=== PATIENT | female | born 1990 | race Caucasian/White ===

== ENCOUNTER 2022-02-10 13:52 | Emergency (ER) | payer MEDICAID, SELFPAY ==
[2022-02-10 14:17] VITALS: BP 108/77; PULSE 81; RESP 16; TEMP 36.3; O2SAT 97; BMI 37.8
--- NOTE | 2022-02-10 16:31 | ED_ITS ---
HPI - General Adult General Time Seen by Provider: 16:31 Date Seen: 02/10/22 Chief complaint: Allergic Reaction Stated complaint: Lump On Forehead Time Seen by Provider: 02/10/22 16:30 Source: patient Mode of arrival: ambulatory History of Present Illness HPI narrative: Libertad is a 31 year old female with past medical history of depression and anxiety, chronic lower back pain presents emergency department with an allergic reaction. Patient states she developed a rash on the right side of her face that is increased in size, there has been pain associated with it, it radiates to her right ear, she also has some itchiness of her right eye, no increased tearing, she denies any visual changes, she denies any hearing changes, she denies any facial weakness. She has not had anything like this before. She denies any fevers, chills myalgias arthralgias, no increased stress, pain has been controlled with her chronic pain medication she is on for her back pain. Patient denies any chest pain or shortness of breath, no new lotions or foods. There has not been draining but has increased in redness and size. Patient has a follow-up with her primary care provider this Thursday. Related Data Home Medications Medication Instructions Recorded Confirmed buprenorphine HCl 150 mcg buccal 150 mcg buccal Q12H 02/10/22 02/10/22 film (Belbuca) fluoxetine 40 mg capsule 80 mg PO DAILY 02/10/22 02/10/22 oxycodone 10 mg tablet 10 mg PO Q8H 02/10/22 02/10/22 propranolol 60 mg capsule,24 60 mg PO Q24H 02/10/22 02/10/22 hr,extended release Previous Rx's Medication Instructions Recorded cefuroxime axetil 500 mg tablet 500 mg PO BID 7 days #14 tabs 02/10/22 prednisone 20 mg tablet 40 mg PO DAILY 7 days #14 tabs 02/10/22 valacyclovir 1 gram tablet 1,000 mg PO Q8H 7 days #21 tabs 02/10/22 Allergies Allergy/AdvReac Type Severity Reaction Status Date / Time Estrogens Allergy Mild Verified 02/10/22 14:23 Review of Systems Status of ROS: Reports: 10 or more systems reviewed and unremarkable except as noted in History and below Exam Narrative: Exam Narrative: General: No obvious distress sitting comfortably, nontoxic in appearance HEENT: Tympanic membranes within normal limits bilateral oropharynx is clear and moist, there is no periorbital swelling or redness, extraocular muscles intact Right frontal scalp: There is an area of erythema measuring around 10 cm, very small clear vesicles present, nondraining, tender to palpation. Neck: supple full range of motion. Lungs: Clear to auscultation bilaterally Heart: Normal sinus rhythm S1-S2: Musculoskeletal: Moving upper lower extremities well any difficulty Neuro: Cranial nerves 2-12 grossly intact, symmetrical smile, no facial droop. Const: Vital Signs, click to edit/add: Vital Signs - 24 hr 02/10/22 14:17 Temperature 97.3 F L Pulse Rate [Right Pulse Oximeter] 81 Respiratory Rate 16 Blood Pressure [Ri ght Upper Arm] 108/77 Pulse Oximetry 97 Oxygen Delivery Me thod Room Air Course Course Hospital Course: 5:15 PM: AIDET performed. vitals are stable. Based on history physical exam no imaging or labs to be obtained, at this time I suspect shingles, no ocular involvement, place her on valacyclovir 1000 mg t.i.d. over the next 7 days, she also be placed on prednisone 40 mg during that time, will also cover her for possible underlying bacterial infection, cefuroxime axetil 500 mg b.i.d. over the next 7 days. Written instructions given, reasons to return were given. Patient has followup this Thursday with primary care provider. Vital Signs Vital signs: Initial Vital Signs Temperature 97.3 F L 02/10/22 14:17 Temperature Source Temporal Artery Scan 02/10/22 14:17 Pulse Rate 81 02/10/22 14:17 Pulse Rhythm 02/10/22 14:17 Respiratory Rate 16 02/10/22 14:17 Blood Pressure 108/77 02/10/22 14:17 Blood Pressure Mean 87 02/10/22 14:17 Blood Pressure Position Sitting 02/10/22 14:17 Pulse Oximetry 97 02/10/22 14:17 Oxygen Delivery Method 02/10/22 14:17 Vital Signs Temperature 97.3 F L 02/10/22 14:17 Pulse Rate 81 02/10/22 14:17 Respiratory Rate 16 02/10/22 14:17 Blood Pressure 108/77 02/10/22 14:17 Pulse Oximetry 97 02/10/22 14:17 Oxygen Delivery Method 02/10/22 14:17 Temperature 97.3 F L 02/10/22 14:17 Pulse Rate 81 02/10/22 14:17 Respiratory Rate 16 02/10/22 14:17 Blood Pressure 108/77 02/10/22 14:17 Pulse Oximetry 97 02/10/22 14:17 Oxygen Delivery Method 02/10/22 14:17 Discharge Plan Discharge Clinical Impression: Facial rash Patient Disposition: Home, Self-Care Condition: Improved Instructions: Acute Rash (ED) Additional Instructions: Valacyclovir 1000 mg three times daily for 7 days. To also continue with Cefuroxime axetil, 500 mg twice daily for 7 days. Prednisone 40 mg once daily over the next 7 days. Follow up as scheduled with primary care provider this Thursday. Return if worsening symptoms. Prescriptions: New valacyclovir 1 gram tablet 1,000 mg PO Q8H 7 Days Qty: 21 2RF cefuroxime axetil 500 mg tablet 500 mg PO BID 7 Days Qty: 14 0RF prednisone 20 mg tablet 40 mg PO DAILY 7 Days Qty: 14 0RF No Action oxycodone 10 mg tablet 10 mg PO Q8H Label Comments: TAKE ONE TABLET BY MOUTH EVERY SIX TO EIGHT HOURS NEEDED FOR CHRONIC PAIN. MAX OF 3 TABLETS DAILY. buprenorphine HCl [Belbuca] 150 mcg film 150 mcg buccal Q12H fluoxetine 40 mg capsule 80 mg PO DAILY Label Comments: Take 2 Capsules (80 mg) by mouth every morning. propranolol 60 mg capsule,extended release 24 hr 60 mg PO Q24H Label Comments: Take 1 Capsule (60 mg) by mouth once daily. Stand Alone Forms: [facility] Info Instructions
== END 2022-02-10 17:28 | disposition home or self-care (01) ==
LOC: ED 17:26
PROVIDERS: Emergency Provider Student in an Organized Health Care Education/Training Program; PCP Physician Assistant
DX: R21 Rash and other nonspecific skin eruption (principal)
CPT/HCPCS: 99283

== ENCOUNTER 2022-02-12 11:52 | Emergency (ER) | payer MEDICAID, SELFPAY ==
[2022-02-12 11:57] VITALS: BP 134/86; PULSE 88; RESP 18; TEMP 36.3; O2SAT 99; BMI 37.8
--- NOTE | 2022-02-12 12:05 | ED.GENADULT ---
HPI - General Adult General Time Seen by Provider: 12:05 Date Seen: 02/12/22 Chief complaint: Skin/Abscess/Foreign Body Stated complaint: Lump on forehead, swelling under eyes Time Seen by Provider: 02/12/22 11:55 Source: patient Mode of arrival: ambulatory Limitations: no limitations History of Present Illness HPI narrative: Patient is a 31-year-old female was seen a few da ago in the ER and started on valacyclovir, prednisone, antibiotic for a facial rash on her forehead. She has noticed a little bit of swelling under the eyes as well but it has affected her eyes. It was a concern that if she had shingles could get in her eyes and she should return she does not notice any problem with her eyes currently and she feels that the rash area which is about quarter size on her right forehead is healing. Related Data Home Medications Medication Instructions Recorded Confirmed buprenorphine HCl 150 mcg buccal 150 mcg buccal Q12H 02/10/22 02/10/22 film (Belbuca) fluoxetine 40 mg capsule 80 mg PO DAILY 02/10/22 02/10/22 oxycodone 10 mg tablet 10 mg PO Q8H 02/10/22 02/10/22 propranolol 60 mg capsule,24 60 mg PO Q24H 02/10/22 02/10/22 hr,extended release Previous Rx's Medication Instructions Recorded cefuroxime axetil 500 mg tablet 500 mg PO BID 7 days #14 tabs 02/10/22 prednisone 20 mg tablet 40 mg PO DAILY 7 days #14 tabs 02/10/22 valacyclovir 1 gram tablet 1,000 mg PO Q8H 7 days #21 tabs 02/10/22 Allergies Allergy/AdvReac Type Severity Reaction Status Date / Time Estrogens Allergy Mild Verified 02/10/22 14:23 Review of Systems Narrative: Negative for fevers, eye pain, vision problems, facial changes other than above PFSH PFSH Social History Smoking Status: Unknown if ever smoked Exam Narrative: Exam Narrative: Objective: Vital signs unremarkable, patient is in no apparent distress HEENT shows a quarter-sized healing cellulitic area with a little bit of blistering in the middle which could certainly be shingles as well. She is on valacyclovir No eye involvement Some subjective swelling under the eyes in the lower eyelids bilaterally per the patient, I do not appreciate any significant swelling Const: Vital Signs, click to edit/add: Vital Signs - 24 hr 02/12/22 11:57 Temperature 97.3 F L Pulse Rate [Right Pulse Oximeter] 88 Respiratory Rate 18 Blood Pressure [Ri ght Upper Arm] 134/86 Pulse Oximetry 99 Oxygen Delivery Me thod Room Air Course Vital Signs Vital signs: Initial Vital Signs Temperature 97.3 F L 02/12/22 11:57 Temperature Source Temporal Artery Scan 02/12/22 11:57 Pulse Rate 88 02/12/22 11:57 Respiratory Rate 18 02/12/22 11:57 Blood Pressure 134/86 02/12/22 11:57 Blood Pressure Mean 102 02/12/22 11:57 Blood Pressure Position Sitting 02/12/22 11:57 Pulse Oximetry 99 02/12/22 11:57 Oxygen Delivery Method 02/12/22 11:57 Vital Signs Temperature 97.3 F L 02/12/22 11:57 Pulse Rate 88 02/12/22 11:57 Respiratory Rate 18 02/12/22 11:57 Blood Pressure 134/86 02/12/22 11:57 Pulse Oximetry 99 02/12/22 11:57 Oxygen Delivery Method 02/12/22 11:57 Temperature 97.3 F L 02/12/22 11:57 Pulse Rate 88 02/12/22 11:57 Respiratory Rate 18 02/12/22 11:57 Blood Pressure 134/86 02/12/22 11:57 Pulse Oximetry 99 02/12/22 11:57 Oxygen Delivery Method 02/12/22 11:57 Medical Decision Making MDM Narrative Medical decision making narrative: I think the patient is healing her forehead cellulitis, she could also have a early course of shingles that was appropriately treated with valacyclovir prednisone and antibiotic. She seems to be getting better I would recommend warm compresses or hot water shower couple times a day continue and finish her medication, follow up with primary care doctor next 3-5 days if not better, can return to the ED sooner problems or concerns Discharge Plan Discharge Clinical Impression: Facial rash Patient Disposition: Home, Self-Care Condition: Stable Additional Instructions: Continue and finish the medications prescribed at her last visit, would recommend warm compresses or standing in the shower to put heat on that area of her forehead. It does appear that area is healing Activity Level: No Restrictions Discharge Diet: Regular Prescriptions: No Action oxycodone 10 mg tablet 10 mg PO Q8H Label Comments: TAKE ONE TABLET BY MOUTH EVERY SIX TO EIGHT HOURS NEEDED FOR CHRONIC PAIN. MAX OF 3 TABLETS DAILY. buprenorphine HCl [Belbuca] 150 mcg film 150 mcg buccal Q12H fluoxetine 40 mg capsule 80 mg PO DAILY Label Comments: Take 2 Capsules (80 mg) by mouth every morning. propranolol 60 mg capsule,extended release 24 hr 60 mg PO Q24H Label Comments: Take 1 Capsule (60 mg) by mouth once daily. valacyclovir 1 gram tablet 1,000 mg PO Q8H 7 Days Qty: 21 2RF cefuroxime axetil 500 mg tablet 500 mg PO BID 7 Days Qty: 14 0RF prednisone 20 mg tablet 40 mg PO DAILY 7 Days Qty: 14 0RF Follow Up/Referrals: Eve King PA [Primary Care Provider] - Stand Alone Forms: [facility] Info Instructions
== END 2022-02-12 12:23 | disposition home or self-care (01) ==
PROVIDERS: Emergency Provider Family Medicine; PCP Physician Assistant
DX: R21 Rash and other nonspecific skin eruption (principal)
CPT/HCPCS: 99282; 99283

== ENCOUNTER 2022-06-17 16:21 | Emergency (ER) | payer MEDICAID, SELFPAY ==
[2022-06-17] VITALS (21 sets, daily range): BP systolic 104–157; BP diastolic 56–113; PULSE 68–93; TEMP 37.1–37.4; O2SAT 96–100; BMI 37.8
[2022-06-17 16:47] LABS: Appearance Urine Slightly Cloudy (Clear); Bilirubin Urine Negative (Negative); Blood Urine Negative (Negative); Color Urine Yellow (Yellow); Glucose Urine Negative (Negative); Ketones Urine Negative (Negative); Leukocyte Esterase Urine Negative (Negative); Nitrite Urine Negative (Negative); Protein Urine Negative (Negative); Specific Gravity Urine 1.015 (1.000-1.030); Urobilinogen Urine 0.2 (0.2-1.0); pH Urine 5.5 (5.0-8.5)
[2022-06-17 17:13] LABS: RBC Urine 0-2 (0-2); Squamous Epithelial Cell Urine Few (None-Few); WBC Urine 0-2 (0-5)
[2022-06-17 17:41] LABS: HCG Qualitative* Negative (Negative)
--- NOTE | 2022-06-17 17:57 | CRLHL7_ITS ---
For Patients: As a result of the Century Cures Act, medical imaging exams and procedure reports are released immediately into your electronic medical record. You may view this report before your referring provider. If you have questions, please contact your health care provider. INDICATION: Pelvic pain TECHNIQUE: Ultrasound pelvis transvaginal for better assessment or to better visualize the endometrium. Real-time sonographic images with spectral and color Doppler imaging of the ovaries were obtained. COMPARISON: None FINDINGS: Uterus: 8.2 x 4.1 x 4.6 cm. Normal echotexture of the myometrium. No masses. Endometrium: Transvaginal imaging was performed to better evaluate the endometrium. Endometrial thickness measures 9 mm. No sign of endometrial mass or fluid. Right ovary measures 2.8 x 2.1 x 1.9 centimeters with normal blood flow. Left ovary not seen with shadowing bowel gas in the left adnexa. Cul-de-sac: No significant free fluid. IMPRESSION: 1. Unremarkable sonographic appearance of the uterus and right ovary. 2. Left ovary not seen secondary to overlying bowel gas. No gross left adnexal mass seen. Dictated by Justino Martin MD @ 06/17/2022 7:32:54 PM (Electronically Signed)
[2022-06-17] MEDS: 0.9 % SODIUM CHLORIDE 1000 ml 1,000 ML IV (18:07)
[2022-06-17 18:08] LABS: Basophils Absolute Auto 0.03 K/uL (0.00-0.30); Basophils Percent Auto 0.5 % (0.0-3.0); Eosinophils Absolute Auto 0.09 K/uL (0.00-0.50); Eosinophils Percent Auto 1.4 % (0.0-7.0); Hematocrit 40.4 % (33.0-51.0); Hemoglobin* 13.6 gm/dL (12.0-16.0); Lymphocytes Percent Auto 50.5 % (20-44); Mean Corpuscular HGB Conc 34 gm/dL (32-36); Mean Corpuscular Hemoglobin 29 pg (26-34); Mean Corpuscular Volume 86 fL (80-100); Monocytes Percent Auto 8.2 % (0.0-11.0); Neutrophils Percent Auto 39.4 % (42.0-72.0); Platelet Count* 305 K/uL (140-440); RDW Coefficient of Variation % 11.9 % (11.5-15.5); Red Blood Count 4.69 m/uL (4.00-5.20); White Blood Count* 6.36 K/uL (4.50-11.00)
[2022-06-17] MEDS: KETOROLAC 30 MG/ML inj IVP (18:08)
[2022-06-17 18:10] LABS: Slide Review Reflex No
--- NOTE | 2022-06-17 18:34 | ED.GENADULT ---
HPI - General Adult General Chief complaint: Urogenital Problems, Female Stated complaint: Lower Abdominal Pain Time Seen by Provider: 06/17/22 16:41 History of Present Illness HPI narrative: 31-year-old young woman presenting to the emergency department with complaint of sharp pelvic area pain. Feels like it goes up and down her abdomen toward her urethra. Symptoms began maybe little gradually not suddenly, about 3 days ago. She has noticed any hematuria. Does have a history of nephrolithiasis apparently. Does have a history of ovarian cysts as well. She does have Nexplanon in place placed for contraception. Has had no fever. Again not exactly dysuria but describes a sharp pain sometimes when she urinates. Feels like she is not emptying completely. Does have a history of chronic back pain typically treated with oxycodone t.i.d. as well as buprenorphine. She has been without her oxycodone for the last week needing to get back to the pain clinic for this. She does not feel that she is constipated having had daily bowel movements over the last week. Is not nauseated. Is in a monogamous relationship of about 10 years. Has little concern of potential STI. No unusual vaginal discharge is described. Related Data Home Medications Medication Instructions Recorded Confirmed buprenorphine HCl 150 mcg buccal 150 mcg buccal Q12H 02/10/22 02/10/22 film (Belbuca) fluoxetine 40 mg capsule 80 mg PO DAILY 02/10/22 02/10/22 oxycodone 10 mg tablet 10 mg PO Q8H 02/10/22 02/10/22 propranolol 60 mg capsule,24 60 mg PO Q24H 02/10/22 02/10/22 hr,extended release Previous Rx's Medication Instructions Recorded cefuroxime axetil 500 mg tablet 500 mg PO BID 7 days #14 tabs 02/10/22 prednisone 20 mg tablet 40 mg PO DAILY 7 days #14 tabs 02/10/22 valacyclovir 1 gram tablet 1,000 mg PO Q8H 7 days #21 tabs 02/10/22 Allergies Allergy/AdvReac Type Severity Reaction Status Date / Time Estrogens Allergy Mild Verified 02/10/22 14:23 Review of Systems Status of ROS: Reports: 10 or more systems reviewed and unremarkable except as noted in History and below PFSH PFS Medical History Anxiety Chronic back pain Depression Kidney stone Surgical History History of delivery History of cholecystectomy Social History Smoking Status: Never smoker How often do you have a drink containing alcohol: monthly or less AUDIT-C Alcohol total score: 1 Non-prescribed substance use: denies use Exam Narrative: Exam Narrative: Pleasant. NAD but appears uncomfortable. Seated upright with her and pressed into her pelvis more so in the right I would say. Breathing easily. Carefully casually groomed. Has hair dyed teal. Skin is warm and dry without evidence of rash. Extremities are well perfused without edema. Lungs are clear. Heart appears to be in a regular rate and rhythm. Abdomen with normoactive bowel sounds is soft overweight. She is mildly tender in the right lower quadrant/adnexal area and a little less so in the left. No masses are appreciated. Little tender in the suprapubic area centrally as well. Tender to percussion in the right flank. Const: Vital Signs, click to edit/add: Vital Signs - 24 hr 06/17/22 16:28 06/17/22 17:30 06/17/22 17:57 Temperature 99.4 F 98.7 F Pulse Rate Pulse Rate [Right Pulse Oximeter] 93 89 Blood Pressure Blood Pressure [Ri ght Upper Arm] 157/113 H 126/82 Pulse Oximetry 98 97 97 Oxygen Delivery Me thod Room Air Room Air 06/17/22 18:05 06/17/22 18:06 06/17/22 18:07 Temperature Pulse Rate 82 74 79 Pulse Rate [Right Pulse Oximeter] Blood Pressure 119/74 Blood Pressure [Ri ght Upper Arm] Pulse Oximetry 97 97 97 Oxygen Delivery Me thod 06/17/22 18:38 06/17/22 18:39 06/17/22 19:00 Temperature Pulse Rate 75 80 86 Pulse Rate [Right Pulse Oximeter] Blood Pressure 108/67 Blood Pressure [Ri ght Upper Arm] Pulse Oximetry 97 96 97 Oxygen Delivery Me thod 06/17/22 19:02 06/17/22 19:03 06/17/22 19:30 Temperature Pulse Rate 84 85 87 Pulse Rate [Right Pulse Oximeter] Blood Pressure 126/78 Blood Pressure [Ri ght Upper Arm] Pulse Oximetry 99 98 99 Oxygen Delivery Me thod 06/17/22 19:32 06/17/22 20:00 06/17/22 20:02 Temperature Pulse Rate 89 78 76 Pulse Rate [Right Pulse Oximeter] Blood Pressure 123/84 110/67 Blood Pressure [Ri ght Upper Arm] Pulse Oximetry 100 98 98 Oxygen Delivery Me thod 06/17/22 20:03 06/17/22 20:30 06/17/22 20:32 Temperature Pulse Rate 86 74 69 Pulse Rate [Right Pulse Oximeter] Blood Pressure 104/56 L Blood Pressure [Ri ght Upper Arm] Pulse Oximetry 98 97 97 Oxygen Delivery Me thod 06/17/22 21:00 06/17/22 21:02 06/17/22 21:03 Temperature Pulse Rate 73 71 68 Pulse Rate [Right Pulse Oximeter] Blood Pressure 104/59 L Blood Pressure [Ri ght Upper Arm] Pulse Oximetry 98 97 97 Oxygen Delivery Me thod Documenting provider has reviewed patient's vital signs: yes Course Vital Signs Vital signs: Initial Vital Signs Temperature 99.4 F 06/17/22 16:28 Temperature Source Temporal Artery Scan 06/17/22 16:28 Pulse Rate 93 06/17/22 16:28 Blood Pressure 157/113 H 06/17/22 16:28 Blood Pressure Mean 127 06/17/22 16:28 Blood Pressure Position Sitting 06/17/22 16:28 Pulse Oximetry 98 06/17/22 16:28 Oxygen Delivery Method 06/17/22 16:28 Vital Signs Temperature 99.4 F 06/17/22 16:28 Pulse Rate 93 06/17/22 16:28 Blood Pressure 157/113 H 06/17/22 16:28 Pulse Oximetry 98 06/17/22 16:28 Oxygen Delivery Method 06/17/22 16:28 Temperature 98.7 F 06/17/22 17:30 Pulse Rate 68 06/17/22 21:03 Blood Pressure 104/59 L 06/17/22 21:02 Pulse Oximetry 97 06/17/22 21:03 Oxygen Delivery Method 06/17/22 17:30 Medical Decision Making MDM Narrative Medical decision making narrative: Urinalysis was available as WNL prior to entering the room for discussion. Proceeded then with bladder scan which resulted at about 8 mL. IV was placed given L normal saline and ketorolac. Proceeded then with labs and pelvic ultrasound. Has spoken already with medical transcriber who noted that the left ovary was not visualized due to significant gas. Generally difficult imaging across the pelvis due to stool and gas. Pain seemed to be associated with this as opposed to truly adnexal. Labs are unremarkable, at least not overtly suggesting infectious or major inflammatory process. Returning from ultrasound has had more pain in request some pain medication of possible. I go to talk with her about this. Ordered for Dilaudid and hyoscyamine. This does improve her discomfort a good deal. We also do an abdominal x-ray as I think CT imaging is probably low yield in this circumstance. In spite of reporting regular bowel movements a do have some concerns about potential constipation. Abdominal x-ray by my read does show a good deal of well-formed stool stool in the in the colon/pelvis. She would prefer to address this matter at home. Discomfort is manageable. Does have senna available at home Lab Data Lab results reviewed: Yes I reviewed the patient's lab results Labs: Lab Results 06/17/22 06/17/22 06/17/22 Range/Units 16:41 17:30 18:00 WBC 6.36 (4.50-11.00) K/uL RBC 4.69 (4.00-5.20) m/uL Hgb 13.6 (12.0-16.0) gm/dL Hct 40.4 (33.0-51.0) % MCV 86 (80-100) fL MCH 29 (26-34) pg MCHC 34 (32-36) gm/dL RDW Coeff of Stefan 11.9 (11.5-15.5) % Plt Count 305 (140-440) K/uL Neut % (Auto) 39.4 L (42.0-72.0) % Lymph % (Auto) 50.5 H (20-44) % [place] % (Auto) 8.2 (0.0-11.0) % Eos % (Auto) 1.4 (0.0-7.0) % Baso % (Auto) 0.5 (0.0-3.0) % Neut # (Auto) 2.50 (1.7-7.0) K/uL Lymph # (Auto) 3.20 H (0.90-2.90) K/uL [place] # (Auto) 0.50 (0.00-0.90) K/UL Eos # (Auto) 0.09 (0.00-0.50) K/uL Baso # (Auto) 0.03 (0.00-0.30) K/uL Sodium (135-149) mmol/L Potassium (3.6-5.1) mmol/L Chloride (96-114) mmol/L Carbon Dioxide (20-32) mmol/L BUN (5-24) mg/dL Creatinine (0.5-1.5) mg/dL Estimated Creat Clear Estimated GFR ml/min Glucose (60-115) mg/dL Calcium (8.4-10.6) mg/dL Total Bilirubin (0.1-1.5) mg/dL Direct Bilirubin (0.0-0.5) mg/dL AST (12-35) U/L ALT (4-35) U/L Alkaline Phosphatase (40-150) U/L C-Reactive Protein (0.5-1.0) mg/dL Total Protein (6.0-8.3) g/dL Albumin (3.3-5.0) g/dL HCG, Qual Negative (Negative) Urine Color Yellow (Yellow) Urine Appearance Slightly Cloudy A (Clear) Urine pH 5.5 (5.0-8.5) Ur Specific [place] 1.015 (1.000-1.030) Urine Protein Negative (Negative) Urine Glucose (UA) Negative (Negative) Urine Ketones Negative (Negative) Urine Blood Negative (Negative) Urine Nitrite Negative (Negative) Urine Bilirubin Negative (Negative) Urine Urobilinogen 0.2 (0.2-1.0) Ur Leukocyte Esterase Negative (Negative) Urine RBC 0-2 (0-2) Urine WBC 0-2 (0-5) Ur Squamous Epith Cells Few (None-Few) Urine Bacteria None (None) Urine HCG, Qual Cancelled 06/17/22 Range/Units 18:00 WBC (4.50-11.00) K/uL RBC (4.00-5.20) m/uL Hgb (12.0-16.0) gm/dL Hct (33.0-51.0) % MCV (80-100) fL MCH (26-34) pg MCHC (32-36) gm/dL RDW Coeff of Stefan (11.5-15.5) % Plt Count (140-440) K/uL Neut % (Auto) (42.0-72.0) % Lymph % (Auto) (20-44) % [place] % (Auto) (0.0-11.0) % Eos % (Auto) (0.0-7.0) % Baso % (Auto) (0.0-3.0) % Neut # (Auto) (1.7-7.0) K/uL Lymph # (Auto) (0.90-2.90) K/uL [place] # (Auto) (0.00-0.90) K/UL Eos # (Auto) (0.00-0.50) K/uL Baso # (Auto) (0.00-0.30) K/uL Sodium 137 (135-149) mmol/L Potassium 4.0 (3.6-5.1) mmol/L Chloride 106 (96-114) mmol/L Carbon Dioxide 23 (20-32) mmol/L BUN 12 (5-24) mg/dL Creatinine 0.7 (0.5-1.5) mg/dL Estimated Creat Clear 89.48 Estimated GFR 120 ml/min Glucose 83 (60-115) mg/dL Calcium 8.8 (8.4-10.6) mg/dL Total Bilirubin 0.5 (0.1-1.5) mg/dL Direct Bilirubin 0.0 (0.0-0.5) mg/dL AST 27 (12-35) U/L ALT 22 (4-35) U/L Alkaline Phosphatase 74 (40-150) U/L C-Reactive Protein < 0.5 L (0.5-1.0) mg/dL Total Protein 7.3 (6.0-8.3) g/dL Albumin 4.3 (3.3-5.0) g/dL HCG, Qual (Negative) Urine Color (Yellow) Urine Appearance (Clear) Urine pH (5.0-8.5) Ur Specific [place] (1.000-1.030) Urine Protein (Negative) Urine Glucose (UA) (Negative) Urine Ketones (Negative) Urine Blood (Negative) Urine Nitrite (Negative) Urine Bilirubin (Negative) Urine Urobilinogen (0.2-1.0) Ur Leukocyte Esterase (Negative) Urine RBC (0-2) Urine WBC (0-5) Ur Squamous Epith Cells (None-Few) Urine Bacteria (None) Urine HCG, Qual Discharge Plan Discharge Clinical Impression: Abdominal pain, Constipation Patient Disposition: Home w/ Parent or Adult Condition: Improved Additional Instructions: Yes. Especially since you take opiates it would probably be a good idea to take senna for now twice a day to stimulate your gut. Probably need to increase your free water intake. Most of us should be drinking 2-3 L of water daily. Increasing fiber in your diet is almost always a good thing. MiraLax equivalent does a similar thing to fiber by drawing water into your gut. I would consider taking 2-3 doses of that by noon over this next week and then adjusting to stool consistency. Especially if you are experiencing hard stool, place an enema and repeat in an hour if no significant result. If Mag citrate is available, I would also drink a bottle of that and repeat it the next day if you have not had a good result. This can be particularly effective with bowel cleanout. Otherwise return for marked increase in persistent pain, especially associated repeated vomiting, associated fever. Prescriptions: No Action oxycodone 10 mg tablet 10 mg PO Q8H Label Comments: TAKE ONE TABLET BY MOUTH EVERY SIX TO EIGHT HOURS NEEDED FOR CHRONIC PAIN. MAX OF 3 TABLETS DAILY. buprenorphine HCl [Belbuca] 150 mcg film 150 mcg buccal Q12H fluoxetine 40 mg capsule 80 mg PO DAILY Label Comments: Take 2 Capsules (80 mg) by mouth every morning. propranolol 60 mg capsule,extended release 24 hr 60 mg PO Q24H Label Comments: Take 1 Capsule (60 mg) by mouth once daily. valacyclovir 1 gram tablet 1,000 mg PO Q8H 7 Days Qty: 21 2RF cefuroxime axetil 500 mg tablet 500 mg PO BID 7 Days Qty: 14 0RF prednisone 20 mg tablet 40 mg PO DAILY 7 Days Qty: 14 0RF Follow Up/Referrals: Eve King PA [Primary Care Provider] - Stand Alone Forms: [facility] Info Instructions
[2022-06-17 18:50] LABS: Sodium* 137 mmol/L (135-149)
[2022-06-17 18:51] LABS: Blood Urea Nitrogen* 12 mg/dL (5-24); Calcium* 8.8 mg/dL (8.4-10.6); Carbon Dioxide* 23 mmol/L (20-32); Chloride* 106 mmol/L (96-114); Creatinine* 0.7 mg/dL (0.5-1.5); Est. Creatinine Clearance* 89.48; Estimated Glomerular Filt Rate 120 ml/min
[2022-06-17 18:52] LABS: Alanine Aminotransferase* 22 U/L (4-35); Albumin* 4.3 g/dL (3.3-5.0); Alkaline Phosphatase* 74 U/L (40-150); Aspartate Amino Transferase* 27 U/L (12-35); Bilirubin Total* 0.5 mg/dL (0.1-1.5); C Reactive Protein* < 0.5 mg/dL (0.5-1.0); Glucose* 83 mg/dL (60-115); Total Protein* 7.3 g/dL (6.0-8.3)
--- NOTE | 2022-06-17 19:37 | CRLHL7_ITS ---
For Patients: As a result of the Century Cures Act, medical imaging exams and procedure reports are released immediately into your electronic medical record. You may view this report before your referring provider. If you have questions, please contact your health care provider. Indication: Lower abdominal pain Technique: Abdomen 1 view, 2 films Comparison: None Findings/Impression: No dilated loops of large or small intestine. Moderate to large amount of stool within the colon. Right upper quadrant surgical clips. Dictated by Justino Martin MD @ 06/17/2022 8:49:29 PM (Electronically Signed)
[2022-06-17] MEDS: HYOSCYAMINE SULFATE 0.125 MG TAB 0.25 MG SUBLINGUAL (20:03)
[2022-06-17] MEDS: HYDROmorphone 0.5 mg/0.5 ml inj IVP (20:15)
--- NOTE | 2022-06-17 20:15 | ED.NURSE ---
Discussed with pt that she would need someone to give her a ride home prior to giving pt IV Dilaudid. Pt agreeable to this, stated she has someone that would pick her up to give her a ride home when she is discharged.
== END 2022-06-17 21:31 | disposition home or self-care (01) ==
PROVIDERS: Emergency Provider Family Medicine; PCP Physician Assistant
DX: R10.9 Unspecified abdominal pain (principal); K59.00 Constipation, unspecified
CPT/HCPCS: 36415; 74018; 76830; 80048; 80076; 81001; 81025; 84703; 85025; 86140; 94761; 96374; 96375; 99284; 99285; A9270; J1170; J1885; J7030

== ENCOUNTER 2022-06-23 23:12 | Emergency (ER) | payer MEDICAID, SELFPAY ==
[2022-06-23 23:25] VITALS: O2SAT 99
[2022-06-23 23:27] VITALS: BP 125/82; PULSE 92; RESP 18; O2SAT 99
[2022-06-23 23:44] VITALS: BP 165/78; PULSE 89; RESP 18; TEMP 36.8; O2SAT 99; BMI 35.4
--- NOTE | 2022-06-24 00:13 | CRLHL7_ITS ---
For Patients: As a result of the Century Cures Act, medical imaging exams and procedure reports are released immediately into your electronic medical record. You may view this report before your referring provider. If you have questions, please contact your health care provider. INDICATION: Abdominal pain. COMPARISON: CT of the abdomen and pelvis without contrast from 05/10/2021. TECHNIQUE: CT examination of the abdomen and pelvis was performed with the uneventful intravenous administration of 100 cc of Isovue 370 while 3 mm thick axial sections were obtained from the lung bases through the pubic symphysis. Oral contrast was not administered. Please note that all CT scans at this facility use dose modulation, iterative reconstruction, and/or weight-based dosing when appropriate to reduce radiation dose to as low as reasonably achievable. FINDINGS: In the abdomen, the liver, spleen, pancreas, and adrenals are normal in appearance. There is no change in minimal nonobstructive left nephrolithiasis with a 1 millimeter calculus located in the lower interpolar region. The previously seen minimal nonobstructive right nephrolithiasis is no longer evident, with the previously seen calculus in the lower pole of the right kidney in no longer identifiable. New there is no sign of hydronephrosis or hydroureter. Clips are again seen in the gall bladder fossa from cholecystectomy. There is no sign of biliary ductal dilatation. The abdominal aorta is normal in caliber with no sign of dilatation. There is no sign of retroperitoneal mass or adenopathy. The stomach, loops of small bowel, and colon in the abdomen are normal in appearance. In the pelvis, the appendix is normal in appearance with no sign of inflammatory process. The loops of small bowel, colon, and rectum in the pelvis are normal in appearance. The uterus and adnexal regions are normal in appearance. The urinary bladder is normal in appearance. The previously seen tiny calculus in the right posterior paramedian bladder is no longer present. There is no sign of pelvic or inguinal mass or adenopathy. There is no sign of free air or free fluid in the abdomen or pelvis. The lung bases are clear. The osseous structures are normal in appearance for the patient`s age. IMPRESSION: Nothing seen to correlate with the history of abdominal pain. No sign of bowel dilatation or any inflammatory process involving the bowel. CT of the abdomen shows stable minimal left nephrolithiasis. The previously seen minimal right nephrolithiasis is no longer present. Again seen are changes of cholecystectomy with no sign of biliary ductal dilatation CT of the pelvis shows passage of the previously seen tiny bladder calculus. Please note that all CT scans at this facility use dose modulation, iterative reconstruction, and/or weight-based dosing when appropriate to reduce radiation dose to as low as reasonably achievable. Dictated by Bean Pruett MD @ 06/24/2022 1:51:36 AM (Electronically Signed)
[2022-06-24 00:30] VITALS: TEMP 36.8
[2022-06-24] MEDS: 0.9 % SODIUM CHLORIDE 1000 ml 1,000 ML IV (00:30)
[2022-06-24] MEDS: KETOROLAC 30 MG/ML inj IVP (00:30)
[2022-06-24] MEDS: MORPHINE 4 MG/ML INJ IVP (00:32)
[2022-06-24 00:39] VITALS: BP 111/66; PULSE 77; RESP 18; O2SAT 98
[2022-06-24 00:46] LABS: Chloride* 107 mmol/L (96-114); Sodium* 138 mmol/L (135-149)
[2022-06-24 00:49] LABS: Creatinine* 0.8 mg/dL (0.5-1.5); Est. Creatinine Clearance* 85.83; Estimated Glomerular Filt Rate 102 ml/min
[2022-06-24 00:50] LABS: Blood Urea Nitrogen* 13 mg/dL (5-24); Calcium* 9.1 mg/dL (8.4-10.6); Carbon Dioxide* 25 mmol/L (20-32); Glucose* 83 mg/dL (60-115)
[2022-06-24 01:02] VITALS: BP 105/63; PULSE 81; RESP 18; O2SAT 98
[2022-06-24 01:02] LABS: C Reactive Protein* < 0.5 mg/dL (0.5-1.0)
[2022-06-24 01:03] LABS: Basophils Absolute Auto 0.04 K/uL (0.00-0.30); Basophils Percent Auto 0.5 % (0.0-3.0); Eosinophils Absolute Auto 0.15 K/uL (0.00-0.50); Eosinophils Percent Auto 1.9 % (0.0-7.0); Hematocrit 38.1 % (33.0-51.0); Hemoglobin* 12.8 gm/dL (12.0-16.0); Immature Granulocytes Abs Auto 0.01 K/uL (0.00-0.30); Immature Granulocytes Pct Auto 0.1 %; Lymphocytes Percent Auto 51.9 % (20-44); Mean Corpuscular HGB Conc 34 gm/dL (32-36); Mean Corpuscular Hemoglobin 29 pg (26-34); Mean Corpuscular Volume 86 fL (80-100); Monocytes Percent Auto 6.5 % (0.0-11.0); Neutrophils Percent Auto 39.1 % (42.0-72.0); Platelet Count* 334 K/uL (140-440); Red Blood Count 4.41 m/uL (4.00-5.20)
[2022-06-24 01:11] LABS: Slide Review Reflex No
[2022-06-24 01:11] LABS: Appearance Urine Clear (Clear); Bilirubin Urine Negative (Negative); Blood Urine 1+ (Negative); Color Urine Yellow (Yellow); Glucose Urine Negative (Negative); HCG Qualitative* Negative (Negative); Ketones Urine Negative (Negative); Leukocyte Esterase Urine Negative (Negative); Nitrite Urine Negative (Negative); Protein Urine Negative (Negative); Urobilinogen Urine 0.2 (0.2-1.0)
[2022-06-24 02:02] VITALS: BP 103/67; PULSE 75; RESP 18; O2SAT 98
[2022-06-24 02:56] LABS: Squamous Epithelial Cell Urine Few (None-Few); WBC Urine 0-2 (0-5)
[2022-06-24 02:57] LABS: Mucus Urine Few
[2022-06-24 03:15] VITALS: BP 165/78; PULSE 89; RESP 18; TEMP 36.8
--- NOTE | 2022-06-24 09:54 | ED_ITS ---
HPI - Abdominal Pain General Chief Complaint: Abdominal Pain Stated Complaint: abdominal pain Time Seen by Provider: 06/23/22 23:26 History of Present Illness HPI narrative: 31-year-old young woman presenting to the emergency department with her mother with complaint of sharp pain in the left lower abdomen holding her left pelvic/adnexal area. She feels like it is radiating into her cervix at this point. Both she and her mother absolutely deny possibility of STI and no unusual vaginal discharge is noted. When seen by myself with similar complaint though more so on the right side, last week diagnosed with constipation related pain. She initiated senna as she had that around and subsequently has been having diarrheal bowel movements. Has not had a bowel movement in the last day though. Has not had any fever. Imaging last week included ultrasound and x- ray. Ultrasound visualization of the left ovary was complicated as obscured by bowel/gas. Does have an underlying history of chronic back pain treated with buprenorphine and oxycodone. Had been out of her oxycodone at last visit and has since restarted. Does also have a history of nephrolithiasis and ovarian cysts. Related Data Home Medications Medication Instructions Recorded Confirmed buprenorphine HCl 150 mcg buccal 150 mcg buccal Q12H 02/10/22 02/10/22 film (Belbuca) fluoxetine 40 mg capsule 80 mg PO DAILY 02/10/22 02/10/22 oxycodone 10 mg tablet 10 mg PO Q8H 02/10/22 02/10/22 propranolol 60 mg capsule,24 60 mg PO Q24H 02/10/22 02/10/22 hr,extended release Previous Rx's Medication Instructions Recorded cefuroxime axetil 500 mg tablet 500 mg PO BID 7 days #14 tabs 02/10/22 prednisone 20 mg tablet 40 mg PO DAILY 7 days #14 tabs 02/10/22 valacyclovir 1 gram tablet 1,000 mg PO Q8H 7 days #21 tabs 02/10/22 Allergies Allergy/AdvReac Type Severity Reaction Status Date / Time Estrogens Allergy Mild Verified 06/24/22 00:34 Review of Systems Status of ROS Reports: 10 or more systems reviewed and unremarkable except as noted in History and below PFSH PFSH Medical History Anxiety Chronic back pain Depression Kidney stone Surgical History History of delivery History of cholecystectomy Social History Smoking Status: Never smoker How often do you have a drink containing alcohol: monthly or less AUDIT-C Alcohol total score: 1 Non-prescribed substance use: denies use Exam Narrative: Exam Narrative: Pleasant. Seems rather uncomfortable. Seated up in bed with hands at left adnexal area. Hair is dyed blue green. Carefully casually groomed. Breathing at times in the somewhat splinted manner. Lungs appear to be clear. There is no stridor. Heart with elevated rate in regular rhythm. Abdomen normoactive shirley wel sounds overweight soft and moderately tender, and without without peritoneal signs, in the left low abdomen. No flank pain. Extremities are well perfused without edema. Cranial nerves 2-12 look to be intact. Const: Vital Signs, click to edit/add: Vital Signs - 24 hr 06/23/22 23:44 06/24/22 00:30 06/23/22 23:25 Temperature 98.2 F 98.2 F Pulse Rate Pulse Rate [Right Pulse Oximeter] 89 Respiratory Rate 18 Blood Pressure Blood Pressure [Ri ght Upper Arm] 165/78 H Pulse Oximetry 99 99 Oxygen Delivery Me thod Room Air 06/23/22 23:27 06/24/22 00:39 06/24/22 01:02 Temperature Pulse Rate 92 77 81 Pulse Rate [Right Pulse Oximeter] Respiratory Rate 18 18 18 Blood Pressure 125/82 111/66 105/63 Blood Pressure [Ri ght Upper Arm] Pulse Oximetry 99 98 98 Oxygen Delivery Me thod 06/24/22 02:02 06/24/22 03:15 Temperature 98.2 F Pulse Rate 75 Pulse Rate [Right Pulse Oximeter] 89 Respiratory Rate 18 18 Blood Pressure 103/67 Blood Pressure [Ri ght Upper Arm] 165/78 H Pulse Oximetry 98 Oxygen Delivery Me thod Documenting provider has reviewed patient's vital signs: yes Course Vital Signs Vital signs: Initial Vital Signs Pulse Oximetry 99 06/23/22 23:25 Vital Signs Pulse Oximetry 99 06/23/22 23:25 Temperature 98.2 F 06/24/22 03:15 Pulse Rate 89 06/24/22 03:15 Respiratory Rate 18 06/24/22 03:15 Blood Pressure 165/78 H 06/24/22 03:15 Pulse Oximetry 98 06/24/22 02:02 Oxygen Delivery Method 06/23/22 23:44 MDM - Abdominal Pain MDM Narrative Medical decision making narrative: Would same time to do further imaging. Diverticulitis would still be a possibility along with nephrolithiasis. Perhaps a large ovarian cyst has a developed in the interim. IV was established. Anticipating IV contrasted scan. Given ketorolac morphine and Zofran and normal saline. Discomfort is overall improved though still present. Labs were overall reassuring. Comparison of CT showed resolution from 2020 of right-sided lower pole renal stone as well as bladder calculus. Remain some small stones in the left kidney. No hydronephrosis was appreciated. Urinalysis however did show 5-10 red cells without evidence of infection on urinalysis CT scan would seem to indicate no major adnexal issue. Unclear etiology to this pain at this time. Medical Records Attestation: I reviewed the patient's medical records. Lab Data Attestation: I reviewed the patient's lab results. Labs: Lab Results 06/24/22 06/24/22 06/24/22 Range/Units 00:14 00:20 00:20 WBC 7.70 (4.50-11.00) K/uL RBC 4.41 (4.00-5.20) m/uL Hgb 12.8 (12.0-16.0) gm/dL Hct 38.1 (33.0-51.0) % MCV 86 (80-100) fL MCH 29 (26-34) pg MCHC 34 (32-36) gm/dL RDW Coeff of Stefan 12.0 (11.5-15.5) % Plt Count 334 (140-440) K/uL Neut % (Auto) 39.1 L (42.0-72.0) % Lymph % (Auto) 51.9 H (20-44) % [place] % (Auto) 6.5 (0.0-11.0) % Eos % (Auto) 1.9 (0.0-7.0) % Baso % (Auto) 0.5 (0.0-3.0) % Neut # (Auto) 3.00 (1.7-7.0) K/uL Lymph # (Auto) 4.00 H (0.90-2.90) K/uL [place] # (Auto) 0.50 (0.00-0.90) K/UL Eos # (Auto) 0.15 (0.00-0.50) K/uL Baso # (Auto) 0.04 (0.00-0.30) K/uL Sodium 138 (135-149) mmol/L Potassium 4.0 (3.6-5.1) mmol/L Chloride 107 (96-114) mmol/L Carbon Dioxide 25 (20-32) mmol/L BUN 13 (5-24) mg/dL Creatinine 0.8 (0.5-1.5) mg/dL Estimated Creat Clear 85.83 Estimated GFR 102 ml/min Glucose 83 (60-115) mg/dL Calcium 9.1 (8.4-10.6) mg/dL C-Reactive Protein < 0.5 L (0.5-1.0) mg/dL HCG, Qual Negative (Negative) Urine Color Yellow (Yellow) Urine Appearance Clear (Clear) Urine pH 7.0 (5.0-8.5) Ur Specific [place] 1.020 (1.000-1.030) Urine Protein Negative (Negative) Urine Glucose (UA) Negative (Negative) Urine Ketones Negative (Negative) Urine Blood 1+ A (Negative) Urine Nitrite Negative (Negative) Urine Bilirubin Negative (Negative) Urine Urobilinogen 0.2 (0.2-1.0) Ur Leukocyte Esterase Negative (Negative) Urine RBC 5-10 A (0-2) Urine WBC 0-2 (0-5) Ur Squamous Epith Cells Few (None-Few) Urine Bacteria None (None) Urine Mucus Few A (None) Discharge Plan Discharge Clinical Impression: Pelvic pain, Hematuria Patient Disposition: Home w/ Parent or Adult Condition: Improved Additional Instructions: Hydrate. Yes. I would make that follow-up with your primary care provider as discussed. Return for worsening and uncontrolled pain, repeated vomiting, associated fever. Prescriptions: No Action oxycodone 10 mg tablet 10 mg PO Q8H Label Comments: TAKE ONE TABLET BY MOUTH EVERY SIX TO EIGHT HOURS NEEDED FOR CHRONIC PAIN. MAX OF 3 TABLETS DAILY. buprenorphine HCl [Belbuca] 150 mcg film 150 mcg buccal Q12H fluoxetine 40 mg capsule 80 mg PO DAILY Label Comments: Take 2 Capsules (80 mg) by mouth every morning. propranolol 60 mg capsule,extended release 24 hr 60 mg PO Q24H Label Comments: Take 1 Capsule (60 mg) by mouth once daily. valacyclovir 1 gram tablet 1,000 mg PO Q8H 7 Days Qty: 21 2RF cefuroxime axetil 500 mg tablet 500 mg PO BID 7 Days Qty: 14 0RF prednisone 20 mg tablet 40 mg PO DAILY 7 Days Qty: 14 0RF Follow Up/Referrals: Eve King PA [Primary Care Provider] - Stand Alone [facility] Inst[facility]
== END 2022-06-24 03:16 | disposition home or self-care (01) ==
PROVIDERS: Emergency Provider Family Medicine; PCP Physician Assistant
DX: R10.2 Pelvic and perineal pain (principal); R31.9 Hematuria, unspecified
CPT/HCPCS: 36415; 74177; 80048; 81001; 84703; 85025; 86140; 94761; 96374; 96375; 99284; J1885; J2270; J7030; Q9967

== ENCOUNTER 2022-09-24 06:08 | Emergency (ER) | payer MEDICAID, SELFPAY ==
[2022-09-24 06:15] VITALS: BP 148/90; PULSE 122; RESP 16; TEMP 36.7; O2SAT 100; BMI 38.7
[2022-09-24 06:25] LABS: Appearance Urine Clear (Clear); Bilirubin Urine Negative (Negative); Blood Urine Trace-intact (Negative); Color Urine Yellow (Yellow); Glucose Urine Negative (Negative); Ketones Urine Negative (Negative); Leukocyte Esterase Urine Negative (Negative); Nitrite Urine Negative (Negative); Protein Urine Negative (Negative); Urobilinogen Urine 0.2 (0.2-1.0); pH Urine 5.5 (5.0-8.5)
[2022-09-24 06:27] LABS: HCG Qualitative* Negative (Negative)
[2022-09-24 06:32] LABS: RBC Urine 0-2 (0-2); Squamous Epithelial Cell Urine Few (None-Few); WBC Urine 0-2 (0-5)
--- NOTE | 2022-09-24 06:32 | ED.GENADULT ---
HPI - General Adult General Chief complaint: Abdominal Pain Stated complaint: Lower abdominal pain Time Seen by Provider: 09/24/22 06:19 Source: patient Mode of arrival: ambulatory Limitations: no limitations History of Present Illness HPI narrative: 32-year-old female with prior history of and cholecystectomy presents with 8 hour history of right lower quadrant abdominal pain, nonradiating. Constant and achy. Accompanied by nausea but no vomiting. No fever. No injury or trauma. Tried taking some ibuprofen initially with no significant improvement in symptoms, unable to sleep. Pain is similar to kidney stones that she has had in the past. Last episode of kidney stones was 2017 that required stenting she has had a couple of smaller stones since. No dysuria. One new sexual partner about 2 weeks ago that did have protection. No gynecological symptoms such as discharge. She has recently cut down on her narcotic usage, tapering off of oxycodone [facility] over the last few weeks. She has a history of a herniated disc in her back. Her last dose she reports was yesterday when she took 5 mg of oxycodone twice yesterday, having previously been on 30 mg of oxycodone daily. Reports that she has taken her last dose of the oxycodone. Last bowel movement was yesterday morning, normal per her report. No blood in her stools. No watery diarrhea. Denies any stigmata of opiate withdrawal such as runny nose, diarrhea, etc.. Has not tried Tylenol. Has Nexplanon for contraception. Past medical history notable for depression and anxiety, has herniated disc. Surgical history with prior ureteral stenting and prior and cholecystectomy. Socially, denies alcohol or tobacco or marijuana use. No pertinent travel. ROS notable for the abdominal and musculoskeletal symptoms as above, otherwise denies times 12 systems. Related Data Home Medications Medication Instructions Recorded Confirmed buprenorphine HCl 150 mcg buccal 150 mcg buccal Q12H 02/10/22 09/24/22 film (Belbuca) fluoxetine 40 mg capsule 80 mg PO DAILY 02/10/22 09/24/22 oxycodone 10 mg tablet 10 mg PO Q8H 02/10/22 09/24/22 propranolol 60 mg capsule,24 60 mg PO Q24H 02/10/22 09/24/22 hr,extended release buspirone 10 mg tablet 10 mg PO BID 09/24/22 09/24/22 Previous Rx's Medication Instructions Recorded cefuroxime axetil 500 mg tablet 500 mg PO BID 7 days #14 tabs 02/10/22 prednisone 20 mg tablet 40 mg PO DAILY 7 days #14 tabs 02/10/22 valacyclovir 1 gram tablet 1,000 mg PO Q8H 7 days #21 tabs 02/10/22 cyclobenzaprine 10 mg tablet 5 - 10 mg PO TID PRN muscle spasm 09/24/22 #10 tabs Allergies Allergy/AdvReac Type Severity Reaction Status Date / Time Estrogens Allergy Mild Verified 06/24/22 00:34 [facility] Medical History Anxiety ?F41.9 - Anxiety disorder, unspecified (ICD-10) Chronic back pain ?M54.9 - Dorsalgia, unspecified (ICD-10) ?G89.29 - Other chronic pain (ICD-10) Depression ?F32.A - Depression, unspecified (ICD-10) Kidney stone ?N20.0 - Calculus of kidney (ICD-10) Surgical History History of delivery ?Z98.891 - History of uterine scar from previous surgery (ICD-10) History of cholecystectomy ?Z90.49 - Acquired absence of other specified parts of digestive tract (ICD-10) Social History Smoking Status: Never smoker How often do you have a drink containing alcohol: never AUDIT-C Alcohol total score: 0 Non-prescribed substance use: denies use Exam Const: Vital Signs, click to edit/add: Vital Signs - 24 hr 09/24/22 06:15 Temperature 98.1 F Pulse Rate [Left P ulse Oximeter] 122 H Respiratory Rate 16 Blood Pressure [Le ft Upper Arm] 148/90 H Pulse Oximetry 100 Oxygen Delivery Me thod Room Air Documenting provider has reviewed patient's vital signs: yes Common normals: no apparent distress General appearance: cooperative HENMT: Common normals: normocephalic Head and scalp: normocephalic Mouth: oral and palatal mucosa normal Throat: posterior oropharynx normal Eye: Common normals: conjunctivae normal General eye: normal appearance of both eyes Conjunctiva: conjunctiva(e) normal Neck & C-Spine: Common normals: full ROM and no lymphadenopathy Resp: Common normals: normal respiratory effort, no use of accessory muscles and clear to auscultation bilaterally Effort & inspection: able to speak in complete sentences Auscultation: clear to auscultation bilaterally Cardio: Common normals: regular rate, regular rhythm, S1 normal heart sound, S2 normal heart sound, no murmurs and peripheral pulses 2+ throughout Rate: regular rate Rhythm: regular rhythm Heart sounds: S1 normal and S2 normal Peripheral pulses: pulses 2+ throughout GI: Other: Obese but soft. Mildly tender in right lower quadrant only with no rebound tenderness nor guarding. No mass. No hernias. Surgical scarring consistent with reported history. : Common normals: no CVA tenderness Bladder/kidney exam: no CVA tenderness Back & Pelvis: Common normals: no CVA tenderness Extremity: Common normals: normal to inspection, normal capillary refill and no pedal edema Neuro: Speech: speech normal Motor exam: strength 5/5 throughout, no tremor noted and no movement abnormalities noted Psych: Appearance: grossly normal Attitude: calm and engaged Attention/concentration: attention grossly intact Insight: insight good Judgement: judgment good Skin: Common normals: no rashes or lesions noted Narrative: No signs of trauma or self-injury General skin exam: no rashes or lesions noted Course Vital Signs Vital signs: Initial Vital Signs Temperature 98.1 F 09/24/22 06:15 Temperature Source Temporal Artery Scan 09/24/22 06:15 Pulse Rate 122 H 09/24/22 06:15 Respiratory Rate 16 09/24/22 06:15 Blood Pressure 148/90 H 09/24/22 06:15 Blood Pressure Mean 109 09/24/22 06:15 Blood Pressure Position Sitting 09/24/22 06:15 Pulse Oximetry 100 09/24/22 06:15 Oxygen Delivery Method Room Air 09/24/22 06:15 Vital Signs Temperature 98.1 F 09/24/22 06:15 Pulse Rate 122 H 09/24/22 06:15 Respiratory Rate 16 09/24/22 06:15 Blood Pressure 148/90 H 09/24/22 06:15 Pulse Oximetry 100 09/24/22 06:15 Oxygen Delivery Method Room Air 09/24/22 06:15 Temperature 98.1 F 09/24/22 06:15 Pulse Rate 122 H 09/24/22 06:15 Respiratory Rate 16 09/24/22 06:15 Blood Pressure 148/90 H 09/24/22 06:15 Pulse Oximetry 100 09/24/22 06:15 Oxygen Delivery Method Room Air 09/24/22 06:15 Medical Decision Making MDM Narrative Medical decision making narrative: Wide differential diagnosis for abdominal pain. Ureteral stone most likely, cannot exclude appendicitis. Cannot exclude ovarian pathology, colitis, constipation or abdominal pain from opiate withdrawal or musculoskeletal etiology from her known back issues. Recommend starting with urinalysis. CT scan of the abdomen and pelvis with her without contrast based on those findings. Basic labs CBC, CMP, CRP as well as test. Toradol and Zofran for initial pain control and nausea control. Re-evaluate response. Update: No improvement with Toradol. Has not had any vomiting, diarrhea or other symptoms while monitored in our ED. completely reassuring labs and completely reassuring CT scan are noted, reviewed with patient. I do think that this is an element of opiate discontinuation syndrome and have discussed this with her. When I pin her down more closely on how quickly she tapered her medications, it sounds as though she went from 30 mg daily consistently to only 10 mg yesterday and now is out. I do not recommend treating with any further narcotics and that she continue her plan for discontinuation knowing that the side effects will only last a few more days. Tylenol as needed, supply of Flexeril will be given. Will be given 10 mg of Flexeril here in the ED as well. Discussed melatonin Tylenol p.m. to help her sleep. Contact the pain clinic if she is not noticing improvement in 48 hours. Alarm symptoms that would indicate ED visit reviewed with patient as well. Lab Data Lab results reviewed: Yes I reviewed the patient's lab results Labs: Lab Results 09/24/22 09/24/22 Range/Units 06:20 06:30 WBC 8.98 (4.50-11.00) K/uL RBC 4.47 (4.00-5.20) m/uL Hgb 12.9 (12.0-16.0) gm/dL Hct 38.7 (33.0-51.0) % MCV 87 (80-100) fL MCH 29 (26-34) pg MCHC 33 (32-36) gm/dL RDW Coeff of Stefan 12.7 (11.5-15.5) % Plt Count 334 (140-440) K/uL Neut % (Auto) 54.3 (42.0-72.0) % Lymph % (Auto) 34.2 (20-44) % Carver % (Auto) 9.1 (0.0-11.0) % Eos % (Auto) 1.1 (0.0-7.0) % Baso % (Auto) 0.4 (0.0-3.0) % Neut # (Auto) 4.87 (1.7-7.0) K/uL Lymph # (Auto) 3.07 H (0.90-2.90) K/uL Carver # (Auto) 0.80 (0.00-0.90) K/UL Eos # (Auto) 0.10 (0.00-0.50) K/uL Baso # (Auto) 0.04 (0.00-0.30) K/uL Sodium 138 (135-149) mmol/L Potassium 4.1 (3.6-5.1) mmol/L Chloride 108 (96-114) mmol/L Carbon Dioxide 22 (20-32) mmol/L BUN 10 (5-24) mg/dL Creatinine 0.7 (0.5-1.5) mg/dL Estimated Creat Clear 88.68 Estimated GFR 119 ml/min Glucose 90 (60-115) mg/dL Calcium 9.1 (8.4-10.6) mg/dL Total Bilirubin 0.4 (0.1-1.5) mg/dL AST 20 (12-35) U/L ALT 20 (4-35) U/L Alkaline Phosphatase 69 (40-150) U/L C-Reactive Protein 0.7 (0.5-1.0) mg/dL Total Protein 7.5 (6.0-8.3) g/dL Albumin 4.4 (3.3-5.0) g/dL Lipase 182 (23-300) U/L HCG, Qual Negative (Negative) Urine Color Yellow (Yellow) Urine Appearance Clear (Clear) Urine pH 5.5 (5.0-8.5) Ur Specific [place] 1.020 (1.000-1.030) Urine Protein Negative (Negative) Urine Glucose (UA) Negative (Negative) Urine Ketones Negative (Negative) Urine Blood Trace-intact A (Negative) Urine Nitrite Negative (Negative) Urine Bilirubin Negative (Negative) Urine Urobilinogen 0.2 (0.2-1.0) Ur Leukocyte Esterase Negative (Negative) Urine RBC 0-2 (0-2) Urine WBC 0-2 (0-5) Ur Squamous Epith Cells Few (None-Few) Urine Bacteria None (None) Imaging Data CT scan - pelvis: Attestation: I have reviewed the pertinent imaging results. My impression: Normal Radiologist's impression: IMPRESSION: 1. Small bilateral nonobstructing renal calculi. No obstructing stones or hydronephrosis. 2. Status post cholecystectomy. No biliary ductal dilatation. 3. Transitional lumbosacral anatomy. Discharge Plan Discharge Clinical Impression: Opiate withdrawal Patient Disposition: Home, Self-Care Condition: Stable Instructions: Narcotic Withdrawal (ED) Additional Instructions: Your labs and CT scan show no signs of ureteral stones, appendicitis, infection, inflammation, colitis. This is all very good news. I am concerned that your abdominal pain is actually a side effect of tapering your oxycodone quickly. Unfortunately, this is a very common side effect of this. I do feel reassured by the tests that we have done today. As we discussed, treating this type of pain with more opiates sets back your healing. I will not be prescribing any more oxycodone. I recommend instead that you treat the pain with nonnarcotic medications. I have given you a prescription for Flexeril which is a muscle relaxant. Take 5 mg as needed during the day and 10 mg at bedtime. It is common to have insomnia with this also. It is okay to use 10 mg of melatonin and 1-2 tablets of Tylenol p.m. in addition to the Flexeril if needed for sleep. The Flexeril can make you very sleepy. You have been given a dose here in the emergency department. If you find this is too sedating for you, you do not need to take it. For most people the process of withdrawal lasts for about 3-4 days. If you are not noticing marked improvement in 48 hours, please contact your [facility] clinic for further advice. Diarrhea, nausea and vomiting and runny nose are very common with this as well. If you start running fevers, have bloody diarrhea or severe worsening of symptoms, your welcome back at the emergency department for repeat evaluation. Activity Level: Activity as Tolerated Discharge Diet: Regular Prescriptions: New cyclobenzaprine 10 mg tablet 5 - 10 mg PO TID PRN (Reason: muscle spasm) Qty: 10 0RF No Action oxycodone 10 mg tablet 10 mg PO Q8H Patient Comments: TAKE ONE TABLET BY MOUTH EVERY SIX TO EIGHT HOURS NEEDED FOR CHRONIC PAIN. MAX OF 3 TABLETS DAILY. buprenorphine HCl [Belbuca] 150 mcg film 150 mcg buccal Q12H fluoxetine 40 mg capsule 80 mg PO DAILY Patient Comments: Take 2 Capsules (80 mg) by mouth every morning. propranolol 60 mg capsule,extended release 24 hr 60 mg PO Q24H Patient Comments: Take 1 Capsule (60 mg) by mouth once daily. valacyclovir 1 gram tablet 1,000 mg PO Q8H 7 Days Qty: 21 2RF cefuroxime axetil 500 mg tablet 500 mg PO BID 7 Days Qty: 14 0RF prednisone 20 mg tablet 40 mg PO DAILY 7 Days Qty: 14 0RF buspirone 10 mg tablet 10 mg PO BID Follow Up/Referrals: Eve King PA [Primary Care Provider] - Stand Alone Forms: [facility]
--- NOTE | 2022-09-24 06:38 | CRLHL7_ITS ---
For Patients: As a result of the Century Cures Act, medical imaging exams and procedure reports are released immediately into your electronic medical record. You may view this report before your referring provider. If you have questions, please contact your health care provider. INDICATION: Right lower quadrant abdominal pain, microscopic hematuria, history stones. TECHNIQUE: CT abdomen and pelvis without contrast. COMPARISON: 06/24/2022. FINDINGS: Lower chest: Lung bases clear Liver: Normal in size and attenuation. No suspicious masses. Gallbladder and bile ducts: Status post cholecystectomy. No biliary ductal dilatation Pancreas: Unremarkable. No mass or inflammation. Spleen: Normal in size. No masses. Adrenal glands: Normal in size. No nodules. Kidneys: Small nonobstructing stones in both kidneys measuring up to 3 millimeters. No obstructing stones or hydronephrosis. Ureters normal in caliber. Urinary bladder thin-walled. GI tract: Unremarkable. Normal in caliber. No sign of mass or inflammation. Normal appendix. No diverticular disease. Vasculature: Abdominal aorta is normal in caliber. Lymph nodes: No lymphadenopathy. Peritoneum/Abdominal Wall: Unremarkable. No sign of mass or infiltration. No free air or significant free fluid. Pelvis: Unremarkable. No pelvic masses. Bones: No acute osseous abnormality. No suspicious osseous lesion. Transitional lumbosacral anatomy, with enlarged left L5 transverse process which articulates with the sacrum. IMPRESSION: 1. Small bilateral nonobstructing renal calculi. No obstructing stones or hydronephrosis. 2. Status post cholecystectomy. No biliary ductal dilatation. 3. Transitional lumbosacral anatomy. Please note that all CT scans at this facility use dose modulation, iterative reconstruction, and/or weight-based dosing when appropriate to reduce radiation dose to as low as reasonably achievable. Dictated by Keenan Abernathy MD @ 09/24/2022 7:30:37 AM (Electronically Signed)
[2022-09-24] MEDS: KETOROLAC 15 MG/ML inj IVP (06:41)
[2022-09-24] MEDS: ONDANSETRON 2 MG/ML inj 4 MG IVP (06:41)
[2022-09-24 06:42] LABS: Basophils Absolute Auto 0.04 K/uL (0.00-0.30); Basophils Percent Auto 0.4 % (0.0-3.0); Eosinophils Percent Auto 1.1 % (0.0-7.0); Hematocrit 38.7 % (33.0-51.0); Hemoglobin* 12.9 gm/dL (12.0-16.0); Immature Granulocytes Abs Auto 0.08 K/uL (0.00-0.30); Immature Granulocytes Pct Auto 0.9 %; Lymphocytes Absolute Auto 3.07 K/uL (0.90-2.90); Lymphocytes Percent Auto 34.2 % (20-44); Mean Corpuscular HGB Conc 33 gm/dL (32-36); Mean Corpuscular Hemoglobin 29 pg (26-34); Mean Corpuscular Volume 87 fL (80-100); Monocytes Percent Auto 9.1 % (0.0-11.0); Neutrophils Absolute Auto 4.87 K/uL (1.7-7.0); Neutrophils Percent Auto 54.3 % (42.0-72.0); Platelet Count* 334 K/uL (140-440); RDW Coefficient of Variation % 12.7 % (11.5-15.5); Red Blood Count 4.47 m/uL (4.00-5.20); White Blood Count* 8.98 K/uL (4.50-11.00)
[2022-09-24 06:48] LABS: Slide Review Reflex No
--- OUTSIDE RECORDS SUMMARY | 2022-09-24 06:49 | XMS_ITS | Continuity of Care Document ---
Author Name Unknown Organization [facility] enter Address [address] [place] [id number] Phone Care Team Providers Care Vice President Payer Name Role Phone [facility] Unavailable Unava ilable Procedures Procedure Date INJ FORAMEN EPIDURAL L/S INJ FORAMEN EPIDURAL L/S Advance Directives Directive Yes / No Effective Date File Name No Information Encounters Encounter Description Practice Location Reason(s) For Visit Diagnoses Date Provider Providers Copied on Encounter [facility], [address] [place] [address], [id number], tel:[phone] [facility] No Information [facility]. [address] [place] [address], [id number], . tel:[phone] Referring Provider: Ludwig Castillo, [address] [facility] [place], [address] . tel:[phone] [facility], [address] [place] [address], [id number], tel:[phone] [facility] No Information [facility]. [address] [place] [address], [id number], . tel:[phone] Referring Provider: Bernabe Russell, [address] [facility] [place], [address] . tel:[phone] Family History Family Member Type Diagnosis Age At Onset No Information Payers Payer name Insurance type Covered constitution party ID Authorjairoa lenardnabeel(s) Adam LEE [id number] Social History Type Description Quantity Date Captured Comments Sex Female Smoking Status No Information Chief Complaint And Reason For Visit No Information Reason For Referral Reason For Referral No Information Plan Of Treatment Date Type Action Status No Information History Of Present Illness Encounter Date Complaint History Of Prese nt Illness No Information Functional Status Date Functional Assessmen t No Information Instructions Date Instruction Additional Infor mation No Information Assessments Type Assessment Date No Information Patient Care Teams Name Effective Dates (start - stop) Status Members No Information
--- OUTSIDE RECORDS SUMMARY | 2022-09-24 06:50 | XMS_ITS | Continuity of Care Document ---
Author Name Unknown Organization [facility] gunner Address [address] [place] [address] Phone Care Team Providers Care Certified Ophthalmic Surgical Assistant Name Role Phone Rafael Milian Unavailable Unavailable Allergies, Adverse Reactions, Alerts Substance Reaction Status Criticality Estrogens Active No Information Medications Medication Instructions Dosage Effective Dates (start - stop) Status Comments Nexplanon 68 mg subdermal implant Inject 1 Each subdermal every 3 years. Placed 12/20/20. - Active ibuprofen 200 mg capsule take 1 capsule by oral route every 6 hours as needed 200 MG - Active propranolol ER 60 mg capsule,24 hr,extended release take 1 capsule by oral route every day 60 MG - Active sumatriptan 100 mg tablet take 1 tablet by oral route after onset of migraine; may repeat after 2 hours if headache returns,not to exceed 200mg in 24hrs as needed 100 MG - Active fluoxetine 60 mg tablet take 1 tablet by oral route every day in the morning 60 MG - Active oxycodone 10 mg tablet take 1 tablet by oral route every 6-8 hours as needed for chronic pain; max 3/day - No Longer Active Belbuca [address] 1 film by buccal route 2 times every day against the inside of the cheek, holding in place for 5 seconds, 150 MCG - No Longer Active Belbuca [address] 1 film by buccal route 2 times every day against the inside of the cheek, holding in place for 5 seconds, 150 MCG - No Longer Active oxycodone 10 mg tablet take 1 tablet by oral route every 6-8 hours as needed for chronic pain; max 3/day - No Longer Active Procedures Procedure Date Foll-up eval q3mo opiod tx OFFICE/OUTPATIENT VISIT, EST Drug Urine Toxology With Chromatography Drug test def 15-21 classes Foll-up eval q3mo opiod tx OFFICE/OUTPATIENT VISIT, EST Foll-up eval q3mo opiod tx OFFICE/OUTPATIENT VISIT, EST Drug Urine Toxology With Chromatography Drug test def 8-14 classes OFFICE/OUTPATIENT VISIT, EST Foll-up eval q3mo opiod tx Drug Urine Toxology With Chromatography Drug test def 8-14 classes Foll-up eval q3mo opiod tx OFFICE/OUTPATIENT VISIT, EST Foll-up eval q3mo opiod tx OFFICE/OUTPATIENT VISIT, EST Drug Urine Toxology With Chromatography Drug test def 15-21 classes Foll-up eval q3mo opiod tx OFFICE/OUTPATIENT VISIT, EST Foll-up eval q3mo opiod tx OFFICE/OUTPATIENT VISIT, EST Foll-up eval q3mo opiod tx OFFICE/OUTPATIENT VISIT, EST Drug Urine Toxology With Chromatography Drug test def 15-21 classes Foll-up eval q3mo opiod tx OFFICE/OUTPATIENT VISIT, EST Foll-up eval q3mo opiod tx OFFICE/OUTPATIENT VISIT, EST Foll-up eval q3mo opiod tx OFFICE/OUTPATIENT VISIT, EST Facet Jt In Or MBB j Lumbar BILATERAL Ap Foll-up eval q3mo opiod tx OFFICE/OUTPATIENT VISIT, EST Drug Urine Toxology With Chromatography Drug test def 15-21 classes Foll-up eval q3mo opiod tx OFFICE/OUTPATIENT VISIT, EST Foll-up eval q3mo opiod tx OFFICE/OUTPATIENT VISIT, EST OFFICE/OUTPATIENT VISIT, EST Foll-up eval q3mo opiod tx OFFICE/OUTPATIENT VISIT, EST Foll-up eval q3mo opiod tx OFFICE/OUTPATIENT VISIT, EST Foll-up eval q3mo opiod tx OFFICE/OUTPATIENT VISIT, EST INJ FORAMEN EPIDURAL L/S BILATERAL Sep-0 ROUTINE BLOOD DRAW Drug Urine Toxology With Chromatography Drug test def 22+ classes Foll-up eval q3mo opiod tx OFFICE/OUTPATIENT VISIT, EST ROUTINE BLOOD DRAW Drug Urine Toxology With Chromatography Drug test def 8-14 classes Foll-up eval q3mo opiod tx OFFICE/OUTPATIENT VISIT, EST Foll-up eval q3mo opiod tx OFFICE/OUTPATIENT VISIT, EST Drug Urine Toxology With Chromatography PT-FOCUSED HLTH RISK ASSMT OFFICE/OUTPATIENT VISIT, NEW Advance Directives Directive Yes / No Effective Date File Name No Information Encounters Encounter Description Practice Location Reason(s) For Visit Diagnoses Date Provider Providers Copied on Encounter OFFICE/OUTPA TIENT VISIT, EST [facility], [address] [place] [address], [id number] , [place] tel:[phone] [facility] Back Pain (chief complaint) Chronic pain syndromeSacroiliit is, not elsewhere classifiedOther spondylosis, lumbar regionOther intervertebral disc displacement, lumbar regionLong term (current) use of opiate analgesic 0 3 Alysa Hall. [address] [facility] [address], [place], [place], [id number] , [place]. tel:[phone] Referring Provider: Bradley Coelho [facility] [address] [place], [address]. tel:[phone] [facility], [address] [place] [address], [id number] , [place] tel:[phone] [facility] No Information 0 3 Alysa Hall. [address] [place] [address] [address], [place], [place], [id number] , [place]. tel:[phone] OFFICE/OUTPA TIENT VISIT, EST [facility], [address] [place] [address], [id number] , [place] tel:[phone] [facility] Back Pain (chief complaint) Chronic pain syndromeSacroiliit is, not elsewhere classifiedOther spondylosis, lumbar regionOther intervertebral disc displacement, lumbar regionLong term (current) use of opiate analgesic 0 3 Alysa Hall. [address] [place] [address] [address], [place], [place], [id number] , [place]. tel:[phone] Referring Provider: Bradley Coelho [facility] [address] [place], [address]. tel:[phone] OFFICE/OUTPA TIENT VISIT, EST [facility], [address] [place] [address], [id number] , [place] tel:[phone] [facility] Back Pain (chief complaint) Chronic pain syndromeSacroiliit is, not elsewhere classifiedOther spondylosis, lumbar regionOther intervertebral disc displacement, lumbar regionLong term (current) use of opiate analgesic 3 Wattleslie Hall. [address] [facility] [address], [place], [id number] , [place]. tel: [phone] Referring Provider: Bradley Coelho [facility] [address] [place], [address]. tel:[phone] [facility], [address] [place], [place], [id number] , [place] tel: [phone] [facility] No Information 3 Alysa Hall. [address] [place] [address] [address], [place], [place], [id number] , [place]. tel: [phone] OFFICE/OUTPA TIENT VISIT, EST [facility], [address] [place], [place], [id number] , [place] tel: [phone] [facility] Back Pain (chief complaint) Chronic pain syndromeSacroiliit is, not elsewhere classifiedOther spondylosis, lumbar regionOther intervertebral disc displacement, lumbar regionLong term (current) use of opiate analgesicEncounter for therapeutic drug level monitoring 3 Wattleslie Hall. [address] [place] [address] [address], [place], [id number] , [place]. tel: [phone] Referring Provider: Bradley Coelho [facility] [address] [place], [address]. tel:[phone] [facility], [address] [place], [place], [id number] , [place] tel: [phone] [facility] No Information 2 Alysa Hall. [address] [place] [address] [address], [place], [place], [id number] , [place]. tel: [phone] OFFICE/OUTPA TIENT VISIT, [facility], [address] [place], [place], [id number] , [place] tel: [phone] [facility] Back pain (chief complaint) Chronic pain syndromeSacroiliit is, not elsewhere classifiedOther spondylosis, lumbar regionOther intervertebral disc displacement, lumbar regionLong term (current) use of opiate analgesicEncounter for therapeutic drug level monitoring 2 Alysa Hall. [address] [facility] [address], [place], [place], [id number] , [place]. tel:[phone] Referring Provider: Bradley Coelho [facility] [address] [place], [address]. tel:[phone] OFFICE/OUTPA TIENT VISIT, [facility], [address] [place], [place], [id number] , [place] tel:[phone] [facility] Back Pain (chief complaint) Chronic pain syndromeSacroiliit is, not elsewhere classifiedOther spondylosis, lumbar regionOther intervertebral disc displacement, lumbar regionLong term (current) use of opiate analgesic 2 Alysa Graciael. [address] [facility] [address], [place], [place], [id number] , [place]. tel:[phone] Referring Provider: Bradley Coelho [facility] [address] [place], [address]. tel:[phone] [facility], [address] [place] [address], [id number] , [place] tel:[phone] [facility] No Information 2 Alysa Hall. [address] [facility] [address], [place], [place], [id number] , [place]. tel:[phone] Referring Provider: Bradley Coelho [facility] [address] [place], [address]. tel:[phone] OFFICE/OUTPA TIENT VISIT, [facility], [address] [place] [address], [id number] , [place] tel:[phone] [facility] low back pain (chief complaint) Chronic pain syndromeSacroiliit is, not elsewhere classifiedOther intervertebral disc displacement, lumbar regionLong term (current) use of opiate analgesicOther spondylosis, lumbar region 2 Wattleslie Hall. [address] [facility] [address], [place], [place], [id number] , [place]. tel: [phone] Referring Provider: Bradley Coelho [facility] [address] [place], [address]. [phone] OFFICE/OUTPA TIENT VISIT, [facility], [address] [place], [place], [id number] , [place] tel: [phone] [facility] low back pain (chief complaint) Chronic pain syndromeSacroiliit is, not elsewhere classifiedOther intervertebral disc displacement, lumbar regionLong term (current) use of opiate analgesic 2 Wattleslie Hall. [address] [facility] [address], [place], [place], [id number] , [place]. tel: [phone] Referring Provider: Bradley Coelho [facility] [address] [place], [address]. tel:[phone] OFFICE/OUTPA TIENT VISIT, [facility], [address] [place] [address], [id number] , [place] tel: [phone] [facility] low back pain (chief complaint) Chronic pain syndromeSacroiliit is, not elsewhere classifiedOther intervertebral disc displacement, lumbar regionLong term (current) use of opiate analgesic 2 Wattleslie Hall. [facility] [address], [place], [place], [id number] , [place]. tel: [phone] Referring Provider: Bradley Coelho [facility] [address] [place], [address]. tel:[phone] [facility], [address] [place], [place], [id number] , [place] tel: [phone] [facility] No Information 0 2 Alysa Hall. [address] [facility] [address], [facility] [place], [id number] , [place]. tel: [phone] OFFICE/OUTPA TIENT VISIT, [facility], [address] [place], [place], [id number] , [place] tel: [phone] [facility] low back pain (chief complaint) Chronic pain syndromeSacroiliit is, not elsewhere classifiedOther intervertebral disc displacement, lumbar regionLong term (current) use of opiate analgesic Nestor- 2 Alysa Hall. [address], [place], [place], [id number] , [place]. tel: [phone] Referring Provider: Bradley Coelho [facility] [address] [place], [address]. tel:[phone] OFFICE/OUTPA TIENT VISIT, [facility], [address] [place], [place], [id number] , [place] tel: [phone] [facility] low back pain (chief complaint) Chronic pain syndromeSacroiliit is, not elsewhere classifiedOther intervertebral disc displacement, lumbar regionLong term (current) use of opiate analgesicEncounter for screening for other disorder Nestor- 2 Alysa Hall. [address], [place], [place], [id number] , [place]. tel: [phone] Referring Provider: Bradley Coelho [facility] [address] [place], [address]. tel:[phone] OFFICE/OUTPA TIENT VISIT, [facility], [address] [place], [place], [id number] , [place] tel: [phone] [facility] low back pain (chief complaint) Other intervertebral disc displacement, lumbar regionChronic pain syndromeSacroiliit is, not elsewhere classifiedLong term (current) use of opiate analgesic October- 2 Alysa Hall. [address], [facility] [place], [address] , [place]. tel: [phone] Referring Provider: Bradley Coelho [facility] [address] [place], [address]. tel:[phone] [facility], [address] [place], [place], [id number] , [place] tel:[phone] [facility] Other intervertebral disc displacement, lumbar region Apr-2 2 Jonathan Munroe. [address] [place], [place], [id number] , [place]. tel:[phone] Referring Provider: Bradley Coelho [facility] [address] [place], [address]. tel:[phone] OFFICE/OUTPA TIENT VISIT, [facility], [address] [place] [address], [id number] , [place] tel:[phone] [facility] Back Pain (chief complaint) Chronic pain syndromeSacroiliit is, not elsewhere classifiedOther intervertebral disc displacement, lumbar regionLong term (current) use of opiate analgesic Apr-0 2 Alysa Hall. [address] [facility] [address], [place], [place], [id number] , [place]. tel:[phone] Referring Provider: Bradley Coelho [facility] [address] [place], [address]. tel:[phone] [facility], [address] [place] [address], [id number] , [place] tel:[phone] [facility] No Information Mar-0 2 Alysa Hall. [address] [place] [address] [address], [place], [place], [id number] , [place]. tel:[phone] Referring Provider: Bernabe Russell, [address] [place], [address]. [phone] OFFICE/OUTPA TIENT VISIT, [facility], [address] [place] [address], [id number] , [place] tel:[phone] [facility] Back Pain (chief complaint) Chronic pain syndromeOther intervertebral disc displacement, lumbar regionSacroiliitis , not elsewhere classifiedLong term (current) use of opiate analgesic Mar-0 2 Alysa Hall. [address] [facility] [address], [place], [place], [address] , [place]. tel: [phone] Referring Provider: Bradley Coelho [facility] [address] [place], [address]. tel:[phone] OFFICE/OUTPA TIENT VISIT, EST [facility], [address] [place] [address], [id number] , [place] tel: [phone] [facility] Back Pain (chief complaint) Chronic pain syndromeOther intervertebral disc displacement, lumbar regionSacroiliitis , not elsewhere classifiedLong term (current) use of opiate analgesic 2 Alysa Hall. [address] [facility] [address], [place], [place], [address] , [place]. tel: [phone] Referring Provider: Bradley Coelho [facility] [address] [place], [address]. tel:[phone] OFFICE/OUTPA TIENT VISIT, [facility], [address] [place] [address], [id number] , [place] tel: [phone] [facility] Back Pain (chief complaint) Chronic pain syndromeOther intervertebral disc displacement, lumbar regionSacroiliitis , not elsewhere classifiedLong term (current) use of opiate analgesic Jun-0 2 Alysa Hall. [address] [facility] [address], [place], [place], [address] , [place]. tel:[phone] Referring Provider: Bradley Coelho [facility] [address] [place], [address]. tel:[phone] OFFICE/OUTPA TIENT VISIT, EST [facility], [address] [place] [address], [id number] , [place] tel: [phone] [facility] Back Pain (chief complaint) Chronic pain syndromeOther intervertebral disc displacement, lumbar regionSacroiliitis , not elsewhere classifiedLong term (current) use of opiate analgesic May-0 1 Wattleslie Hall. [address], [place], [place], [id number] , [place]. tel:[phone] Referring Provider: Bradley Coelho [facility] [address] [place], [address]. tel:[phone] OFFICE/OUTPA TIENT VISIT, [facility], [address] [place], [place], [id number] , [place] tel: [phone] [facility] Back Pain (chief complaint) Chronic pain syndromeOther intervertebral disc displacement, lumbar regionSacroiliitis , not elsewhere classifiedLong term (current) use of opiate analgesic Nov-0 1 Wattleslie Hall. [address] [place] [address] [address], [place], [place], [address] , [place]. tel: [phone] Referring Provider: Bradley Coelho [facility] [address] [place], [address]. tel:[phone] OFFICE/OUTPA TIENT VISIT, [facility], [address] [place], [place], [id number] , [place] tel: [phone] [facility] Back Pain (chief complaint) Chronic pain syndromeOther intervertebral disc displacement, lumbar regionLong term (current) use of opiate analgesicSacroilii tis, not elsewhere classified Oct-0 1 Wattleslie Hall. [address] [facility] [address], [place], [place], [address] , [place]. tel:[phone] Referring Provider: Bradley Coelho [facility] [address] [place], [address]. tel:[phone] [facility], [address] [place], [place], [id number] , [place] tel:[phone] [facility] Other intervertebral disc displacement, lumbar region Sep-0 1 Yahir Kidd. [address] [place], [place], [id number] , [place]. tel: [phone] Referring Provider: Bradley Coelho [facility] [address] [place], [address]. tel:[phone] [facility], [address] [place] [address], [id number] , [place] tel:[phone] [facility] No Information Sep-0 1 Alysa Hall. [address], [facility], [place], [id number] , [place]. tel:[phone] Referring Provider: Bernabe Russell, [address] [place] [address], [address]. tel:[phone] OFFICE/OUTPA TIENT VISIT, EST [facility], [address] [place] [address], [id number] , [place] tel: [phone] [facility] Back Pain (chief complaint) Chronic pain syndromeLow back painLong term (current) use of opiate analgesicSacroilii tis, not elsewhere classifiedOther intervertebral disc displacement, lumbar regionEncounter for therapeutic drug level monitoring Sep-0 1 Alysa Hall. [facility] [address], [place], [place], [address] , [place]. tel:[phone] Referring Provider: Bradley Coelho, [facility] [address] [place], [address]. tel:[phone] [facility], [address] [place] [address], [id number] , [place] tel:[phone] [facility] Encounter for screening for other disorderLong term (current) use of opiate analgesic Jan-0 1 Watt Rafael. [address] [facility] [address], [place], [place], [address] , [place]. tel:[phone] Referring Provider: Bernabe Russell, [address] [place] [address], [address]. [phone] OFFICE/OUTPA TIENT VISIT, EST [facility], [address] [place] [address], [id number] , [place] tel:[phone] [facility] Back Pain (chief complaint) Chronic pain syndromeLow back painSacroiliitis, not elsewhere classifiedLong term (current) use of opiate analgesicOther intervertebral disc displacement, lumbar regionEncounter for therapeutic drug level monitoring 1 Wattleslie Graciael. [address] [facility] [address], [place], [place], [address] , [place]. tel:[phone] Referring Provider: Bradley Coelho [facility] [address] [place], [address]. tel:[phone] OFFICE/OUTPA TIENT VISIT, [facility], [address] [place], [place], [id number] , [place] tel:[phone] [facility] Back Pain (chief complaint) Chronic pain syndromeLow back painSacroiliitis, not elsewhere classifiedLong term (current) use of opiate analgesic 1 Alysa Hall. [address] [place] [address] [address], [place], [place], [id number] , [place]. tel:[phone] Referring Provider: Bradley Coelho [facility] [address] [place], [address]. tel:[phone] [facility], [address] [place], [place], [id number] , [place] tel:[phone] [facility] No Information 1 Alysa Hall. [address] [facility] [address], [place], [place], [address] , [place]. tel:[phone] Referring Provider: Rashel Huertas, [facility] [address], [place], [address]. tel:[phone] OFFICE/OUTPA TIENT VISIT, [facility], [address] [place], [place], [id number] , [place] [phone] [facility] Back Pain (chief complaint) Chronic pain syndromeEncounter for screening for other disorderLow back painSacroiliitis, not elsewhere classified 1 Alysa Hall. [address], [place], [id number] , [place]. tel:[phone] Referring Provider: Bradley Coelho, [facility] [address], [place], [address]. tel:[phone] [facility], [address] [place], [address] , [place] tel:[phone] [facility] [place] No Information 1 Alysa Hall. [address], [place], [id number] , [place]. tel:[phone] Family History Family Member Type Diagnosis Age At Onset No Information Payers Payer name Insurance type Covered republican ID Authorwoo singh(s) BOBabbe [facility] [id number] Social History Type Description Quantity Date Captured Comments Alcohol Use Details Unknown Caffeine Use Details Unknown Tobacco Use Status No Information Smoking Status No Information Sex Female Chief Complaint And Reason For Visit From encounter dated '08/14/2022 13:40'. Back Pain (chief complaint). Description: Severity level is 5. Duration: chronic. The problem is stable. It occurs persistently. The client describes the pain as an ache, sharp and tingling. Symptomsare aggravated by ascending stairs, bending, descending stairs, lifting, running, sitting, standing, twisting, prolonged positioning, movement and housework. Symptoms are relieved by ice, lying down,massage, pain meds/drugs, stretching, rest, changing positions and chiropractic. Reason For Referral Reason For Referral No Information Plan Of Treatment Date Type Action Status Goal UDT. Due on due Goal TRAY SERVER Paperwork. Due on due Goal ORDNANCE KEEPER Scanned. Due on 023 due Goal Order Annual PT. Due on due Goal ALT (SGPT). Due on 23 due Goal AST (SGOT). Due on due Goal Creatinine. Due on due Goal OARS. Due on due Goal Hepatitis C screening. Due o n due Goal PHQ-9. Due on du e Goal Height. Due on d ue Goal Unhealthy drug use screening . Due on due Goal HPV. Due on due Goal Review Allergy List. Due on due Goal Weight. Due on d ue Goal Update Social History. Due o n due Goal Medication Reconciliation. D ue on due Goal Tobacco Use. Due on due Goal OARS. Due on due Goal TRAY SERVER Paperwork. Due on due Goal ORDNANCE KEEPER Scanned. Due on due Goal UDT. Due on due Goal AST (SGOT). Due on due Goal Order Annual PT. Due on due Goal ALT (SGPT). Due on due Goal Creatinine. Due on due Goal Hepatitis C screening. Due o n due Goal PHQ-9. Due on du e Goal Tobacco Use. Due on due Goal Review Allergy List. Due on due Goal Height. Due on d ue Goal Update Social History. Due o n due Goal Medication Reconciliation. D ue on due Goal Weight. Due on d ue Goal Unhealthy drug use screening . Due on due Goal UDT. Due on due Goal OARS. Due on due Goal Creatinine. Due on due Goal Order Annual PT. Due on due Goal TRAY SERVER Paperwork. Due on due Goal AST (SGOT). Due on due Goal ALT (SGPT). Due on due Goal ORDNANCE KEEPER Scanned. Due on 023 due Goal Tobacco Use. Due on 022 due Goal Hepatitis C screening. Due o n due Goal PHQ-9. Due on du e Goal Review Allergy List. Due on due Goal Unhealthy drug use screening . Due on due Goal Medication Reconciliation. D ue on due Goal Weight. Due on d ue Goal Update Social History. Due o n due Goal Height. Due on d ue Goal Review Allergy List. Due on due Goal ALT (SGPT). Due on due Goal ORDNANCE KEEPER Scanned. Due on due Goal Order Annual PT. Due on due Goal TRAY SERVER Paperwork. Due on due Goal Creatinine. Due on due Goal AST (SGOT). Due on due Goal UDT. Due on due Goal OARS. Due on due Goal Weight. Due on d ue Goal PHQ-9. Due on du e Goal Tobacco Use. Due on 022 due Goal Unhealthy drug use screening . Due on due Goal Hepatitis C screening. Due o n due Goal Height. Due on d ue Goal Medication Reconciliation. D ue on due Goal Update Social History. Due o n due Goal TRAY SERVER Paperwork. Due on due Goal ORDNANCE KEEPER Scanned. Due on due Goal ALT (SGPT). Due on due Goal Creatinine. Due on due Goal OARS. Due on due Goal AST (SGOT). Due on due Goal Order Annual PT. Due on due Goal UDT. Due on due Goal Tobacco Use. Due on 022 due Goal Hepatitis C screening. Due o n due Goal Weight. Due on d ue Goal PHQ-9. Due on du e Goal Medication Reconciliation. D ue on due Goal Height. Due on d ue Goal Review Allergy List. Due on due Goal Update Social History. Due o n due Goal Unhealthy drug use screening . Due on due Goal TRAY SERVER Paperwork. Due on due Goal ALT (SGPT). Due on due Goal UDT. Due on due Goal Order Annual PT. Due on due Goal AST (SGOT). Due on due Goal Creatinine. Due on due Goal ORDNANCE KEEPER Scanned. Due on 023 due Goal OARS. Due on due Goal Review Allergy List. Due on due Goal Update Social History. Due o n due Goal Weight. Due on d ue Goal Unhealthy drug use screening . Due on due Goal Medication Reconciliation. D ue on due Goal Hepatitis C screening. Due o n due Goal Height. Due on d ue Goal PHQ-9. Due on du e Goal Tobacco Use. Due on due Goal Height. Due on d ue Goal Medication Reconciliation. D ue on due Goal Weight. Due on d ue Goal Review Allergy List. Due on due Goal PHQ-9. Due on du e Goal Update Social History. Due o n due Goal Hepatitis C screening. Due o n due Goal UDT. Due on due Goal TRAY SERVER Paperwork. Due on due Goal Order Annual PT. Due on due Goal OARS. Due on due Goal ALT (SGPT). Due on due Goal Creatinine. Due on due Goal ORDNANCE KEEPER Scanned. Due on due Goal AST (SGOT). Due on due Goal Tobacco Use. Due on due Goal Unhealthy drug use screening . Due on due Goal ORDNANCE KEEPER Scanned. Due on due Goal Creatinine. Due on due Goal ALT (SGPT). Due on due Goal AST (SGOT). Due on due Goal UDT. Due on due Goal Order Annual PT. Due on due Goal TRAY SERVER Paperwork. Due on due Goal OARS. Due on due Goal Hepatitis C screening. Due o n due Goal Update Social History. Due o n due Goal Review Allergy List. Due on due Goal Unhealthy drug use screening . Due on due Goal Tobacco Use. Due on due Goal Weight. Due on d ue Goal PHQ-9. Due on du e Goal Medication Reconciliation. D ue on due Goal Height. Due on d ue Goal Update Social History. Due o n due Goal Order Annual PT. Due on due Goal UDT. Due on due Goal AST (SGOT). Due on due Goal TRAY SERVER Paperwork. Due on due Goal Height. Due on d ue Goal Unhealthy drug use screening . Due on due Goal ALT (SGPT). Due on due Goal OARS. Due on due Goal Creatinine. Due on due Goal ORDNANCE KEEPER Scanned. Due on due Goal Tobacco Use. Due on due Goal Review Allergy List. Due on due Goal Medication Reconciliation. D ue on due Goal Hepatitis C screening. Due o n due Goal Weight. Due on d ue Goal PHQ-9. Due on du e Goal OARS. Due on due Goal AST (SGOT). Due on due Goal UDT. Due on due Goal TRAY SERVER Paperwork. Due on due Goal ALT (SGPT). Due on due Goal ORDNANCE KEEPER Scanned. Due on due Goal Order Annual PT. Due on due Goal Creatinine. Due on due Goal Review Allergy List. Due on due Goal Unhealthy drug use screening . Due on due Goal PHQ-9. Due on du e Goal Hepatitis C screening. Due o n due Goal Weight. Due on d ue Goal Medication Reconciliation. D ue on due Goal Tobacco Use. Due on due Goal Height. Due on d ue Goal Update Social History. Due o n due Goal UDT. Due on due Goal ORDNANCE KEEPER Scanned. Due on due Goal AST (SGOT). Due on due Goal ALT (SGPT). Due on due Goal OARS. Due on due Goal Creatinine. Due on due Goal TRAY SERVER Paperwork. Due on due Goal Order Annual PT. Due on due Goal Review Allergy List. Due on due Goal Medication Reconciliation. D ue on due Goal Update Social History. Due o n due Goal Hepatitis C screening. Due o n due Goal Unhealthy drug use screening . Due on due Goal Weight. Due on d ue Goal Tobacco Use. Due on due Goal PHQ-9. Due on du e Goal Height. Due on d ue Goal TRAY SERVER Paperwork. Due on due Goal Order Annual PT. Due on due Goal ALT (SGPT). Due on due Goal Creatinine. Due on due Goal ORDNANCE KEEPER Scanned. Due on due Goal AST (SGOT). Due on due Goal UDT. Due on due Goal OARS. Due on due Goal Review Allergy List. Due on due Goal Weight. Due on d ue Goal Unhealthy drug use screening . Due on due Goal Height. Due on d ue Goal Hepatitis C screening. Due o n due Goal PHQ-9. Due on du e Goal Medication Reconciliation. D ue on due Goal Tobacco Use. Due on due Goal Update Social History. Due o n due Goal Weight. Due on d ue Goal Review Allergy List. Due on due Goal PHQ-9. Due on du e Goal Tobacco Use. Due on due Goal Hepatitis C screening. Due o n due Goal Unhealthy drug use screening . Due on due Goal Update Social History. Due o n due Goal Medication Reconciliation. D ue on due Goal Order Annual PT. Due on due Goal AST (SGOT). Due on due Goal TRAY SERVER Paperwork. Due on due Goal ALT (SGPT). Due on due Goal ORDNANCE KEEPER Scanned. Due on due Goal UDT. Due on due Goal Creatinine. Due on due Goal OARS. Due on due Goal Height. Due on d ue Goal ORDNANCE KEEPER Scanned. Due on due Goal Creatinine. Due on due Goal ALT (SGPT). Due on due Goal OARS. Due on due Goal Order Annual PT. Due on due Goal UDT. Due on due Goal AST (SGOT). Due on due Goal TRAY SERVER Paperwork. Due on due Goal Weight. Due on d ue Goal Update Social History. Due o n due Goal Medication Reconciliation. D ue on due Goal Tobacco Use. Due on 022 due Goal Review Allergy List. Due on due Goal Unhealthy drug use screening . Due on due Goal Height. Due on d ue Goal PHQ-9. Due on du e Goal Hepatitis C screening. Due o n due Goal ORDNANCE KEEPER Scanned. Due on 022 due Goal AST (SGOT). Due on due Goal Order Annual PT. Due on due Goal UDT. Due on due Goal ALT (SGPT). Due on due Goal OARS. Due on due Goal TRAY SERVER Paperwork. Due on due Goal Creatinine. Due on due Goal Unhealthy drug use screening . Due on due Goal Hepatitis C screening. Due o n due Goal Medication Reconciliation. D ue on due Goal Update Social History. Due o n due Goal Height. Due on d ue Goal Tobacco Use. Due on due Goal PHQ-9. Due on du e Goal Review Allergy List. Due on due Goal Weight. Due on d ue Goal Weight. Due on d ue Goal Unhealthy drug use screening . Due on due Goal Height. Due on d ue Goal PHQ-9. Due on du e Goal UDT. Due on due Goal TRAY SERVER Paperwork. Due on due Goal Order Annual PT. Due on due Goal OARS. Due on due Goal Creatinine. Due on due Goal ORDNANCE KEEPER Scanned. Due on due Goal AST (SGOT). Due on due Goal ALT (SGPT). Due on due Goal Tobacco Use. Due on due Goal Review Allergy List. Due on due Goal Hepatitis C screening. Due o n due Goal Medication Reconciliation. D ue on due Goal Update Social History. Due o n due Goal Weight. Due on d ue Goal Unhealthy drug use screening . Due on due Goal Hepatitis C screening. Due o n due Goal Update Social History. Due o n due Goal Review Allergy List. Due on due Goal Tobacco Use. Due on due Goal Medication Reconciliation. D ue on due Goal Creatinine. Due on due Goal AST (SGOT). Due on due Goal PHQ-9. Due on du e Goal Height. Due on d ue Goal Order Annual PT. Due on due Goal OARS. Due on due Goal ALT (SGPT). Due on due Goal ORDNANCE KEEPER Scanned. Due on due Goal TRAY SERVER Paperwork. Due on due Goal UDT. Due on due Goal PHQ-9. Due on du e Goal Update Social History. Due o n due Goal Medication Reconciliation. D ue on due Goal Height. Due on d ue Goal Tobacco Use. Due on due Goal Weight. Due on d ue Goal Review Allergy List. Due on due Goal ALT (SGPT). Due on due Goal UDT. Due on due Goal TRAY SERVER Paperwork. Due on due Goal Order Annual PT. Due on due Goal AST (SGOT). Due on due Goal Creatinine. Due on due Goal ORDNANCE KEEPER Scanned. Due on due Goal OARS. Due on due Goal OARS. Due on due Goal ORDNANCE KEEPER Scanned. Due on due Goal Creatinine. Due on due Goal AST (SGOT). Due on due Goal Order Annual PT. Due on due Goal TRAY SERVER Paperwork. Due on due Goal UDT. Due on due Goal ALT (SGPT). Due on due Goal Review Allergy List. Due on due Goal PHQ-9. Due on du e Goal Update Social History. Due o n due Goal Medication Reconciliation. D ue on due Goal Height. Due on d ue Goal Tobacco Use. Due on due Goal Weight. Due on d ue Goal OARS. Due on due Goal ORDNANCE KEEPER Scanned. Due on due Goal Creatinine. Due on due Goal AST (SGOT). Due on due Goal Order Annual PT. Due on due Goal TRAY SERVER Paperwork. Due on due Goal UDT. Due on due Goal ALT (SGPT). Due on due Goal Review Allergy List. Due on due Goal PHQ-9. Due on du e Goal Update Social History. Due o n due Goal Medication Reconciliation. D ue on due Goal Height. Due on d ue Goal Tobacco Use. Due on due Goal Weight. Due on d ue Goal OARS. Due on due Goal ORDNANCE KEEPER Scanned. Due on 022 due Goal Creatinine. Due on due Goal AST (SGOT). Due on due Goal Order Annual PT. Due on due Goal TRAY SERVER Paperwork. Due on due Goal UDT. Due on due Goal ALT (SGPT). Due on due Goal Review Allergy List. Due on due Goal PHQ-9. Due on du e Goal Update Social History. Due o n due Goal Medication Reconciliation. D ue on due Goal Height. Due on d ue Goal Tobacco Use. Due on due Goal Weight. Due on d ue Goal Order Annual PT. Due on due Goal TRAY SERVER Paperwork. Due on due Goal UDT. Due on due Goal ALT (SGPT). Due on due Goal Review Allergy List. Due on due Goal PHQ-9. Due on du e Goal Update Social History. Due o n due Goal Medication Reconciliation. D ue on due Goal Height. Due on d ue Goal Tobacco Use. Due on due Goal Weight. Due on d ue Goal OARS. Due on due Goal ORDNANCE KEEPER Scanned. Due on due Goal Creatinine. Due on due Goal AST (SGOT). Due on due Goal Medication Reconciliation. D ue on due Goal Height. Due on d ue Goal Tobacco Use. Due on due Goal Weight. Due on d ue Goal OARS. Due on due Goal ORDNANCE KEEPER Scanned. Due on due Goal Creatinine. Due on due Goal AST (SGOT). Due on due Goal Order Annual PT. Due on due Goal TRAY SERVER Paperwork. Due on due Goal UDT. Due on due Goal ALT (SGPT). Due on due Goal Review Allergy List. Due on due Goal PHQ-9. Due on du e Goal Update Social History. Due o n due Goal OARS. Due on due Goal ORDNANCE KEEPER Scanned. Due on due Goal Creatinine. Due on due Goal AST (SGOT). Due on due Goal Order Annual PT. Due on due Goal TRAY SERVER Paperwork. Due on due Goal UDT. Due on due Goal ALT (SGPT). Due on due Goal Review Allergy List. Due on due Goal PHQ-9. Due on du e Goal Update Social History. Due o n due Goal Medication Reconciliation. D ue on due Goal Height. Due on d ue Goal Tobacco Use. Due on due Goal Weight. Due on d ue Goal Update Social History. Due o n due Goal Medication Reconciliation. D ue on due Goal Height. Due on d ue Goal Tobacco Use. Due on due Goal Weight. Due on d ue Goal OARS. Due on due Goal ORDNANCE KEEPER Scanned. Due on due Goal Creatinine. Due on due Goal AST (SGOT). Due on due Goal Order Annual PT. Due on due Goal TRAY SERVER Paperwork. Due on due Goal UDT. Due on due Goal ALT (SGPT). Due on due Goal Review Allergy List. Due on due Goal PHQ-9. Due on du e Goal AST (SGOT). Due on due Goal PHQ-9. Due on du e Goal Update Social History. Due o n due Goal Medication Reconciliation. D ue on due Goal Height. Due on d ue Goal Tobacco Use. Due on due Goal Weight. Due on d ue Goal Order Annual PT. Due on due Goal TRAY SERVER Paperwork. Due on due Goal UDT. Due on due Goal ALT (SGPT). Due on due Goal Review Allergy List. Due on due Goal OARS. Due on due Goal ORDNANCE KEEPER Scanned. Due on due Goal Creatinine. Due on due Goal OARS. Due on due Goal ORDNANCE KEEPER Scanned. Due on due Goal Creatinine. Due on due Goal AST (SGOT). Due on due Goal Order Annual PT. Due on due Goal TRAY SERVER Paperwork. Due on due Goal UDT. Due on due Goal ALT (SGPT). Due on due Goal Review Allergy List. Due on due Goal PHQ-9. Due on du e Goal Update Social History. Due o n due Goal Medication Reconciliation. D ue on due Goal Height. Due on d ue Goal Tobacco Use. Due on due Goal Weight. Due on d ue Goal Review Allergy List. Due on due Goal OARS. Due on due Goal ORDNANCE KEEPER Scanned. Due on due Goal Creatinine. Due on due Goal AST (SGOT). Due on due Goal Order Annual PT. Due on due Goal TRAY SERVER Paperwork. Due on due Goal UDT. Due on due Goal ALT (SGPT). Due on due Goal PHQ-9. Due on du e Goal Update Social History. Due o n due Goal Medication Reconciliation. D ue on due Goal Height. Due on d ue Goal Tobacco Use. Due on due Goal Weight. Due on d ue Goal OARS. Due on due Goal ORDNANCE KEEPER Scanned. Due on due Goal Creatinine. Due on due Goal AST (SGOT). Due on due Goal Order Annual PT. Due on due Goal TRAY SERVER Paperwork. Due on due Goal UDT. Due on due Goal ALT (SGPT). Due on due Goal PHQ-9. Due on du e Goal Update Social History. Due o n due Goal Medication Reconciliation. D ue on due Goal Height. Due on d ue Goal Tobacco Use. Due on due Goal Weight. Due on d ue Goal Review Allergy List. Due on due Goal PHQ-9. Due on du e Goal Update Social History. Due o n due Goal Medication Reconciliation. D ue on due Goal Height. Due on d ue Goal Tobacco Use. Due on due Goal Weight. Due on d ue Goal Review Allergy List. Due on due Goal PHQ-9. Due on du e Goal Update Social History. Due o n due Goal Medication Reconciliation. D ue on due Goal Height. Due on d ue Goal Tobacco Use. Due on due Goal Weight. Due on d ue Goal Review Allergy List. Due on due Goal Review Allergy List. Due on due Goal PHQ-9. Due on du e Goal Update Social History. Due o n due Goal Medication Reconciliation. D ue on due Goal Height. Due on d ue Goal Tobacco Use. Due on due Goal Weight. Due on d ue History Of Present Illness Encounter Date Complaint History Of Prese nt Illness Comments: Libertad presents for a follow up and medication refill. Patient c/o chronic low back pain with radiation into her right buttocks. Pain has been stable overall since last visit.Most of today's visit was spent discussing multiple TRAY SERVER terminations, including not bringing medications to visits and most recent UDT was (-) for oxycodone. Terminated TRAY SERVER today, verbalized an understanding.Medication provides 50% relief and allows for increased functionality per patient intake. Presents without medication available for count. Denies side effects from current medication regimen. No other concerns today. Back Pain Severity level i s 5. Duration: chronic. The problem is stable. It occurs persistently. The client describes the pain as an ache, sharp and tingling. Symptoms are aggravated by ascending stairs, bending, descending stairs, lifting, running, sitting, standing, twisting, prolonged positioning, movement and housework. Symptoms are relieved by ice, lying down, massage, pain meds/drugs, stretching, rest, changing positions and chiropractic. Back Pain Severity level i s 6. Duration: chronic. The problem is stable. It occurs persistently. Location of pain is lower back and legs. The client describes the pain as an ache and sharp. Symptoms are aggravated by ascending stairs, bending, descending stairs, lifting, sitting, standing, twisting, walking, prolonged positioning, housework and movement. Symptoms are relieved by ice, lying down, massage, pain meds/drugs, stretching, rest, changing positions and chiropractic. Comments: Libertad presents for a follow up and medication refill. Patient c/o chronic low back pain with radiation into her right buttocks. Pain has been stable overall since last visit. States she has good days and bad days, with occasional flares.Of note, she continues to struggle to find a new job.Medication provides 50% relief and allows for increased functionality per patient intake. Presents on track with oxycodone and with a surplus of Belbuca. Denies side effects from current medication regimen. No other concerns today. Back Pain Severity level i s 5. Duration: chronic. The problem is stable. It occurs persistently. Location of pain is lower back, gluteal area and legs. The client describes the pain as an ache and sharp. Symptoms are aggravated by ascending stairs, bending, descending stairs, lifting, lying/rest, sitting, standing, twisting, walking, prolonged positioning, housework and movement. Symptoms are relieved by ice, lying down, massage, pain meds/drugs, stretching, rest, changing positions and chiropractic. Comments: Libertad presents for a follow up and medication refill. Patient c/o chronic low back pain with radiation into her right buttocks. Pain has been stable since last visit. States she f/u with ED regarding ongoing urinary urgency and bladder pain. States she had kidney stones and was able to pass them. States she was given Dilaudid while there, but has d/c.Medication provides 60% relief and allows for increased functionality per patient intake. Presents on track with oxycodone and with a surplus of Belbuca. Denies side effects from current medication regimen. No other concerns today.Of note, most of today's visit was spent discussing previous UDT results. UDT on 05/19/2022 results were positive for trace amounts of Oxycodone and negative for metabolites. Most recent UDT results on 06/18/22 were (+) for oxycodone and metabolites, consistent. Back Pain Duration: chroni c. The problem is worsening. It occurs persistently. Location of pain is lower back. The client describes the pain as burning and sharp. Symptoms are aggravated by ascending stairs, bending, descending stairs, lifting, running, standing, twisting and walking. Symptoms are relieved by heat, lying down, pain meds/drugs and rest. Comments: Libertad presents for a follow up and medication refill. Patient c/o chronic low back pain with radiation into her right buttocks. Pain has been worse since last visit. States she f/u with ED regarding ongoing urinary urgency and bladder pain. Notes her tests were unremarkable and inquires if her symptoms were related to her low back pain. Medication provides 60% relief and allows for increased functionality per patient intake. Denies side effects from current medication regimen. No other concerns today.Of note, most of today's visit was spent discussing previous UDT results. UDT on 05/19/2022 results were positive for trace amounts of Oxycodone and negative for metabolites. States she was not honest last OV and ran out of medications early. Reports she was better this month and took as directed. Comments: Libertad is a 31 y/o woman here for follow up consult and medication refill regarding chronic back pain. Right buttock and hip pain have not changed. Pain has been stable since [facility] and pain level averages 9/10.Reports current medication regimen provides 60% pain relief and allows increased functionality. Denies side effects from current medication regimen. Upon inquiry, states that she does not know why her most recent UDT results are negative for prescribed medications and correlated metabolites. No other concerns today. Back pain Severity level i s 9. Duration: chronic. The problem is stable. It occurs persistently. The client describes the pain as an ache, burning, sharp and tingling. Symptoms are aggravated by ascending stairs, bending, descending stairs, lifting, lying/rest, sitting, standing, twisting, walking, housework, movement and prolonged positioning. Symptoms are relieved by ice, lying down, massage, pain meds/drugs, stretching, rest, chiropractic and changing positions. Comments: Libertad is here for follow-up and medication management. She is followed for lower back pain. Reports pain has remained stable since [facility]. 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 Denies side effects from current medication regimen. No other concerns today. Back Pain Severity level i s 6. Duration: chronic. The problem is stable. It occurs persistently. Location of pain is lower back. The client describes the pain as an ache and sharp. Symptoms are aggravated by bending, lifting, standing, twisting, walking, movement, housework, stairs and prolonged positioning. Symptoms are relieved by ice, lying down, massage, pain meds/drugs, stretching, rest and changing positions. Comments: Libertad is here for follow-up and medication management. She is followed for lower back pain. Reports pain has remained stable since [facility]. Notes her mental health has deteriorated recently. May be interested in surgery or other interventions through [facility], such as RFA. Will consider RFA.Reports current medication regimen provides 60% pain relief and allows increased functionality. Presents on track with prescribed medication. Denies side effects from current medication regimen. No other concerns today. low back pain Severity level i s 8. Duration: chronic. The problem is stable. It occurs persistently. Location of pain is legs and right sided. The client describes the pain as an ache, sharp and tingling. Symptoms are aggravated by ascending stairs, bending, descending stairs, lifting, sitting, standing, twisting, walking, prolonged positioning, housework and movement. Symptoms are relieved by ice, lying down, massage, pain meds/drugs, stretching, rest and changing positions. low back pain Duration: chroni c. The problem is stable. It occurs persistently. The client describes the pain as an ache and sharp. Symptoms are aggravated by ascending stairs, bending, descending stairs, lifting, running, sitting, standing, twisting, walking, prolonged positioning and housework. Symptoms are relieved by heat, ice, lying down, massage, pain meds/drugs, rest and changing positions. Comments: Libertad is here for follow-up and medication management. She is followed for lower back pain. Reports pain has remained stable since [facility]. She is interested in trying chiropractic.Of note, she was having trouble performing the expected tasks at work so she is looking for a different job.Reports current medication regimen provides 60% pain relief and allows increased functionality. Denies side effects from current medication regimen. No other concerns today. Comments: Libertad is here for follow-up and medication management. She is followed for lower back pain. Reports pain has remained stable since [facility]. S/p [facility] 10/03/21 w/ Dr. Carrera; patient reports less benefit than first [facility]. Inquires about workability papers. Requests [facility] fill out papers for her.Reports current medication regimen provides 60% pain relief and allows increased functionality. Denies side effects from current medication regimen. Presents on track with oxycodone and a surplus of Belbuca. Requests steroid refill. No other concerns today. low back pain Severity level i s 8. Duration: chronic. The problem is stable. It occurs persistently. The client describes the pain as an ache and sharp. Symptoms are aggravated by ascending stairs, bending, descending stairs, lifting, running, sitting, standing, twisting, walking, prolonged positioning and housework. Symptoms are relieved by heat, ice, lying down, massage, pain meds/drugs, rest and changing positions. Comments: Libertad is here for follow-up and medication management. She is followed for lower back pain. Reports pain has worsened since JORDYN. S/p LESI 10/03/21 w/ Dr. Carrera; patient reports less benefit than first LESI. Notes she tweaked her back when lifting her daughter. Notes some pain in lower abdomen.Notes she has been taking time off of work d/t pain. Expresses worry about returning.Reports current medication regimen provides 50% pain relief and allows increased functionality. Denies side effects from current medication regimen. Presents on track with prescribed medication. No other concerns today. low back pain Severity level i s 7. Duration: chronic. The problem is worsening. It occurs persistently. The client describes the pain as an ache and sharp. Symptoms are aggravated by ascending stairs, bending, descending stairs, lifting, sitting, standing, twisting, walking, prolonged positioning, housework and movement. Symptoms are relieved by ice, lying down, massage, pain meds/drugs, stretching, rest and changing positions. low back pain Severity level i s 7. Duration: chronic. The problem is stable. It occurs persistently. The client describes the pain as an ache and sharp. Symptoms are aggravated by ascending stairs, bending, descending stairs, lifting, running, sitting, standing, twisting, walking, prolonged positioning, housework and movement. Symptoms are relieved by ice, lying down, massage, pain meds/drugs, stretching, rest, changing positions and chiropractic. Comments: Libertad is here for follow-up and medication management. She is followed for lower back pain. Reports intermittent flares since last OV which she attributes to her new job. Notes that she started working 15-20 hours/week. S/p LESI 10/03/21 w/ Dr. Carrera; patient reports less benefit than first LESI.Notes she has been taking time off of work d/t pain. Expresses worry about returning.Of note, she brought her daughter along to her appointment. Reports current medication regimen provides 60% pain relief and allows increased functionality. Denies side effects from current medication regimen. Presents without prescription. No other concerns today. Comments: Libertad is here for follow-up and medication management. She reports greater than 60% relief with her treatment plan.She is followed for lower back pain. Reports intermittent flares since last OV which she attributes to her new job. Notes that she started working 15-20 hours/week. She is happy to be working again, but does report some increased pain. S/p LESI 09/20/21 w/ Dr. Carrera; patient reports significant benefit. Will continue to monitor for long-term relief. low back pain Severity level i s 7. The problem is changing in character. It occurs intermittently. Location of pain is lower back. Symptoms are aggravated by daily activities, descending stairs and walking. Back Pain Severity level i s 6. Duration: chronic. The problem is stable. It occurs persistently. Location of pain is lower back and R leg. The client describes the pain as an ache and sharp. Symptoms are aggravated by ascending stairs, bending, descending stairs, lifting, sitting, standing, twisting, walking, movement, housework and prolonged positioning. Symptoms are relieved by ice, lying down, massage, pain meds/drugs, stretching, rest and changing positions. Comments: Lbiertad is here for follow-up and medication management. She reports greater than 60% relief with her treatment plan.She is followed for lower back pain. Reports intermittent flares since last OV which she attributes to her new job. Notes that she started working 15-20 hours/week. She is happy to be working again, but does report some increased pain. She looks forward to LESI scheduled for 09/20/21.Patient is not accompanied today. No other concerns. Back Pain Severity level i s 8. Duration: chronic. The problem is fluctuating. It occurs intermittently. Location of pain is lower back.The patient describes the pain as an ache and burning. Symptoms are aggravated by ascending stairs and daily activities. Symptoms are relieved by pain meds/drugs and rest. Back Pain (comments) Libertad is h ere for follow-up and medication management. She reports greater than 50% relief with her treatment plan.Reports that there is no changes to her low back pain this month. She states that low back pain has been improved ever since her lumbar epidural steroid injection from Dr. Bernabe carmona in February of last year. She is starting to feel it wear off and requests to repeat today.Continues to stay active with her home exercise program. She is looking forward for the Spring weather.Patient is not accompanied today. No other concerns. Back Pain Severity level i s 3. Duration: chronic. The problem is stable. It occurs persistently. Location of pain is lower back and R leg.The patient describes the pain as an ache and sharp. Symptoms are aggravated by ascending stairs, bending, descending stairs, lifting, sitting, standing, twisting, walking, movement, housework and prolonged positioning. Symptoms are relieved by ice, lying down, massage, pain meds/drugs, stretching, rest, chiropractic and changing positions. Back Pain (comments) Libertad is h ere for follow-up and medication management. She reports greater than 50% relief with her current medication regimen.She is followed for lower back with radiation into RLE. Pain has continued to be well managed since last OV. Notes that her medications along with intermittent lumbar epidural steroid injections help her pain significantly. Continues to try to stay active at home with home exercises. Denies new chronic pain concerns over the last month. Patient is not accompanied today. No other concerns. Back Pain (comments) Libertad is h ere for follow-up and medication management. She reports greater than 50% relief with her current medication regimen.She states that her pain today is stable. Notes that her medications along with intermittent lumbar epidural steroid injections help her pain significantly.Note that she did have pain radiating down into her left hip. This pain has since resolved.Continues to try to stay active at home with home exercises.Patient is not accompanied today. No other concerns. Back Pain Severity level i s 7. Duration: chronic. The problem is stable. It occurs intermittently. Location of pain is middle back and lower back.The patient describes the pain as burning, deep and dull. Context: bending forward and walking. Symptoms are aggravated by changing positions and walking. Symptoms are relieved by pain meds/drugs and rest. Back Pain Severity level i s 7. Duration: chronic. The problem is stable. It occurs persistently. Location of pain is lower back and legs.The patient describes the pain as an ache and tingling. Symptoms are aggravated by ascending stairs, bending, descending stairs, lifting, sitting, standing, twisting and walking. Symptoms are relieved by ice, lying down, massage, pain meds/drugs, rest, chiro and changing positions. [facility] (comments[facility]. She c/o low back pain (R>L) with radiation into her right thigh and groin. Denies new changes or new complaints. Requests a refill of current medication regimen. Since last OV, she had kidney stone and was given fentanyl and Toradol in the ER. Pain has returned to baseline. Reports current medication regimen provides 70% pain relief and allows increased functionality. Denies side effects from current medication regimen. No other concerns today. [facility] (comments[facility] She c/o low back pain (R>L) with radiation into her right thigh and groin. Denies new changes or new complaints. Requests a refill of current medication regimen. Reports current medication regimen provides 40% pain relief and allows increased functionality. Denies side effects from current medication regimen. No other concerns today. Back Pain Duration: chroni c. The problem is fluctuating. It occurs persistently. Location of pain is lower back and legs.The patient describes the pain as an ache and burning. Symptoms are aggravated by ascending stairs, bending, descending stairs, lifting, standing, twisting, walking, movement, housework and prolonged positioning. Symptoms are relieved by ice, lying down, massage, pain meds/drugs, stretching and changing positions. Back Pain Severity level i s 7. Duration: chronic. The problem is stable. It occurs persistently. Location of pain is lower back and legs.The patient describes the pain as an ache and sharp. Symptoms are aggravated by ascending stairs, descending stairs, sitting, standing, twisting and walking. Symptoms are relieved by ice, lying down, pain meds/drugs, rest and changing positions. Back Pain (comments) [facility] for followup and medication refill. She c/o low back pain (R>L) with radiation into her right thigh and groin. Notes pain has persisted down her leg, but recent TFESI on 02/20 improved pain in her lower back. Requests a refill of current medication regimen. Reports current medication regimen provides 50% pain relief and allows increased functionality. Denies side effects from current medication regimen. No other concerns today. Back Pain Severity level i s 9. Duration: chronic. The problem is worsening. It occurs persistently. Location of pain is lower back.The patient describes the pain as an ache, burning and sharp. Symptoms are aggravated by bending, lifting, housework, movement and prolonged positioning. Symptoms are relieved by ice, lying down, pain meds/drugs and rest. Back Pain (comments) [facility] and medication [facility]ill. She c/o low back pain (R>L) with radiation into her right thigh and groin. Notes pain has persisted and has not been well managed by current regimen. States that she has not been taking Belbuca and has only been managing her pain on Percocet. Requests a refill of current medication regimen. She was scheduled for an IVONE, but per pt report, she was ill and had to cancel the injection. Reports current medication regimen provides 50% pain relief and allows increased functionality. Denies side effects from current medication regimen. No other concerns today. Back Pain Duration: chroni c. The problem is stable. It occurs persistently. Location of pain is lower back.The patient describes the pain as an ache, burning and sharp. Symptoms are aggravated by ascending stairs, bending, descending stairs, lifting, sitting, standing and twisting. Symptoms are relieved by pain meds/drugs and rest. Back Pain (comments) [facility] for followup and medication refill. She c/o low back pain (R>L) with radiation into her right thigh and groin. Notes pain has persisted and has not been well managed by current regimen. Denies relief from Belbuca 75mcg BID. Requests a refill/increase of Percocet. Patient is interested in pursuing IVONE. Reports current medication regimen provides 50% pain relief and allows increased functionality. Denies side effects from current medication regimen. No other concerns today. Back Pain Severity level i s 8. Duration: chronic. The problem is stable. It occurs persistently. Location of pain is lower back and gluteal area. Pain is radiated to the right ankle, right calf, right foot and right thigh.The patient describes the pain as an ache and sharp. Symptoms are aggravated by ascending stairs, bending, daily activities, descending stairs, lifting, walking, prolonged positioning, movement and housework. Symptoms are relieved by ice, lying down, pain meds/drugs and rest. Back Pain (comments) Libertad is a pleasant 30 y/o female who presents to clinic for follow-up after initial consult ref regarding chronic back pain. She reports no big updates since last OV. She continues to be bothered by daily pain. She c/o low back pain which is worse on the right and radiates anteriorly to her right thigh and groin. She feels occasional flares on the posterior aspect of the thigh and around her beltline. She has tried PHILOMENA SI joint injections with Dr. Coelho with short term relief. She discloses that she experienced a panic attack during the last injection thus has hesitations to pursue further injections. She is currently managed on percocet 5/325mg TID and gabapentin 300mg prescribed [address] Bradley Coelho. She requests [facility] to take over medications and understand she must abide by monthly visits and the [facility]. Notes she has been on this regimen for a while now with moderate relief. She has tried Percocet 10-325mg with more relief than the 5mg and is interested in being managed on this. Her goal is to keep up with her 3 y/o daughter more. Reports current medication regimen provides 40% pain relief and allows increased functionality. Denies side effects from current medication regimen. No other concerns today. Back Pain (comments) Libertad is a pleasant 30 y/o female who presents for initial consult referred by Dr. Bradley Coelho. 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 Over the years, her pain continued to increase and became more consistent. She descibes her low back pain as a aching pain that radiates around her abdoemn and down her R buttock, hips and R leg. She trialled PT at [facility] in 2019 with minimal relief. Triallled two sessions of accupunture with some relief. She has also trialled a few lumbar and SI joint injection. Lumbar IVONE was not helpful. SI joint injection provided significant temporary relief. She is scheduled to repeat this injection on 12/04/20. Last lumbar MRI was completed at [facility] in 2018She is currently managed on percocet 5/325mg and gabapentin 300mg prescribed [address] Bradley Coelho. Notes she has been on this regimen for a while now with good relief.She is interested in establishing care with [facility] and a chiropractic referral. Back Pain Severity level i s 8. Duration: chronic. The problem is stable. It occurs persistently. Location of pain is lower back.The patient describes the pain as an ache, burning and sharp. Symptoms are aggravated by ascending stairs, bending, changing positions, lifting, sitting, standing, twisting and walking. Symptoms are relieved by lying down, pain meds/drugs and rest. Functional Status Date Functional Assessmen t No Information Instructions Date Instruction Additional Infor mation No Information Assessments Type Assessment Date assessment Chronic pain syndrome impression Libertad is a 31 y/o f emale here for f/u regarding chronic low back pain. 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 She describes her low back pain as a aching pain that radiates around her abdomen and down her R buttock, hips and R leg. Trialled and failed PT, acupuncture, LESI and R SI injections.Pain overall stable since JORDYN. Denies recent flares or new concerns assessment Sacroiliitis, not elsewhere clas sified impression Pain overall stable. Patient reports significant temporary from PHILOMENA SI joint injection with Dr. Bradley Coelho. She had a panic attack during the last injection and has hesitations to pursue the injection because of this. Denies recent flares or new concerns assessment Other spondylosis, lumbar region impression C/o low back pain, s table this month. Denies recent flares or new concerns assessment Other intervertebral disc displa cement, lumbar region impression Patient c/o R sided low back pain and R SI joint instability. Stable since JORDNY. Denies recent flares or new concerns. Onset was in 2012 following a work injury. Trialled and failed PT, acupuncture and lumbar ESIS/p bilateral TFESI at L5-S1 with Dr. 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 Presents without medication available for count. She has Senna for [facility] in the past. Denies other side effects.Most of today's visit was spent discussing multiple [employer] terminations, including not bringing medications to visits and most recent UDT was (-) for oxycodone. Terminated [employer] SERVER today, verbalized an understanding. Not appropriate to continue opioid therapy Mental Status Date Cognitive Assessment Orientation - [place] ed to time, place, person, situation. Patient Care Teams Name Effective Dates (start - stop) Status Members No Information
[2022-09-24 07:01] LABS: Albumin* 4.4 g/dL (3.3-5.0); Chloride* 108 mmol/L (96-114)
[2022-09-24 07:02] LABS: Potassium* 4.1 mmol/L (3.6-5.1); Sodium* 138 mmol/L (135-149)
[2022-09-24 07:04] LABS: Creatinine* 0.7 mg/dL (0.5-1.5); Est. Creatinine Clearance* 88.68; Estimated Glomerular Filt Rate 119 ml/min
[2022-09-24 07:05] LABS: Alanine Aminotransferase* 20 U/L (4-35); Alkaline Phosphatase* 69 U/L (40-150); Aspartate Amino Transferase* 20 U/L (12-35); Bilirubin Total* 0.4 mg/dL (0.1-1.5); Blood Urea Nitrogen* 10 mg/dL (5-24); Calcium* 9.1 mg/dL (8.4-10.6); Carbon Dioxide* 22 mmol/L (20-32); Glucose* 90 mg/dL (60-115); Lipase* 182 U/L (23-300); Total Protein* 7.5 g/dL (6.0-8.3)
[2022-09-24 07:08] LABS: C Reactive Protein* 0.7 mg/dL (0.5-1.0)
[2022-09-24] MEDS: ACETAMINOPHEN 500 MG TABLET 1000 MG PO (07:48)
[2022-09-24] MEDS: CYCLOBENZAPRINE HCL 10 MG TABLET PO (07:49)
[2022-09-24 07:57] VITALS: BP 107/51; PULSE 87; RESP 16; TEMP 36.6; O2SAT 100
== END 2022-09-24 07:59 | disposition home or self-care (01) ==
PROVIDERS: Emergency Provider Family Medicine; PCP Physician Assistant
DX: F11.23 Opioid dependence with withdrawal (principal)
CPT/HCPCS: 36415; 74176; 80053; 81003; 81015; 83690; 84703; 85025; 86140; 96374; 99283; 99284; A9270; J1885; J2405

== ENCOUNTER 2023-07-21 04:27 | Emergency (ER) | payer MEDICAID, SELFPAY ==
[2023-07-21 04:42] VITALS: BP 143/91; PULSE 119; RESP 16; TEMP 36.3; O2SAT 97
--- NOTE | 2023-07-21 04:51 | CRLHL7_ITS ---
For Patients: As a result of the Century Cures Act, medical imaging exams and procedure reports are released immediately into your electronic medical record. You may view this report before your referring provider. If you have questions, please contact your health care provider. INDICATION: Throat pain, right tonsillar swelling TECHNIQUE: CT soft tissue of the neck was acquired with 93 cc Isovue 370 IV contrast. COMPARISON: None. FINDINGS: Skull base: Unremarkable. Pharynx/Larynx/Trachea: Heterogenous enlargement and enhancement involving the right greater than left palatine tonsil. Findings most suspicious for acute tonsillitis. Additionally, anterolateral to the right palatine tonsil is a collection measuring 1.9 x 1.4 x 2.0 cm. This collection mostly contains air and a small amount of fluid. Primary differential would be that this represents a peritonsillar phlegmon/abscess. Recommend ENT consult to further evaluate. No retropharyngeal fluid collection. About appears unremarkable. Salivary glands: Unremarkable. Thyroid gland: Unremarkable. No significant nodules. Lymph nodes: Mildly prominent right level 2 lymph node, measuring 1.2 cm, nonspecific but likely reactive. Vessels: Unremarkable for age. Bones: Unremarkable for age. Misc: No inflammation, mass or fluid collection. Lung apices: Unremarkable. IMPRESSION: Heterogenous enlargement and enhancement involving the right greater than left palatine tonsil. Findings most suspicious for acute tonsillitis. Additionally, anterolateral to the right palatine tonsil is a collection measuring 1.9 x 1.4 x 2.0 cm. This collection mostly contains air and a small amount of fluid. Primary differential would be that this represents a peritonsillar phlegmon/abscess. Recommend ENT consult to further evaluate. Please note that all CT scans at this facility use dose modulation, iterative reconstruction, and/or weight-based dosing when appropriate to reduce radiation dose to as low as reasonably achievable. Dictated by Tony Ayala MD @ 07/21/2023 6:26:46 AM (Electronically Signed)
--- NOTE | 2023-07-21 04:53 | ED.GENADULT ---
HPI - General Adult General Time Seen by Provider: 04:53 Date Seen: 07/21/23 Chief complaint: Sore Throat Stated complaint: Has strep antibiotic not working Time Seen by Provider: 07/21/23 04:48 Source: patient, RN notes reviewed and old records reviewed Mode of arrival: ambulatory Limitations: no limitations History of Present Illness HPI narrative: 32-year-old female who comes in today with throat pain. Diagnosed with strep a couple days ago and has been taking amoxicillin. Marnei had some vomiting felt like something popped in her throat, now spitting out foul smelling drainage from but pain is much improved. Related Data Home Medications Medication Instructions Recorded Confirmed fluoxetine 40 mg capsule 80 mg PO DAILY 02/10/22 07/16/23 propranolol 60 mg capsule,24 60 mg PO Q24H 02/10/22 07/16/23 hr,extended release buspirone 10 mg tablet 10 mg PO BID 09/24/22 07/16/23 Allergies Allergy/AdvReac Type Severity Reaction Status Date / Time Estrogens Allergy Mild Verified 07/16/23 18:37 PFSH PFS Medical History Anxiety ?F41.9 - Anxiety disorder, unspecified (ICD-10) Chronic back pain ?M54.9 - Dorsalgia, unspecified (ICD-10) ?G89.29 - Other chronic pain (ICD-10) Depression ?F32.A - Depression, unspecified (ICD-10) Kidney stone ?N20.0 - Calculus of kidney (ICD-10) Surgical History History of delivery ?Z98.891 - History of uterine scar from previous surgery (ICD-10) History of cholecystectomy ?Z90.49 - Acquired absence of other specified parts of digestive tract (ICD-10) Social History Smoking Status: Never smoker How often do you have a drink containing alcohol: never AUDIT-C Alcohol total score: 0 Non-prescribed substance use: denies use Exam Narrative: Exam Narrative: General: Well-developed and well-nourished, no acute distress Head: Atraumatic and normocephalic Eyes: Pupils are equal reactive, extraocular motions intact, conjunctiva clear ENT: External nose and ears are normal, swelling of the right soft palate and tonsil, purulent drainage is a posterior pharynx and patient spitted out pus Neck: No midline cervical tenderness, full spontaneous range of motion the neck, trachea midline, no adenopathy Heart: Regular rate and rhythm no murmurs or thrills Lungs: Clear to auscultation bilaterally without wheezes or crackles Abdomen: Soft, nontender, nondistended with active bowel sounds Musculoskeletal: No tenderness, deformity, or edema Neurologic: Awake, alert, and oriented x3, no gross focal neurologic deficits, cranial nerves intact as tested Psych: Mood and affect are appropriate Skin: No rashes Const: Vital Signs, click to edit/add: Vital Signs - 24 hr 07/21/23 04:42 07/21/23 06:08 Temperature 97.4 F L Pulse Rate [Left P ulse Oximeter] 119 H 91 Respiratory Rate 16 16 Blood Pressure [Ri ght Upper Arm] 143/91 H 121/80 Pulse Oximetry 97 97 Oxygen Delivery Me thod Room Air Room Air Course Course ED Course: Patient seen and examined, prior records reviewed. Patient presents today with sore throat, strep test positive, feeling of a pop in her back or throat earlier. On exam patient is spitting out pus, tonsillar asymmetry with right tonsillar and soft palate fullness. Symptoms are most consistent with peritonsillar abscess with spontaneous drainage. CT scan ordered to evaluate for residual size of abscess, Decadron IV is given and will discuss with ENT. If abscess continues draining spontaneously in the department, patient can be discharged with outpatient follow-up in a Reevaluation(s) Time of Reevaluation #1: 05:45 Reevaluation #1: Patient remains stable in the department, continues to cough up purulent sputum. Time of Reevaluation #2: 06:02 Reevaluation #2: CT scan of the neck with contrast independently interpreted by me demonstrates a large air-fluid structure on the right without evidence for gabi abscess. This likely represents patient's ruptured abscess. On clinical re-examination, decreased swelling on right peritonsillar area. Discuss with ENT patient likely can be discharged Time of Reevaluation #3: 06:35 Reevaluation #3: Care discussed with Dr. De Paz, ENT. Recommends changing antibiotic to Augmentin and dose of Unasyn in the emergency department, patient will be given Zosyn. Outpatient follow-up this week. Patient is feeling better and stable for discharge after antibiotics Vital Signs Vital signs: Initial Vital Signs Temperature 97.4 F L 07/21/23 04:42 Temperature Source Temporal Artery Scan 07/21/23 04:42 Pulse Rate 119 H 07/21/23 04:42 Pulse Rhythm Regular 07/21/23 04:42 Respiratory Rate 16 07/21/23 04:42 Blood Pressure 143/91 H 07/21/23 04:42 Blood Pressure Mean 108 H 07/21/23 04:42 Blood Pressure Position Sitting 07/21/23 04:42 Pulse Oximetry 97 07/21/23 04:42 Oxygen Delivery Method Room Air 07/21/23 04:42 Vital Signs Temperature 97.4 F L 07/21/23 04:42 Pulse Rate 119 H 07/21/23 04:42 Respiratory Rate 16 07/21/23 04:42 Blood Pressure 143/91 H 07/21/23 04:42 Pulse Oximetry 97 07/21/23 04:42 Oxygen Delivery Method Room Air 07/21/23 04:42 Temperature 97.4 F L 07/21/23 04:42 Pulse Rate 91 07/21/23 06:08 Respiratory Rate 16 07/21/23 06:08 Blood Pressure 121/80 07/21/23 06:08 Pulse Oximetry 97 07/21/23 06:08 Oxygen Delivery Method Room Air 07/21/23 06:08 Medications Administered Medications: Discontinued Medications Generic Name Dose Route Start Last Admin Trade Name Freq PRN Reason Stop Dose Admin Acetaminophen 1,000 mg 07/21/23 05:33 07/21/23 05:44 Acetaminophen 500 Mg Tablet PO 07/21/23 05:34 1,000 mg ONCE ONE Administration Dexamethasone 10 mg 07/21/23 04:51 07/21/23 05:04 Dexamethasone 10 Mg/Ml Inj IVP 07/21/23 04:52 10 mg ONCE ONE Administration Sodium Chloride 1,000 mls @ 1,000 mls/hr 07/21/23 05:00 07/21/23 05:04 0.9 % Sodium Chloride 1000 Ml IV 07/21/23 05:59 1,000 mls/hr .Q1H AISHWARYA Administration Discharge Plan Discharge Clinical Impression: Peritonsillar abscess Patient Disposition: Home, Self-Care Condition: Stable Instructions: Peritonsillar Abscess (DC) Additional Instructions: You have been evidence of an abscess (pus pocket) of the right tonsil. This is occasionally seen with strep throat. Frequently these need to be drained in the operating room, however your is has ruptured and is draining spontaneously. Continue your antibiotics and follow-up with ENT as directed. Tylenol and ibuprofen as needed for pain Follow-up with Dr. Lipscomb ENT this week ([facility] [phone]) Activity Level: No Restrictions Discharge Diet: Regular Prescriptions: No Action fluoxetine 40 mg capsule 80 mg PO DAILY Patient Comments: Take 2 Capsules (80 mg) by mouth every morning. propranolol 60 mg capsule,extended release 24 hr 60 mg PO Q24H Patient Comments: Take 1 Capsule (60 mg) by mouth once daily. buspirone 10 mg tablet 10 mg PO BID Follow Up/Referrals: Eve King PA [Primary Care Provider] - Stand Alone Forms: [employer] Info Instructions
--- OUTSIDE RECORDS SUMMARY | 2023-07-21 04:56 | XMS_ITS | Continuity of Care Document ---
Author Name Unknown Organization [facility] enter Address [address] [place] [phone] Phone Care Team Providers Care Supply Aide Name Role Phone [facility] Unavailable Unava ilable Procedures Procedure Date INJ FORAMEN EPIDURAL L/S INJ FORAMEN EPIDURAL L/S Advance Directives Directive Yes / No Effective Date File Name No Information Encounters Encounter Description Practice Location Reason(s) For Visit Diagnoses Date Provider Providers Copied on Encounter [facility], [address] [place] [address], [id number], tel:[phone] [place] [address] No Information [facility]. [address] [place] [address], [id number], . tel:[phone] Referring Provider: Ludwig Castillo [address], [place], [address]. tel:[phone] [facility], [address] [place] [address], [id number], tel:[phone] [place] [address] No Information [facility]. [address] [place] [address], [id number], . tel:[phone] Referring Provider: Bernabe Russell, [address] [facility] [place], [address] . tel:[phone] Family History Family Member Type Diagnosis Age At Onset No Information Payers Payer name Insurance type Covered libertarian ID Authorjairoa samantha(s) Adam [facility] [id number] Social History Type Description Quantity Date Captured Comments Sex Female Smoking Status No Information Chief Complaint And Reason For Visit No Information Reason For Referral Reason For Referral No Information History Of Present Illness Encounter Date Complaint History Of Prese nt Illness No Information Functional Status Date Functional Assessmen t No Information Instructions Date Instruction Additional Infor mation No Information Assessments Type Assessment Date No Information Patient Care Teams Name Effective Dates (start - stop) Status Members No Information
--- OUTSIDE RECORDS SUMMARY | 2023-07-21 04:56 | XMS_ITS | Clinical Summary ---
Author Name Unknown Organization [facility] Address [place], [place] [address] Care Team Providers Care Superintendent [employer] Name Role Phone NathMartin martin Jaskaran Unavailable Unavailable Clinic, No Pcp Or Primary Care Provider Unavaila ble Allergies Active Allergy Reactions Criticality Noted Date Comments Iodinated Contrast Media Itching Unknown 02/15/2020 Patient reported itching after Isovue 370 CT and dilaudid on 11/16/15 in [place] ER - the treating provider felt this was the dilaudid not Isovue. She tolerated Omnipaque 350 without reaction on 11/26/2017 during ureteral stent placement. She tolerated Omnipaque 240 with epidural steroid injection 03/2020. Hydromorphone Itching Low 02/15/2020 Itching after IV dilaudid on 11/16/15 ER visit. Tolerated oral hydrocodone and oxycodone since without reaction. Estrogens Other - Describe In Comment Field 06/24/2013 Factor V Leiden heterozygous mutation Medications Medication Sig Dispensed Refills Start Date End Date Status SUMAtriptan (IMITREX) 100 mg tabletIndications:Mi graine with aura, not intractable, without status migrainosus Take 1 Tablet (100 mg) by mouth every 2 hours if needed for Migraine. Give at minimum 2hrs apart. Max Dose: 200mg per 24hrs. 18 Tablet 4 11/07/2021 Active etonogestrel subdermal implant (NEXPLANON) 68 mg implant Inject 1 Each subdermal every 3 years. Placed 12/20/20. 1 Each 0 11/07/2021 Active buPROPion (WELLBUTRIN XL) 150 mg Extended-Release tabletIndications:Mo derate recurrent major depression (HC) Take 1 Tablet (150 mg) by mouth every morning. 90 Tablet 1 10/16/2022 Active busPIRone (BUSPAR) 10 mg tabletIndications:An xiety Take 1 Tablet (10 mg) by mouth two times daily. 180 Tablet 1 10/16/2022 Active FLUoxetine (PROZAC) 40 mg capsuleIndications:M oderate recurrent major depression (HC),Panic disorder with agoraphobia Take 2 Capsules (80 mg) by mouth every morning. 180 Capsule 1 10/16/2022 Active propranolol ER (INDERAL LA) 60 mg Cs24 Sustained-Release capsuleIndications:M igraine with aura, not intractable, without status migrainosus Take 1 Capsule (60 mg) by mouth once daily. 90 Capsule 1 10/16/2022 Active psyllium powdIndications:Alte rnating constipation and diarrhea Mix 1 tsp in liquid then take by mouth once daily. 283 g 11 02/02/2023 Active cyclobenzaprine (FLEXERIL) 10 mg tabletIndications:Sima mbar back pain with radiculopathy affecting left lower extremity Take 1 Tablet (10 mg) by mouth three times daily. 30 Tablet 0 04/28/2023 Active Active Problems Problem Noted Date Diagnosed Date Migraine with aura, not intr actable, without status migrainosus 01/25/2021 Nephrolithiasis 11/26/2017 Intermittent palpitations 03/10/2017 Panic disorder with agoraphobia 10/08/2016 Gastritis 05/14/2015 Overview: EGD 04/2015 Reactive gastropathy Moderate recurrent major depression 08/08/2009 Heterozygous factor V Leiden mutation Overview: No personal history of VTE, no treatment Resolved Problems Problem Noted Date Diagnosed Date Resolved Date KHRIS (acute kidney injury) 11/26/2017 Encounter for supervision of normal in first trimester 03/10/2017 08/19/2018 Supervision of normal first , antepartum 02/17/2017 08/19/2018 Overview: 26 y.o. Medical concerns: Current depression/anxiety, Factor V Leiden, migraines, ovarian cysts, Genetic screening: discussed BMI: 36.43 Up to 15 # Recommended wt gain Ultrasound findings: IUP, subchorionic hemorrhage, ADA 10/02/17 Flu vaccine: discussed Pertussis Vaccine: discussed FOB: involved, Micah It's a girl! GBS negative Estimated Date of Delivery: 10/02/17 Patient's last menstrual period was 12/17/2016. Last Tdap- 07/16/2017 Last Flu vaccine- 04/14/2017 Allergies Allergen Reactions ? ? Estrogens Other - Describe In Comment Field Factor V Leiden heterozygous mutation Obstetric History T0 L0 SAB0 TAB0 Ectopic0 Multiple0 Live Births0 # Outcome Date GA Lbr Peter/2nd Weight Sex Delivery Anes PTL Lv 1 Current Component Latest Ref Rng & Units 02/17/2017 02/17/2017 10:12 AM 10:12 AM WHITE BLOOD COUNT 4.5 - 11.0 thou/cu mm 12.4 (H) RED BLOOD COUNT 4.00 - 5.20 mil/cu mm 4.40 HEMOGLOBIN 12.0 - 16.0 g/dL 12.9 HEMATOCRIT 33.0 - 51.0 % 38.4 MCV 80 - 100 fL 87 MCH 26.0 - 34.0 pg 29.3 MCHC 32.0 - 36.0 g/dL 33.6 RDW 11.5 - 15.5 % 12.9 PLATELET COUNT 140 - 440 thou/cu mm 334 MPV 6.5 - 11.0 fL 10.8 NEUTROPHILS 42.0 - 72.0 % 74.0 (H) LYMPHOCYTES 20.0 - 44.0 % 19.7 (L) MONOCYTES <12.0 % 5.4 EOSINOPHILS <8.0 % 0.6 BASOPHILS <3.0 % 0.2 IMMATURE GRANULOCYTES(METAS,MYELOS,PROS) % 0.1 ABSOLUTE NEUTROPHILS 1.7 - 7.0 thou/cu mm 9.2 (H) ABSOLUTE LYMPHOCYTES 0.9 - 2.9 thou/cu mm 2.5 ABSOLUTE MONOCYTES <0.9 thou/cu mm 0.7 ABSOLUTE EOSINOPHILS <0.5 thou/cu mm 0.1 ABSOLUTE BASOPHILS <0.3 thou/cu mm 0.0 ABSOLUTE IMMATURE GRANULOCYTES(METAS,MYELOS,PROS) <0.3 thou/cu mm 0.0 ABORH A Rh Negative ANTIBODY SCREEN Negative Negative SPECIMEN EXPIRATION DATE/TIME 02/20/17 23:59 RUBELLA IGG ANTIBODY Positive CHLAMYDIA PROBE N GONORRHOEAE PROBE HIV-1/HIV-2 ANTIBODY Non-Reactive Non-Reactive HBSAG Nonreactive Nonreactive TREPONEMA PALLIDUM Negative Negative Component Latest Ref Rng & Units 02/17/2017 03/10/2017 10:12 AM WHITE BLOOD COUNT 4.5 - 11.0 thou/cu mm RED BLOOD COUNT 4.00 - 5.20 mil/cu mm HEMOGLOBIN 12.0 - 16.0 g/dL HEMATOCRIT 33.0 - 51.0 % MCV 80 - 100 fL MCH 26.0 - 34.0 pg MCHC 32.0 - 36.0 g/dL RDW 11.5 - 15.5 % PLATELET COUNT 140 - 440 thou/cu mm MPV 6.5 - 11.0 fL NEUTROPHILS 42.0 - 72.0 % LYMPHOCYTES 20.0 - 44.0 % MONOCYTES <12.0 % EOSINOPHILS <8.0 % BASOPHILS <3.0 % IMMATURE GRANULOCYTES(METAS,MYELOS,PROS) % ABSOLUTE NEUTROPHILS 1.7 - 7.0 thou/cu mm ABSOLUTE LYMPHOCYTES 0.9 - 2.9 thou/cu mm ABSOLUTE MONOCYTES <0.9 thou/cu mm ABSOLUTE EOSINOPHILS <0.5 thou/cu mm ABSOLUTE BASOPHILS <0.3 thou/cu mm ABSOLUTE IMMATURE GRANULOCYTES(METAS,MYELOS,PROS) <0.3 thou/cu mm ABORH ANTIBODY SCREEN Negative SPECIMEN EXPIRATION DATE/TIME RUBELLA IGG ANTIBODY 1.25 CHLAMYDIA PROBE Negative N GONORRHOEAE PROBE Negative HIV-1/HIV-2 ANTIBODY Non-Reactive HBSAG Nonreactive TREPONEMA PALLIDUM Negative Component Latest Ref Rng & Units 07/16/2017 WHITE BLOOD COUNT 4.5 - 11.0 thou/cu mm RED BLOOD COUNT 4.00 - 5.20 mil/cu mm HEMOGLOBIN 12.0 - 16.0 g/dL 10.2 (L) HEMATOCRIT 33.0 - 51.0 % MCV 80 - 100 fL MCH 26.0 - 34.0 pg MCHC 32.0 - 36.0 g/dL RDW 11.5 - 15.5 % PLATELET COUNT 140 - 440 thou/cu mm MPV 6.5 - 11.0 fL NEUTROPHILS 42.0 - 72.0 % LYMPHOCYTES 20.0 - 44.0 % MONOCYTES <12.0 % EOSINOPHILS <8.0 % BASOPHILS <3.0 % IMMATURE GRANULOCYTES(METAS,MYELOS,PROS) % ABSOLUTE NEUTROPHILS 1.7 - 7.0 thou/cu mm ABSOLUTE LYMPHOCYTES 0.9 - 2.9 thou/cu mm ABSOLUTE MONOCYTES <0.9 thou/cu mm ABSOLUTE EOSINOPHILS <0.5 thou/cu mm ABSOLUTE BASOPHILS <0.3 thou/cu mm ABSOLUTE IMMATURE GRANULOCYTES(METAS,MYELOS,PROS) <0.3 thou/cu mm ABORH ANTIBODY SCREEN Negative Negative SPECIMEN EXPIRATION DATE/TIME 07/19/17 23:59 RUBELLA IGG ANTIBODY CHLAMYDIA PROBE N GONORRHOEAE PROBE HIV-1/HIV-2 ANTIBODY Non-Reactive HBSAG Nonreactive TREPONEMA PALLIDUM Negative Component Latest Ref Rng & Units 09/02/2017 Culture No Group B Streptococcus isolated. Past Medical History: Diagnosis Date ? ? Anxiety current ? ? Heterozygous factor V Leiden mutation (HC) ? ? Moderate recurrent major depression (HC) 08/08/2009 Past Surgical History: Procedure Laterality Date ? ? ESOPHAGOGASTRODUODENOSCOPY 05/08/15 EGD 04/2015 Reactive gastropathy ? ? NO PREVIOUS SURGERY ? ? WISDOM TEETH EXTRACTION Bilateral 2001 No data on file. ADA 10/02/2017 Problems (from 02/17/17 to present) Problem Noted Resolved Encounter for supervision of normal in first trimester 03/10/2017 by Komal Bolden MD No Intermittent palpitations 03/10/2017 by Komal Bolden MD No Heterozygous factor V Leiden mutation (HC) by Komal Bolden MD No Overview Signed 03/10/2017 4:56 PM by Komal Bolden MD No personal history of VTE, no treatment Supervision of normal first , antepartum 02/17/2017 by Jacqui Bedoya RN No Overview Addendum 07/23/2017 5:08 PM by Qian Cohn DO 26 y.o. Medical concerns: Current depression/anxiety, Factor V Leiden, migraines, ovarian cysts, Genetic screening: discussed BMI: 36.43 Up to 15 # Recommended wt gain Ultrasound findings: IUP, subchorionic hemorrhage, ADA 10/02/17 Flu vaccine: discussed Pertussis Vaccine: discussed FOB: involved, Micah It's a girl! 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 No vitals taken.) 04/28/2023 Travel from Last 3 Months Immunizations Name Administration Dates Next Due COVID-19 vaccine (Pfizer-Bio NTech 30mcg/0.3mL) 12YO+ BIVALENT PF, MDV 02/02/2023 COVID-19 vaccine (Pfizer-Bio NTech 30mcg/0.3mL) 12YO+ BERNARDO-SUCROSE PF, MDV 11/07/2021 COVID-19 vaccine (Pfizer-Bio NTech 30mcg/0.3mL) PF, MDV 05/13/2021,04/22/2021 DTP 02/24/1995,09/23/1994 DTP-HIB 02/24/1995 Hepatitis B (Adult) 07/17/2015 Hepatitis B (Peds) 02/24/1995,09/23/1994 Hepatitis B, Unspecified 02/24/1995,09/23/1994 Hib Conjugate, Unspecified 02/24/1995,09/23/1994 Inactivated Polio Vaccine 02/24/1995,09/23/1994 Influenza, IIV4 05/16/2022, 8,04/14/2017,03/07 MMR 02/28/2005,09/23/1994 Meningococcal Vaccine (Menactra) 02/28/2005 Meningococcal Vaccine (Menveo) 02/09/2014 Oral Polio Vaccine 02/24/1995,09/23/1994 Td, Preservative Free (age >= 7 Years) 5 Tdap 07/16/2017,02/09/2014 Family History Medical History Relation Name Comments Hypertension Father Psychiatric illness Father depressi on/anxiety Psychiatric illness Half-Brother specific s unknown Good Health Maternal Grandfather Diabetes Maternal Grandmother type 2 Psychiatric illness Maternal Grandmother depression, schizophrenia Good Health Mother Hypertension Mother Psychiatric illness Mother depressi on Alcoholism Paternal Grandfather Heart Disease Paternal Grandfather Psychiatric illness Paternal Grandfather specifics unknown Good Health Paternal Grandmother Drug Abuse Sister 1 Psychiatric illness Sister 1 depressi on Cancer-breast Sister 2 Other Sister 2 Factor V Leiden . no blood cots. Psychiatric illness Sister 2 past hx of anxiety Good Health Sister 3 Anesthesia Problem No Family History Relation Name Status Comments Father Alive Half-Brother Alive Maternal Grandfather Alive Maternal Grandmother Alive Mother Alive Paternal Grandfather Paternal Grandmother Sister 1 Alive Sister 2 Alive Sister 3 Alive Social History Tobacco Use Types Packs/Day Years Used Date Smoking Tobacco: Never Smokeless Tobacco: Never Tobacco Cessation:Counseling Given: Yes Alcohol Use Standard Drinks/Week Comments Yes 0 (1 standard drink = 0.6 oz pur e alcohol) PHQ-2 Answer Date Recorded PHQ-2 TOTAL SCORE 2 10/16/2022 Social Connections Answer Date Recorded Frequency of Communication with Friends and Fami ly Not on file 11/11/2022 Financial Resource Strain Answer Date R ecorded Difficulty of Paying Living Expenses 1 11/07/2021 Difficulty of Paying Living Expenses 2 11/07/2021 Food Insecurity Answer Date Recorded Worried About Running Out of Food in the Last Ye ar 2 11/07/2021 Transportation Needs Answer Date Record ed Lack of Transportation (Medical) 1 11/07/2021 Housing Stability Answer Date Recorded Unable to Pay for Housing in the Last Year 1 11/07/2021 Sex and Gender Information Value Date Recorded Sex Assigned at Not on file Gender Identity Not on file Sexual Orientation Not on file Obstetrics History Para Term AB IAB SAB Ectopic Multiple Livin g Live Births 1 1 1 0 0 0 0 0 0 1 1 Date Outcome GA Total Labor Labor/2nd/3rd Weight Sex Delivery Anes PTL Heather A1 A5 Name Cl in 10/02 Term 40w 0d 2.95 kg (6 lb 8 oz) F N Reina ng Last Filed Vital Signs Vital Sign Reading Time Taken Comments Blood Pressure 126/82 02/02/2023 4:19 PM CDT Pulse 69 02/02/2023 4:19 PM CDT Temperature 37.8 ??C (100 ??F) 03/05/2021 2:39 PM CDT Respiratory Rate 16 11/26/2017 3:46 PM CDT Oxygen Saturation 98% 02/02/2023 4:19 PM CDT Inhaled Oxygen Concentration - - Weight 95.5 kg (210 lb 9.6 oz) 02/02/2023 4:19 P M CDT Height 154.9 cm (5' 1) 02/02/2023 4:19 PM CDT Body Mass Index 39.79 02/02/2023 4:19 PM CDT Plan of Treatment Health Maintenance Due Date Last Done Comments Hepatitis C screening for age 18-79 2010 Influenza for age 9-49 02/13/2023 , 04/05/2018, 04/14/2017, Additional history exists COVID-19 vaccine series (2022- season) 2023 02/02/2023, 11/07/2021, 05/13/2021, Additional history exists Depression screening for age 12+ 10/17/2023 10/16/2022, 09/18/2022, 11/07/2021, Additional history exists Pap test for age 21-65 11/10/2023 , 03/10/2017, 02/09/2014 BMI (ht and wt on same day) for age 18+ 02/03/2024 02/02/2023, 11/07/2021, 03/27/2020, Additional history exists Tetanus booster 07/16/2027 07/16/2017, 01/14, 02/28/2005 HIV for age 15-65 Completed 02/17/2017 Tdap Completed 07/16/2017, 02/09/2014 Pneumococcal series for age 6-64 Aged Out No longer eligible based on patient's age to complete this topic Medical Devices Implanted Type Area Imaging Aide Device Identifier Shelf Expiration Date Model / Serial / Lot Stent Uret [id number] Percuflex Hydroplus - [id number] Implanted:Qty: 1 on 11/26/2017 by Brandon Kaplan MD at [facility] Right: [employer] [facility] 04/29/2020 [id number] / / [id number] Advance Directives Latest Code Status on File Code Status Date Activated Date Inactivated Comments Full Code 11/26/2017 12:48 AM 11/26/2017 7:52 PM Care Teams Superintendent [employer] Relationship Specialty Start Date End Date Clinic, No Pcp Or . PCP - General 01/08/23 Martin Nath Hematology Hematology and Oncology 12/13/12
--- OUTSIDE RECORDS SUMMARY | 2023-07-21 04:56 | XMS_ITS | Continuity of Care Document ---
Author Name Unknown Organization [facility] gunner Address [address] [facility] [place] [address] Phone Care Team Providers Care Pump Assembler Name Role Phone Rafael Milian Unavailable Unavailable [...] Copied on Encounter OFFICE/OUTPA TIENT VISIT, EST [facility], [address] [place] [address], [id number] , [place] tel:[phone] [facility] Back Pain (chief complaint) Chronic pain syndromeSacroiliit is, not elsewhere classifiedOther spondylosis, lumbar regionOther intervertebral disc displacement, lumbar regionLong term (current) use of opiate analgesic 0 3 Alysa Hall. [address] [facility] [address], [place], [place], [id number] , [place]. tel:[phone] Referring Provider: Bradley Coelho [facility] [address] [place], [address]. tel:[phone] [facility], [address] [place] [address], [id number] , [place] tel:[phone] [facility] No Information 0 3 Alysa Hall. [address] [place] [address] [address], [place], [place], [id number] , [place]. tel:[phone] OFFICE/OUTPA TIENT VISIT, EST [facility], [address] [place] [address], [id number] , [place] tel:[phone] [facility] Back Pain (chief complaint) Chronic pain syndromeSacroiliit is, not elsewhere classifiedOther spondylosis, lumbar regionOther intervertebral disc displacement, lumbar regionLong term (current) use of opiate analgesic 0 3 Alysa Hall. [address] [place] [address] [address], [place], [place], [id number] , [place]. tel:[phone] Referring Provider: Bradley Coelho [facility] [address] [place], [address]. tel:[phone] OFFICE/OUTPA TIENT VISIT, EST [facility], [address] [place] [address], [id number] , [place] tel:[phone] [facility] Back Pain (chief complaint) Chronic pain syndromeSacroiliit is, not elsewhere classifiedOther spondylosis, lumbar regionOther intervertebral disc displacement, lumbar regionLong term (current) use of opiate analgesic 3 Wattleslie Hall. [address] [facility] [address], [place], [place], [id number] , [place]. tel: [phone] Referring Provider: Bradley Coelho [facility] [address] [place], [address]. tel:[phone] [facility], [address], [place], [id number] , [place] tel: [phone] [facility] No Information 3 Alysa Hall. [address] [place] [address] [address], [place], [place], [id number] , [place]. tel: [phone] OFFICE/OUTPA TIENT VISIT, EST [facility], [address], [place], [id number] , [place] tel: [phone] [facility] Back Pain (chief complaint) Chronic pain syndromeSacroiliit is, not elsewhere classifiedOther spondylosis, lumbar regionOther intervertebral disc displacement, lumbar regionLong term (current) use of opiate analgesicEncounter for therapeutic drug level monitoring 3 Wattleslie Hall. [address] [place] [address] [address], [place], [id number] , [place]. tel: [phone] Referring Provider: Bradley Coelho [facility] [address] [place], [address]. tel:[phone] [facility], [address], [place], [id number] , [place] tel: [phone] [facility] No Information 2 Alysa Hall. [address] [place] [address] [address], [place], [place], [id number] , [place]. tel: [phone] OFFICE/OUTPA TIENT VISIT, [facility], [address], [place], [id number] , [place] tel: [phone] [facility] Back pain (chief complaint) Chronic pain syndromeSacroiliit is, not elsewhere classifiedOther spondylosis, lumbar regionOther intervertebral disc displacement, lumbar regionLong term (current) use of opiate analgesicEncounter for therapeutic drug level monitoring 2 Alysa Hall. [address] [facility] [address], [place], [place], [id number] , [place]. tel:[phone] Referring Provider: Bradley Coelho [facility] [address] [place], [address]. tel:[phone] OFFICE/OUTPA TIENT VISIT, [facility], [address], [place], [id number] , [place] tel:[phone] [facility] Back Pain (chief complaint) Chronic pain syndromeSacroiliit is, not elsewhere classifiedOther spondylosis, lumbar regionOther intervertebral disc displacement, lumbar regionLong term (current) use of opiate analgesic 2 Alysa Graciael. [address] [facility] [address], [place], [place], [id number] , [place]. tel:[phone] Referring Provider: Bradley Coelho [facility] [address] [place], [address]. tel:[phone] [facility], [address] [place] [address], [id number] , [place] tel:[phone] [facility] No Information 2 Alysa Hall. [address] [facility] [address], [place], [place], [id number] , [place]. tel:[phone] Referring Provider: Bradley Coelho [facility] [address] [place], [address]. tel:[phone] OFFICE/OUTPA TIENT VISIT, [facility], [address] [place] [address], [id number] , [place] tel:[phone] [facility] low back pain (chief complaint) Chronic pain syndromeSacroiliit is, not elsewhere classifiedOther intervertebral disc displacement, lumbar regionLong term (current) use of opiate analgesicOther spondylosis, lumbar region 2 Wattleslie Hall. [address] [facility] [address], [place], [place], [id number] , [place]. tel: [phone] Referring Provider: Bradley Coelho [facility] [address] [place], [address]. [phone] OFFICE/OUTPA TIENT VISIT, [facility], [address], [place], [id number] , [place] tel: [phone] [facility] low back pain (chief complaint) Chronic pain syndromeSacroiliit is, not elsewhere classifiedOther intervertebral disc displacement, lumbar regionLong term (current) use of opiate analgesic 2 Wattleslie Hall. [address] [facility] [address], [place], [place], [id number] , [place]. tel: [phone] Referring Provider: Bradley Coelho [facility] [address] [place], [address]. tel:[phone] OFFICE/OUTPA TIENT VISIT, [facility], [address] [place] [address], [id number] , [place] tel: [phone] [facility] low back pain (chief complaint) Chronic pain syndromeSacroiliit is, not elsewhere classifiedOther intervertebral disc displacement, lumbar regionLong term (current) use of opiate analgesic 2 Wattleslie Hall. [facility] [facility] [address], [place], [place], [id number] , [place]. tel: [phone] Referring Provider: Bradley Coelho [facility] [address] [place], [address]. tel:[phone] [facility], [address], [place], [id number] , [place] tel: [phone] [facility] No Information 0 2 Alysa Hall. [address] [facility] [address], [facility] [place], [id number] , [place]. tel: [phone] OFFICE/OUTPA TIENT VISIT, [facility], [address], [place], [id number] , [place] tel: [phone] [facility] low back pain (chief complaint) Chronic pain syndromeSacroiliit is, not elsewhere classifiedOther intervertebral disc displacement, lumbar regionLong term (current) use of opiate analgesic Nestor- 2 Alysa Hall. [address] [facility] [address], [place], [place], [id number] , [place]. tel: [phone] Referring Provider: Bradley Coelho [facility] [address] [place], [address]. tel:[phone] OFFICE/OUTPA TIENT VISIT, [facility], [address], [place], [id number] , [place] tel: [phone] [facility] low back pain (chief complaint) Chronic pain syndromeSacroiliit is, not elsewhere classifiedOther intervertebral disc displacement, lumbar regionLong term (current) use of opiate analgesicEncounter for screening for other disorder Nestor- 2 Alysa Hall. [address] [facility] [address], [place], [place], [id number] , [place]. tel: [phone] Referring Provider: Bradley Coelho [facility] [address] [place], [address]. tel:[phone] OFFICE/OUTPA TIENT VISIT, [facility], [address], [place], [id number] , [place] tel: [phone] [facility] low back pain (chief complaint) Other intervertebral disc displacement, lumbar regionChronic pain syndromeSacroiliit is, not elsewhere classifiedLong term (current) use of opiate analgesic October- 2 Alysa Hall. [address] [facility] [address], [facility] [place], [id number] , [place]. tel: [phone] Referring Provider: Bradley Coelho [facility] [address] [place], [address]. tel:[phone] [facility], [address], [place], [id number] , [place] tel:[phone] [facility] Other intervertebral disc displacement, lumbar region Apr-2 2 Jonathan Munroe. [facility], [address], [place], [address], [place]. tel:[phone] Referring Provider: Bradley Coelho [facility] [address] [facility], [place], [address]. [phone] OFFICE/OUTPA TIENT VISIT, [facility], [address] [place] [address], [id number] , [place] tel: [phone] [facility] Back Pain (chief complaint) Chronic pain syndromeSacroiliit is, not elsewhere classifiedOther intervertebral disc displacement, lumbar regionLong term (current) use of opiate analgesic Apr-0 2 Alysa Hall. [address] [place] [address] [address], [place], [place], [id number] , [place]. tel:[phone] Referring Provider: Bradley Coelho [facility] [address] [facility], [place], [address]. tel:[phone] [facility], [address] [place] [address], [id number] , [place] tel:[phone] [facility] No Information Mar-0 2 Alysa Hall. [address] [place] [address] [address], [place], [place], [id number] , [place]. tel:[phone] Referring Provider: Bernabe Russell, [address] [place], [address]. [phone] OFFICE/OUTPA TIENT VISIT, EST [facility], [address], [place], [id number] , [place] tel:[phone] [facility] Back Pain (chief complaint) Chronic pain syndromeOther intervertebral disc displacement, lumbar regionSacroiliitis , not elsewhere classifiedLong term (current) use of opiate analgesic Mar-0 8-202 2 Alysa Hall. [address] [place] [address] [address], [place], [place], [id number] , [place]. tel: [phone] Referring Provider: Bradley Coelho [facility] [address] [place], [address]. tel:[phone] OFFICE/OUTPA TIENT VISIT, EST [facility], [address] [place] [address], [id number] , [place] tel: [phone] [facility] Back Pain (chief complaint) Chronic pain syndromeOther intervertebral disc displacement, lumbar regionSacroiliitis , not elsewhere classifiedLong term (current) use of opiate analgesic Jul- 2 Alysa Hall. [address] [place] [address] [address], [place], [place], [id number] , [place]. tel: [phone] Referring Provider: Bradley Coelho [facility] [address] [place], [address]. tel:[phone] OFFICE/OUTPA TIENT VISIT, [facility], [address] [place] [address], [id number] , [place] tel: [phone] [facility] Back Pain (chief complaint) Chronic pain syndromeOther intervertebral disc displacement, lumbar regionSacroiliitis , not elsewhere classifiedLong term (current) use of opiate analgesic Jun-0 2 Alysa Hall. [address] [place] [address] [address], [place], [place], [id number] , [place]. tel:[phone] Referring Provider: Bradley Coelho [facility] [address] [place], [address]. tel:[phone] OFFICE/OUTPA TIENT VISIT, EST [facility], [address] [place] [address], [id number] , [place] tel: [phone] [facility] Back Pain (chief complaint) Chronic pain syndromeOther intervertebral disc displacement, lumbar regionSacroiliitis , not elsewhere classifiedLong term (current) use of opiate analgesic Dec-0 1 Alysa Hall. [address] [facility] [address], [place], [place], [id number] , [place]. tel: [phone] Referring Provider: Bradley Coelho [facility] [address] [place], [address]. tel:[phone] OFFICE/OUTPA TIENT VISIT, EST [facility], [address], [place], [id number] , [place] tel: [phone] [facility] Back Pain (chief complaint) Chronic pain syndromeOther intervertebral disc displacement, lumbar regionSacroiliitis , not elsewhere classifiedLong term (current) use of opiate analgesic Nov-0 1 Alysa Hall. [address] [facility] [address], [place], [place], [id number] , [place]. tel: [phone] Referring Provider: Bradley Coelho [facility] [address] [place], [address]. tel:[phone] OFFICE/OUTPA TIENT VISIT, [facility], [address] [place] [address], [id number] , [place] tel: [phone] [facility] Back Pain (chief complaint) Chronic pain syndromeOther intervertebral disc displacement, lumbar regionLong term (current) use of opiate analgesicSacroilii tis, not elsewhere classified Oct-0 1 Alysa Hall. [address] [facility] [address], [place], [place], [id number] , [place]. tel: [phone] Referring Provider: Bradley Coelho [facility] [address] [place], [address]. [phone] [facility], [address] [place] [address], [id number] , [place] tel: [phone] [facility] Other intervertebral disc displacement, lumbar region Sep-0 1 Yahir Kidd. [address] [place], [place], [id number] , [place]. tel: [phone] Referring Provider: Bradley Coelho [facility] [address] [facility], [place], [address]. tel:[phone] [facility], [address] [place] [address], [id number] , [place] tel:[phone] [facility] No Information Sep-0 1 Wattleslie Hall. [address] [facility] [address], [facility], [place], [id number] , [place]. tel:[phone] Referring Provider: Bernabe Russell, [address] [place] [address], [address]. [phone] OFFICE/OUTPA TIENT VISIT, EST [facility], [address] [place] [address], [id number] , [place] tel:[phone] [facility] Back Pain (chief complaint) Chronic pain syndromeLow back painLong term (current) use of opiate analgesicSacroilii tis, not elsewhere classifiedOther intervertebral disc displacement, lumbar regionEncounter for therapeutic drug level monitoring Sep-0 1 Watttheresa Hall. [address] [place] [address] [address], [place], [place], [id number] , [place]. tel:[phone] Referring Provider: Bradley Coelho, [facility] [address] [place], [address]. tel:[phone] [facility], [address] [place] [address], [id number] , [place] tel:[phone] [facility] Encounter for screening for other disorderLong term (current) use of opiate analgesic Aug-0 1 Watt Rafael. [facility] [facility] [address], [facility], [place], [id number] , [place]. tel:[phone] Referring Provider: Bernabe Russell, [address] [place] [address], [address]. tel:[phone] OFFICE/OUTPA TIENT VISIT, [facility], [address] [place] [address], [id number] , [place] tel:[phone] [facility] Back Pain (chief complaint) Chronic pain syndromeLow back painSacroiliitis, not elsewhere classifiedLong term (current) use of opiate analgesicOther intervertebral disc displacement, lumbar regionEncounter for therapeutic drug level monitoring 1 Wattleslie Graciael. [address] [facility] [address], [place], [place], [id number] , [place]. tel: [phone] Referring Provider: Bradley Coelho [facility] [address] [place], [address]. [phone] OFFICE/OUTPA TIENT VISIT, [facility], [address], [place], [id number] , [place] tel: [phone] [facility] Back Pain (chief complaint) Chronic pain syndromeLow back painSacroiliitis, not elsewhere classifiedLong term (current) use of opiate analgesic 1 Alysa Hall. [address] [facility] [address], [place], [place], [id number] , [place]. tel:[phone] Ref[facility]: [facility] [address] [place], [address]. [phone] [facility], [address], [place], [id number] , [place] tel: [phone] [facility] No Information 1 Alysa Hall. [address] [facility] [address], [place], [place], [address] , [place]. tel:[phone] Referring Provider: Rashel Huertas, [facility] [address], [place], [address]. tel:[phone] OFFICE/OUTPA TIENT VISIT, [facility], [address], [place], [id number] , [place] tel:[phone] [facility] Back Pain (chief complaint) Chronic pain syndromeEncounter for screening for other disorderLow back painSacroiliitis, not elsewhere classified 1 Alysa Hall. [address] [facility] [address], [place], [id number] , [place]. tel:[phone] Referring Provider: Bradley Coelho, [facility] [address], [place], [address]. tel:[phone] [facility], [address] [place], [id number] , [place] tel: [phone] [facility] [place] No Information 1 Alysa Hall. [address] [facility] [address], [place], [id number] , [place]. tel:[phone] Family History Family Member Type Diagnosis Age At Onset No Information Payers Payer name Insurance type Covered democrat ID Authorwoo singh(s) Adam [facility] [id number] Social History Type Description Quantity Date Captured [...] Status Goal UDT. Due on due Goal SHOWROOM CONSULTANT Paperwork. Due on due Goal [employer] WORKERS Scanned. Due on 023 due Goal Order [...] due Goal OARS. Due on due Goal SHOWROOM CONSULTANT Paperwork. Due on due Goal FOOD AND [employer]INK [employer]ORY WORKERS Scanned. Due on due Goal UDT. Due [...] Order Annual PT. Due on due Goal SHOWROOM CONSULTANT Paperwork. Due on due Goal AST (SGOT). Due on due Goal ALT (SGPT). Due on due Goal [employer] WORKERS Scanned. Due on due Goal Tobacco Use. [...] Goal ALT (SGPT). Due on due Goal FOOD AND DRINK FACTORY WORKERS Scanned. Due on due Goal Order Annual PT. Due on due Goal SHOWROOM CONSULTANT Paperwork. Due on due Goal Creatinine. Due [...] Social History. Due o n due Goal SHOWROOM CONSULTANT Paperwork. Due on due Goal FOOD AND [employer]INK FA[employer]ORY WORKERS Scanned. Due on due Goal ALT (SGPT). [...] use screening . Due on due Goal SHOWROOM CONSULTANT Paperwork. Due on due Goal ALT (SGPT). Due on due Goal UDT. Due on due Goal Order Annual PT. Due on due Goal AST (SGOT). Due on due Goal Creatinine. Due on due Goal FOOD AND DRINK FACTORY WORKERS Scanned. Due on due Goal OARS. Due [...] C screening. Due o n due Goal ALT (SGPT). Due on due Goal Creatinine. Due on due Goal FOOD AND [employer]INK FACTORY WORKERS Scanned. Due on due Goal UDT. Due on due Goal SHOWROOM CONSULTANT Paperwork. Due on due Goal Order Annual [...] C screening. Due o n due Goal FOOD AND [employer]INK FA[employer]ORY WORKERS Scanned. Due on due Goal Creatinine. Due on due Goal ALT (SGPT). Due on due Goal AST (SGOT). Due on due Goal UDT. Due on due Goal Order Annual PT. Due on due Goal SHOWROOM CONSULTANT Paperwork. Due on due Goal OARS. Due [...] Goal AST (SGOT). Due on due Goal SHOWROOM CONSULTANT Paperwork. Due on due Goal ALT (SGPT). Due on due Goal OARS. Due on due Goal Creatinine. Due on due Goal FOOD AND DRINK FACTORY WORKERS Scanned. Due on due Goal Tobacco Use. [...] use screening . Due on due Goal OARS. Due on due Goal AST (SGOT). Due on due Goal UDT. Due on due Goal SHOWROOM CONSULTANT Paperwork. Due on due Goal ALT (SGPT). Due on due Goal FOOD AND DRINK FACTORY WORKERS Scanned. Due on due Goal Order Annual [...] due Goal UDT. Due on due Goal FOOD AND DRINK FACTORY WORKERS Scanned. Due on due Goal AST (SGOT). Due on due Goal ALT (SGPT). Due on due Goal OARS. Due on due Goal Creatinine. Due on due Goal SHOWROOM CONSULTANT Paperwork. Due on due Goal Order Annual [...] Goal Height. Due on d ue Goal SHOWROOM CONSULTANT Paperwork. Due on due Goal Order Annual PT. Due on due Goal ALT (SGPT). Due on due Goal Creatinine. Due on due Goal FOOD AND DRINK FACTORY WORKERS Scanned. Due on due Goal AST (SGOT). [...] Goal AST (SGOT). Due on due Goal SHOWROOM CONSULTANT Paperwork. Due on due Goal ALT (SGPT). Due on due Goal FOOD AND DRINK FACTORY WORKERS Scanned. Due on due Goal UDT. Due on due Goal Creatinine. Due on due Goal OARS. Due on due Goal Height. Due on d ue Goal FOOD AND DRINK FACTORY WORKERS Scanned. Due on due Goal Creatinine. Due on due Goal ALT (SGPT). Due on due Goal OARS. Due on due Goal Order Annual PT. Due on due Goal UDT. Due on due Goal AST (SGOT). Due on due Goal SHOWROOM CONSULTANT Paperwork. Due on due Goal Weight. Due [...] C screening. Due o n due Goal FOOD AND [employer]INK FACTORY WORKERS Scanned. Due on 022 due Goal AST (SGOT). Due on due Goal Order Annual PT. Due on due Goal UDT. Due on due Goal ALT (SGPT). Due on due Goal OARS. Due on due Goal SHOWROOM CONSULTANT Paperwork. Due on due Goal Creatinine. Due [...] Goal Weight. Due on d ue Goal UDT. Due on due Goal SHOWROOM CONSULTANT Paperwork. Due on due Goal Order Annual PT. Due on due Goal OARS. Due on due Goal Creatinine. Due on due Goal FOOD AND DRINK FACTORY WORKERS Scanned. Due on due Goal AST (SGOT). [...] Goal PHQ-9. Due on du e Goal Weight. Due on d ue Goal Medication Reconciliation. D ue on due Goal Tobacco Use. Due on due Goal Review Allergy List. Due on due Goal Update Social History. Due o n due Goal Hepatitis C screening. Due o n due Goal Unhealthy drug use screening . Due on due Goal Order Annual PT. Due on due Goal OARS. Due on due Goal ALT (SGPT). Due on due Goal FOOD AND DRINK FACTORY WORKERS Scanned. Due on due Goal SHOWROOM CONSULTANT Paperwork. Due on due Goal UDT. Due on due Goal Creatinine. Due on due Goal AST (SGOT). Due on due Goal PHQ-9. Due on du e Goal Height. Due on d ue Goal OARS. Due on due Goal FOOD AND DRINK FACTORY WORKERS Scanned. Due on due Goal Creatinine. Due on due Goal AST (SGOT). Due on due Goal Order Annual PT. Due on due Goal SHOWROOM CONSULTANT Paperwork. Due on due Goal UDT. Due [...] ue Goal OARS. Due on due Goal FOOD AND DRINK FACTORY WORKERS Scanned. Due on due Goal Creatinine. Due on due Goal AST (SGOT). Due on due Goal Order Annual PT. Due on due Goal SHOWROOM CONSULTANT Paperwork. Due on due Goal UDT. Due [...] ue Goal OARS. Due on due Goal FOOD AND DRINK FACTORY WORKERS Scanned. Due on due Goal Creatinine. Due on due Goal AST (SGOT). Due on due Goal Order Annual PT. Due on due Goal SHOWROOM CONSULTANT Paperwork. Due on due Goal UDT. Due [...] ue Goal OARS. Due on due Goal FOOD AND DRINK FACTORY WORKERS Scanned. Due on due Goal Creatinine. Due on due Goal AST (SGOT). Due on due Goal Order Annual PT. Due on due Goal SHOWROOM CONSULTANT Paperwork. Due on due Goal UDT. Due [...] ue Goal OARS. Due on due Goal FOOD AND DRINK FACTORY WORKERS Scanned. Due on due Goal Creatinine. Due on due Goal AST (SGOT). Due on due Goal Order Annual PT. Due on due Goal SHOWROOM CONSULTANT Paperwork. Due on due Goal UDT. Due [...] ue Goal OARS. Due on due Goal FOOD AND [employer]INK FA[employer]ORY WORKERS Scanned. Due on due Goal Creatinine. Due on due Goal AST (SGOT). Due on due Goal Order Annual PT. Due on due Goal SHOWROOM CONSULTANT Paperwork. Due on due Goal UDT. Due [...] ue Goal OARS. Due on due Goal FOOD AND [employer]INK [employer]ORY WORKERS Scanned. Due on due Goal Creatinine. Due on due Goal AST (SGOT). Due on due Goal Order Annual PT. Due on due Goal SHOWROOM CONSULTANT Paperwork. Due on due Goal UDT. Due [...] ue Goal OARS. Due on due Goal FOOD AND DRINK FACTORY WORKERS Scanned. Due on due Goal Creatinine. Due on due Goal AST (SGOT). Due on due Goal Order Annual PT. Due on due Goal SHOWROOM CONSULTANT Paperwork. Due on due Goal UDT. Due [...] ue Goal OARS. Due on due Goal FOOD AND DRINK FACTORY WORKERS Scanned. Due on due Goal Creatinine. Due on due Goal AST (SGOT). Due on due Goal Order Annual PT. Due on due Goal SHOWROOM CONSULTANT Paperwork. Due on due Goal UDT. Due [...] ue Goal OARS. Due on due Goal FOOD AND DRINK FA[employer]ORY WORKERS Scanned. Due on due Goal Creatinine. Due on due Goal AST (SGOT). Due on due Goal Order Annual PT. Due on due Goal SHOWROOM CONSULTANT Paperwork. Due on due Goal UDT. Due [...] due Goal OARS. Due on due Goal FOOD AND DRINK FA[employer]ORY WORKERS Scanned. Due on due Goal Creatinine. Due on due Goal AST (SGOT). Due on due Goal Order Annual PT. Due on due Goal SHOWROOM CONSULTANT Paperwork. Due on due Goal UDT. Due on due Goal ALT (SGPT). Due on due Goal PHQ-9. Due on du e Goal Update Social History. Due o n due Goal Medication Reconciliation. D ue on due Goal Height. Due on d ue Goal Tobacco Use. Due on due Goal Weight. Due on d ue Goal OARS. Due on due Goal FOOD AND [employer]INK [employer] WORKERS Scanned. Due on due Goal Creatinine. Due on due Goal AST (SGOT). Due on due Goal Order Annual PT. Due on due Goal SHOWROOM CONSULTANT Paperwork. Due on due Goal UDT. Due [...] Goal Review Allergy List. Due on due History Of Present Illness Encounter Date Complaint History Of Prese nt Illness Back Pain Severity level i s 5. [...] of today's visit was spent discussing multiple SHOWROOM CONSULTANT terminations, including not bringing medications to visits and most recent UDT was (-) for oxycodone. Terminated SHOWROOM CONSULTANT today, verbalized an understanding.Medication provides 50% relief [...] regimen. No other concerns today. Comments: Libertad presents for a follow up [...] for oxycodone and metabolites, consistent. Back Pain Severity level i s 5. [...] rest, changing positions and chiropractic. Back Pain Duration: chroni c. The problem [...] better this month and took as directed. Back pain Severity level i s 9. [...] chiropractic and changing positions. Comments: Libertad is a 31 y/o woman here for follow up consult and medication refill regarding chronic back pain. Right buttock and hip pain have not changed. Pain has been stable since [facility] and pain level averages 9/10.Reports current medication regimen provides 60% pain relief and allows increased functionality. Denies side effects from current medication regimen. Upon inquiry, states that she does not know why her most recent UDT results are negative for prescribed medications and correlated metabolites. No other concerns today. Comments: Libertad is here for follow-up and medication management. She is followed for lower back pain. Reports pain has remained stable since [facility]. Her mental health has improved this month [...] Reports pain has remained stable since [facility]. She is interested in trying chiropractic.Of note, she was having trouble performing the expected tasks at work so she is looking for a different job.Reports current medication regimen provides 60% pain relief and allows increased functionality. Denies side effects from current medication regimen. No other concerns today. low back pain Duration: chroni c. The [...] Reports pain has remained stable since [facility]. S/p LESI 10/03/21 w/ Dr. Carrera; patient reports less benefit than first LESI. Inquires about workability papers. Requests [facility] fill out papers for her.Reports current medication [...] massage, pain meds/drugs, rest and changing positions. low back pain [...] with prescribed medication. No other concerns today. Comments: Libertad is [...] Presents without prescription. No other concerns today. low back pain [...] No other concerns. Back Pain (comments) Libertad pres ents for followup and medication refill. She c/o [...] today. Back Pain Severity level i s 7. [...] rest, chiro and changing positions. Back Pain Duration: chroni c. The problem is fluctuating. It occurs persistently. Location of pain is lower back and legs.The patient describes the pain as an ache and burning. Symptoms are aggravated by ascending stairs, bending, descending stairs, lifting, standing, twisting, walking, movement, housework and prolonged positioning. Symptoms are relieved by ice, lying down, massage, pain meds/drugs, stretching and changing positions. Back Pain (comments) [facility] for followup and medication refill. She c/o low back pain (R>L) with radiation into her right thigh and groin. Denies new changes or new complaints. Requests a refill of current medication regimen. Reports current medication regimen provides 40% pain relief and allows increased functionality. Denies side effects from current medication regimen. No other concerns today. Back Pain Severity level i s 7. Duration: chronic. The problem is stable. It occurs persistently. Location of pain is lower back and legs.The patient describes the pain as an ache and sharp. Symptoms are aggravated by ascending stairs, descending stairs, sitting, standing, twisting and walking. Symptoms are relieved by ice, lying down, pain meds/drugs, rest and changing positions. Back Pain (comments) [facility] for followup and medication refill. She c/o [...] meds/drugs and rest. Back Pain (comments) Libert[facility] for followup and medication refill. She c/o [...] meds/drugs and rest. Back Pain (comments) [facility] for followup and medication refill. She c/o [...] prescribed by Dr. Bradley Coelho. She requests [facility] to take over medications and understand she must abide by monthly visits and the [facility]. Notes she has been on this regimen [...] down, pain meds/drugs and rest. Back Pain Severity level i s 8. Duration: chronic. The problem is stable. It occurs persistently. Location of pain is lower back.The patient describes the pain as an ache, burning and sharp. Symptoms are aggravated by ascending stairs, bending, changing positions, lifting, sitting, standing, twisting and walking. Symptoms are relieved by lying down, pain meds/drugs and rest. Back Pain (comments) Libertad is a pleasant 30 y/o female who presents for initial consult referred by Dr. Bradley Coelho. Pain began in 2012 following an injury while working at a [employer]. 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 Over the years, her pain continued to increase and became more consistent. She descibes her low back pain as a aching pain that radiates around her abdoemn and down her R buttock, hips and R leg. She trialled PT at [facility] in 2019 with minimal relief. Triallled two sessions of accupunture with some relief. She has also trialled a few lumbar and SI joint injection. Lumbar IVONE was not helpful. SI joint injection provided significant temporary relief. She is scheduled to repeat this injection on 12/04/20. Last lumbar MRI was completed at [facility] in [facility] in 2018She is currently managed on percocet 5/325mg and gabapentin 300mg prescribed by Dr. Bradley Coelho. Notes she has been on this regimen for a while now with good relief.She is interested in establishing care with [facility] and a chiropractic referral. Functional Status Date Functional Assessmen t No Information Instructions Date Instruction Additional Infor mation No Information Assessments Type Assessment Date assessment Chronic pain syndrome 3 impression Libertad is a 31 y/o f emale here for f/u regarding chronic low back pain. Low back pain began in 2012 following an injury while working at a [employer]. She describes her low back pain as [...] and R SI joint instability. Stable since [facility]. Denies recent flares or new concerns. Onset was in 2012 following a work injury. Trialled and failed PT, acupuncture and lumbar ESIS/p bilateral TFESI at L5-S1 with Dr. Carmona on 10/03/21 provided significant benefit to her lower back pain assessment nursing home (current) use of opiat e analgesic impression Currently managed on oxycodone 10mg max 3/day, Belbuca 150mcg BID, and gabapentin 300mg. Presents without medication available for count. She has Senna for [facility] in the past. Denies other side effects.Most of today's visit was spent discussing multiple SHOWROOM CONSULTANT terminations, including not bringing medications to visits and most recent UDT was (-) for oxycodone. Terminated SHOWROOM CONSULTANT today, verbalized an understanding. Not appropriate to continue opioid therapy Mental Status Date Cognitive Assessment Orientation - [place] ed to time, place, person, situation. Patient Care Teams Name Effective Dates (start - stop) Status Members No Information
--- OUTSIDE RECORDS SUMMARY | 2023-07-21 04:56 | XMS_ITS | Continuity of Care Document ---
Author Name Unknown Organization [facility] Address [address] [place] [address] Phone Care Team Providers Care Appeals Specialist Name Role Phone Jeff RODRIGUEZ, PhD, Bashir Unavailable Unavai lable Allergies, Adverse Reactions, Alerts Substance Reaction Status Criticality DYE Active No Information HYDROMORPHONE HCL Active No Informa tion Estrogens Active No Information Medications Medication Instructions Dosage Effective Dates (start - stop) Status Comments NEXPLANON (unknown strength) Not Available - Active PROZAC (unknown strength) Not Available - Active GABAPENTIN (unknown strength) Not Available - Active PERCOCET (unknown strength) Not Available - Active Procedures Procedure Date Office/Outpatient Visit,[facility] 2019 X-Ray Exam Lwr Spine, Min 4 Views Advance Directives Directive Yes / No Effective Date File Name No Information Encounters Encounter Description Practice Location Reason(s) For Visit Diagnoses Date Provider Providers Copied on Encounter Office/Outpati ent Visit,[facility], [address], [place], [place], [id number], [place] tel:[phone] [facility] No Information Jeff Camejo. [facility], [address], [place], [address], [place]. tel:[phone] Referring Provider: Bradley Hsu, [facility] Ruben [facility], [place], [address]. tel:[phone] Family History Family Member Type Diagnosis Age At Onset No Information Payers Payer name Insurance type Covered libertarian ID Authoriza tion(s) No Information Social History Type Description Quantity Date Captured Comments Alcohol Use Details Unknown Caffeine Use Details Unknown Tobacco Use Status Current non-smoker Smoking Status Never smoker Non-Smoking Tobacco Use Details : No Details Available : No Details Available Sex Female Vital Signs Date / Time: Height Weight BMI Pulse Rate Blood Pressure Temperature Respiratory Rate Body Surface Area Head Circumference Head Circ. Percentile Wt./Peter. Percentile BMI percentile Pulse Ox Inhaled Ox 3:25 PM 62.00 in 91.263 kg (201.20 lbs) 36.8 0 kg/m eter (2) 97.80 F Chief Complaint And Reason For Visit No [...]
[2023-07-21] MEDS: dexAMETHasone 10 MG/ML inj IVP (05:04)
[2023-07-21] MEDS: 0.9 % SODIUM CHLORIDE 1000 ml 1,000 ML IV (05:04)
[2023-07-21] MEDS: ACETAMINOPHEN 500 MG TABLET 1000 MG PO (05:44)
[2023-07-21 06:08] VITALS: BP 121/80; PULSE 91; RESP 16; O2SAT 97
[2023-07-21] MEDS: PIPERACILLIN/TAZOBACTAM 3.375 GM in 0.9 % SODIUM CHLORIDE Mini-bag 100 ML IVPB (06:53)
[2023-07-21 08:01] VITALS: BP 109/79; PULSE 81; RESP 16; O2SAT 97
== END 2023-07-21 08:03 | disposition home or self-care (01) ==
PROVIDERS: Emergency Provider Family Medicine; PCP Physician Assistant
DX: J36 Peritonsillar abscess (principal)
CPT/HCPCS: 70491; 96365; 96375; 99284; 99285; A9270; J1100; J2543; J7030; Q9967

== ENCOUNTER 2024-01-19 22:33 | Emergency (ER) | payer MEDICAID, SELFPAY ==
[2024-01-19 22:40] VITALS: BP 152/94; PULSE 60; RESP 20; TEMP 35.2; O2SAT 99; BMI 37.8
--- NOTE | 2024-01-19 22:43 | ED.GENADULT ---
HPI - General Adult General Chief complaint: Nausea/Vomiting Stated complaint: nausea, vomiting Time Seen by Provider: 01/19/24 22:40 History of Present Illness HPI narrative: Patient c/o migraine that began at 1500 today, followed by vomiting at 1930. Patient tried imitrex and zofran without relief. Patient also has h/o concussion 1.5 weeks ago - patient denies any reinjury or new trauma 33-year-old woman presenting to the emergency department with concern a migrainous headache. Seems to began about 10 hours prior to arrival. Has also been vomiting. Tried Imitrex and Zofran without relief. Was diagnosed with a concussion week and half ago. Headache involves her total head. Her headaches are not usually this bad. Did try some Zofran but she thinks she vomited up/did retain it long enough to be beneficial. Photophobic but otherwise no visual disturbances. No focal weaknesses. No fever. No rash. Related Data Home Medications ?Medication ?Instructions ?Recorded ?Confirmed fluoxetine 40 mg capsule 80 mg PO DAILY 02/10/22 10/05/23 propranolol 60 mg capsule,24 60 mg PO Q24H 02/10/22 10/05/23 hr,extended release buspirone 10 mg tablet 10 mg PO BID 09/24/22 10/05/23 Allergies Allergy/AdvReac Type Severity Reaction Status Date / Time Estrogens Allergy Mild Verified 10/05/23 16:26 Review of Systems Status of ROS: Reports: 6 or more systems reviewed and unremarkable except as noted in History and below [facility] Medical History Kidney stone ?N20.0 - Calculus of kidney (ICD-10) Chronic back pain ?M54.9 - Dorsalgia, unspecified (ICD-10) ?G89.29 - Other chronic pain (ICD-10) Anxiety ?F41.9 - Anxiety disorder, unspecified (ICD-10) Depression ?F32.A - Depression, unspecified (ICD-10) Surgical History History of cholecystectomy ?Z90.49 - Acquired absence of other specified parts of digestive tract (ICD-10) History of delivery ?Z98.891 - History of uterine scar from previous surgery (ICD-10) Social History Smoking Status: Never smoker Do you use any of these nicotine containing products: None Second hand tobacco smoke exposure: No How often do you have a drink containing alcohol: never AUDIT-C Alcohol total score: 0 Non-prescribed substance use: denies use service: No Exam Narrative: Exam Narrative: Pleasant. Clearly quite uncomfortable. Head is atraumatic. Cranial nerves 2-12 intact. Pupils are equal and brisk. Moving all extremities without difficulty. Well-perfused. No edema peripherally. Heart in regular rate and rhythm. Is diaphoretic. Has been vomiting. Const: Vital Signs, click to edit/add: Vital Signs - 24 hr 01/19/24 22:40 Temperature 95.4 F L Pulse Rate [Left P ulse Oximeter] 60 Respiratory Rate 20 Blood Pressure [Ri ght Upper Arm] 152/94 H Pulse Oximetry 99 Oxygen Delivery Me thod Room Air Documenting provider has reviewed patient's vital signs: yes Course Vital Signs Vital signs: Initial Vital Signs Temperature 95.4 F L 01/19/24 22:40 Temperature Source Temporal Artery Scan 01/19/24 22:40 Pulse Rate 60 01/19/24 22:40 Respiratory Rate 20 01/19/24 22:40 Blood Pressure 152/94 H 01/19/24 22:40 Blood Pressure Mean 113 H 01/19/24 22:40 Blood Pressure Position Sitting 01/19/24 22:40 Pulse Oximetry 99 01/19/24 22:40 Oxygen Delivery Method Room Air 01/19/24 22:40 Vital Signs Temperature 95.4 F L 01/19/24 22:40 Pulse Rate 60 01/19/24 22:40 Respiratory Rate 20 01/19/24 22:40 Blood Pressure 152/94 H 01/19/24 22:40 Pulse Oximetry 99 01/19/24 22:40 Oxygen Delivery Method Room Air 01/19/24 22:40 Temperature 95.4 F L 01/19/24 22:40 Pulse Rate 60 01/19/24 22:40 Respiratory Rate 20 01/19/24 22:40 Blood Pressure 152/94 H 01/19/24 22:40 Pulse Oximetry 99 01/19/24 22:40 Oxygen Delivery Method Room Air 01/19/24 22:40 Medications Administered Medications: Discontinued Medications Generic Name Dose Route Start Last Admin Trade Name Juanjo PRN Reason Stop Dose Admin Diphenhydramine HCl 12.5 mg 01/19/24 22:50 01/19/24 23:18 Diphenhydramine 50 Mg/Ml Inj IVP 01/19/24 22:51 12.5 mg ONCE ONE Administration Sodium Chloride 1,000 mls @ 1,000 mls/hr 01/19/24 22:50 01/19/24 23:17 0.9 % Sodium Chloride 1000 Ml IV 01/19/24 23:49 1,000 mls/hr .Q1H ONE Administration Metoclopramide HCl 10 mg/ 102 mls @ 306 mls/hr 01/19/24 23:37 01/19/24 23:49 Sodium Chloride IVPB 01/19/24 23:38 306 mls/hr ONCE ONE Administration Ketorolac Tromethamine 30 mg 01/19/24 22:50 01/19/24 23:18 Ketorolac 30 Mg/Ml Inj IVP 01/19/24 22:51 30 mg ONCE ONE Administration Ondansetron HCl 4 mg 01/19/24 22:51 01/19/24 23:18 Ondansetron 2 Mg/Ml Inj IVP 01/19/24 22:52 4 mg ONCE ONE Administration Medical Decision Making MDM Narrative Medical decision making narrative: Discussed options for treatment. I do not see red flags to generate further workup here today. Will try to break headache with typical treatment. Soon the differential does include meningitis or hemorrhagic CVA though I think both are unlikely. Will reassess following treatment. IV is established received normal saline, Zofran, ketorolac and diphenhydramine. Began vomiting again and given Reglan infusion. On assessment ultimately was improved. Portis well enough to go home. No further events in the emergency department. See patient discharge plan for further discussion Medical Records Medical records reviewed: Yes I reviewed the patient's medical records Discharge Plan Discharge Clinical Impression: Headache, Vomiting Patient Disposition: Home w/ Parent or Adult Condition: Improved Instructions: Acute Headache (ED), Acute Nausea and Vomiting (ED) Additional Instructions: I am happy you're feeling better. Focus on hydration. Return/be seen for marked increase in headache, associated fever, associated unusual rash, intractable vomiting. Prescriptions: No Action fluoxetine 40 mg capsule 80 mg PO DAILY Patient Comments: Take 2 Capsules (80 mg) by mouth every morning. propranolol 60 mg capsule,extended release 24 hr 60 mg PO Q24H Patient Comments: Take 1 Capsule (60 mg) by mouth once daily. buspirone 10 mg tablet 10 mg PO BID Follow Up/Referrals: Eve King PA [Referring] - Stand Alone Forms: [employer] Info Instructions
[2024-01-19] MEDS: 0.9 % SODIUM CHLORIDE 1000 ml 1,000 ML IV (23:17)
[2024-01-19] MEDS: KETOROLAC 30 MG/ML inj IVP (23:18)
[2024-01-19] MEDS: diphenhydrAMINE 50 MG/ML inj 12.5 MG IVP (23:18)
[2024-01-19] MEDS: ONDANSETRON 2 MG/ML inj 4 MG IVP (23:18)
--- OUTSIDE RECORDS SUMMARY | 2024-01-19 23:35 | XMS_ITS | Continuity of Care Document ---
Author Organization [facility] gunner Address [address] [place] [address] Phone Care Team Providers Care Jewel Stripper Name Role Phone Rafael Milian Unavailable Unavailable [...] EST Foll-up eval q3mo opiod tx Drug test def 8-14 classes Drug Urine Toxology With Chromatography Foll-up eval q3mo opiod tx OFFICE/OUTPATIENT VISIT, EST Foll-up eval q3mo opiod tx OFFICE/OUTPATIENT VISIT, EST Drug Urine Toxology With Chromatography Drug test def 15-21 classes Foll-up eval q3mo opiod tx OFFICE/OUTPATIENT VISIT, EST Foll-up eval q3mo opiod tx OFFICE/OUTPATIENT VISIT, EST Foll-up eval q3mo opiod tx OFFICE/OUTPATIENT VISIT, EST Drug test def 15-21 classes Drug Urine Toxology With Chromatography Foll-up eval q3mo opiod tx OFFICE/OUTPATIENT VISIT, [...] Copied on Encounter OFFICE/OUTPA TIENT VISIT, EST [facility], [address] [place], [place], [id number] , [place] tel: [phone] [facility] Back Pain (chief complaint) Chronic pain syndromeSacroiliit is, not elsewhere classifiedOther spondylosis, lumbar regionOther intervertebral disc displacement, lumbar regionLong term (current) use of opiate analgesic 3 Alysa Hall. [address] [facility] [address], [place], [place], [id number] , [place]. tel: [phone] Referring Provider: Bradley Coelho [facility] [address] [place], [address]. tel:[phone] [facility], [address] [place] [address], [id number] , [place] tel: [phone] [facility] No Information 0 3 Alysa Hall. [address] [facility] [address], [place], [place], [address] , [place]. tel: [phone] OFFICE/OUTPA TIENT VISIT, EST [facility], [address] [place] [address], [id number] , [place] tel: [phone] [facility] Back Pain (chief complaint) Chronic pain syndromeSacroiliit is, not elsewhere classifiedOther spondylosis, lumbar regionOther intervertebral disc displacement, lumbar regionLong term (current) use of opiate analgesic 3 Alysa Hall. [address] [place] [address] [address], [place], [place], [id number] , [place]. tel: [phone] Referring Provider: Bradley Coelho, [facility] [address] [place], [address]. [phone] OFFICE/OUTPA TIENT VISIT, EST [facility], [address] [place] [address], [id number] , [place] tel: [phone] [facility] Back Pain (chief complaint) Chronic pain syndromeSacroiliit is, not elsewhere classifiedOther spondylosis, lumbar regionOther intervertebral disc displacement, lumbar regionLong term (current) use of opiate analgesic 3 Watttheresa Hall. [address], [place], [id number] , [place]. tel: [phone] Referring Provider: Bradley Coelho [facility] [address] [place], [address]. tel:[phone] [facility], [address] [place], [place], [id number] , [place] tel: [phone] [facility] No Information 3 Alysa Hall. [address], [place], [id number] , [place]. tel: [phone] OFFICE/OUTPA TIENT VISIT, [facility], [address] [place], [place], [id number] , [place] tel: [phone] [facility] Back Pain (chief complaint) Chronic pain syndromeSacroiliit is, not elsewhere classifiedOther spondylosis, lumbar regionOther intervertebral disc displacement, lumbar regionLong term (current) use of opiate analgesicEncounter for therapeutic drug level monitoring 3 Watttheresa Hall. [address], [place], [id number] , [place]. tel: [phone] Referring Provider: Bradley Coelho, [facility] [address] [place], [address]. tel:[phone] [facility], [address] [place], [place], [id number] , [place] tel: [phone] [facility] No Information 2 Alysa Hall. [address] [place] [address] [address], [place], [place], [id number] , [place]. tel: [phone] OFFICE/OUTPA TIENT VISIT, [facility], [address] [place], [place], [id number] , [place] tel: [phone] [facility] Back pain (chief complaint) Chronic pain syndromeSacroiliit is, not elsewhere classifiedOther spondylosis, lumbar regionOther intervertebral disc displacement, lumbar regionLong term (current) use of opiate analgesicEncounter for therapeutic drug level monitoring 2 Alysa Hall. [address] [facility] [address], [place], [place], [address] , [place]. tel:[phone] Referring Provider: Bradley Coelho [facility] [address] [place], [address]. tel:[phone] OFFICE/OUTPA TIENT VISIT, EST [facility], [address] [place] [address], [id number] , [place] tel:[phone] [facility] Back Pain (chief complaint) Chronic pain syndromeSacroiliit is, not elsewhere classifiedOther spondylosis, lumbar regionOther intervertebral disc displacement, lumbar regionLong term (current) use of opiate analgesic Apr- 2 Watttheresa Graciael. [address] [facility] [address], [place], [place], [address] , [place]. tel:[phone] Referring Provider: Bradley Coelho [facility] [address] [place], [address]. tel:[phone] [facility], [address] [place] [address], [id number] , [place] tel:[phone] [facility] No Information 2 Wattleslie Hall. [address], [place], [place], [address] , [place]. tel:[phone] Referring Provider: Bradley Coelho [facility] [address] [place], [address]. tel:[phone] OFFICE/OUTPA TIENT VISIT, [facility], [address] [place] [address], [id number] , [place] tel:[phone] [facility] low back pain (chief complaint) Chronic pain syndromeSacroiliit is, not elsewhere classifiedOther intervertebral disc displacement, lumbar regionLong term (current) use of opiate analgesicOther spondylosis, lumbar region Oct- 2 Alysa Hall. [address] [facility] [address], [facility], [id number] , [place]. tel:[phone] Referring Provider: Bradley Coelho [facility] [address] [place], [address]. tel:[phone] OFFICE/OUTPA TIENT VISIT, [facility], [address] [place], [place], [id number] , [place] tel: [phone] [facility] low back pain (chief complaint) Chronic pain syndromeSacroiliit is, not elsewhere classifiedOther intervertebral disc displacement, lumbar regionLong term (current) use of opiate analgesic 2 Alysa Hall. [address] [place] [address] [address], [place], [id number] , [place]. tel:[phone] Referring Provider: Bradley Coelho [facility] [address] [place], [address]. tel:[phone] OFFICE/OUTPA TIENT VISIT, [facility], [address] [place], [place], [id number] , [place] tel:[phone] [facility] low back pain (chief complaint) Chronic pain syndromeSacroiliit is, not elsewhere classifiedOther intervertebral disc displacement, lumbar regionLong term (current) use of opiate analgesic 2 Alysa Hall. [address] [facility] [address], [facility], [place], [id number] , [place]. tel:[phone] Referring Provider: Bradley Coelho [facility] [address] [place], [address]. tel:[phone] [facility], [address] [place], [place], [id number] , [place] tel:[phone] [facility] No Information 0 2 Alysa Hall. [address] [facility] [address], [place], [id number] , [place]. tel:[phone] OFFICE/OUTPA TIENT VISIT, [facility], [address] [place], [place], [id number] , [place] tel: [phone] [facility] low back pain (chief complaint) Chronic pain syndromeSacroiliit is, not elsewhere classifiedOther intervertebral disc displacement, lumbar regionLong term (current) use of opiate analgesic Nestor-0 2 Alysa Hall. [address], [facility] [place] [place], [id number] , [place]. tel: [phone] Referring Provider: Bradley Coelho [facility] [address] [place], [address]. tel:[phone] OFFICE/OUTPA TIENT VISIT, [facility], [address] [place], [place], [address] , [place] tel: [phone] [facility] low back pain (chief complaint) Chronic pain syndromeSacroiliit is, not elsewhere classifiedOther intervertebral disc displacement, lumbar regionLong term (current) use of opiate analgesicEncounter for screening for other disorder Nestor-0 2 Watt Rafael. [address], [place], [place], [id number] , [place]. tel: [phone] Referring Provider: Bradley Coelho [facility] [address] [place], [address]. tel:[phone] OFFICE/OUTPA TIENT VISIT, [facility], [address] [place], [place], [id number] , [place] tel: [phone] [facility] low back pain (chief complaint) Other intervertebral disc displacement, lumbar regionChronic pain syndromeSacroiliit is, not elsewhere classifiedLong term (current) use of opiate analgesic October-0 2 Wattleslie Hall. [address], [place] , [place], [id number] , [place]. tel: [phone] Referring Provider: Bradley Coelho [facility] [address] [place], [address]. tel:[phone] [facility], [address] [place], [place], [address] , [place] tel:[phone] [facility] Other intervertebral disc displacement, lumbar region Apr-2 2 Jonathan Munroe. [facility], [address], [place], [address], [place]. tel:[phone] Referring Provider: Bradley Coelho, [facility] [address] [place], [address]. tel:[phone] OFFICE/OUTPA TIENT VISIT, [facility], [address] [place], [place], [address] , [place] tel:[phone] [facility] Back Pain (chief complaint) Chronic pain syndromeSacroiliit is, not elsewhere classifiedOther intervertebral disc displacement, lumbar regionLong term (current) use of opiate analgesic Apr-0 2 Alysa Hall. [address] [place] [address] [address], [place], [place], [address] , [place]. tel:[phone] Referring Provider: Bradley Coelho [facility] [address] [place], [address]. tel:[phone] [facility], [address] [place] [address], [id number] , [place] tel:[phone] [facility] No Information Mar-0 2 Watt Rafael. [address] [place] [address] [address], [place], [place], [address] , [place]. tel:[phone] Referring Provider: Bernabe Russell, [address] [place], [address]. [phone] OFFICE/OUTPA TIENT VISIT, EST [facility], [address] [place], [place], [address] , [place] tel:[phone] [facility] Back Pain (chief complaint) Chronic pain syndromeOther intervertebral disc displacement, lumbar regionSacroiliitis , not elsewhere classifiedLong term (current) use of opiate analgesic Mar-0 2 Wattleslie Hall. [address] [facility] [address], [place], [place], [address] , [place]. tel:[phone] Referring Provider: Bradley Coelho [facility] [address] [place], [address]. tel:[phone] OFFICE/OUTPA TIENT VISIT, EST [facility], [address] [place] [address], [id number] , [place] tel:[phone] [facility] Back Pain (chief complaint) Chronic pain syndromeOther intervertebral disc displacement, lumbar regionSacroiliitis , not elsewhere classifiedLong term (current) use of opiate analgesic Jul- 2 Alysa Hall. [address] [place] [address] [address], [place], [place], [address] , [place]. tel:[phone] Referring Provider: Bradley Coelho [facility] [address] [place], [address]. tel:[phone] OFFICE/OUTPA TIENT VISIT, EST [facility], [address] [place] [address], [id number] , [place] tel: [phone] [facility] Back Pain (chief complaint) Chronic pain syndromeOther intervertebral disc displacement, lumbar regionSacroiliitis , not elsewhere classifiedLong term (current) use of opiate analgesic Jun-0 2 Alysa Hall. [address] [place] [address] [address], [place], [place], [address] , [place]. tel:[phone] Referring Provider: Bradley Coelho [facility] [address] [place], [address]. tel:[phone] OFFICE/OUTPA TIENT VISIT, EST [facility], [address] [place] [address], [id number] , [place] tel:[phone] [facility] Back Pain (chief complaint) Chronic pain syndromeOther intervertebral disc displacement, lumbar regionSacroiliitis , not elsewhere classifiedLong term (current) use of opiate analgesic Dec-0 1 Alysa Hall. [address], [place], [place], [id number] , [place]. tel:[phone] Referring Provider: Bradley Coelho [facility] [address] [place], [address]. [phone] OFFICE/OUTPA TIENT VISIT, EST [facility], [address] [place], [place], [address] , [place] tel: [phone] [facility] Back Pain (chief complaint) Chronic pain syndromeOther intervertebral disc displacement, lumbar regionSacroiliitis , not elsewhere classifiedLong term (current) use of opiate analgesic Apr- 1 Alysa Hall. [address] [place] [address] [address], [place], [place], [id number] , [place]. tel: [phone] Referring Provider: Bradley Coelho [facility] [address] [place], [address]. tel:[phone] OFFICE/OUTPA TIENT VISIT, EST [facility], [address] [place] [address], [id number] , [place] tel: [phone] [facility] Back Pain (chief complaint) Chronic pain syndromeOther intervertebral disc displacement, lumbar regionLong term (current) use of opiate analgesicSacroilii tis, not elsewhere classified 1 Wattleslie Hall. [address] [facility] [address], [place], [place], [address] , [place]. tel:[phone] Referring Provider: Bradley Coelho [facility] [address] [place], [address]. tel:[phone] [facility], [address] [place] [address], [id number] , [place] tel:[phone] [facility] Other intervertebral disc displacement, lumbar region Sep-0 1 Yahir Kidd. [address] [place], [place], [address] , [place]. tel:[phone] Referring Provider: Bradley Coelho [facility] [address] [place], [address]. tel:[phone] [facility], [address] [place] [address], [id number] , [place] tel:[phone] [facility] No Information Sep-0 1 Alysa Hall. [address], [facility] [place], [id number] , [place]. tel:[phone] Referring Provider: Bernabe Russell, [address] [place] [address], [address]. tel:[phone] OFFICE/OUTPA TIENT VISIT, EST [facility], [address] [place] [address], [id number] , [place] tel:[phone] [facility] Back Pain (chief complaint) Chronic pain syndromeLow back painLong term (current) use of opiate analgesicSacroilii tis, not elsewhere classifiedOther intervertebral disc displacement, lumbar regionEncounter for therapeutic drug level monitoring Sep-0 1 Alysa Hall. [address] [place] [address] [address], [place], [place], [address] , [place]. tel:[phone] Referring Provider: Bradley Coelho, [facility] [address] [place], [address]. tel:[phone] [facility], [address] [place] [address], [id number] , [place] tel:[phone] [facility] Encounter for screening for other disorderLong term (current) use of opiate analgesic Aug-0 1 Watt Rafael. [facility] [facility] [address], [place], [place], [address] , [place]. tel:[phone] Referring Provider: Bernabe Russell, [address] [place] [address], [address]. [phone] OFFICE/OUTPA TIENT VISIT, [facility], [address] [place] [address], [id number] , [place] tel:[phone] [facility] Back Pain (chief complaint) Chronic pain syndromeLow back painSacroiliitis, not elsewhere classifiedLong term (current) use of opiate analgesicOther intervertebral disc displacement, lumbar regionEncounter for therapeutic drug level monitoring 1 Wattleslie Graciael. [address] [facility] [address], [place], [place], [address] , [place]. tel:[phone] Referring Provider: Bradley Coelho [facility] [address] [place], [address]. tel:[phone] OFFICE/OUTPA TIENT VISIT, [facility], [address] [place], [place], [address] , [place] tel:[phone] [facility] Back Pain (chief complaint) Chronic pain syndromeLow back painSacroiliitis, not elsewhere classifiedLong term (current) use of opiate analgesic 1 Alysa Hall. [address] [facility] [address], [place], [place], [address] , [place]. tel:[phone] Referring Provider: Bradley Coelho [facility] [address] [place], [address]. tel:[phone] [facility], [address], [place], [address] , [place] tel:[phone] [facility] No Information 1 Alysa Hall. [address] [facility] [address], [place], [place], [address] , [place]. tel:[phone] Referring Provider: Rashel Huertas, [facility] [address], [place], [address]. tel:[phone] OFFICE/OUTPA TIENT VISIT, [facility], [address] [place], [place], [address] , [place] [phone] [facility] Back Pain (chief complaint) Chronic pain syndromeEncounter for screening for other disorderLow back painSacroiliitis, not elsewhere classified 1 Alysa Hall. [address], [place], [id number] , [place]. tel:[phone] Referring Provider: Bradley Coelho, [facility] [address], [place], [address]. tel:[phone] [facility], [address] [place], [address] , [place] tel:[phone] [facility] No Information 1 Alysa Hall. [address], [place], [id number] , [place]. tel:[phone] Family History Family Member Type Diagnosis Age At Onset No Information Payers Payer name Insurance type Covered alliance party ID Authorwoo singh(s) BOBabbe [facility], 1928–1983 [id number] Social History Type Description Quantity Date Captured [...] Status Goal UDT. Due on due Goal WAITER/WAITRESS BUFFET Paperwork. Due on due Goal DIRECTOR [employer] Scanned. Due on 023 due Goal Order [...] due Goal OARS. Due on due Goal WAITER/WAITRESS BUFFET Paperwork. Due on due Goal DIRECTOR [employer] Scanned. Due on due Goal UDT. Due [...] Order Annual PT. Due on due Goal WAITER/WAITRESS BUFFET Paperwork. Due on due Goal AST (SGOT). Due on due Goal ALT (SGPT). Due on due Goal DIRECTOR [employer] Scanned. Due on due Goal Tobacco Use. [...] Goal ALT (SGPT). Due on due Goal DIRECTOR [employer] Scanned. Due on due Goal Order Annual PT. Due on due Goal WAITER/WAITRESS BUFFET Paperwork. Due on due Goal Creatinine. Due [...] Social History. Due o n due Goal WAITER/WAITRESS BUFFET Paperwork. Due on due Goal DIRECTOR [employer] Scanned. Due on due Goal ALT (SGPT). [...] use screening . Due on due Goal WAITER/WAITRESS BUFFET Paperwork. Due on due Goal ALT (SGPT). Due on due Goal UDT. Due on due Goal Order Annual PT. Due on due Goal AST (SGOT). Due on due Goal Creatinine. Due on due Goal DIRECTOR EN[employer] Scanned. Due on due Goal OARS. Due [...] due Goal Creatinine. Due on due Goal DIRECTOR [employer] Scanned. Due on due Goal UDT. Due on due Goal WAITER/WAITRESS BUFFET Paperwork. Due on due Goal Order Annual [...] C screening. Due o n due Goal DIRECTOR [employer] Scanned. Due on due Goal Creatinine. Due on due Goal ALT (SGPT). Due on due Goal AST (SGOT). Due on due Goal UDT. Due on due Goal Order Annual PT. Due on due Goal WAITER/WAITRESS BUFFET Paperwork. Due on due Goal OARS. Due [...] Goal AST (SGOT). Due on due Goal WAITER/WAITRESS BUFFET Paperwork. Due on due Goal ALT (SGPT). Due on due Goal OARS. Due on due Goal Creatinine. Due on due Goal DIRECTOR [employer] Scanned. Due on due Goal Tobacco Use. [...] due Goal UDT. Due on due Goal WAITER/WAITRESS BUFFET Paperwork. Due on due Goal ALT (SGPT). Due on due Goal DIRECTOR [employer] Scanned. Due on due Goal Order Annual [...] due Goal UDT. Due on due Goal DIRECTOR EN[employer] Scanned. Due on due Goal AST (SGOT). Due on due Goal ALT (SGPT). Due on due Goal OARS. Due on due Goal Creatinine. Due on due Goal WAITER/WAITRESS BUFFET Paperwork. Due on due Goal Order Annual [...] Goal Height. Due on d ue Goal WAITER/WAITRESS BUFFET Paperwork. Due on due Goal Order Annual PT. Due on due Goal ALT (SGPT). Due on due Goal Creatinine. Due on due Goal DIRECTOR [employer] Scanned. Due on due Goal AST (SGOT). [...] Goal AST (SGOT). Due on due Goal WAITER/WAITRESS BUFFET Paperwork. Due on due Goal ALT (SGPT). Due on due Goal DIRECTOR [employer] Scanned. Due on due Goal UDT. Due on due Goal Creatinine. Due on due Goal OARS. Due on due Goal Height. Due on d ue Goal DIRECTOR [employer] Scanned. Due on due Goal Creatinine. Due on due Goal ALT (SGPT). Due on due Goal OARS. Due on due Goal Order Annual PT. Due on due Goal UDT. Due on due Goal AST (SGOT). Due on due Goal WAITER/WAITRESS BUFFET Paperwork. Due on due Goal Weight. Due [...] C screening. Due o n due Goal DIRECTOR [employer] Scanned. Due on 022 due Goal AST (SGOT). Due on due Goal Order Annual PT. Due on due Goal UDT. Due on due Goal ALT (SGPT). Due on due Goal OARS. Due on due Goal WAITER/WAITRESS BUFFET Paperwork. Due on due Goal Creatinine. Due [...] ue Goal UDT. Due on due Goal WAITER/WAITRESS BUFFET Paperwork. Due on due Goal Order Annual PT. Due on due Goal OARS. Due on due Goal Creatinine. Due on due Goal DIRECTOR [employer] Scanned. Due on due Goal AST (SGOT). [...] Goal ALT (SGPT). Due on due Goal DIRECTOR [employer] Scanned. Due on due Goal WAITER/WAITRESS BUFFET Paperwork. Due on due Goal UDT. Due on due Goal Creatinine. Due on due Goal AST (SGOT). Due on due Goal PHQ-9. Due on du e Goal Height. Due on d ue Goal OARS. Due on due Goal DIRECTOR [employer] Scanned. Due on due Goal Creatinine. Due on due Goal AST (SGOT). Due on due Goal Order Annual PT. Due on due Goal WAITER/WAITRESS BUFFET Paperwork. Due on due Goal UDT. Due [...] ue Goal OARS. Due on due Goal DIRECTOR EN[employer] Scanned. Due on due Goal Creatinine. Due on due Goal AST (SGOT). Due on due Goal Order Annual PT. Due on due Goal WAITER/WAITRESS BUFFET Paperwork. Due on due Goal UDT. Due [...] ue Goal OARS. Due on due Goal DIRECTOR [employer] Scanned. Due on due Goal Creatinine. Due on due Goal AST (SGOT). Due on due Goal Order Annual PT. Due on due Goal WAITER/WAITRESS BUFFET Paperwork. Due on due Goal UDT. Due on due Goal ALT (SGPT). Due on due Goal Review Allergy List. Due on due Goal PHQ-9. Due on du e Goal Update Social History. Due o n due Goal Medication Reconciliation. D ue on due Goal Height. Due on d ue Goal Tobacco Use. Due on 022 due Goal Weight. Due on d ue Goal OARS. Due on due Goal DIRECTOR [employer] Scanned. Due on 022 due Goal Creatinine. Due on due Goal AST (SGOT). Due on due Goal Order Annual PT. Due on due Goal WAITER/WAITRESS BUFFET Paperwork. Due on due Goal UDT. Due [...] ue Goal OARS. Due on due Goal DIRECTOR EN[employer] Scanned. Due on due Goal Creatinine. Due on due Goal AST (SGOT). Due on due Goal Order Annual PT. Due on due Goal WAITER/WAITRESS BUFFET Paperwork. Due on due Goal UDT. Due [...] ue Goal OARS. Due on due Goal DIRECTOR ENTERPRISE SALES Scanned. Due on due Goal Creatinine. Due on due Goal AST (SGOT). Due on due Goal Order Annual PT. Due on due Goal WAITER/WAITRESS BUFFET Paperwork. Due on due Goal UDT. Due [...] ue Goal OARS. Due on due Goal DIRECTOR ENTERPRISE SALES Scanned. Due on due Goal Creatinine. Due on due Goal AST (SGOT). Due on due Goal Order Annual PT. Due on due Goal WAITER/WAITRESS BUFFET Paperwork. Due on due Goal UDT. Due [...] ue Goal OARS. Due on due Goal DIRECTOR ENTERPRISE SALES Scanned. Due on due Goal Creatinine. Due on due Goal AST (SGOT). Due on due Goal Order Annual PT. Due on due Goal WAITER/WAITRESS BUFFET Paperwork. Due on due Goal UDT. Due [...] ue Goal OARS. Due on due Goal DIRECTOR ENTERPRISE SALES Scanned. Due on due Goal Creatinine. Due on due Goal AST (SGOT). Due on due Goal Order Annual PT. Due on due Goal WAITER/WAITRESS BUFFET Paperwork. Due on due Goal UDT. Due [...] ue Goal OARS. Due on due Goal DIRECTOR ENTERPRISE SALES Scanned. Due on due Goal Creatinine. Due on due Goal AST (SGOT). Due on due Goal Order Annual PT. Due on due Goal WAITER/WAITRESS BUFFET Paperwork. Due on due Goal UDT. Due [...] due Goal OARS. Due on due Goal DIRECTOR ENTERPRISE SALES Scanned. Due on due Goal Creatinine. Due on due Goal AST (SGOT). Due on due Goal Order Annual PT. Due on due Goal WAITER/WAITRESS BUFFET Paperwork. Due on due Goal UDT. Due on due Goal ALT (SGPT). Due on due Goal PHQ-9. Due on du e Goal Update Social History. Due o n due Goal Medication Reconciliation. D ue on due Goal Height. Due on d ue Goal Tobacco Use. Due on due Goal Weight. Due on d ue Goal OARS. Due on due Goal DIRECTOR ENTERPRISE SALES Scanned. Due on due Goal Creatinine. Due on due Goal AST (SGOT). Due on due Goal Order Annual PT. Due on due Goal WAITER/WAITRESS BUFFET Paperwork. Due on due Goal UDT. Due [...] of today's visit was spent discussing multiple WAITER/WAITRESS BUFFET terminations, including not bringing medications to visits and most recent UDT was (-) for oxycodone. Terminated WAITER/WAITRESS BUFFET today, verbalized an understanding.Medication provides 50% relief [...] not changed. Pain has been stable since [facility] and pain level averages 9/10.Reports current medication [...] pain. Reports pain has remained stable since [facility]. Her mental health has improved this [...] first LESI. Inquires about workability papers. Requests [facility] fill out papers for her.Reports [...] program. She is looking forward for the spring.Patient is not accompanied today. No other concerns. [...] stretching and changing positions. Back Pain (comments) [facility] ents for followup and medication refill. She [...] rest and changing positions. Back Pain (comments) [facility] ents for followup and medication refill. She [...] meds/drugs and rest. Back Pain (comments) [facility] pres ents for [...] meds/drugs and rest. Back Pain (comments) [facility] ents for followup and medication refill. She [...] prescribed by Dr. Bradley Coelho. She requests [facility] to take over medications and understand she must abide by monthly visits and the [facility]. 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 Over the years, her pain continued to increase and became more consistent. She descibes her low back pain as a aching pain that radiates around her abdoemn and down her R buttock, hips and R leg. She trialled PT at [facility] in 2019 with minimal relief. Triallled two sessions of accupunture with some relief. She has also trialled a few lumbar and SI joint injection. Lumbar IVONE was not helpful. SI joint injection provided significant temporary relief. She is scheduled to repeat this injection on 12/04/20. Last lumbar MRI was completed at [facility] in 2018She is currently managed on percocet 5/325mg and gabapentin 300mg prescribed by Dr. Bradley Coelho. Notes she has been on this regimen for a while now with good relief.She is interested in establishing care with [facility] and a chiropractic referral. Functional Status Date Functional Assessmen t No Information Instructions Date Instruction Additional Infor mation No Information Assessments Type Assessment Date assessment Chronic pain syndrome 3 impression [facility] is a 31 y/o f emale here for f/u regarding chronic low back pain. 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 Presents without medication available for count. She has Senna for [facility] in the past. Denies other side effects.Most of today's visit was spent discussing multiple WAITER/WAITRESS BUFFET terminations, including not bringing medications to visits and most recent UDT was (-) for oxycodone. Terminated WAITER/WAITRESS BUFFET today, verbalized an understanding. Not appropriate to continue opioid therapy Mental Status Date Cognitive Assessment Orientation - [place] ed to time, place, person, situation. Patient Care Teams Name Effective Dates (start - stop) Status Members No Information
--- OUTSIDE RECORDS SUMMARY | 2024-01-19 23:35 | XMS_ITS | Clinical Summary ---
Author Organization [facility] Address [place], [place] [address] Care Team Providers Care Certified Recreational Therapist Name Role Phone Matrin Nath Robyn Ivy MD Primary Care Provider Allergies Active Allergy Reactions Criticality Noted Date Comments Iodinated Contrast Media Itching Unknown 02/15/2020 Patient reported itching after Isovue 370 CT and dilaudid on 11/16/15 in [facility] - the treating provider felt this [...] End Date Status SUMAtriptan (IMITREX) 100 mg tabletIndications:Roberto kera with aura, not intractable, without status migrainosus Take 1 Tablet (100 mg) by mouth every 2 hours if needed for Migraine. Give at minimum 2hrs apart. Max Dose: 200mg per 24hrs. 18 Tablet 4 11/07/2021 Active etonogestrel subdermal implant (NEXPLANON) 68 mg implant Inject 1 Each subdermal every 3 years. Placed 12/20/20. 1 Each 11/07/2021 Active busPIRone (BUSPAR) 10 mg tabletIndications:Anx iety Take 1 Tablet (10 mg) by mouth two times daily. 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 30 Tablet 04/28/2023 Active propranolol ER (INDERAL LA) 60 mg Cs24 Sustained-Release capsuleIndications:Mi graine with aura, not intractable, without status migrainosus Take 1 Capsule (60 mg) by mouth once daily. 100 Capsule 3 09/09/2023 Active FLUoxetine (PROZAC) 40 mg capsuleIndications:Mo derate recurrent major depression (HC),Panic disorder with agoraphobia Take 2 Capsules (80 mg) by mouth once daily in the morning. 180 Capsule 11/24/2023 Active SUMAtriptan (IMITREX) 100 mg tabletIndications:Roberto cote with aura, not intractable, without status migrainosus Take 1 Tablet (100 mg) by mouth every 2 hours if needed for Migraine. Give at minimum 2hrs apart. Max Dose: 200mg per 24hrs. 10 Tablet 3 01/11/2024 Active ondansetron (ZOFRAN ODT) 4 mg disintegrating tabletIndications:[facility] 1 Tablet (4 mg) on the tongue every 8 hours if needed for Nausea/Vomiting . 30 Tablet 2 01/11/2024 Active Active Problems Problem Noted Date Diagnosed [...] normal first , antepartum 02/17/2017 by Jacqui Bedoya, RN No Overview Addendum 07/23/2017 5:08 PM by Qian Cohn DO 26 y.o. Medical concerns: Current depression/anxiety, Factor V Leiden, migraines, ovarian cysts, Genetic screening: discussed BMI: 36.43 Up to 15 # Recommended wt gain Ultrasound findings: IUP, subchorionic hemorrhage, ADA 10/02/17 Flu vaccine: discussed Pertussis Vaccine: discussed FOB: involved, Micah It's a girl! Sue Ann, RNC.....07/24/2017 8:35 AM Brachial neuritis or radiculitis NOS 07/23/2011 02/09/2014 Brachial neuritis or radiculitis NOS 07/23/2011 07/23/2011 Sprain of neck 07/23/2011 02/09/2014 Encounters Date Type Department Care Team Description 01/11/2024 7:55 AM CDT Office Visit [facility] [address] [place] [address] Venus Kearns MD Head Injury (Hit head in the pool 24 hours ago. headache getting worse, ears ringing, dizzy, nauseas ) 01/11/2024 Travel 12/29/2023 Telephone [facility] [address] [place] [address] Glenys Aly PA Appointment 12/04/2023 2:20 PM CDT Telemedicine [address] [address] Eve King PA Telehealth (Viral illness) 12/04/2023 Travel 12/03/2023 Travel 11/27/2023 2:00 PM CDT Telemedicine [address] [address] Eve King PA Telehealth (Back pain) 11/27/2023 Travel 11/26/2023 Travel 11/02/2023 2:00 PM CDT Telemedicine [address] [address] Eve King PA Telehealth (Vomiting and diarrhea) 11/02/2023 Travel from Last 3 Months Immunizations Name Administration Dates Next Due COVID-19 vaccine (Compliance 11-Bio NTech 30mcg/0.3mL) 12YO+ BIVALENT PF, MDV 02/02/2023 COVID-19 vaccine (Compliance 11-Bio NTech 30mcg/0.3mL) 12YO+ BERNARDO-SUCROSE PF, MDV 11/07/2021 COVID-19 vaccine (Pfizer-Bio NTech 30mcg/0.3mL) PF, MDV 05/13/2021,04/22/2021 DTP 02/24/1995,09/23/1994 DTP-HIB 02/24/1995 Dtap-5 Pertussis Antigens 09/23/1994 HIB PRP-T (ActHIB,Hiberix) 02/24/1995,09/23/1994 Hepatitis B (Adult) 07/17/2015,02/24/1995,1994 Hepatitis B (Peds) 02/24/1995,09/23/1994 Hepatitis B, Unspecified 02/24/1995,09/23/1994 Hib Conjugate, Unspecified 02/24/1995,09/23/1994 Inactivated Polio Vaccine 02/24/1995,09/23/1994 Influenza, IIV4 05/16/2022, 8,04/14/2017,03/07 MMR 02/28/2005,09/23/1994 Meningococcal Vaccine (Menactra) 02/09/2014,02/13 Meningococcal Vaccine (Menveo) 02/09/2014 Oral Polio Vaccine [...] PHQ-2 Answer Date Recorded PHQ-2 TOTAL SCORE 5 11/20/2023 Social Connections Answer Date Recorded Frequency of Communication with Friends and Fami ly 0 09/09/2023 Financial Resource Strain Answer Date R ecorded Difficulty of Paying Living Expenses 3 09/09/2023 Difficulty of Paying Living Expenses Not on file 09/09/2023 Food Insecurity Answer Date Recorded Worried About Running Out of Food in the Last Ye ar 1 09/09/2023 Transportation Needs Answer Date Record ed Lack of Transportation (Medical) 1 09/09/2023 Housing Stability Answer Date Recorded Unable to Pay for Housing in the Last Year 1 09/09/2023 Sex and Gender Information Value Date Recorded Sex Assigned at Not on file Gender Identity Not on file Sexual Orientation Not on file Obstetrics History Para Term AB IAB SAB Ectopic Multiple Livin g Live Births 1 1 1 0 0 0 0 0 0 1 1 Date Outcome GA Total Labor Labor/2nd/3rd Weight Sex Type Anes PTL Heather A1 A5 Name Clin 2017 Term 40w 0d 2.95 kg (6 lb 8 oz) F C-Sec tion N Living Last Filed Vital Signs Vital Sign Reading Time Taken Comments Blood Pressure 127/80 01/11/2024 8:00 AM CDT Pulse 59 01/11/2024 8:00 AM CDT Temperature 37.8 ??C (100 ??F) 03/05/2021 2:39 PM CDT Respiratory Rate 16 11/26/2017 3:46 PM CDT Oxygen Saturation 99% 01/11/2024 8:00 AM CDT Inhaled Oxygen Concentration - - Weight 90.6 kg (199 lb 12.8 oz) 01/11/2024 8:00 AM CDT Height 154.9 cm (5' 1) 02/02/2023 4:19 PM CDT Body Mass Index 37.75 02/02/2023 4:19 PM CDT Plan of Treatment Upcoming Encounters Date Type Department Care Team (Late st Contact Info) Description 01/20/2024 10:25 AM CDT Office Visit [facility] [address] [place] [address] Venus Kearns MD [address] [place] [address] 01/22/2024 10:45 AM CDT Office Visit [facility] [address] [place] [address] Venus Kearns MD [address] [place] [address] Health Maintenance Due Date Last Done Comments Hepatitis C screening for age 18-79 2010 COVID-19 vaccine series (2022- season) 2023 02/02/2023, 11/07/2021, 05/13/2021, Additional history exists Pap test for age 21-65 11/10/2023 , 03/10/2017, 02/09/2014 BMI (ht and wt on same day) for age 18+ 02/03/2024 02/02/2023, 11/07/2021, 03/27/2020, Additional history exists Influenza for age 9-49 02/14/2024 , 04/05/2018, 04/14/2017, Additional history exists Depression screening for age 12+ 11/19/2024 11/20/2023, 10/16/2022, 09/18/2022, Additional history exists Tetanus booster 07/16/2027 07/16/2017, 01/14, 02/28/2005 HIV for age 15-65 Completed 02/17/2017 Tdap Completed 07/16/2017, 02/09/2014 Pneumococcal series for age 6-64 Aged Out No longer eligible based on patient's age to complete this topic Medical Devices Implanted Type Area Cotton Weigher Operator Device Identifier Shelf Expiration Date Model / Serial / Lot Stent Uret [id number] Percuflex Hydroplus - [id number] Implanted:Qty: 1 on 11/26/2017 by Brandon Kaplan MD at [facility] Right: Ureter [facility] 04/29/2020 [id number] / / [id number] Procedures Procedure Name Priority Date/Time Associated Diagnosis Comments CRIBBING SETTER THIN PREP PAP SCREEN IMAGED Routine 11/09/2020 3:21 PM CDT Screening for malignant neoplasm of cervix ANTI HIV 1/2 Routine 02/17/2017 10:12 AM CDT Supervision of normal first , antepartum from Last 3 Months or Most Recently Relevant to Health Maintenance Results * CRIBBING SETTER THIN PREP PAP SCREEN IMAGED (11/09/2020 3:21 PM CDT) Case Report Gynecologic Cytology Report ? Case: [id number] ? Authorizing Provider: ??Eev King PA ?Collected: ? 11/09/2020 1521 ? Ordering Location: ? [facility] ?? Received: ?11/09/2020 1603 ? Clinic ? First Screen: ?Thanh Allen ? Specimen: ?CRIBBING SETTER ThinPrep Vial Screening, Cervical ? 11/20/2020 2:07 PM CDT [facility] INTERPRETATION/ RESULT NEGATIVE FOR INTRAEPITHELIAL LESION OR MALIGNANCY (NIL) (none) 11/20/2020 2:07 PM CDT [facility] IMEN ADEQUACY Satisfactory for evaluation No endocervical component seen 11/20/2020 2:07 PM CDT [facility] HPV REQUEST HPV if ASCUS 11/20/2020 2:07 PM CDT [facility] Date of LMP unknown 11/20/2020 2:07 PM CDT [facility] Last Pap Date 03/10/17 11/20/2020 2:07 PM CDT [facility] Last Pap Result NIL 2:07 PM CDT [facility] Abnormal Pap or [place] Bx in last 5 years No 11/20/2020 2:07 PM CDT [facility] Menstrual Status Hormonally Suppressed 11/20/2020 2:07 PM CDT [facility] [place] Bx Done Today No 11/20/2020 2:07 PM CDT [facility] Additional Information None given 11/20/2020 2:07 PM CDT [facility] Comment: Cytology is screened at [facility] - [address], [place] [address] and [facility] - [address], [place] [address] and [facility] - [address] [place] [address] Interpreted at [facility] - [address], [place] [address] Automated Review Successful 11/20/2020 2:07 PM CDT [facility] Comment:Specimen processed s uccessfully by automated derrick boat operator device, ThinPrep Imaging System, [employer] Note The pap test is a screening technique, not a diagnostic procedure. It is used primarily to screen for squamous cancers and precursor lesions. Published studies have shown that it is subject to both false negative and false positive results. The pap test should not be used as the sole means to diagnose or exclude pre-malignant and malignant lesions. 11/20/2020 2:07 PM CDT [facility] Other (Cervical) Non-Blood / Unknown 11/09/2020 3:21 PM CDT 11/09/2020 4:03 PM CDT Eve MARION PATHOLOGY/CYTOLOGY Performing Organization Address [facility]/ZIP Co de Phone Number [facility] [address] [place] [address], [place] * ANTI HIV 1/2 (02/17/2017 10:12 AM CDT) HIV-1/HIV-2 ANTIBODY Non-Reacti ve Non-Reacti ve 02/17/2017 11:32 PM CDT [facility] Blood BLOOD SPECIMEN / Unknown Venipuncture / Unknown 02/17/2017 10:12 AM CDT 02/17/2017 10:12 AM CDT Narrative [facility] - 02/17/2017 11:32 PM CDT HIV-1 p24 and HIV-1/HIV-2 Ab not detected Komal Bolden MD SEND OUTS [facility] [address] [place] [address], [place] from Last 3 Months or Most Recently Relevant to Health Maintenance Advance Directives * Full Code (Latest Code Status on File) Date Activated Date Inactivated Comments 11/26/2017 12:48 AM 11/26/2017 7:52 PM Care Teams Certified Recreational Therapist Relationship Specialty Start Date End Date Venus Kearns MD [address] [place] [address] PCP - General Family Practice 01/11/24 Martin Nath Hematology Hematology and Oncology 12/13/12
--- OUTSIDE RECORDS SUMMARY | 2024-01-19 23:35 | XMS_ITS | Continuity of Care Document ---
Author Organization [facility] enter Address [address] [place] [phone] Phone Care Team Providers Care Regrader Name Role Phone [facility] Unavailable Unava ilable Procedures Procedure Date INJ FORAMEN EPIDURAL L/S INJ FORAMEN EPIDURAL L/S Advance Directives Directive Yes / No Effective Date File Name No Information Encounters Encounter Description Practice Location Reason(s) For Visit Diagnoses Date Provider Providers Copied on Encounter [facility], [address] [place] [address], [id number], tel:[phone] [place] [address] No Information [facility]. [address] [place] [address], [id number], . tel:[phone] Referring Provider: Ludwig Castillo [address], [place], [address]. tel:[phone] [facility], [address] [place] [address], [id number], tel:[phone] [place] [address] No Information [facility]. [address] [place] [address], [id number], . tel:[phone] Referring Provider: Bernabe Russell, [address] [facility] [place], [address] . tel:[phone] Family History Family Member Type Diagnosis Age At Onset No Information Payers Payer name Insurance type Covered constitution party ID Authorjairoa samantha(s) Adam LEE [id number] Social History Type Description Quantity Date Captured [...]
--- OUTSIDE RECORDS SUMMARY | 2024-01-19 23:35 | XMS_ITS | Continuity of Care Document ---
Author Organization [facility] Address [address] [place] [address] Phone Care Team Providers Care Hedis Specialist Name Role Phone Jeff RODRIGUEZ, PhD, [...] Available - Active Procedures Procedure Date Office/Outpatient Visit,[facility] 2019 X-Ray Exam Lwr Spine, Min 4 Views Advance Directives Directive Yes / No Effective Date File Name No Information Encounters Encounter Description Practice Location Reason(s) For Visit Diagnoses Date Provider Providers Copied on Encounter Office/Outpati ent Visit,[facility], [address], [place], [place], [id number], [place] tel:[phone] [facility] No Information Jeff Camejo. [facility], [address], [place], [address], [place]. tel:[phone] Referring Provider: Bradley Hsu, [facility] [address] , [place], [address]. tel:[phone] Family History Family Member Type Diagnosis Age At Onset No Information Payers Payer name Insurance type Covered alliance party ID Authoriza tion(s) No Information Social History [...]
[2024-01-19] MEDS: METOCLOPRAMIDE HCL 10 MG in 0.9 % SODIUM CHLORIDE 100 ml 100 ML 306 MG IVPB (23:49)
== END 2024-01-20 00:45 | disposition home or self-care (01) ==
PROVIDERS: Emergency Provider Family Medicine; PCP Family Medicine
DX: R51.9 Headache, unspecified (principal); R11.2 Nausea with vomiting, unspecified
CPT/HCPCS: 96365; 96375; 99284; J1200; J1885; J2405; J2765; J7030

== ENCOUNTER 2024-09-12 01:53 | Emergency (ER) | payer MEDICAID, SELFPAY ==
--- OUTSIDE RECORDS SUMMARY | 2024-09-12 01:55 | XMS_ITS | Continuity of Care Document ---
Author Organization [facility] Address [address] [place] [address] Care Team Providers Care Certified Cytotechnologist Name Role Phone Chriss Farnsworth CRNA Unavailable Unavailable Procedures Procedure Date Percutaneous Image guided injection, dra almonte, or Advance Directives Directive Yes / No Effective Date File Name No Information Encounters Encounter Description Practice Location Reason(s) For Visit Diagnoses Date Provider Providers Copied on Encounter [facility], [address] [place], [place], [id number], [facility] No Information Javad Banerjee. [address] [place], [place], [id number] , . tel:[phone] Referring Provider: Floresita John, [address] [facility] [place], [address] . tel:[phone] Family History Family Member Type Diagnosis Age At Onset No Information Payers Payer name Insurance type Covered republican ID Authorwoo singh(s) Adam [facility] [id number] Social History Type Description Quantity Date Captured [...]
--- OUTSIDE RECORDS SUMMARY | 2024-09-12 01:56 | XMS_ITS | Continuity of Care Document ---
Author Organization [facility] gunner Address [address] [facility] [place] [address] Phone Care Team Providers Care Nurse Midwife/Clinical Instructor Name Role Phone Floresita John MD Unavailable Unavailable Allergies, Adverse Reactions, Alerts Substance Reaction Status Criticality Estrogens Active No Information Medications Medication Instructions Dosage Effective Dates (start - stop) Status Comments ibuprofen 200 mg capsule take 1 capsule [...] in the morning 60 MG - Active Procedures Procedure Date INJ FORAMEN EPIDURAL L/S BILATERAL Feb- NEEDLE LOCALIZATION BY Flouroscopy OFFICE/OUTPATIENT VISIT, EST Foll-up eval q3mo opiod [...] L/S BILATERAL Sep-0 ROUTINE BLOOD DRAW Drug test def 22+ classes Drug Urine Toxology With Chromatography Foll-up eval q3mo opiod tx OFFICE/OUTPATIENT VISIT, EST ROUTINE BLOOD DRAW Drug test def 8-14 classes Drug Urine Toxology With Chromatography Foll-up eval q3mo opiod tx OFFICE/OUTPATIENT VISIT, EST Foll-up eval q3mo opiod tx OFFICE/OUTPATIENT VISIT, EST Drug Urine Toxology With Chromatography PT-FOCUSED HLTH RISK ASSMN OFFICE/OUTPATIENT VISIT, [facility] Advance Directives Directive Yes / No Effective Date File Name No Information Encounters Encounter Description Practice Location Reason(s) For Visit Diagnoses Date Provider Providers Copied on Encounter [facility], [address] [place] [address], [id number] , [place] tel:[phone] [facility] Radiculopathy, lumbar region Sep-1 4 Dora Canas. [address] [place], [place], [id number], [place]. tel:[phone] Referring Provider: Bradley Coelho [facility] [address] [place], [address]. tel:[phone] OFFICE/OUTPA TIENT VISIT, EST [facility], [address] [place], [place], [id number] , [place] tel:[phone] [facility] Back Pain (chief complaint) Chronic pain syndromeLong term (current) use of opiate analgesicRadicul opathy, lumbar region Sep-1 4 Kaleb Harris. [address] [facility], [address], [id number], [place]. tel:[phone] Referring Provider: Bradley Coelho [facility] [address] [place], [address]. tel:[phone] OFFICE/OUTPA TIENT VISIT, [facility], [address] [place] [address], [id number] , [place] tel:[phone] [facility] Back Pain (chief complaint) Chronic pain syndromeSacroili itis, not elsewhere classifiedOther spondylosis, lumbar regionOther intervertebral disc displacement, lumbar regionLong term (current) use of opiate analgesic 3 Alysa Hall. [address] [facility] [address], [id number], [place]. tel:[phone] Referring [facility]: [facility] [address] [place], [address]. tel:[phone] [facility], [address] [place] [address], [id number] , [place] tel:[phone] [facility] No Information 3 Alysa Hall. [address] [facility] [address], [id number], [place]. tel:[phone] OFFICE/OUTPA TIENT VISIT, [facility], [address] [place] [address], [id number] , [place] [phone] [facility] Back Pain (chief complaint) Chronic pain syndromeSacroili itis, not elsewhere classifiedOther spondylosis, lumbar regionOther intervertebral disc displacement, lumbar regionLong term (current) use of opiate analgesic 3 Alysa Hall. [address] [facility] [address], [id number], [place]. tel:[phone] Referring [facility]: [facility] [address] [place], [address]. tel:[phone] OFFICE/OUTPA TIENT VISIT, EST [facility], [address] [place], [place], [id number] , [place] tel:[phone] [facility] Back Pain (chief complaint) Chronic pain syndromeSacroili itis, not elsewhere classifiedOther spondylosis, lumbar regionOther intervertebral disc displacement, lumbar regionLong term (current) use of opiate analgesic 3 Alysa Hall. [address], [id number], [place]. tel:[phone] Referring Provider: Bradley Coelho [facility] [address] [place], [address]. tel:[phone] [facility], [address] [place] [address], [id number] , [place] tel:[phone] [facility] No Information 3 Alysa Hall. [address] [place] [address], [id number], [place]. tel:[phone] OFFICE/OUTPA TIENT VISIT, [facility], [address] [place] [address], [id number] , [place] tel:[phone] [facility] Back Pain (chief complaint) Chronic pain syndromeSacroili itis, not elsewhere classifiedOther spondylosis, lumbar regionOther intervertebral disc displacement, lumbar regionLong term (current) use of opiate analgesicEncount er for therapeutic drug level monitoring 3 Alysa Hall. [address] [place] [address], [id number], [place]. tel:[phone] Referring Provider: [facility] [address] [place], [address]. tel:[phone] [facility], [address] [place] [address], [id number] , [place] tel:[phone] [facility] No Information 2 Alysa Hall. [address] [place] [address], [id number], [place]. tel:[phone] OFFICE/OUTPA TIENT VISIT, [facility], [address] [place] [address], [id number] , [place] tel:[phone] [facility] Back pain (chief complaint) Chronic pain syndromeSacroili itis, not elsewhere classifiedOther spondylosis, lumbar regionOther intervertebral disc displacement, lumbar regionLong term (current) use of opiate analgesicEncount er for therapeutic drug level monitoring May-0 2 Alysa Hall. [address], [id number], [place]. tel:[phone] Referring Provider: Bradley Coelho [facility] [address] [place], [address]. tel:[phone] OFFICE/OUTPA TIENT VISIT, [facility], [address] [place] [address], [id number] , [place] tel:[phone] [facility] Back Pain (chief complaint) Chronic pain syndromeSacroili itis, not elsewhere classifiedOther spondylosis, lumbar regionOther intervertebral disc displacement, lumbar regionLong term (current) use of opiate analgesic Apr-0 2 Alysa Hall. [address] [place] [address], [id number], [place]. tel:[phone] Referring Provider: Bradley Coelho [facility] [address] [place], [address]. tel:[phone] [facility], [address] [place] [address], [id number] , [place] tel:[phone] [facility] No Information 0 2 Alysa Hall. [address] [place] [address], [id number], [place]. tel:[phone] Referring Provider: Bradley Coelho [facility] [address] [place], [address]. tel:[phone] OFFICE/OUTPA TIENT VISIT, [facility], [address] [place] [address], [id number] , [place] tel:[phone] [facility] low back pain (chief complaint) Chronic pain syndromeSacroili itis, not elsewhere classifiedOther intervertebral disc displacement, lumbar regionLong term (current) use of opiate analgesicOther spondylosis, lumbar region Oct-0 - 2 Watt Rafael. [address], [place], [place], [id number], [place]. tel:[phone] Referring Provider: Bradley Coelho [facility] [address] [place], [address]. tel:[phone] OFFICE/OUTPA TIENT VISIT, EST [facility], [address] [place] [address], [id number] , [place] tel:[phone] [facility] low back pain (chief complaint) Chronic pain syndromeSacroili itis, not elsewhere classifiedOther intervertebral disc displacement, lumbar regionLong term (current) use of opiate analgesic Sep-0 2 Watt Rafael. [address] [facility] [address], [place], [id number], [place]. tel:[phone] Referring Provider: Bradley Coelho [facility] [address] [place], [address]. tel:[phone] OFFICE/OUTPA TIENT VISIT, [facility], [address] [place] [address], [id number] , [place] tel:[phone] [facility] low back pain (chief complaint) Chronic pain syndromeSacroili itis, not elsewhere classifiedOther intervertebral disc displacement, lumbar regionLong term (current) use of opiate analgesic Aug-0 2 Watt Rafael. [address] [facility] [address], [place], [id number], [place]. tel:[phone] Referring Provider: Bradley Coelho [facility] [address] [place], [address]. tel:[phone] [facility], [address] [place] [address], [id number] , [place] tel:[phone] [facility] No Information 2 Watt Rafael. [address] [facility] 11 [facility] [address], [place], [id number], [place]. tel:[phone] OFFICE/OUTPA TIENT VISIT, [facility], [address] [place] [address], [id number] , [place] tel:[phone] [facility] low back pain (chief complaint) Chronic pain syndromeSacroili itis, not elsewhere classifiedOther intervertebral disc displacement, lumbar regionLong term (current) use of opiate analgesic Dec- 2 Alysa Hall. [address] [facility] 11 [facility] [address], [place], [id number], [place]. tel:[phone] Referring Provider: Bradley Coelho [facility] [address] [place], [address]. tel:[phone] OFFICE/OUTPA TIENT VISIT, [facility], [address] [place] [address], [id number] , [place] tel:[phone] [facility] low back pain (chief complaint) Chronic pain syndromeSacroili itis, not elsewhere classifiedOther intervertebral disc displacement, lumbar regionLong term (current) use of opiate analgesicEncount er for screening for other disorder 2 Alysa Hall. [address] [place] [address] [address], [place], [place], [id number], [place]. tel:[phone] Referring Provider: [facility] [address] [place], [address]. tel:[phone] OFFICE/OUTPA TIENT VISIT, [facility], [address] [place] [address], [id number] , [place] tel:[phone] [facility] low back pain (chief complaint) Other intervertebral disc displacement, lumbar regionChronic pain syndromeSacroili itis, not elsewhere classifiedLong term (current) use of opiate analgesic 2 Alysa Hall. [address] [place] [address] Rd [address], [place], [place], [id number], [place]. tel:[phone] Referring Provider: Bradley Coelho [facility] [address] [place], [address]. tel:[phone] [facility], [address] [place] [address], [id number] , [place] [phone] [facility] Other intervertebral disc displacement, lumbar region Apr-2 2 Jonathan Munroe. [facility], [address], [place], [address], [place]. tel:[phone] Referring Provider: Bradley Coelho [facility] [address] [place], [address]. tel:[phone] OFFICE/OUTPA TIENT VISIT, [facility], [address] [place] [address], [id number] , [place] tel:[phone] [facility] Back Pain (chief complaint) Chronic pain syndromeSacroili itis, not elsewhere classifiedOther intervertebral disc displacement, lumbar regionLong term (current) use of opiate analgesic Apr-0 2 Alysa Hall. [address] [place] [address] Rd [address], [place], [id number], [place]. tel:[phone] Referring Provider: Bradley Coelho [facility] [address] [place], [address]. tel:[phone] [facility], [address] [place] [address], [id number] , [place] tel:[phone] [facility] No Information Mar-0 2 Alysa Hall. [address] [place] [address] [address], [place], [id number], [place]. tel:[phone] Referring Provider: Bernabe Russell, [address] [place] [address], [address]. tel:[phone] OFFICE/OUTPA TIENT VISIT, [facility], [address] [place] [address], [id number] , [place] [phone] [facility] Back Pain (chief complaint) Chronic pain syndromeOther intervertebral disc displacement, lumbar regionSacroiliit is, not elsewhere classifiedLong term (current) use of opiate analgesic Aug-0 2 Watt Rafael. [address], [place], [place], [id number], [place]. tel:[phone] Referring Provider: Bradley Coelho [facility] [address] [place], [address]. tel:[phone] OFFICE/OUTPA TIENT VISIT, [facility], [address] [place] [address], [id number] , [place] [phone] [facility] Back Pain (chief complaint) Chronic pain syndromeOther intervertebral disc displacement, lumbar regionSacroiliit is, not elsewhere classifiedLong term (current) use of opiate analgesic Fe-0 2 Watt Rafael. [address] [facility] [address], [place], [id number], [place]. tel:[phone] Referring Provider: Bradley Coelho [facility] [address] [place], [address]. tel:[phone] OFFICE/OUTPA TIENT VISIT, [facility], [address] [place] [address], [id number] , [place] tel:[phone] [facility] Back Pain (chief complaint) Chronic pain syndromeOther intervertebral disc displacement, lumbar regionSacroiliit is, not elsewhere classifiedLong term (current) use of opiate analgesic Kishore-0 2 Watt Rafael. [address] [facility] [address], [place], [id number], [place]. tel:[phone] Referring Provider: Bradley Coelho [facility] [address] [place], [address]. tel:[phone] OFFICE/OUTPA TIENT VISIT, [facility], [address] [place] [address], [id number] , [place] tel:[phone] [facility] Back Pain (chief complaint) Chronic pain syndromeOther intervertebral disc displacement, lumbar regionSacroiliit is, not elsewhere classifiedLong term (current) use of opiate analgesic Dec-0 1 Watt Rafael. [address] [facility] [address], [place], [place], [id number], [place]. tel:[phone] Referring Provider: Bradley Coelho [facility] [address] [place], [address]. tel:[phone] OFFICE/OUTPA TIENT VISIT, EST [facility], [address] [place] [address], [id number] , [place] tel:[phone] [facility] Back Pain (chief complaint) Chronic pain syndromeOther intervertebral disc displacement, lumbar regionSacroiliit is, not elsewhere classifiedLong term (current) use of opiate analgesic Nov-0 1 Watttheresa Hall. [address] [facility] [address], [place], [place], [id number], [place]. tel:[phone] Referring Provider: Bradley Coelho [facility] [address] [place], [address]. tel:[phone] OFFICE/OUTPA TIENT VISIT, EST [facility], [address] [place] [address], [id number] , [place] tel:[phone] [facility] Back Pain (chief complaint) Chronic pain syndromeOther intervertebral disc displacement, lumbar regionLong term (current) use of opiate analgesicSacroil iitis, not elsewhere classified Oct-0 1 Watttheresa Hall. [address] [facility] [address], [place], [place], [id number], [place]. tel:[phone] Referring Provider: Bradley Coelho [facility] [address] [place], [address]. tel:[phone] [facility], [address] [place] [address], [id number] , [place] tel:[phone] [facility] Other intervertebral disc displacement, lumbar region Sep-0 1 Yahir Kidd. [address] [place] [address], [id number], [place]. tel:[phone] Referring Provider: Bradley Coelho [facility] [address] [facility], [place], [address]. tel:[phone] [facility], [address] [place] [address], [id number] , [place] tel:[phone] [facility] No Information Sep-0 1 Alysa Hall. [facility]5 [facility] [address], [place], [place], [id number], [place]. tel:[phone] Referring Provider: Bernabe Russell, [address] [place] [address], [address]. tel:[phone] OFFICE/OUTPA TIENT VISIT, [facility], [address] [place] [address], [id number] , [place] tel:[phone] [facility] Back Pain (chief complaint) Chronic pain syndromeLow back painLong term (current) use of opiate analgesicSacroil iitis, not elsewhere classifiedOther intervertebral disc displacement, lumbar regionEncounter for therapeutic drug level monitoring Sep-0 1 Alysa Hall. [facility]5 [facility] [address], [place], [place], [id number], [place]. tel:[phone] Referring Provider: Bradley Coelho [facility] [address] [facility], [place], [address]. tel:[phone] [facility], [address] [place] [address], [id number] , [place] tel:[phone] [facility] Encounter for screening for other disorderLong term (current) use of opiate analgesic Aug-0 1 Alysa Hall. [facility]5 [facility] [address], [place], [place], [id number], [place]. tel:[phone] Referring Provider: Bernabe Russell, [address] [place] [address], [address]. tel:[phone] OFFICE/OUTPA TIENT VISIT, [facility], [address] [place], [place], [id number] , [place] tel:[phone] [facility] Back Pain (chief complaint) Chronic pain syndromeLow back painSacroiliitis , not elsewhere classifiedLong term (current) use of opiate analgesicOther intervertebral disc displacement, lumbar regionEncounter for therapeutic drug level monitoring 1 Alysa Hall. [address] [facility] [address], [place], [place], [id number], [place]. tel:[phone] Referring [facility]: [facility] [address] [place], [address]. tel:[phone] OFFICE/OUTPA TIENT VISIT, [facility], [address] [place], [place], [id number] , [place] tel:[phone] [facility] Back Pain (chief complaint) Chronic pain syndromeLow back painSacroiliitis , not elsewhere classifiedLong term (current) use of opiate analgesic Dec-0 1 Watt Rafael. [address] [facility] [address], [place], [id number], [place]. tel:[phone] Referring Provider: [facility] [address] [place], [address]. tel:[phone] [facility], [address] [place], [place], [id number] , [place] tel:[phone] [facility] No Information 0 1 Watt Rafael. [address] [facility] [address], [place], [place], [id number], [place]. tel:[phone] Referring Provider: Rashel Huertas, [facility] [address], [place], [address]. tel:[phone] OFFICE/OUTPA TIENT VISIT, [facility], [address] [place], [place], [id number] , [place] tel:[phone] [facility] Back Pain (chief complaint) Chronic pain syndromeEncounte r for screening for other disorderLow back painSacroiliitis , not elsewhere classified 1 Alysa Hall. [address] [facility] [address], [place], [id number], [place]. tel:[phone] Referring Provider: Bradley Coelho [facility] [address], [place], [address]. tel:[phone] [facility], [address] [place], [place], [id number] , [place] tel:[phone] [facility] No Information 1 Alysa Hall. [address], [place], [place], [id number], [place]. tel:[phone] Family History Family Member Type Diagnosis Age At Onset No Information Payers Payer name Insurance type Covered alliance party ID Margarita singh(s) [facility] [id number] Social History Type Description Quantity Date Captured Comments Sex Female Smoking Status No Information Chief Complaint And Reason For Visit No Information Reason For Referral Reason For Referral No Information Plan Of Treatment Date Type Action Status Goal OARS. Due on due Goal AST (SGOT). Due on due Goal Creatinine. Due on due Goal ALT (SGPT). Due on due Goal SOLID PLASTERER Paperwork. Due on due Goal UDT. Due on due Goal WATERSIDE WORKER Scanned. Due on 024 due Goal Order Annual PT. Due on due Goal Weight. Due on d ue Goal Medication Reconciliation. D ue on due Goal Unhealthy drug use screening . Due on due Goal Update Social History. Due o n due Goal PHQ-9. Due on du e Goal Height. Due on d ue Goal Hepatitis C screening. Due o n due Goal Tobacco Use. Due on due Goal Review Allergy List. Due on due Goal Lifestyle education regardin g diet completed Goal Creatinine. Due on due Goal Unhealthy drug use screening . Due on due Goal ALT (SGPT). Due on due Goal PHQ-9. Due on du e Goal AST (SGOT). Due on due Goal SOLID PLASTERER Paperwork. Due on due Goal Medication Reconciliation. D ue on due Goal HPV. Due on due Goal OARS. Due on due Goal Order Annual PT. Due on due Goal Tobacco Use. Due on due Goal Review Allergy List. Due on due Goal WATERSIDE WORKER Scanned. Due on due Goal Hepatitis C screening. Due o n due Goal Weight. Due on d ue Goal Update Social History. Due o n due Goal Height. Due on d ue Goal UDT. Due on due Goal Tobacco Use. Due on 022 due Goal Hepatitis C screening. Due o n due Goal PHQ-9. Due on du e Goal Height. Due on d ue Goal UDT. Due on due Goal SOLID PLASTERER Paperwork. Due on due Goal WATERSIDE WORKER Scanned. Due on 023 due Goal ALT (SGPT). Due on due Goal Order Annual PT. Due on due Goal AST (SGOT). Due on due Goal Creatinine. Due on due Goal OARS. Due on due Goal Review Allergy List. Due on due Goal Weight. Due on d ue Goal Update Social History. Due o n due Goal Medication Reconciliation. D ue on due Goal Unhealthy drug use screening . Due on due Goal Order Annual PT. Due on due Goal ALT (SGPT). Due on due Goal Creatinine. Due on due Goal UDT. Due on due Goal AST (SGOT). Due on due Goal OARS. Due on due Goal SOLID PLASTERER Paperwork. Due on due Goal Tobacco Use. Due on 022 due Goal WATERSIDE WORKER Scanned. Due on 023 due Goal Height. Due on d ue Goal Update Social History. Due o n due Goal Hepatitis C screening. Due o n due Goal Weight. Due on d ue Goal Unhealthy drug use screening . Due on due Goal Review Allergy List. Due on due Goal Medication Reconciliation. D ue on due Goal PHQ-9. Due on du e Goal Order Annual PT. Due on due Goal SOLID PLASTERER Paperwork. Due on due Goal UDT. Due on due Goal OARS. Due on due Goal AST (SGOT). Due on due Goal Weight. Due on d ue Goal ALT (SGPT). Due on due Goal WATERSIDE WORKER Scanned. Due on 023 due Goal Review Allergy List. Due on due Goal Creatinine. Due on due Goal Update Social History. Due o n due Goal Height. Due on d ue Goal Medication Reconciliation. D ue on due Goal Unhealthy drug use screening . Due on due Goal Tobacco Use. Due on due Goal Hepatitis C screening. Due o n due Goal PHQ-9. Due on du e Goal Height. Due on d ue Goal Medication Reconciliation. D ue on due Goal Update Social History. Due o n due Goal OARS. Due on due Goal Tobacco Use. Due on due Goal Weight. Due on d ue Goal Review Allergy List. Due on due Goal PHQ-9. Due on du e Goal Order Annual PT. Due on due Goal Unhealthy drug use screening . Due on due Goal ALT (SGPT). Due on due Goal WATERSIDE WORKER Scanned. Due on due Goal SOLID PLASTERER Paperwork. Due on due Goal Creatinine. Due on due Goal AST (SGOT). Due on due Goal UDT. Due on due Goal Hepatitis C screening. Due o n due Goal Tobacco Use. Due on due Goal Hepatitis C screening. Due o n due Goal OARS. Due on due Goal AST (SGOT). Due on due Goal Creatinine. Due on due Goal Order Annual PT. Due on due Goal UDT. Due on due Goal Review Allergy List. Due on due Goal Height. Due on d ue Goal PHQ-9. Due on du e Goal SOLID PLASTERER Paperwork. Due on due Goal WATERSIDE WORKER Scanned. Due on due Goal ALT (SGPT). Due on due Goal Weight. Due on d ue Goal Unhealthy drug use screening . Due on due Goal Update Social History. Due o n due Goal Medication Reconciliation. D ue on due Goal UDT. Due on due Goal Order Annual PT. Due on due Goal Unhealthy drug use screening . Due on due Goal Medication Reconciliation. D ue on due Goal Tobacco Use. Due on due Goal AST (SGOT). Due on due Goal Creatinine. Due on due Goal PHQ-9. Due on du e Goal WATERSIDE WORKER Scanned. Due on due Goal Height. Due on d ue Goal OARS. Due on due Goal Hepatitis C screening. Due o n due Goal SOLID PLASTERER Paperwork. Due on due Goal Review Allergy List. Due on due Goal Update Social History. Due o n due Goal ALT (SGPT). Due on due Goal Weight. Due on d ue Goal Hepatitis C screening. Due o n due Goal WATERSIDE WORKER Scanned. Due on due Goal Creatinine. Due on due Goal Tobacco Use. Due on due Goal UDT. Due on due Goal Medication Reconciliation. D ue on due Goal SOLID PLASTERER Paperwork. Due on due Goal Weight. Due on d ue Goal ALT (SGPT). Due on due Goal Unhealthy drug use screening . Due on due Goal Height. Due on d ue Goal Order Annual PT. Due on due Goal OARS. Due on due Goal Review Allergy List. Due on due Goal PHQ-9. Due on du e Goal Update Social History. Due o n due Goal AST (SGOT). Due on due Goal Unhealthy drug use screening . Due on due Goal SOLID PLASTERER Paperwork. Due on due Goal Height. Due on d ue Goal Medication Reconciliation. D ue on due Goal PHQ-9. Due on du e Goal Weight. Due on d ue Goal Review Allergy List. Due on due Goal Order Annual PT. Due on due Goal UDT. Due on due Goal AST (SGOT). Due on due Goal ALT (SGPT). Due on due Goal Update Social History. Due o n due Goal Creatinine. Due on due Goal WATERSIDE WORKER Scanned. Due on due Goal Tobacco Use. Due on due Goal OARS. Due on due Goal Hepatitis C screening. Due o n due Goal UDT. Due on due Goal PHQ-9. Due on du e Goal Review Allergy List. Due on due Goal Medication Reconciliation. D ue on due Goal AST (SGOT). Due on due Goal Hepatitis C screening. Due o n due Goal Weight. Due on d ue Goal Height. Due on d ue Goal SOLID PLASTERER Paperwork. Due on due Goal ALT (SGPT). Due on due Goal OARS. Due on due Goal Unhealthy drug use screening . Due on due Goal Creatinine. Due on due Goal WATERSIDE WORKER Scanned. Due on due Goal Tobacco Use. Due on due Goal Order Annual PT. Due on due Goal Update Social History. Due o n due Goal ALT (SGPT). Due on due Goal Height. Due on d ue Goal PHQ-9. Due on du e Goal Order Annual PT. Due on due Goal Update Social History. Due o n due Goal Creatinine. Due on due Goal SOLID PLASTERER Paperwork. Due on due Goal Review Allergy List. Due on due Goal Unhealthy drug use screening . Due on due Goal Hepatitis C screening. Due o n due Goal Weight. Due on d ue Goal Medication Reconciliation. D ue on due Goal WATERSIDE WORKER Scanned. Due on due Goal OARS. Due on due Goal AST (SGOT). Due on due Goal UDT. Due on due Goal Tobacco Use. Due on due Goal Hepatitis C screening. Due o n due Goal Unhealthy drug use screening . Due on due Goal Weight. Due on d ue Goal SOLID PLASTERER Paperwork. Due on due Goal Tobacco Use. Due on due Goal PHQ-9. Due on du e Goal Height. Due on d ue Goal Order Annual PT. Due on due Goal WATERSIDE WORKER Scanned. Due on due Goal AST (SGOT). Due on due Goal Medication Reconciliation. D ue on due Goal ALT (SGPT). Due on due Goal OARS. Due on due Goal Update Social History. Due o n due Goal Creatinine. Due on due Goal Review Allergy List. Due on due Goal UDT. Due on due Goal UDT. Due on due Goal OARS. Due on due Goal Order Annual PT. Due on due Goal ALT (SGPT). Due on due Goal SOLID PLASTERER Paperwork. Due on due Goal Creatinine. Due on due Goal WATERSIDE WORKER Scanned. Due on due Goal AST (SGOT). Due on due Goal Height. Due on d ue Goal Hepatitis C screening. Due o n due Goal Weight. Due on d ue Goal Unhealthy drug use screening . Due on due Goal Medication Reconciliation. D ue on due Goal Tobacco Use. Due on due Goal Update Social History. Due o n due Goal PHQ-9. Due on du e Goal Review Allergy List. Due on due Goal Hepatitis C screening. Due o n due Goal Medication Reconciliation. D ue on due Goal OARS. Due on due Goal Creatinine. Due on due Goal UDT. Due on due Goal Update Social History. Due o n due Goal Unhealthy drug use screening . Due on due Goal SOLID PLASTERER Paperwork. Due on due Goal Height. Due on d ue Goal Weight. Due on d ue Goal Review Allergy List. Due on due Goal PHQ-9. Due on du e Goal Tobacco Use. Due on due Goal ALT (SGPT). Due on due Goal WATERSIDE WORKER Scanned. Due on due Goal Order Annual PT. Due on due Goal AST (SGOT). Due on due Goal Update Social History. Due o n due Goal Weight. Due on d ue Goal Review Allergy List. Due on due Goal Tobacco Use. Due on due Goal Hepatitis C screening. Due o n due Goal PHQ-9. Due on du e Goal Height. Due on d ue Goal Medication Reconciliation. D ue on due Goal Unhealthy drug use screening . Due on due Goal UDT. Due on due Goal Order Annual PT. Due on due Goal OARS. Due on due Goal ALT (SGPT). Due on due Goal Creatinine. Due on due Goal WATERSIDE WORKER Scanned. Due on due Goal SOLID PLASTERER Paperwork. Due on due Goal AST (SGOT). Due on due Goal Update Social History. Due o n due Goal ALT (SGPT). Due on due Goal Height. Due on d ue Goal Tobacco Use. Due on due Goal OARS. Due on due Goal SOLID PLASTERER Paperwork. Due on due Goal PHQ-9. Due on du e Goal Review Allergy List. Due on due Goal Creatinine. Due on due Goal Weight. Due on d ue Goal Unhealthy drug use screening . Due on due Goal Hepatitis C screening. Due o n due Goal Medication Reconciliation. D ue on due Goal WATERSIDE WORKER Scanned. Due on due Goal AST (SGOT). Due on due Goal Order Annual PT. Due on due Goal UDT. Due on due Goal ALT (SGPT). Due on due Goal PHQ-9. Due on du e Goal UDT. Due on due Goal Height. Due on d ue Goal OARS. Due on due Goal Creatinine. Due on due Goal WATERSIDE WORKER Scanned. Due on due Goal AST (SGOT). Due on due Goal SOLID PLASTERER Paperwork. Due on due Goal Order Annual PT. Due on due Goal Weight. Due on d ue Goal Unhealthy drug use screening . Due on due Goal Medication Reconciliation. D ue on due Goal Update Social History. Due o n due Goal Tobacco Use. Due on due Goal Review Allergy List. Due on due Goal Hepatitis C screening. Due o n due Goal PHQ-9. Due on du e Goal OARS. Due on due Goal Order Annual PT. Due on due Goal AST (SGOT). Due on due Goal Update Social History. Due o n due Goal Review Allergy List. Due on due Goal Creatinine. Due on due Goal UDT. Due on due Goal SOLID PLASTERER Paperwork. Due on due Goal Tobacco Use. Due on due Goal WATERSIDE WORKER Scanned. Due on due Goal Medication Reconciliation. D ue on due Goal Weight. Due on d ue Goal Height. Due on d ue Goal ALT (SGPT). Due on due Goal Creatinine. Due on due Goal ALT (SGPT). Due on due Goal OARS. Due on due Goal Update Social History. Due o n due Goal Order Annual PT. Due on due Goal Review Allergy List. Due on due Goal WATERSIDE WORKER Scanned. Due on due Goal UDT. Due on due Goal Weight. Due on d ue Goal PHQ-9. Due on du e Goal Height. Due on d ue Goal SOLID PLASTERER Paperwork. Due on due Goal Medication Reconciliation. D ue on due Goal AST (SGOT). Due on due Goal Tobacco Use. Due on due Goal Order Annual PT. Due on due Goal AST (SGOT). Due on due Goal UDT. Due on due Goal ALT (SGPT). Due on due Goal Tobacco Use. Due on due Goal Update Social History. Due o n due Goal Medication Reconciliation. D ue on due Goal Height. Due on d ue Goal Review Allergy List. Due on due Goal SOLID PLASTERER Paperwork. Due on due Goal PHQ-9. Due on du e Goal OARS. Due on due Goal Creatinine. Due on due Goal Weight. Due on d ue Goal WATERSIDE WORKER Scanned. Due on due Goal SOLID PLASTERER Paperwork. Due on due Goal Medication Reconciliation. D ue on due Goal WATERSIDE WORKER Scanned. Due on due Goal OARS. Due on due Goal UDT. Due on due Goal ALT (SGPT). Due on due Goal AST (SGOT). Due on due Goal Update Social History. Due o n due Goal PHQ-9. Due on du e Goal Order Annual PT. Due on due Goal Tobacco Use. Due on due Goal Creatinine. Due on due Goal Height. Due on d ue Goal Weight. Due on d ue Goal Review Allergy List. Due on due Goal Update Social History. Due o n due Goal Review Allergy List. Due on due Goal ALT (SGPT). Due on due Goal PHQ-9. Due on du e Goal Creatinine. Due on due Goal OARS. Due on due Goal Weight. Due on d ue Goal WATERSIDE WORKER Scanned. Due on due Goal UDT. Due on due Goal Order Annual PT. Due on due Goal SOLID PLASTERER Paperwork. Due on due Goal Height. Due on d ue Goal AST (SGOT). Due on due Goal Tobacco Use. Due on due Goal Medication Reconciliation. D ue on due Goal Tobacco Use. Due on due Goal UDT. Due on due Goal Weight. Due on d ue Goal PHQ-9. Due on du e Goal Creatinine. Due on due Goal Height. Due on d ue Goal AST (SGOT). Due on due Goal OARS. Due on due Goal Order Annual PT. Due on due Goal Medication Reconciliation. D ue on due Goal SOLID PLASTERER Paperwork. Due on due Goal Review Allergy List. Due on due Goal ALT (SGPT). Due on due Goal Update Social History. Due o n due Goal WATERSIDE WORKER Scanned. Due on due Goal Weight. Due on d ue Goal ALT (SGPT). Due on due Goal Order Annual PT. Due on due Goal UDT. Due on due Goal PHQ-9. Due on du e Goal Review Allergy List. Due on due Goal WATERSIDE WORKER Scanned. Due on due Goal AST (SGOT). Due on due Goal Medication Reconciliation. D ue on due Goal Height. Due on d ue Goal SOLID PLASTERER Paperwork. Due on due Goal Tobacco Use. Due on due Goal Update Social History. Due o n due Goal OARS. Due on due Goal Creatinine. Due on due Goal WATERSIDE WORKER Scanned. Due on due Goal UDT. Due on due Goal AST (SGOT). Due on due Goal OARS. Due on due Goal Review Allergy List. Due on due Goal SOLID PLASTERER Paperwork. Due on due Goal Creatinine. Due on due Goal ALT (SGPT). Due on due Goal Order Annual PT. Due on due Goal Tobacco Use. Due on due Goal Weight. Due on d ue Goal Height. Due on d ue Goal PHQ-9. Due on du e Goal Update Social History. Due o n due Goal Medication Reconciliation. D ue on due Goal AST (SGOT). Due on due Goal ALT (SGPT). Due on due Goal PHQ-9. Due on du e Goal WATERSIDE WORKER Scanned. Due on due Goal SOLID PLASTERER Paperwork. Due on due Goal Creatinine. Due on due Goal Order Annual PT. Due on due Goal Weight. Due on d ue Goal Height. Due on d ue Goal Medication Reconciliation. D ue on due Goal Tobacco Use. Due on due Goal Review Allergy List. Due on due Goal OARS. Due on due Goal UDT. Due on due Goal Update Social History. Due o n due Goal Tobacco Use. Due on due Goal UDT. Due on due Goal Height. Due on d ue Goal Creatinine. Due on due Goal Medication Reconciliation. D ue on due Goal WATERSIDE WORKER Scanned. Due on due Goal Update Social History. Due o n due Goal OARS. Due on due Goal PHQ-9. Due on du e Goal AST (SGOT). Due on due Goal SOLID PLASTERER Paperwork. Due on due Goal ALT (SGPT). Due on due Goal Order Annual PT. Due on due Goal Review Allergy List. Due on due Goal Weight. Due on d ue Goal OARS. Due on due Goal PHQ-9. Due on du e Goal Medication Reconciliation. D ue on due Goal Order Annual PT. Due on due Goal SOLID PLASTERER Paperwork. Due on due Goal AST (SGOT). Due on due Goal Tobacco Use. Due on due Goal Creatinine. Due on due Goal WATERSIDE WORKER Scanned. Due on due Goal Review Allergy List. Due on due Goal UDT. Due on due Goal Height. Due on d ue Goal Weight. Due on d ue Goal ALT (SGPT). Due on due Goal Update Social History. Due o n due Goal SOLID PLASTERER Paperwork. Due on due Goal UDT. Due on due Goal ALT (SGPT). Due on due Goal Order Annual PT. Due on due Goal AST (SGOT). Due on due Goal WATERSIDE WORKER Scanned. Due on due Goal Creatinine. Due on due Goal OARS. Due on due Goal PHQ-9. Due on du e Goal Height. Due on d ue Goal Review Allergy List. Due on due Goal Weight. Due on d ue Goal Medication Reconciliation. D ue on due Goal Update Social History. Due o n due Goal Tobacco Use. Due on due [...] Social History. Due o n due Goal PHQ-9. Due on du e Goal Height. Due on d ue Goal Review Allergy List. Due on due Goal Weight. Due on d ue Goal Medication Reconciliation. D ue on due Goal Update Social History. Due o n due Goal Tobacco Use. Due on due History Of Present Illness Encounter Date Complaint History Of Prese nt Illness Back Pain Severity level i s 7. Duration: chronic. The problem is worsening. It occurs persistently. The client describes the pain as an ache and sharp. Symptoms are aggravated by bending, lifting, sitting, standing, twisting, walking, prolonged positions, rising, stairs and housework. Symptoms are relieved by ice, massage, pain meds/drugs, stretching, chiropractic and changing positions. Comments: This i s my first evaluation of the patient, previously followed by Henri Watt PA-C. Previous clinic notes, records, and imaging reviewed. She was last seen in clinic on 08/14/2022.[facility] presents for a follow up regarding low back pain. Pain has been fluctuating since last visit.Reports she has noticed more frequents flares to her low back pain. Describes it as tightness with intermittent radiation into her right foot and thigh. Pain is worse with increased activity. Expresses interest in a repeat IVONE today as she has found these beneficial previously.She is currently managed on cannabis and ibuprofen, which typically makes her pain manageable. Previously managed on oxycodone, but her SOLID PLASTERER was terminated at [facility]. No other concerns today. Comments: [facility] presents for a follow up and medication refill. Patient c/o chronic low back pain with radiation into her right buttocks. Pain has been stable overall since last visit.Most of today's visit was spent discussing multiple SOLID PLASTERER terminations, including not bringing medications to visits and most recent UDT was (-) for oxycodone. Terminated SOLID PLASTERER today, verbalized an understanding.Medication provides 50% relief [...] this month and took as directed. Back Pain Duration: chroni c. The problem is worsening. It occurs persistently. Location of pain is lower back. The client describes the pain as burning and sharp. Symptoms are aggravated by ascending stairs, bending, descending stairs, lifting, running, standing, twisting and walking. Symptoms are relieved by heat, lying down, pain meds/drugs and rest. Back pain Severity level i s 9. [...] correlated metabolites. No other concerns today. Back Pain Severity [...] Reports pain has remained stable since [facility]. Her mental health has improved this month [...] interested in surgery or other interventions through [facility], such as RFA. Will consider RFA.Reports current [...] pain. Reports pain has remained stable since [facility]. She is interested in trying chiropractic.Of [...] pain. Reports pain has remained stable since [facility]. S/p [facility] 10/03/21 w/ Dr. Carrera; patient reports less benefit than first [facility]. Inquires about workability papers. Requests [facility] fill out papers for her.Reports current [...] chiro and changing positions. Back Pain (comments) [facility] for followup and medication refill. [...] rest and changing positions. Back Pain (comments) [facility] followup and medication refill. She c/o [...] pain meds/drugs and rest. Back Pain (comments) [facility] for followup and medication refill. She [...] No other concerns today. Back Pain (comments) [facility] for followup and medication refill. She [...] and around her beltline. She has tried [facility] SI joint injections with Dr. Coelho with short term relief. She discloses that she experienced a panic attack during the last injection thus has hesitations to pursue further injections. She is currently managed on percocet 5/325mg TID and gabapentin 300mg prescribed by Dr. Bradley Coelho. She requests [facility] to take over medications and understand she must abide by monthly visits and the [facility]. Notes she has been on this regimen [...] and R leg. She trialled PT at [facility] in 2019 with minimal relief. Triallled two sessions of accupunture with some relief. She has also trialled a few lumbar and SI joint injection. Lumbar IVONE was not helpful. SI joint injection provided significant temporary relief. She is scheduled to repeat this injection on 12/04/20. Last lumbar MRI was completed at [facility] in [facility] in 2018She is currently managed on percocet 5/325mg and gabapentin 300mg prescribed by Dr. Bradley Coelho. Notes she has been on this regimen for a while now with good relief.She is interested in establishing care with [facility] and a chiropractic referral. Functional Status Date Functional Assessmen t No Information Instructions Date Instruction Additional Infor inéstyesha Lifestyle education regarding di et Related to Body mass index [BMI] 35.0-35.9, adult Assessments Type Assessment Date No Information Patient Care Teams Name Effective Dates (start - stop) Status Members No Information
--- OUTSIDE RECORDS SUMMARY | 2024-09-12 01:56 | XMS_ITS | Clinical Summary ---
Author Organization [facility] Address [address] [place] [id number] Care Team Providers Care Chargeback Specialist Name Role Phone Martin Nath Robyn Ivy MD Primary Care Provider Allergies Active Allergy Reactions Criticality Noted Date Comments Iodinated Contrast Media Itching Unknown 02/15/2020 Patient reported itching after Isovue 370 CT and dilaudid on 11/16/15 in [facility] - the treating provider felt this [...] 06/24/2013 Factor V Leiden heterozygous mutation Medications SUMAtriptan (IMITREX) 100 mg tabletIndicatio ns:Migraine with aura, not intractable, without status migrainosus Take 1 Tablet (100 mg) by mouth every 2 hours if needed for Migraine. Give at minimum 2hrs apart. Max Dose: 200mg per 24hrs. 18 Tablet 4 2 Active busPIRone (BUSPAR) 10 mg tabletIndicatio ns:Anxiety Take 1 Tablet (10 mg) by mouth two times daily. 180 Tablet 1 3 Active SUMAtriptan (IMITREX) 100 mg tabletIndicatio ns:Migraine syndrome Take 1 Tablet (100 mg) by mouth every 2 hours if needed for Migraine. Give at minimum 2hrs apart. Max Dose: 200mg per 24hrs. 10 Tablet 3 4 Active FLUoxetine (PROZAC) 40 mg capsuleIndicati ons:Moderate recurrent major depression (HC),Panic disorder with agoraphobia TAKE 2 CAPSULES(80 MG) BY MOUTH DAILY IN THE MORNING 200 Capsule 3 4 Active propranolol ER 60 mg Cs24 Sustained-Relea se capsuleIndicati ons:Migraine with aura, not intractable, without status migrainosus TAKE 1 CAPSULE(60 MG) BY MOUTH DAILY 100 Capsule 5 Active propranolol ER (INDERAL LA) 60 mg Cs24 Sustained-Relea se capsuleIndicati ons:Migraine with aura, not intractable, without status migrainosus Take 1 Capsule (60 mg) by mouth once daily. 100 Capsule 3 4 025 Discontinued Active Problems Problem Noted Date Diagnosed Date Chronic low back pain 01/22/2024 Lumbosacral radiculopathy at L5 01/22/2024 Migraine with aura, not intr actable, without status migrainosus 01/25/2021 Nephrolithiasis 11/26/2017 Intermittent palpitations 03/10/2017 Panic disorder with agoraphobia 10/08/2016 Gastritis 05/14/2015 Overview (05/14/2015): EGD 04/2015 Reactive gastropathy Moderate recurrent major depression 08/08/2009 Heterozygous factor V Leiden mutation Overview (03/10/2017): No personal history of VTE, no treatment Resolved Problems Problem Noted Date Diagnosed Date Resolved Date KHRIS (acute kidney injury) 11/26/2017 Encounter for supervision of normal in first trimester 03/10/2017 08/19/2018 Supervision of normal first , antepartum 02/17/2017 08/19/2018 Overview (09/10/2017): 26 y.o. Medical concerns: Current depression/anxiety, Factor [...] Last Flu vaccine- 04/14/2017 Allergies Allergen Reactions Estrogens Other - Describe In Comment Field [...] Streptococcus isolated. Past Medical History: Diagnosis Date Anxiety current Heterozygous factor V Leiden mutation (HC) Moderate recurrent major depression (HC) 08/08/2009 Past Surgical History: Procedure Laterality Date ESOPHAGOGASTRODUODENOSCOPY 05/08/15 EGD 04/2015 Reactive gastropathy NO PREVIOUS SURGERY WISDOM TEETH EXTRACTION Bilateral 2001 No data [...] involved, Micah It's a girl! Sue Ann, VAN.....07/24/2017 8:35 AM Brachial neuritis or radiculitis NOS 07/23/2011 02/09/2014 Brachial neuritis or radiculitis NOS 07/23/2011 07/23/2011 Sprain of neck 07/23/2011 02/09/2014 Encounters Date Type Department Care Team Description 09/07/2024 Refill [facility] [address] [place] [address] Venus Kearns MD Refill Request (Propranolol Er) from Last 3 Months Immunizations Immunization Administration Dates Next Due COVID-19 vaccine (Pfizer-Bio [...] Polio Vaccine 02/24/1995,09/23/1994 Influenza, IIV4 05/16/2022, 8,04/14/2017,03/07 MENINGOCOCCAL VACCINE 2 VIAL 2MO-55YO (MENVEO) 02/09/2014 MMR 02/28/2005,09/23/1994 Meningococcal Vaccine (Menactra) 02/09/2014,02/13 Oral Polio Vaccine 02/24/1995,09/23/1994 Td, Preservative Free [...] Answer Date Recorded PHQ-2 TOTAL SCORE 2 02/25/2024 Social Connections Answer Date Recorded Do you often feel lonely or isolated from those around you? 0 09/09/2023 Financial Resource Strain Answer Date R ecorded Difficulty of Paying Living Expenses 3 09/09/2023 Difficulty of Paying Living Expenses Not on file 09/09/2023 Food Insecurity Answer Date Recorded Do you worry your food will run out before you are able to buy more? 1 09/09/2023 Transportation Needs Answer Date Record ed Does lack of transportation keep you from medica l appointments? 1 09/09/2023 Does lack of transportation keep you from work, meetings or getting things that you need? 1 09/09/2023 Housing Stability Answer Date Recorded What is your housing situation today? 1 09/09/2023 Utilities Answer Date Recorded Do you have trouble paying f or utilities (for example, heat, electricity, water, phone)? 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 Gender Identity Not on file Sexual Orientation [...] Sign Reading Time Taken Comments Blood Pressure 111/75 02/11/2024 1:03 PM CDT Pulse 73 02/11/2024 1:03 PM CDT Temperature 37.3 C (99.1 F) 02/11/2024 1:03 PM CDT Respiratory Rate 16 11/26/2017 3:46 PM CDT Oxygen Saturation 99% 02/11/2024 1:03 PM CDT Inhaled Oxygen Concentration - - Weight 86.7 kg (191 lb 3.2 oz) 02/11/2024 1:03 P M CDT Height 154.9 cm (5' 1) 01/20/2024 10:29 AM CDT Body Mass Index 36.13 01/20/2024 10:29 AM CDT Plan of Treatment Health Maintenance Due Date Last Done Comments Pap test for age 21-65 11/10/2023 , 03/10/2017, 02/09/2014 COVID-19 vaccine series ( season) 2024 02/02/2023, 11/07/2021, 05/13/2021, Additional history exists Influenza Vaccine (#1) 2024 , 04/05/2018, 04/14/2017, Additional history exists BMI (ht and wt on same day) for age 18+ 01/19/2025 01/20/2024, 02/02/2023, 11/07/2021, Additional history exists Depression screening for age 12+ 02/24/2025 02/25/2024, 02/20/2024, 10/16/2022, Additional history exists Tetanus booster 07/16/2027 07/16/2017, 01/14, 02/28/2005 HIV for age 15-65 Completed 02/17/2017 Tdap Completed 07/16/2017, 02/09/2014 Hepatitis C screening for age 18-79 Completed 02/11/2024 Pneumococcal series for age 6-49 Aged Out No longer eligible based on patient's age to complete this topic Medical Devices Implanted Type Area Awning Craftsperson Device Identifier Shelf Expiration Date Model / Serial / Lot Stent Uret [id number] Percuflex Hydroplus - [id number] Implanted:Qty: 1 on 11/26/2017 by Brandon Kaplan MD at [facility] Right: [facility] 04/29/2020 [id number] / / [id number] Procedures Procedure Name Priority Date/Time Associated Diagnosis Comments ANTI HCV Routine 02/11/2024 1:57 PM CDT Elevated LFTs MANUFACTURING COORDINATOR THIN PREP PAP SCREEN IMAGED Routine 11/09/2020 3:21 PM CDT Screening for malignant neoplasm of cervix ANTI HIV 1/2 Routine 02/17/2017 10:12 AM CDT Supervision of normal first , antepartum (HC) from Last 3 Months or Most Recently Relevant to Health Maintenance Results * ANTI HCV (02/11/2024 1:57 PM CDT) HEPATITIS C ANTIBODY Non-Reacti ve Non-React jerry 02/11/2024 10:55 PM CDT [facility] Comment:Please note, per www .CDC.gov: If a patient is known to be at high risk of HCV infection, or is symptomatic, and the physician's suspicion of HCV infection is high, HCV RNA testing is often employed and is of diagnostic value, even after an initial negative anti-HCV test result. Blood BLOOD SPECIMEN / Unknown Venipuncture / Unknown 02/11/2024 1:57 PM CDT 02/11/2024 2:00 PM CDT us Qian Cohn DO SEND OUTS Final Resu lt [employer] [facility] [address] [place] [address], * MANUFACTURING COORDINATOR THIN PREP PAP SCREEN IMAGED (11/09/2020 3:21 PM CDT) Case Report Gynecologic Cytology Report Case: [id number] Authorizing Provider: Eve King PA Collected: 11/09/2020 1521 Ordering Location: [facility] Received: 11/09/2020 1603 Clinic First Screen: Thanh Allen Specimen: MANUFACTURING COORDINATOR ThinPrep Vial Screening, Cervical 11/20/2020 2:07 PM CDT [facility] INTERPRETATION/ RESULT NEGATIVE FOR INTRAEPITHELIAL LESION OR MALIGNANCY (NIL) (none) 11/20/2020 2:07 PM CDT [facility] ENTRAL [facility]OR[facility] IMEN ADEQUACY Satisfactory for evaluation No endocervical component seen 11/20/2020 2:07 PM CDT [facility] HPV REQUEST HPV if ASCUS 11/20/2020 2:07 PM CDT [facility] Field [facility] ENTRAL LABORATORY Date of LMP unknown 11/20/2020 2:07 PM CDT [facility] [employer] [facility] Last Pap Date 03/10/17 11/20/2020 2:07 PM CDT [facility] Last Pap Result NIL 2:07 PM CDT [facility] [employer] [facility] EN[facility] Abnormal Pap or [place] Bx in last 5 years No 11/20/2020 2:07 PM CDT [facility] [employer] [facility] Menstrual Status Hormonally Suppressed 11/20/2020 2:07 PM CDT [facility] EN[facility] [place] Bx Done Today No 11/20/2020 2:07 PM CDT [facility] Additional Information None given 11/20/2020 2:07 PM CDT [facility] Comment: Cytology is screened at [facility] [facility] Central Laboratory - [address], [place] [address] and [facility] - [address] [place] [address] and [facility] - [address] [place] [address] Interpreted at [facility] [employer] [facility] Laboratory - [address], [place] [address] Automated Review Successful 11/20/2020 2:07 PM CDT [facility] EN[facility] Comment:Specimen processed s uccessfully by automated pharmacy tech customer service device, [employer] System, [employer] Note The pap test is a [...] and malignant lesions. 11/20/2020 2:07 PM CDT [facility] EN[facility] Other (Cervical) Non-Blood / Unknown 11/09/2020 3:21 PM CDT 11/09/2020 4:03 PM CDT us Eve MARION PATHOLOGY/CYTOLOGY Final R esult [facility] [address] [place] [address], * ANTI HIV 1/2 (02/17/2017 10:12 AM CDT) HIV-1/HIV-2 ANTIBODY Non-Reacti ve Non-Reacti ve 02/17/2017 11:32 PM CDT [facility] TR[facility] LAB[facility]AT[facility] Blood BLOOD SPECIMEN / Unknown Venipuncture / Unknown 02/17/2017 10:12 AM CDT 02/17/2017 10:12 AM CDT Narrative [facility] - 02/17/2017 11:32 PM CDT HIV-1 p24 and HIV-1/HIV-2 Ab not detected us Komal Bolden MD SEND OUTS Final Res ult [facility] [address] [place] [address], from Last 3 Months or Most Recently Relevant to Health Maintenance Insurance [facility] [address] [id number] Advance Directives * Full Code (Latest Code Status on File) Date Activated Date Inactivated Comments 11/26/2017 12:48 AM 11/26/2017 7:52 PM Care Teams Chargeback Specialist Relationship Specialty Start Date End Date Venus Kearns MD [address] [place] [address] PCP - General Family Practice 01/11/24 [facility] Hematology and Oncology 12/13/12
--- OUTSIDE RECORDS SUMMARY | 2024-09-12 01:56 | XMS_ITS | Continuity of Care Document ---
Author Organization [facility] enter Address [address] [place] [phone] Phone Care Team Providers Care Harvest Crew Supervisor Name Role Phone [facility] Unavailable Unava ilable Procedures Procedure Date INJ FORAMEN EPIDURAL L/S BILATERAL Feb- INJ FORAMEN EPIDURAL L/S BILATERAL Feb- INJ FORAMEN EPIDURAL L/S INJ FORAMEN EPIDURAL L/S Advance Directives Directive Yes / No Effective Date File Name No Information Encounters Encounter Description Practice Location Reason(s) For Visit Diagnoses Date Provider Providers Copied on Encounter [facility], [address] [place] [address], [id number], tel:[phone] [place] [address] No Information 4 [facility]. [address] [place] [address], [id number], [place]. tel:[phone] Referring Provider: Floresita John, [address] [facility] [place], [address] . tel:[phone] [facility], [address] [place] [address], [id number], tel:[phone] [place] [address] No Information Sep-0 [facility]. [address] [place] [address], [id number], . tel:[phone] Referring Provider: Bernabe Russell, [address] [facility] [place], [address] . tel:[phone] Family History Family Member Type Diagnosis Age At Onset No Information Payers Payer name Insurance type Covered alliance party ID Authorjairoa samantha(s) Adam [facility] [id number] Social History Type Description Quantity Date Captured [...]
[2024-09-12 01:57] VITALS: BP 128/86; PULSE 78; RESP 18; TEMP 36.7; O2SAT 98; BMI 35.0
[2024-09-12 02:27] LABS: Strep A DNA Probe* DETECTED (Not Detectd)
[2024-09-12 02:38] VITALS: TEMP 36.7
[2024-09-12] MEDS: KETOROLAC 10 MG TABLET PO (02:38)
[2024-09-12] MEDS: ONDANSETRON ODT 4 MG TAB PO (02:38)
--- NOTE | 2024-09-12 02:40 | ED.GENADULT ---
HPI - General Adult General Chief complaint: Sore Throat Stated complaint: Sore throat Time Seen by Provider: 09/12/24 01:59 Source: patient Mode of arrival: ambulatory Limitations: no limitations History of Present Illness HPI narrative: 34-year-old female presents the ED with 4 days of sore throat, fatigue malaise. Some increased feelings of anxiety which are not abnormal for her experience once she arrived to the ED but calmed herself down while waiting for results. Single episode of vomiting here in the ED which she attributes to the panic attack, denies abdominal pain. Does have a remote history of a peritonsillar abscess, no reviewed, looks like she did not require surgery. Not allergic to any antibiotics, not immunocompromised. Did have strep 2 months ago, treated without complication. No fever, no recent changes in medications. Tried some Tylenol at about 8:00 p.m. which is 6 hours prior to arrival, has not tried any interventions since. Past medical history notable for anxiety disorder. Reports her home medications are fluoxetine and propranolol. No antibiotic allergies. Nonsmoker. ROS is notable for the HEENT symptoms and some anxiety, otherwise denies times 12 systems. Related Data Home Medications ?Medication ?Instructions ?Recorded ?Confirmed fluoxetine 40 mg capsule 80 mg PO DAILY 02/10/22 09/12/24 propranolol 60 mg capsule,24 60 mg PO Q24H 02/10/22 09/12/24 hr,extended release Previous Rx's ?Medication ?Instructions ?Recorded amoxicillin 500 mg tablet 500 mg PO BID #20 tabs 09/12/24 Allergies Allergy/AdvReac Type Severity Reaction Status Date / Time Estrogens Allergy Mild Verified 09/12/24 01:59 PFS PFS Medical History Kidney stone ?N20.0 - Calculus of kidney (ICD-10) Chronic back pain ?M54.9 - Dorsalgia, unspecified (ICD-10) ?G89.29 - Other chronic pain (ICD-10) Anxiety ?F41.9 - Anxiety disorder, unspecified (ICD-10) Depression ?F32.A - Depression, unspecified (ICD-10) Surgical History History of cholecystectomy ?Z90.49 - Acquired absence of other specified parts of digestive tract (ICD-10) History of delivery ?Z98.891 - History of uterine scar from previous surgery (ICD-10) Social History Smoking Status: Never smoker Do you use any of these nicotine containing products: None Second hand tobacco smoke exposure: No How often do you have a drink containing alcohol: never AUDIT-C Alcohol total score: 0 Non-prescribed substance use: marijuana (any form) service: No Exam Const: Vital Signs, click to edit/add: Vital Signs - 24 hr 09/12/24 01:57 09/12/24 02:38 09/12/24 02:45 Temperature 98.0 F 98.0 F 98.0 F Pulse Rate [Right Pulse Oximeter] 78 84 Respiratory Rate 18 18 Blood Pressure [Le ft Upper Arm] 128/86 110/74 Pulse Oximetry 98 98 Oxygen Delivery Me thod Room Air Room Air 09/12/24 02:45 Temperature 98.0 F Pulse Rate [Right Pulse Oximeter] 84 Respiratory Rate 18 Blood Pressure [Le ft Upper Arm] 110/74 Pulse Oximetry Oxygen Delivery Me thod Documenting provider has reviewed patient's vital signs: yes Common normals: no apparent distress General appearance: cooperative Other: Appears mildly ill, answers questions appropriately. Well nourished, well hydrated. HENMT: Common normals: normocephalic, moist oral mucous membranes and dentition normal Head and scalp: normocephalic Other: Tonsils 2+, erythematous with white plaques. Symmetric. No obstruction. Normal appearing uvula. Normal tongue. External nose normal. Eye: Common normals: conjunctivae normal General eye: normal appearance of both eyes Conjunctiva: conjunctiva(e) normal Neck & C-Spine: Common normals: full ROM General: normal visual inspection Other: Mild anterior cervical and submandibular lymphadenopathy Resp: Common normals: normal respiratory effort, no use of accessory muscles and clear to auscultation bilaterally Effort & inspection: able to speak in complete sentences Auscultation: clear to auscultation bilaterally Cardio: Common normals: regular rate, regular rhythm, S1 normal heart sound, S2 normal heart sound and no murmurs Rate: regular rate Rhythm: regular rhythm Heart sounds: S1 normal and S2 normal Extremity: Common normals: normal to inspection and normal capillary refill Psych: Attitude: engaged Activity/motor behavior: appropriate eye contact Skin: Common normals: no rashes or lesions noted General skin exam: no rashes or lesions noted Course Course ED Course: 34-year-old female with sore throat, malaise. No features of sepsis or complication. No airway obstruction. Swallowing her own saliva without complication, normal voice. Suspect strep pharyngitis. Swabs collected and pending. Update: Positive for strep as expected. Will start amoxicillin 1000 mg p.o. x1 and then continue 500 b.i.d. for 10 days. Single dose of Zofran and Toradol given here in ED. patient counseled on alarm symptoms, indications for ED referral. Off work for 48 hours, non contagious after 24 hours. Alarm symptoms reviewed that would warrant return visit to the ED. Written instructions provided. She verbalized understanding and agreement. Prescriptions and pharmacy. Vital Signs Vital signs: Initial Vital Signs Temperature 98.0 F 09/12/24 01:57 Temperature Source Temporal Artery Scan 09/12/24 01:57 Pulse Rate 78 09/12/24 01:57 Respiratory Rate 18 09/12/24 01:57 Blood Pressure 128/86 09/12/24 01:57 Blood Pressure Mean 100 09/12/24 01:57 Blood Pressure Position Sitting 09/12/24 01:57 Pulse Oximetry 98 09/12/24 01:57 Oxygen Delivery Method Room Air 09/12/24 01:57 Vital Signs Temperature 98.0 F 09/12/24 01:57 Pulse Rate 78 09/12/24 01:57 Respiratory Rate 18 09/12/24 01:57 Blood Pressure 128/86 09/12/24 01:57 Pulse Oximetry 98 09/12/24 01:57 Oxygen Delivery Method Room Air 09/12/24 01:57 Temperature 98.0 F 09/12/24 02:45 Pulse Rate 84 09/12/24 02:45 Respiratory Rate 18 09/12/24 02:45 Blood Pressure 110/74 09/12/24 02:45 Pulse Oximetry 98 09/12/24 02:45 Oxygen Delivery Method Room Air 09/12/24 02:45 Medications Administered Medications: Generic Name Dose Route Start Last Admin Trade Name Freq PRN Reason Stop Dose Admin Amoxicillin 1,000 mg 09/12/24 02:35 09/12/24 02:42 Amoxicillin 250 Mg Capsule PO 09/12/24 02:36 1,000 mg ONCE ONE Administration Ketorolac Tromethamine 10 mg 09/12/24 02:34 09/12/24 02:38 Ketorolac 10 Mg Tablet PO 09/12/24 02:35 10 mg ONCE ONE Administration Ondansetron HCl 4 mg 09/12/24 02:34 09/12/24 02:38 Ondansetron Odt 4 Mg Tab PO 09/12/24 02:35 4 mg ONCE ONE Administration Medical Decision Making Lab Data Lab results reviewed: Yes I reviewed the patient's lab results Lab results narrative: Strep positive, as expected, treat with amoxicillin Labs: Lab Results 09/12/24 Range/Units 01:56 SARS-CoV-2 (PCR) Negative SARS-CoV-2 (Negative) Influenza Type A (PCR) Negative PCR FLU A (Negative) Influenza Type B (PCR) Negative PCR FLU B (Negative) RSV (PCR) Negative PCR RSV (Negative) Group A Strep DNA DETECTED A (Not Detectd) Discharge Plan Discharge Clinical Impression: Acute streptococcal pharyngitis Patient Disposition: Home, Self-Care Condition: Stable Instructions: Strep Throat (ED) Additional Instructions: As we discussed, swab was positive for strep pharyngitis. These types of things can be evaluated in urgent care or the clinic to. I would not recommend waiting for more than 48 hours with a sore throat prior to testing for you in the future. Continue using Tylenol 1000 mg every 6 hours and or ibuprofen 600 mg every 6 hours as needed for discomfort or fever. You will be non contagious in 24 hours but it typically does take 48 hours to field somewhat better. Total recovery tends to take a few more days. You are cleared to return to work on Thursday. Continue drinking lots of fluids. If you have any signs of severe complication, please return to the emergency department. Activity Level: Activity as Tolerated Discharge Diet: Regular Prescriptions: New amoxicillin 500 mg tablet 500 mg PO BID Qty: 20 0RF No Action fluoxetine 40 mg capsule 80 mg PO DAILY Patient Comments: Take 2 Capsules (80 mg) by mouth every morning. propranolol 60 mg capsule,extended release 24 hr 60 mg PO Q24H Patient Comments: Take 1 Capsule (60 mg) by mouth once daily. Follow Up/Referrals: Venus Kearns MD [Primary Care Provider] - Stand Alone Forms: [employer] Info Instructions
[2024-09-12] MEDS: AMOXICILLIN 250 MG CAPSULE 1000 MG PO (02:42)
[2024-09-12 02:43] LABS: PCR FLU A Negative PCR FLU A (Negative); PCR FLU B Negative PCR FLU B (Negative); PCR RSV Negative PCR RSV (Negative); SARS PCR* Negative SARS-CoV-2 (Negative)
--- OUTSIDE RECORDS SUMMARY | 2024-09-12 02:44 | XMS_ITS | Clinical Summary ---
Author Organization [employer] [facility] Address [address] [place] [address] Care Team Providers Care Furniture Inspector Name Role Phone Martin Nath Robyn Ivy MD Primary Care Provider Allergies Active Allergy Reactions Criticality Noted Date Comments Iodinated Contrast Media Itching Unknown 02/15/2020 Patient reported itching after Isovue 370 CT and dilaudid on 11/16/15 in [place] [facility] - the treating provider felt this [...] Type Department Care Team Description 09/07/2024 Refill [facility] [address] [place] [address] Venus Kearns MD Refill Request (Propranolol Er) [...] on file Legal Sex Female 5:47 AM DISCHARGE RN Gender Identity Not on file Sexual Orientation [...] this topic Medical Devices Implanted Type Area Project Asst Device Identifier Shelf Expiration Date Model / Serial / Lot Stent Uret [id number] P[employer] - [id number] Implanted:Qty: 1 on 11/26/2017 by Brandon Kaplan MD at [facility] Right: [employer] [facility] 04/29/2020 [id number] / / [id number] Procedures Procedure Name Priority Date/Time Associated Diagnosis Comments ANTI HCV Routine 02/11/2024 1:57 PM CDT Elevated LFTs INTEGRATION MANAGER THIN PREP PAP SCREEN IMAGED Routine 11/09/2020 3:21 PM CDT Screening for malignant neoplasm of cervix ANTI HIV 1/2 Routine 02/17/2017 10:12 AM CDT Supervision of normal first , antepartum (HC) from Last 3 Months or Most Recently Relevant to Health Maintenance Results * ANTI HCV (02/11/2024 1:57 PM CDT) HEPATITIS C ANTIBODY Non-Reacti ve Non-React jerry 02/11/2024 10:55 PM CDT [facility] Comment:Please note, per www .CDC.gov: [...] Cohn DO SEND OUTS Final Resu lt O2 [employer] [facility] [address] [place] [address], * INTEGRATION MANAGER THIN PREP PAP SCREEN IMAGED (11/09/2020 3:21 PM CDT) Case Report Gynecologic Cytology Report Case: [id number] Authorizing Provider: Eve King PA Collected: 11/09/2020 1521 Ordering Location: [facility] Received: 11/09/2020 1603 Clinic First Screen: Thanh Allen Specimen: INTEGRATION MANAGER ThinPrep Vial Screening, Cervical 11/20/2020 2:07 PM CDT [facility] INTERPRETATION/ RESULT NEGATIVE FOR INTRAEPITHELIAL LESION OR MALIGNANCY (NIL) (none) 11/20/2020 2:07 PM CDT [facility] IMEN ADEQUACY Satisfactory for evaluation No endocervical component seen 11/20/2020 2:07 PM CDT [facility] HPV REQUEST HPV if ASCUS 11/20/2020 2:07 PM CDT [facility] Date of LMP unknown 11/20/2020 2:07 PM CDT [facility] Last Pap Date 03/10/17 11/20/2020 2:07 PM CDT [facility] Last Pap Result NIL 2:07 PM CDT [facility] Abnormal Pap or [place] Bx in last 5 years No 11/20/2020 2:07 PM CDT [facility] Menstrual Status Hormonally Suppressed 11/20/2020 2:07 PM CDT [facility] [place] Bx Done Today No 11/20/2020 2:07 PM CDT [facility] Additional Information None given 11/20/2020 2:07 PM CDT [facility] Comment: Cytology is screened at [facility] Central Laboratory - [address], [place] [address] and [facility] - [address], [place] [address] and [facility] - [address] [place] [address] Interpreted at [facility] Central Laboratory - [address], [place] [address] Automated Review Successful 11/20/2020 2:07 PM CDT [facility] Comment:Specimen processed s uccessfully by automated technical mgr device, [employer] Imaging System, [employer] Note The pap test is a [...] and malignant lesions. 11/20/2020 2:07 PM CDT [facility] Other (Cervical) Non-Blood / Unknown 11/09/2020 3:21 PM CDT 11/09/2020 4:03 PM CDT us [facility]OLOG[facility]/CYTOLOGY Final R esult [facility] [address] [place] [address], * ANTI HIV 1/2 (02/17/2017 10:12 AM CDT) HIV-1/HIV-2 ANTIBODY Non-Reacti ve Non-Reacti ve 02/17/2017 11:32 PM CDT [facility] Blood BLOOD SPECIMEN / Unknown Venipuncture / Unknown 02/17/2017 10:12 AM CDT 02/17/2017 10:12 AM CDT Narrative [facility] - 02/17/2017 11:32 PM CDT HIV-1 p24 and HIV-1/HIV-2 Ab not detected us Komal Bolden MD SEND OUTS Final Res ult [facility] [address] [place] [address], from Last 3 Months or Most Recently Relevant to Health Maintenance Insurance [facility] [id number] Advance Directives * Full Code (Latest Code Status on File) Date Activated Date Inactivated Comments 11/26/2017 12:48 AM 11/26/2017 7:52 PM Care Teams Furniture Inspector Relationship Specialty Start Date End Date Venus Kearns MD [address] [place] [address] PCP - General Family Practice 01/11/24 Martin Nath Hematology Hematology and Oncology 12/13/12
[2024-09-12 02:45] VITALS: BP 110/74; PULSE 84; RESP 18; TEMP 36.7; O2SAT 98
--- OUTSIDE RECORDS SUMMARY | 2024-09-12 02:45 | XMS_ITS | Continuity of Care Document ---
Author Organization [facility] enter Address [address] [place] [id number] Phone Care Team Providers Care Barrel Loader Name Role Phone [facility] Unavailable Unava ilable Procedures Procedure Date INJ FORAMEN EPIDURAL L/S BILATERAL Feb- INJ FORAMEN EPIDURAL L/S BILATERAL Feb- INJ FORAMEN EPIDURAL L/S INJ FORAMEN EPIDURAL L/S Advance Directives Directive Yes / No Effective Date File Name No Information Encounters Encounter Description Practice Location Reason(s) For Visit Diagnoses Date Provider Providers Copied on Encounter [facility], [address] [place] [address], [id number], tel:[phone] [place] [address] [address] [facility]. [address] [place] [address], [id number], [place]. tel:[phone] Referring Provider: Floresita John, [address] [facility] [place], [address] . tel:[phone] [facility], [address] [place] [address], [id number], tel:[phone] [place] [address] No Information Sep-0 [facility]. [address] [place] [address], [id number], . tel:[phone] Referring Provider: Bernabe Russell, [address] [facility] [place], [address] . tel:[phone] Family History Family Member Type Diagnosis Age At Onset No Information Payers Payer name Insurance type Covered libertarian ID Authorjairoa samantha(s) Adam [facility] [id number] Social History Type Description Quantity Date Captured [...]
--- OUTSIDE RECORDS SUMMARY | 2024-09-12 02:45 | XMS_ITS | Continuity of Care Document ---
Author Organization [facility] Address [address] [place] [address] Care Team Providers Care Regulatory Compliance Officer Name Role Phone Chriss Farnsworth CRNA Unavailable Unavailable Procedures Procedure Date Percutaneous Image guided injection, dra almonte, or Advance Directives Directive Yes / No Effective Date File Name No Information Encounters Encounter Description Practice Location Reason(s) For Visit Diagnoses Date Provider Providers Copied on Encounter [facility], [address] [place], [place], [id number], [facility] No Information Javad Banerjee. [address] [place], [place], [id number] , . tel:[phone] Referring Provider: Floresita John, [address] [facility] [address] [place], [address] . tel:[phone] Family History Family Member Type Diagnosis Age At Onset No Information Payers Payer name Insurance type Covered democrat ID Authorwoo singh(s) Adam [facility] [id number] Social History Type Description Quantity Date Captured [...]
--- OUTSIDE RECORDS SUMMARY | 2024-09-12 02:45 | XMS_ITS | Continuity of Care Document ---
Author Organization [facility] Cli gunner Address [address] [place] [address] Phone Care Team Providers Care Foreign Diplomat Name Role Phone Floresita John MD Unavailable [...] Chromatography PT-FOCUSED HLTH RISK ASSMT OFFICE/OUTPATIENT VISIT, [facility] Advance Directives Directive Yes / No Effective Date File Name No Information Encounters Encounter Description Practice Location Reason(s) For Visit Diagnoses Date Provider Providers Copied on Encounter [facility], [address] [place] [address], [id number] , [place] tel:[phone] [facility] Radiculopathy, lumbar region Sep- 4 Dora Canas. [address] [place], [place], [id number], [place]. tel:[phone] Referring Provider: Bradley Coelho [facility] [address] [place], [address]. tel:[phone] OFFICE/OUTPA TIENT VISIT, EST [facility], [address] [place], [place], [id number] , [place] tel:[phone] [facility] Back Pain (chief complaint) Chronic pain syndromeLong term (current) use of opiate analgesicRadicul opathy, lumbar region Sep-1 4 Kaleb Harris. [address] [facility], [address], [id number], [place]. tel:[phone] Referring Provider: Bradley Coelho [facility] [address] [place], [address]. tel:[phone] OFFICE/OUTPA TIENT VISIT, [facility], [address] [place] [address], [id number] , [place] tel:[phone] [facility] Back Pain (chief complaint) Chronic pain syndromeSacroili itis, not elsewhere classifiedOther spondylosis, lumbar regionOther intervertebral disc displacement, lumbar regionLong term (current) use of opiate analgesic 3 Alysa Hall. [address] [facility] [address], [id number], [place]. tel:[phone] Referring Provider: [facility] [address] [place], [address]. tel:[phone] [facility], [address] [place] [address], [id number] , [place] tel:[phone] [facility] No Information 3 Alysa Hall. [address] [facility] [address], [id number], [place]. tel:[phone] OFFICE/OUTPA TIENT VISIT, [facility], [address] [place] [address], [id number] , [place] [phone] [facility] Back Pain (chief complaint) Chronic pain syndromeSacroili itis, not elsewhere classifiedOther spondylosis, lumbar regionOther intervertebral disc displacement, lumbar regionLong term (current) use of opiate analgesic 3 Alysa Hall. [address] [facility] [address], [id number], [place]. tel:[phone] Referring Provider: [facility] [address] [place], [address]. tel:[phone] OFFICE/OUTPA TIENT VISIT, EST [facility], [address] [place], [place], [id number] , [place] tel:[phone] [facility] Back Pain (chief complaint) Chronic pain syndromeSacroili itis, not elsewhere classifiedOther spondylosis, lumbar regionOther intervertebral disc displacement, lumbar regionLong term (current) use of opiate analgesic 3 Alysa Hall. [address], [id number], [place]. tel:[phone] Referring Provider: Bradley Coelho [facility] [address] [place], [address]. tel:[phone] [facility], [address] [place] [address], [id number] , [place] tel:[phone] [facility] No Information 3 Alysa Hall. [address] [place] [address], [id number], [place]. tel:[phone] OFFICE/OUTPA TIENT VISIT, [facility], [address] [place] [address], [id number] , [place] tel:[phone] [facility] Back Pain (chief complaint) Chronic pain syndromeSacroili itis, not elsewhere classifiedOther spondylosis, lumbar regionOther intervertebral disc displacement, lumbar regionLong term (current) use of opiate analgesicEncount er for therapeutic drug level monitoring 3 Alysa Hall. [address] [place] [address], [id number], [place]. tel:[phone] Referring Provider: [facility] [address] [place], [address]. tel:[phone] [facility], [address] [place] [address], [id number] , [place] tel:[phone] [facility] No Information 2 Alysa Hall. [address] [place] [address], [id number], [place]. tel:[phone] OFFICE/OUTPA TIENT VISIT, [facility], [address] [place] [address], [id number] , [place] tel:[phone] [facility] Back pain (chief complaint) Chronic pain syndromeSacroili itis, not elsewhere classifiedOther spondylosis, lumbar regionOther intervertebral disc displacement, lumbar regionLong term (current) use of opiate analgesicEncount er for therapeutic drug level monitoring May-0 2 Alysa Hall. [address], [id number], [place]. tel:[phone] Referring Provider: Bradley Coelho [facility] [address] [place], [address]. tel:[phone] OFFICE/OUTPA TIENT VISIT, [facility], [address] [place] [address], [id number] , [place] tel:[phone] [facility] Back Pain (chief complaint) Chronic pain syndromeSacroili itis, not elsewhere classifiedOther spondylosis, lumbar regionOther intervertebral disc displacement, lumbar regionLong term (current) use of opiate analgesic Apr-0 2 Alysa Hall. [address] [place] [address], [id number], [place]. tel:[phone] Referring Provider: Bradley Coelho [facility] [address] [place], [address]. tel:[phone] [facility], [address] [place] [address], [id number] , [place] tel:[phone] [facility] No Information 0 2 Alysa Hall. [address] [place] [address], [id number], [place]. tel:[phone] Referring Provider: Bradley Coelho [facility] [address] [place], [address]. tel:[phone] OFFICE/OUTPA TIENT VISIT, [facility], [address] [place] [address], [id number] , [place] tel:[phone] [facility] low back pain (chief complaint) Chronic pain syndromeSacroili itis, not elsewhere classifiedOther intervertebral disc displacement, lumbar regionLong term (current) use of opiate analgesicOther spondylosis, lumbar region Oct-0 - 2 Watt Rafael. [address], [place], [place], [id number], [place]. tel:[phone] Referring Provider: Bradley Coelho [facility] [address] [place], [address]. tel:[phone] OFFICE/OUTPA TIENT VISIT, EST [facility], [address] [place] [address], [id number] , [place] tel:[phone] [facility] low back pain (chief complaint) Chronic pain syndromeSacroili itis, not elsewhere classifiedOther intervertebral disc displacement, lumbar regionLong term (current) use of opiate analgesic Sep-0 2 Watt Rafael. [address] [facility] [address], [place], [id number], [place]. tel:[phone] Referring Provider: Bradley Coelho [facility] [address] [place], [address]. tel:[phone] OFFICE/OUTPA TIENT VISIT, [facility], [address] [place] [address], [id number] , [place] tel:[phone] [facility] low back pain (chief complaint) Chronic pain syndromeSacroili itis, not elsewhere classifiedOther intervertebral disc displacement, lumbar regionLong term (current) use of opiate analgesic Aug-0 2 Watt Rafael. [address] [facility] [address], [place], [id number], [place]. tel:[phone] Referring Provider: Bradley Coelho [facility] [address] [place], [address]. tel:[phone] [facility], [address] [place] [address], [id number] , [place] tel:[phone] [facility] No Information 2 Watt Rafael. [address] [facility] 11 [facility] [address], [place], [id number], [place]. tel:[phone] OFFICE/OUTPA TIENT VISIT, [facility], [address] [place] [address], [id number] , [place] tel:[phone] [facility] low back pain (chief complaint) Chronic pain syndromeSacroili itis, not elsewhere classifiedOther intervertebral disc displacement, lumbar regionLong term (current) use of opiate analgesic Dec- 2 Alysa Hall. [address] [facility] 11 [facility] [address], [place], [id number], [place]. tel:[phone] Referring Provider: Bradley Coelho [facility] [address] [place], [address]. tel:[phone] OFFICE/OUTPA TIENT VISIT, [facility], [address] [place] [address], [id number] , [place] tel:[phone] [facility] low back pain (chief complaint) Chronic pain syndromeSacroili itis, not elsewhere classifiedOther intervertebral disc displacement, lumbar regionLong term (current) use of opiate analgesicEncount er for screening for other disorder 2 Alysa Hall. [address] [place] [address] [address], [place], [place], [id number], [place]. tel:[phone] Referring Provider: [facility] [address] [place], [address]. tel:[phone] OFFICE/OUTPA TIENT VISIT, [facility], [address] [place] [address], [id number] , [place] tel:[phone] [facility] low back pain (chief complaint) Other intervertebral disc displacement, lumbar regionChronic pain syndromeSacroili itis, not elsewhere classifiedLong term (current) use of opiate analgesic 2 Alysa Hall. [address] [place] [address] [address], [place], [place], [id number], [place]. tel:[phone] Referring Provider: Bradley Coelho [facility] [address] [place], [address]. tel:[phone] [facility], [address] [place] [address], [id number] , [place] [phone] [facility] Other intervertebral disc displacement, lumbar region Apr-2 2 Jonathan Munroe. [facility], [address], [place], [address], [place]. tel:[phone] Referring Provider: Bradley Coelho [facility] [address] [place], [address]. tel:[phone] OFFICE/OUTPA TIENT VISIT, [facility], [address] [place] [address], [id number] , [place] tel:[phone] [facility] Back Pain (chief complaint) Chronic pain syndromeSacroili itis, not elsewhere classifiedOther intervertebral disc displacement, lumbar regionLong term (current) use of opiate analgesic Apr-0 2 Alysa Hall. [address] [place] [address] [address], [place], [id number], [place]. tel:[phone] Referring Provider: Bradley Coelho [facility] [address] [place], [address]. tel:[phone] [facility], [address] [place] [address], [id number] , [place] tel:[phone] [facility] No Information Mar-0 2 Alysa Hall. [address] [place] [address] [address], [place], [id number], [place]. tel:[phone] Referring Provider: Bernabe Russell, [address] [place] [address], [address]. tel:[phone] OFFICE/OUTPA TIENT VISIT, [facility], [address] [place] [address], [id number] , [place] [phone] [facility] Back Pain (chief complaint) Chronic pain syndromeOther intervertebral disc displacement, lumbar regionSacroiliit is, not elsewhere classifiedLong term (current) use of opiate analgesic Aug-0 2 Watt Arfael. [address], [place], [place], [id number], [place]. tel:[phone] Referring Provider: Bradley Coelho [facility] [address] [place], [address]. tel:[phone] OFFICE/OUTPA TIENT VISIT, [facility], [address] [place] [address], [id number] , [place] [phone] [facility] Back Pain (chief complaint) Chronic pain syndromeOther intervertebral disc displacement, lumbar regionSacroiliit is, not elsewhere classifiedLong term (current) use of opiate analgesic Fe-0 2 Watt Rafael. [address] [facility] [address], [place], [id number], [place]. tel:[phone] Referring Provider: Bradley Coelho [facility] [address] [place], [address]. tel:[phone] OFFICE/OUTPA TIENT VISIT, [facility], [address] [place] [address], [id number] , [place] tel:[phone] [facility] Back Pain (chief complaint) Chronic pain syndromeOther intervertebral disc displacement, lumbar regionSacroiliit is, not elsewhere classifiedLong term (current) use of opiate analgesic Kishore-0 2 Watt Rafael. [address] [facility] [address], [place], [id number], [place]. tel:[phone] Referring Provider: Bradley Coelho [facility] [address] [place], [address]. tel:[phone] OFFICE/OUTPA TIENT VISIT, [facility], [address] [place] [address], [id number] , [place] tel:[phone] [facility] Back Pain (chief complaint) Chronic pain syndromeOther intervertebral disc displacement, lumbar regionSacroiliit is, not elsewhere classifiedLong term (current) use of opiate analgesic Dec-0 1 Watt Rafael. [address] [facility] [address], [place], [place], [id number], [place]. tel:[phone] Referring Provider: Bradley Coelho [facility] [address] [place], [address]. tel:[phone] OFFICE/OUTPA TIENT VISIT, EST [facility], [address] [place] [address], [id number] , [place] tel:[phone] [facility] Back Pain (chief complaint) Chronic pain syndromeOther intervertebral disc displacement, lumbar regionSacroiliit is, not elsewhere classifiedLong term (current) use of opiate analgesic Nov-0 1 Watttheresa Hall. [address] [facility] [address], [place], [place], [id number], [place]. tel:[phone] Referring Provider: Bradley Coelho [facility] [address] [place], [address]. tel:[phone] OFFICE/OUTPA TIENT VISIT, EST [facility], [address] [place] [address], [id number] , [place] tel:[phone] [facility] Back Pain (chief complaint) Chronic pain syndromeOther intervertebral disc displacement, lumbar regionLong term (current) use of opiate analgesicSacroil iitis, not elsewhere classified Oct-0 1 Watttheresa Hall. [address] [facility] [address], [place], [place], [id number], [place]. tel:[phone] Referring Provider: Bradley Coelho [facility] [address] [place], [address]. tel:[phone] [facility], [address] [place] [address], [id number] , [place] tel:[phone] [facility] Other intervertebral disc displacement, lumbar region Sep-0 1 Yahir Kidd. [address] [place] [address], [id number], [place]. tel:[phone] Referring Provider: Bradley Coelho [facility] [address] [facility], [place], [address]. tel:[phone] [facility], [address] [place] [address], [id number] , [place] tel:[phone] [facility] No Information Sep-0 1 Alysa Hall. [facility] [address], [place], [place], [id number], [place]. tel:[phone] Referring Provider: Bernabe Russell, [address] [place] [address], [address]. tel:[phone] OFFICE/OUTPA TIENT VISIT, [facility], [address] [place] [address], [id number] , [place] tel:[phone] [facility] Back Pain (chief complaint) Chronic pain syndromeLow back painLong term (current) use of opiate analgesicSacroil iitis, not elsewhere classifiedOther intervertebral disc displacement, lumbar regionEncounter for therapeutic drug level monitoring Sep-0 1 Alysa Hall. [facility] [address], [place], [place], [id number], [place]. tel:[phone] Referring Provider: Bradley Coelho [facility] [address] [facility], [place], [address]. tel:[phone] [facility], [address] [place] [address], [id number] , [place] tel:[phone] [facility] Encounter for screening for other disorderLong term (current) use of opiate analgesic Aug-0 1 Alysa Hall. [facility] [address], [place], [place], [id number], [place]. tel:[phone] Referring Provider: Bernabe Russell, [address] [place] [address], [address]. tel:[phone] OFFICE/OUTPA TIENT VISIT, [facility], [address] [place], [place], [id number] , [place] tel:[phone] [facility] Back Pain (chief complaint) Chronic pain syndromeLow back painSacroiliitis , not elsewhere classifiedLong term (current) use of opiate analgesicOther intervertebral disc displacement, lumbar regionEncounter for therapeutic drug level monitoring 1 Alysa Hall. [address] [facility] [address], [place], [place], [id number], [place]. tel:[phone] Referring Provider: [facility] [address] [place], [address]. tel:[phone] OFFICE/OUTPA TIENT VISIT, [facility], [address] [place], [place], [id number] , [place] tel:[phone] [facility] Back Pain (chief complaint) Chronic pain syndromeLow back painSacroiliitis , not elsewhere classifiedLong term (current) use of opiate analgesic Dec-0 1 Watt Rfaael. [address] [facility] [address], [place], [id number], [place]. tel:[phone] Referring Provider: [facility] [address] [place], [address]. tel:[phone] [facility], [address] [place], [place], [id number] , [place] tel:[phone] [facility] No Information 0 1 Watt Rafael. [address] [facility] [address], [place], [place], [id number], [place]. tel:[phone] Referring Provider: Rashel Huertas, [facility] [address], [place], [address]. tel:[phone] OFFICE/OUTPA TIENT VISIT, [facility], [address] [place], [place], [id number] , [place] tel:[phone] [facility] Back Pain (chief complaint) Chronic pain syndromeEncounte r for screening for other disorderLow back painSacroiliitis , not elsewhere classified 1 Alysa Hall. [address] [facility] [address], [place], [id number], [place]. tel:[phone] Referring Provider: Bradley Coelho [facility] [address], [place], [address]. tel:[phone] [facility], [address] [place], [place], [id number] , [place] tel:[phone] [facility] No Information 1 Alysa Hall. [address], [place], [place], [id number], [place]. tel:[phone] Family History Family Member Type Diagnosis Age At Onset No Information Payers Payer name Insurance type Covered constitution party ID Margarita singh(s) [facility] [id number] Social History Type Description Quantity Date Captured Comments Sex Female Smoking Status No Information Chief Complaint And Reason For Visit No Information Reason For Referral Reason For Referral No Information Plan Of Treatment Date Type Action Status Goal Creatinine. Due on due Goal ALT (SGPT). 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 Due on due Goal UDT. Due on due Goal RATE MANAGER Scanned. Due on 024 due Goal Order [...] Lifestyle education regardin g diet completed Goal UDT. Due on due Goal Height. Due on d ue Goal Update Social History. Due o n due Goal Creatinine. Due on due Goal Unhealthy drug use screening . Due on due Goal ALT (SGPT). Due on due Goal PHQ-9. Due on du e Goal AST (SGOT). 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 Due on due Goal Medication Reconciliation. D ue on due Goal HPV. Due on due Goal OARS. Due on due Goal Order Annual PT. Due on due Goal Tobacco Use. Due on due Goal Review Allergy List. Due on due Goal RATE MANAGER Scanned. Due on due Goal Hepatitis C screening. Due o n due Goal Weight. Due on d ue Goal UDT. 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 Due on due Goal RATE MANAGER Scanned. Due on due Goal ALT (SGPT). [...] due Goal OARS. 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 Due on due Goal Tobacco Use. Due on due Goal RATE MANAGER Scanned. Due on due Goal Order Annual [...] C screening. Due o n due Goal Review Allergy List. Due on due Goal Creatinine. Due on due Goal Order Annual PT. 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 Due on due Goal UDT. Due on due Goal OARS. Due on due Goal AST (SGOT). Due on due Goal Weight. Due on d ue Goal ALT (SGPT). Due on due Goal RATE MANAGER Scanned. Due on 023 due Goal Update Social History. Due o n due Goal Height. Due on d ue Goal Medication Reconciliation. D ue on due Goal Unhealthy drug use screening . Due on due Goal Tobacco Use. Due on due Goal Hepatitis C screening. Due o n due Goal PHQ-9. Due on du e Goal ALT (SGPT). Due on due Goal RATE MANAGER Scanned. 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 Due on due Goal Creatinine. Due [...] Medication Reconciliation. 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 Due on due Goal RATE MANAGER Scanned. Due on due Goal ALT (SGPT). [...] C screening. Due o n due Goal ENTRY LEVEL DRAFTER Paperwork. Due on due Goal Review Allergy List. Due on due Goal Update Social History. Due o n due Goal ALT (SGPT). Due on due Goal Weight. Due on d ue Goal UDT. Due on due Goal Order Annual PT. Due on due Goal Unhealthy drug use screening . Due on due Goal Medication Reconciliation. D ue on due Goal Tobacco Use. Due on due Goal AST (SGOT). Due on due Goal Creatinine. Due on due Goal PHQ-9. Due on du e Goal RATE MANAGER Scanned. Due on due Goal Height. Due on d ue Goal OARS. Due on due Goal Hepatitis C screening. Due o n due Goal RATE MANAGER Scanned. Due on due Goal Creatinine. Due on due Goal Tobacco Use. Due on due Goal UDT. Due on due Goal Medication Reconciliation. 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 Due on due Goal Weight. Due [...] use screening . 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 Due on due Goal Review Allergy List. Due on due Goal Order Annual PT. Due on due Goal UDT. Due on due Goal AST (SGOT). Due on due Goal ALT (SGPT). Due on due Goal Update Social History. Due o n due Goal Creatinine. Due on due Goal RATE MANAGER Scanned. Due on due Goal Hepatitis C screening. Due o n due Goal AST (SGOT). Due on due Goal Hepatitis C screening. Due o n due Goal Weight. Due on d ue Goal Height. 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 Due on due Goal ALT (SGPT). Due on due Goal OARS. Due on due Goal Unhealthy drug use screening . Due on due Goal Creatinine. Due on due Goal RATE MANAGER Scanned. Due on due Goal Tobacco Use. Due on due Goal Order Annual PT. Due on due Goal Review Allergy List. Due on due Goal Medication Reconciliation. D ue on due Goal UDT. Due on due Goal PHQ-9. Due on du e Goal Update Social History. Due o n due Goal RATE MANAGER Scanned. Due on due Goal OARS. Due on due Goal AST (SGOT). Due on due Goal UDT. Due on due Goal ALT (SGPT). Due on due Goal Height. Due on d ue Goal PHQ-9. Due on du e Goal Order Annual PT. Due on due Goal Update Social History. Due o n due Goal Creatinine. 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 Due on due Goal Review Allergy List. Due on due Goal Unhealthy drug use screening . Due on due Goal Hepatitis C screening. Due o n due Goal Weight. Due on d ue Goal Medication Reconciliation. D ue on due Goal Tobacco Use. Due on due Goal Review Allergy List. Due on due Goal UDT. Due on due Goal RATE MANAGER Scanned. Due on due Goal AST (SGOT). [...] Goal Weight. 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 Due on due Goal Tobacco Use. Due on due Goal PHQ-9. Due on du e Goal Height. Due on d ue Goal Order Annual PT. 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 Due on due Goal Creatinine. Due on due Goal RATE MANAGER Scanned. Due on due Goal AST (SGOT). [...] Goal ALT (SGPT). Due on due Goal RATE MANAGER Scanned. Due on due Goal Order Annual PT. Due on due Goal AST (SGOT). Due on due Goal OARS. Due on due Goal Creatinine. Due on due Goal UDT. Due on due Goal Update Social History. Due o n due Goal Unhealthy drug use screening . 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 Due on due Goal Height. Due on d ue Goal Weight. Due on d ue Goal Review Allergy List. Due on due Goal PHQ-9. Due on du e Goal Tobacco Use. Due on due Goal Hepatitis C screening. Due o n due Goal Medication Reconciliation. D ue on due Goal AST (SGOT). 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 Due on due Goal RATE MANAGER Scanned. Due on due Goal Creatinine. Due on due Goal ALT (SGPT). Due on due Goal OARS. Due on due Goal Order Annual PT. Due on due Goal UDT. Due on due Goal Unhealthy drug use [...] Social History. Due o n due Goal RATE MANAGER Scanned. Due on due Goal AST (SGOT). Due on due Goal Order Annual PT. Due on due Goal UDT. Due on due Goal Unhealthy drug use screening . Due on due Goal Hepatitis C screening. Due o n due Goal Medication Reconciliation. D ue on due Goal Update Social History. Due o n due Goal ALT (SGPT). Due on due Goal Height. Due on d ue Goal Tobacco Use. Due on due Goal OARS. 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 Due on due Goal PHQ-9. Due on du e Goal Review Allergy List. Due on due Goal Creatinine. Due on due Goal Weight. Due on d ue Goal UDT. Due on due Goal Height. Due on d ue Goal OARS. Due on due Goal Creatinine. Due on due Goal RATE MANAGER Scanned. Due on due Goal AST (SGOT). Due on due Goal ALT (SGPT). Due on due Goal PHQ-9. Due on du e Goal ENTRY LEVEL DRAFTER Paperwork. Due on due Goal Order Annual PT. Due on due Goal Weight. Due on d ue Goal Unhealthy drug use screening . Due on due Goal Medication Reconciliation. D ue on due Goal Update Social History. Due o n due Goal Tobacco Use. Due on due Goal Review Allergy List. Due on due Goal Hepatitis C screening. Due o n due Goal AST (SGOT). Due on due Goal Update Social History. Due o n due Goal Review Allergy List. Due on due Goal Creatinine. Due on due Goal UDT. 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 Due on due Goal Tobacco Use. Due on due Goal RATE MANAGER Scanned. Due on due Goal Medication Reconciliation. D ue on due Goal Weight. Due on d ue Goal Height. Due on d ue Goal ALT (SGPT). Due on due Goal PHQ-9. Due on du e Goal OARS. Due on due Goal Order Annual PT. 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 Due on due Goal Medication Reconciliation. D ue on due Goal AST (SGOT). Due on due Goal Tobacco Use. Due on due Goal RATE MANAGER Scanned. Due on due Goal UDT. Due on due Goal Weight. Due on d ue Goal PHQ-9. Due on du e Goal Height. Due on d ue Goal Creatinine. Due on due Goal ALT (SGPT). Due on due Goal OARS. Due on due Goal Update Social History. Due o n due Goal Order Annual PT. Due on due Goal Review Allergy List. Due on due Goal OARS. Due on due Goal Creatinine. Due on due Goal Weight. Due on d ue Goal RATE MANAGER Scanned. Due on due Goal Order Annual PT. Due on due Goal AST (SGOT). Due on due Goal UDT. Due on due Goal ALT (SGPT). Due on due Goal Tobacco Use. Due on due Goal Update Social History. Due o n due Goal Medication Reconciliation. D ue on due Goal Height. Due on d ue Goal Review Allergy List. 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 Due on due Goal PHQ-9. Due on du e Goal Weight. Due on d ue Goal Review Allergy List. 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 Due on due Goal Medication Reconciliation. D ue on due Goal RATE MANAGER Scanned. Due on due Goal OARS. Due [...] Goal Weight. Due on d ue Goal RATE MANAGER Scanned. Due on due Goal UDT. Due on due Goal Order Annual PT. 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 Due on due Goal Update Social History. Due o n due Goal Review Allergy List. Due on due Goal Height. Due on d ue Goal AST (SGOT). Due on due Goal Tobacco Use. Due on due Goal Medication Reconciliation. D ue on due Goal Review Allergy List. Due on due Goal ALT (SGPT). Due on due Goal Update Social History. Due o n due Goal RATE MANAGER Scanned. Due on due Goal OARS. Due on due Goal Order Annual PT. Due on due Goal Medication Reconciliation. 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 Due on due Goal Tobacco Use. Due on due Goal UDT. Due on due Goal Weight. Due on d ue Goal PHQ-9. Due on du e Goal Creatinine. Due on due Goal Height. Due on d ue Goal AST (SGOT). Due on due Goal OARS. Due on due Goal Creatinine. 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 Due on due Goal Tobacco Use. Due on due Goal Update Social History. Due o n due Goal Weight. Due on d ue Goal ALT (SGPT). Due on due Goal Order Annual PT. Due on due Goal UDT. Due on due Goal PHQ-9. Due on du e Goal Review Allergy List. Due on due Goal RATE MANAGER Scanned. Due on due Goal AST (SGOT). Due on due Goal Medication Reconciliation. D ue on due Goal Height. 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 Due on due Goal Creatinine. Due on due Goal ALT (SGPT). Due on due Goal Order Annual PT. Due on due Goal OARS. Due on due Goal Review Allergy List. Due on due Goal RATE MANAGER Scanned. Due on due Goal UDT. Due [...] Goal PHQ-9. Due on du e Goal RATE MANAGER Scanned. 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 Due on due Goal Creatinine. Due on due Goal Order Annual PT. Due on due Goal Weight. Due on d ue Goal Height. Due on d ue Goal Medication Reconciliation. D ue on due Goal Tobacco Use. Due on due Goal Review Allergy List. Due on due Goal PHQ-9. Due on du e Goal AST (SGOT). 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 Due on due Goal ALT (SGPT). Due on due Goal Order Annual PT. Due on due Goal Review Allergy List. Due on due Goal Weight. Due on d ue Goal Tobacco Use. Due on due Goal UDT. Due on due Goal Height. Due on d ue Goal Creatinine. Due on due Goal Medication Reconciliation. D ue on due Goal RATE MANAGER Scanned. Due on due Goal Update Social [...] Order Annual PT. 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 Due on due Goal AST (SGOT). Due on due Goal Tobacco Use. Due on due Goal Creatinine. Due on due Goal RATE MANAGER Scanned. Due on due Goal Review Allergy List. 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 Due on due Goal UDT. Due on due Goal ALT (SGPT). Due on due Goal Order Annual PT. Due on due Goal AST (SGOT). Due on due Goal RATE MANAGER Scanned. Due on due Goal Creatinine. Due [...] n due Goal Tobacco Use. Due on 021 due Goal Weight. Due on d ue Goal Medication Reconciliation. D ue on due History Of Present Illness Encounter Date Complaint History Of Prese nt Illness Comments: This i s my first evaluation [...] manageable. 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 No other concerns today. Back Pain Severity level i s 7. Duration: chronic. The problem is worsening. It occurs persistently. The client describes the pain as an ache and sharp. Symptoms are aggravated by bending, lifting, sitting, standing, twisting, walking, prolonged positions, rising, stairs and housework. Symptoms are relieved by ice, massage, pain meds/drugs, stretching, chiropractic and changing positions. Back Pain Severity level i s 5. [...] of today's visit was spent discussing multiple ENTRY LEVEL DRAFTER terminations, including not bringing medications to visits and most recent UDT was (-) for oxycodone. Terminated ENTRY LEVEL DRAFTER today, verbalized an understanding.Medication provides 50% relief [...] not changed. Pain has been stable since [facility] and pain level averages 9/10.Reports [...] pain. Reports pain has remained stable since [facility]. Her mental health has improved [...] interested in surgery or other interventions through [facility], such as RFA. Will consider RFA.Reports current [...] pain. Reports pain has remained stable since [facility]. S/p [facility] 10/03/21 w/ Dr. Carrera; patient reports less benefit than first [facility]. Inquires about workability papers. Requests [facility] fill out papers for her.Reports current [...] stretching and changing positions. Back Pain (comments) [facility] for followup and medication refill. She c/o [...] rest and changing positions. Back Pain (comments) [facility] for followup and medication refill. She c/o [...] prescribed by Dr. Bradley Coelho. She requests [facility] to take over medications and understand she must abide by monthly visits and the [facility]. 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 Over the years, her pain continued to increase and became more consistent. She descibes her low back pain as a aching pain that radiates around her abdoemn and down her R buttock, hips and R leg. She trialled PT at [facility] in 2019 with minimal relief. Triallled two sessions of accupunture with some relief. She has also trialled a few lumbar and SI joint injection. Lumbar IVONE was not helpful. SI joint injection provided significant temporary relief. She is scheduled to repeat this injection on 12/04/20. Last lumbar MRI was completed at [facility] in 2018She is currently managed on percocet 5/325mg and gabapentin 300mg prescribed by Dr. Bradley Coelho. Notes she has been on this regimen for a while now with good relief.She is interested in establishing care with [facility] and a chiropractic referral. Functional Status Date Functional Assessmen t No Information Instructions Date Instruction Additional Infor inéstyesha Lifestyle education regarding di et Related to Body mass index [BMI] 35.0-35.9, adult Assessments Type Assessment Date No Information Patient Care Teams Name Effective Dates (start - stop) Status Members No Information
== END 2024-09-12 02:48 | disposition home or self-care (01) ==
LOC: ED 02:43
PROVIDERS: Emergency Provider Family Medicine; PCP Family Medicine
DX: J02.0 Streptococcal pharyngitis (principal)
CPT/HCPCS: 87631; 87651; 99283; A9270

== ENCOUNTER 2025-03-27 16:34 | Emergency (ER) | payer MEDICAID, SELFPAY ==
--- OUTSIDE RECORDS SUMMARY | 2024-03-03 06:30 | XMS_ITS | Continuity of Care Document ---
Author Organization [facility] enter Address [address] [place] [phone] Phone Care Team Providers Care Government Relations Director Name Role Phone [facility] Unavailable Unava ilable Procedures Procedure Date INJ FORAMEN EPIDURAL L/S BILATERAL Feb- INJ FORAMEN EPIDURAL L/S BILATERAL Feb- INJ FORAMEN EPIDURAL L/S INJ FORAMEN EPIDURAL L/S Advance Directives Directive Yes / No Effective Date File Name No Information Encounters Encounter Description Practice Location Reason(s) For Visit Diagnoses Date Provider Providers Copied on Encounter [facility], [address] [place] [address], [id number], tel:[phone] [place] [address] No Information 4 [facility]. [address] [place] [address], [id number], [place]. tel:[phone] Referring Provider: Floresita John, [address] [facility] [place], [address] . tel:[phone] [facility], [address] [place] [address], [id number], tel:[phone] [place] [address] No Information Sep-0 [facility]. [address] [place] [address], [id number], . tel:[phone] Referring Provider: Bernabe Russell, [address] [facility] [place], [address] . tel:[phone] Family History Family Member Type Diagnosis Age At Onset No Information Payers Payer name Insurance type Covered republican ID Authorjairoa samantha(s) Adam [facility] [id number] Social History Type Description Quantity Date Captured [...]
--- OUTSIDE RECORDS SUMMARY | 2024-03-03 06:30 | XMS_ITS | Continuity of Care Document ---
Author Organization [facility] enter Address [address] [place] [phone] Phone Care Team Providers Care Certified Social Workers In Health Care Name Role Phone [facility] Unavailable Unava ilable Procedures Procedure Date INJ FORAMEN EPIDURAL L/S BILATERAL Feb- INJ FORAMEN EPIDURAL L/S BILATERAL Feb- INJ FORAMEN EPIDURAL L/S INJ FORAMEN EPIDURAL L/S Advance Directives Directive Yes / No Effective Date File Name No Information Encounters Encounter Description Practice Location Reason(s) For Visit Diagnoses Date Provider Providers Copied on Encounter [facility], [address] [place] [address], [id number], tel:[phone] [place] [address] No Information 4 [facility]. [address] [place] [address], [id number], [place]. tel:[phone] Referring Provider: Floresita John, [address] [facility] [place], [address] . tel:[phone] [facility], [address] [place] [address], [id number], tel:[phone] [place] [address] No Information Sep-0 [facility]. [address] [place] [address], [id number], . tel:[phone] Referring Provider: Bernabe Russell, [address] [facility] [place], [address] . tel:[phone] Family History Family Member Type Diagnosis Age At Onset No Information Payers Payer name Insurance type Covered green party ID Authorjairoa samantha(s) Adam [facility] [id number] Social History Type Description Quantity Date Captured [...]
--- OUTSIDE RECORDS SUMMARY | 2024-03-09 10:23 | XMS_ITS | Continuity of Care Document ---
Author Organization [facility] Address [address] [place] [address] Care Team Providers Care Fiscal Analyst Name Role Phone Chriss Farnsworth CRNA Unavailable Unavailable Procedures Procedure Date Percutaneous Image guided injection, dra almonte, or Advance Directives Directive Yes / No Effective Date File Name No Information Encounters Encounter Description Practice Location Reason(s) For Visit Diagnoses Date Provider Providers Copied on Encounter [facility], [address] [place], [place], [id number], [facility] No Information Javad Banerjee. [address] [place], [place], [id number] , . tel:[phone] Referring Provider: Floresita John, [address] [facility] [place], [address] . tel:[phone] Family History Family Member Type Diagnosis Age At Onset No Information Payers Payer name Insurance type Covered green party ID Authorwoo singh(s) Adam [facility] [id number] Social History Type Description Quantity Date Captured [...]
--- OUTSIDE RECORDS SUMMARY | 2024-03-09 10:23 | XMS_ITS | Continuity of Care Document ---
Author Organization [facility] Address [address] [place] [address] Care Team Providers Care Cattle Producers Name Role Phone Chriss Farnsworth CRNA Unavailable Unavailable Procedures Procedure Date Percutaneous Image guided injection, dra almonte, or Advance Directives Directive Yes / No Effective Date File Name No Information Encounters Encounter Description Practice Location Reason(s) For Visit Diagnoses Date Provider Providers Copied on Encounter [facility], [address] [place], [place], [id number], [facility] No Information Javad Banerjee. [address] [place], [place], [id number] , . tel:[phone] Referring Provider: Floresita John, [address] [facility] [place], [address] . tel:[phone] Family History Family Member Type Diagnosis Age At Onset No Information Payers Payer name Insurance type Covered libertarian ID Authorwoo singh(s) Adam [facility] [id number] Social History Type Description Quantity Date Captured [...]
--- OUTSIDE RECORDS SUMMARY | 2024-10-12 03:36 | XMS_ITS | Continuity of Care Document ---
Author Organization [facility] gunner Address [address] [place] [address] Phone Care Team Providers Care Adobe Layer Helper Name Role Phone Marina Walter CNP Unavailable Unavailable Allergies, Adverse Reactions, Alerts Substance [...] Procedure Date INJ FORAMEN EPIDURAL L/S BILATERAL OFFICE/OUTPATIENT VISIT, EST Foll-up eval q3mo opiod [...] In Or MBB j Lumbar BILATERAL Ap r Foll-up eval q3mo opiod tx OFFICE/OUTPATIENT VISIT, [...] Diagnoses Date Provider Providers Copied on Encounter [facility], [address] [place] [address], [id number] , [place] tel:[phone] [facility] No Information 5 Saba Gray. [address] [place], [place], [id number], [place]. tel:[phone] [facility], [address], [place], [id number] , [place] tel:[phone] [facility] Radiculopathy, lumbar region 4 Dora Canas. [address], [place], [id number], [place]. tel:[phone] Referring Provider: Bradley Coelho, [facility] [address], [place], [address]. tel:[phone] OFFICE/OUTPA TIENT VISIT, EST [facility], [address], [place], [id number] , [place] tel:[phone] [facility] Back Pain (chief complaint) Chronic pain syndromeLong term (current) use of opiate analgesicRadicul opathy, lumbar region Sep-1 - 4 Kaleb Harris. [address], [place], [place], [id number], [place]. tel:[phone] Referring [facility]: [facility] [address] [place], [address]. tel:[phone] OFFICE/OUTPA TIENT VISIT, [facility], [address] [place] [address], [id number] , [place] tel:[phone] [facility] Back Pain (chief complaint) Chronic pain syndromeSacroili itis, not elsewhere classifiedOther spondylosis, lumbar regionOther intervertebral disc displacement, lumbar regionLong term (current) use of opiate analgesic Mar-0 3 Alysa Steele, [address] [place], [address], [place]. tel:[phone] Referring Provider: [facility] [address] [place], [address]. tel:[phone] [facility], [address] [place] [address], [id number] , [place] tel:[phone] [facility] No Information b0 3 Alysa [place], [address] [place], [address], [place]. tel:[phone] OFFICE/OUTPA TIENT VISIT, [facility], [address] [place] [address], [id number] , [place] tel:[phone] [facility] Back Pain (chief complaint) Chronic pain syndromeSacroili itis, not elsewhere classifiedOther spondylosis, lumbar regionOther intervertebral disc displacement, lumbar regionLong term (current) use of opiate analgesic Feb-0 3 Watt Dan. [place], [address] [place], [address], [place]. tel:[phone] Referring Provider: Bradley Coelho [facility] [address] [place], [address]. tel:[phone] OFFICE/OUTPA TIENT VISIT, [facility], [address] [place] [address], [id number] , [place] tel:[phone] [facility] Back Pain (chief complaint) Chronic pain syndromeSacroili itis, not elsewhere classifiedOther spondylosis, lumbar regionOther intervertebral disc displacement, lumbar regionLong term (current) use of opiate analgesic 3 Alysa [place], [address] [place], [address], [place]. tel:[phone] Referring Provider: Bradley Coelho [facility] [address] [place], [address]. tel:[phone] [facility], [address] [place] [address], [id number] , [place] tel:[phone] [facility] No Information 3 Alysa [place], [address] [place], [address], [place]. tel:[phone] OFFICE/OUTPA TIENT VISIT, [facility], [address] [place] [address], [id number] , [place] tel:[phone] [facility] Back Pain (chief complaint) Chronic pain syndromeSacroili itis, not elsewhere classifiedOther spondylosis, lumbar regionOther intervertebral disc displacement, lumbar regionLong term (current) use of opiate analgesicEncount er for therapeutic drug level monitoring 3 Alysa [place], [address] [place], [address], [place]. tel:[phone] Referring Provider: Bradley Coelho [facility] [address] [place], [address]. tel:[phone] [facility], [address], [place], [id number] , [place] tel: [phone] [facility] No Information 2 Watt Dan. [place], [address] [place], [address], [place]. tel:[phone] OFFICE/OUTPA TIENT VISIT, EST [facility], [address] [place] [address], [id number] , [place] tel: [phone] [facility] Back pain (chief complaint) Chronic pain syndromeSacroili itis, not elsewhere classifiedOther spondylosis, lumbar regionOther intervertebral disc displacement, lumbar regionLong term (current) use of opiate analgesicEncount er for therapeutic drug level monitoring 2 Watt Henri. [place], [address] [place], [address], [place]. tel:[phone] Referring Provider: Bradley Coelho [facility] [address] [place], [address]. tel:[phone] OFFICE/OUTPA TIENT VISIT, EST [facility], [address] [place] [address], [id number] , [place] tel: [phone] [facility] Back Pain (chief complaint) Chronic pain syndromeSacroili itis, not elsewhere classifiedOther spondylosis, lumbar regionOther intervertebral disc displacement, lumbar regionLong term (current) use of opiate analgesic Apr-0 2 Wattleslie Steele, [address] [place], [address], [place]. tel:[phone] Referring Provider: [facility] [address] [place], [address]. tel:[phone] [facility], [address], [place], [id number] , [place] tel:[phone] [facility] No Information 0 2 Watt Dan. [place], [address] [place], [address], [place]. tel:[phone] Referring Provider: Bradley Coelho [facility] [address] [place], [address]. tel:[phone] OFFICE/OUTPA TIENT VISIT, [facility], [address] [place] [address], [id number] , [place] [phone] [facility] low back pain (chief complaint) Chronic pain syndromeSacroili itis, not elsewhere classifiedOther intervertebral disc displacement, lumbar regionLong term (current) use of opiate analgesicOther spondylosis, lumbar region Oct-0 7- 2 Watt Henri. [place], [address] [place], [address], [place]. tel:[phone] Referring Provider: Bradley Coelho, [facility] [address] [place], [address]. tel:[phone] OFFICE/OUTPA TIENT VISIT, [facility], [address] [place] [address], [id number] , [place] [phone] [facility] low back pain (chief complaint) Chronic pain syndromeSacroili itis, not elsewhere classifiedOther intervertebral disc displacement, lumbar regionLong term (current) use of opiate analgesic Sep-0 - 2 Watt Henri. [place], [address] [place], [address], [place]. tel:[phone] Referring Provider: Bradley Coelho [facility] [address] [place], [address]. tel:[phone] OFFICE/OUTPA TIENT VISIT, [facility], [address] [place] [address], [id number] , [place] tel:[phone] [facility] low back pain (chief complaint) Chronic pain syndromeSacroili itis, not elsewhere classifiedOther intervertebral disc displacement, lumbar regionLong term (current) use of opiate analgesic Aug-0 - 2 Watt Henri. [place], [address] [place], [address], [place]. tel:[phone] Referring Provider: Bradley Coelho [facility] [address], [place], [address]. tel:[phone] [facility], [address] [place] [address], [id number] , [place] tel:[phone] [facility] No Information 0 2 Watt Henri. [place], [address] [place], [address], [place]. tel:[phone] OFFICE/OUTPA TIENT VISIT, EST [facility], [address] [place] [address], [id number] , [place] tel:[phone] [facility] low back pain (chief complaint) Chronic pain syndromeSacroili itis, not elsewhere classifiedOther intervertebral disc displacement, lumbar regionLong term (current) use of opiate analgesic Dec- 2 Watt Henri. [place], [address] [place], [address], [place]. tel:[phone] Referring Provider: Bradley Coelho, [facility] [address] [place], [address]. tel:[phone] OFFICE/OUTPA TIENT VISIT, [facility], [address] [place] [address], [id number] , [place] tel:[phone] [facility] low back pain (chief complaint) Chronic pain syndromeSacroili itis, not elsewhere classifiedOther intervertebral disc displacement, lumbar regionLong term (current) use of opiate analgesicEncount er for screening for other disorder 2 Watt Henri. [place], [address] [place], [address], [place]. tel:[phone] Referring Provider: Bradley Coelho [facility] [address] [place], [address]. tel:[phone] OFFICE/OUTPA TIENT VISIT, [facility], [address] [place] [address], [id number] , [place] tel:[phone] [facility] low back pain (chief complaint) Other intervertebral disc displacement, lumbar regionChronic pain syndromeSacroili itis, not elsewhere classifiedLong term (current) use of opiate analgesic May-0 - 2 Watt Henri. [place], [address] [place], [address], [place]. tel:[phone] Referring Provider: Bradley Coelho [facility] [address] [place], [address]. tel:[phone] [facility], [address] [place] [address], [id number] , [place] tel:[phone] [facility] Other intervertebral disc displacement, lumbar region Apr-2 2 Castillo Ludwig. [facility], [address], [place], [address], [place]. tel:[phone] Referring Provider: Bradley Coelho [facility] [address] [place], [address]. tel:[phone] OFFICE/OUTPA TIENT VISIT, [facility], [address] [place] [id number] , [place] tel:[phone] [facility] Back Pain (chief complaint) Chronic pain syndromeSacroili itis, not elsewhere classifiedOther intervertebral disc displacement, lumbar regionLong term (current) use of opiate analgesic Apr-0 - 2 Watt Henri. [place], [address] [place], [address], [place]. tel:[phone] Referring Provider: Bradley Coelho [facility] [address] [place], [address]. tel:[phone] [facility], [address] [place] [address], [id number] , [place] [phone] [facility] No Information Mar-0 2 Watt Henri. [place], [address] [place], [address], [place]. tel:[phone] Referring Provider: Bernabe Russell, [address] [place], [address]. tel:[phone] OFFICE/OUTPA TIENT VISIT, [facility], [address] [place] [address], [id number] , [place] tel:[phone] [facility] Back Pain (chief complaint) Chronic pain syndromeOther intervertebral disc displacement, lumbar regionSacroiliit is, not elsewhere classifiedLong term (current) use of opiate analgesic Aug-0 2 Watt [place]Tri [place], [address] [place], [address], [place]. tel:[phone] Referring Provider: [facility] [address] [place], [address]. tel:[phone] OFFICE/OUTPA TIENT VISIT, [facility], [address] [place] [address], [id number] , [place] tel:[phone] [facility] Back Pain (chief complaint) Chronic pain syndromeOther intervertebral disc displacement, lumbar regionSacroiliit is, not elsewhere classifiedLong term (current) use of opiate analgesic Fe-0 2 Watt [place]Tri [place], [address] [place], [address], [place]. tel:[phone] Referring Provider: Bradley Coelho [facility] [address] [place], [address]. tel:[phone] OFFICE/OUTPA TIENT VISIT, [facility], [address] [place] [address], [id number] , [place] [phone] [facility] Back Pain (chief complaint) Chronic pain syndromeOther intervertebral disc displacement, lumbar regionSacroiliit is, not elsewhere classifiedLong term (current) use of opiate analgesic Kishore-0 2 Watt Henri. [place], [address] [place], [address], [place]. tel:[phone] Referring Provider: Bradley Coelho [facility] [address] [place], [address]. tel:[phone] OFFICE/OUTPA TIENT VISIT, [facility], [address] [place] [address], [id number] , [place] [phone] [facility] Back Pain (chief complaint) Chronic pain syndromeOther intervertebral disc displacement, lumbar regionSacroiliit is, not elsewhere classifiedLong term (current) use of opiate analgesic Dec-0 - 1 Watt Dan. [place], [address] [place], [place], [facility], [place]. tel:[phone] Referring Provider: Bradley Coelho [facility] [address] [place], [address]. tel:[phone] OFFICE/OUTPA TIENT VISIT, [facility], [address] [place] [address], [id number] , [place] [phone] [facility] Back Pain (chief complaint) Chronic pain syndromeOther intervertebral disc displacement, lumbar regionSacroiliit is, not elsewhere classifiedLong term (current) use of opiate analgesic Nov-0 - 1 Watt Henri. [place], [address] [place], [place], [facility], [place]. tel:[phone] Referring Provider: Bradley Coelho [facility] [address] [place], [address]. tel:[phone] OFFICE/OUTPA TIENT VISIT, [facility], [address] [place] [address], [id number] , [place] [phone] [facility] Back Pain (chief complaint) Chronic pain syndromeOther intervertebral disc displacement, lumbar regionLong term (current) use of opiate analgesicSacroil iitis, not elsewhere classified Oct-0 - 1 Watt [place]Tri [place], [address], [place], [facility], [place]. tel:[phone] Referring Provider: Bradley Coelho [facility] [address] [place], [address]. tel:[phone] [facility], [address] [place] [address], [id number] , [place] tel:[phone] [facility] Other intervertebral disc displacement, lumbar region Sep-0 1 Yahir Kidd. [address] [place] [address], [id number], [place]. tel:[phone] Referring Provider: Bradley Coelho [facility] [address], [place], [address]. tel:[phone] [facility], [address] [place] [address], [id number] , [place] tel:[phone] [facility] No Information Sep-0 1 Alysa Steele, [address] [place], [address], [place]. tel:[phone] Referring Provider: Bernabe Russell, [address] [place] [address], [address]. tel:[phone] OFFICE/OUTPA TIENT VISIT, EST [facility], [address] [place] [address], [id number] , [place] tel:[phone] [facility] Back Pain (chief complaint) Chronic pain syndromeLow back painLong term (current) use of opiate analgesicSacroil iitis, not elsewhere classifiedOther intervertebral disc displacement, lumbar regionEncounter for therapeutic drug level monitoring Sep-0 1 Alysa Steele, [address] [place], [address], [place]. tel:[phone] Referring Provider: Bradley Coelho, [facility] [address] [place], [address]. tel:[phone] [facility], [address] [place] [address], [id number] , [place] [phone] [facility] Encounter for screening for other disorderLong term (current) use of opiate analgesic Aug-0 1 Alysa Steele, [address], [place], [facility], [place]. tel:[phone] Referring Provider: Bernabe Russell, [address] [place], [address]. tel:[phone] OFFICE/OUTPA TIENT VISIT, [facility], [address] [place] [address], [id number] , [place] [phone] [facility] Back Pain (chief complaint) Chronic pain syndromeLow back painSacroiliitis , not elsewhere classifiedLong term (current) use of opiate analgesicOther intervertebral disc displacement, lumbar regionEncounter for therapeutic drug level monitoring Jan-0 1 Wattleslie [place], [address] [place], [address], [place]. tel:[phone] Referring Provider: Bradley Coelho, [facility] [address] [place], [address]. tel:[phone] OFFICE/OUTPA TIENT VISIT, [facility], [address] [place] [address], [id number] , [place] [phone] [facility] Back Pain (chief complaint) Chronic pain syndromeLow back painSacroiliitis , not elsewhere classifiedLong term (current) use of opiate analgesic Dec-0 1 Watt Dan. [place], [address] [place], [address], [place]. tel:[phone] Referring Provider: [facility] [address] [place], [address]. tel:[phone] [facility], [address] [place] [address], [id number] , [place] [phone] [facility] No Information Nestor-0 1 Wattleslie [place], [address] [place], [address], [place]. tel:[phone] Referring Provider: Rashel Huertas, [facility] [address], [place], [address]. tel:[phone] OFFICE/OUTPA TIENT VISIT, NEW [facility], [address], [place], [id number] , [place] tel:[phone] [facility] (chief complaint) Chronic pain syndromeEncounte r for screening for other disorderLow back painSacroiliitis , not elsewhere classified 1 Alysa Álvarez. [place], [address] [place] [address], [address], [place]. [phone] Referring Provider: Bradley Coelho, [facility] [address] [place], [address]. tel:[phone] [facility], [address], [place], [id number] , [place] tel:[phone] [facility] No Information 1 Alysa Álvarez. [place], [address] [place], [address], [place]. [phone] Family History Family Member Type Diagnosis Age At Onset No Information Payers Payer name Insurance type Covered republican ID Authorwoo singh(s) abbe [employer] [id number] Social History Type Description Quantity Date Captured Comments Alcohol Use Details Unknown Caffeine Use Details Unknown Tobacco Use Status Smoking Status No Information Sex Female Chief Complaint And Reason For Visit No Information Reason For Referral Reason For Referral No Information Plan Of Treatment Date Type Action Status Goal ALT (SGPT). 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 Due on 025 due Goal Creatinine. 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 Due on due Goal OARS. Due on due Goal Order Annual PT. Due on due Goal UDT. Due on due Goal AST (SGOT). Due on due Goal Unhealthy drug use screening . Due on due Goal Tobacco screening. Due on due Goal Height. Due on [...] Goal ALT (SGPT). 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 Due on due Goal UDT. 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 Due on due Goal Order Annual PT. Due on due Goal OARS. Due on due Goal AST (SGOT). Due on due Goal Creatinine. Due on due Goal Hepatitis C screening. Due o n due Goal PHQ-9. Due on du e Goal Height. Due on d ue Goal Update Social History. Due o n due Goal Lifestyle education regardin g diet completed Goal Order Annual PT. Due on due [...] Tobacco Use. Due on 022 due Goal GAS CUTTER Scanned. Due on 023 due Goal SPECIAL TECHNICAL OPERATIONS OFFICER Paperwork. Due on due Goal UDT. Due on due Goal OARS. 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 Due on 023 due Goal UDT. Due on due Goal AST (SGOT). Due on due Goal Order Annual PT. Due on due Goal ALT (SGPT). Due on due Goal Creatinine. Due on due Goal Medication [...] Order Annual PT. 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 Due on due Goal AST (SGOT). Due on due Goal ALT (SGPT). 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 Due on due Goal Tobacco Use. [...] Goal ALT (SGPT). 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 Due on 023 due Goal Order Annual PT. 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 Due on due Goal Creatinine. Due [...] Goal Height. Due on d ue Goal SPECIAL TECHNICAL OPERATIONS OFFICER Paperwork. 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 Due on 023 due Goal ALT [...] due Goal Creatinine. 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 Due on due Goal ALT (SGPT). Due on due Goal UDT. Due on due Goal Order Annual PT. 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 Due on due Goal OARS. Due on due Goal Review Allergy List. Due on due Goal Tobacco Use. Due on due Goal PHQ-9. Due on du e Goal Height. Due on d ue Goal Hepatitis C screening. Due o n due Goal Order Annual [...] due Goal Creatinine. 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 Due on due Goal UDT. 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 Due on due Goal Height. Due on d ue Goal GAS CUTTER Scanned. Due on due Goal Creatinine. Due on due Goal ALT (SGPT). Due on due Goal AST (SGOT). Due on due Goal UDT. Due on due Goal Order Annual PT. 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 Due on due Goal OARS. Due [...] Goal AST (SGOT). 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 Due on due Goal ALT (SGPT). Due on due Goal OARS. Due on due Goal Creatinine. 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 Due on due Goal Tobacco Use. [...] due Goal UDT. 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 Due on due Goal ALT (SGPT). 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 Due on due Goal OARS. Due on due Goal Weight. Due on d ue Goal Tobacco Use. Due on due Goal PHQ-9. Due on du e Goal Height. Due on d ue Goal UDT. 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 Due on due Goal AST (SGOT). Due on due Goal ALT (SGPT). Due on due Goal Creatinine. 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 Due on due Goal Order Annual [...] Social History. Due o n due Goal SPECIAL TECHNICAL OPERATIONS OFFICER Paperwork. Due on due Goal Order Annual PT. Due on due Goal ALT (SGPT). Due on due Goal Creatinine. 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 Due on due Goal AST (SGOT). Due on due Goal Order Annual PT. Due on due Goal AST (SGOT). 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 Due on due Goal ALT (SGPT). 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 Due on due Goal UDT. Due [...] Goal AST (SGOT). 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 Due on due Goal Creatinine. Due on due Goal ALT (SGPT). Due on due Goal OARS. Due on due Goal Height. Due on d ue Goal PHQ-9. Due on du e Goal Hepatitis C screening. Due o n due Goal SPECIAL TECHNICAL OPERATIONS OFFICER Paperwork. Due on due Goal Weight. Due [...] due Goal Creatinine. 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 Due on due Goal OARS. Due on due Goal ALT (SGPT). Due on due Goal UDT. Due on due Goal Order Annual PT. Due on due Goal AST (SGOT). 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 Due on due Goal Height. Due on d ue Goal PHQ-9. Due on du e Goal Weight. Due on d ue Goal Unhealthy drug use screening . Due on due Goal UDT. 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 Due on due Goal Order Annual PT. Due on due Goal OARS. Due on due Goal Creatinine. 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 Due on due Goal AST (SGOT). [...] Goal ALT (SGPT). 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 Due on due Goal UDT. Due [...] ue Goal OARS. 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 Due on due Goal Creatinine. Due on due Goal AST (SGOT). Due on due Goal Order Annual PT. 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 Due on due Goal UDT. Due [...] ue Goal OARS. 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 Due on due Goal Creatinine. Due on due Goal AST (SGOT). Due on due Goal Order Annual PT. 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 Due on due Goal OARS. 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 Due on due Goal Creatinine. Due on due Goal AST (SGOT). Due on due Goal Order Annual PT. 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 Due on due Goal UDT. Due [...] Order Annual PT. 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 Due on due Goal UDT. Due [...] ue Goal OARS. 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 Due on due Goal Creatinine. Due on due Goal AST (SGOT). Due on due Goal Order Annual PT. 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 Due on due Goal UDT. Due [...] ue Goal OARS. 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 Due on due Goal Creatinine. Due [...] ue Goal OARS. 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 Due on due Goal Creatinine. Due on due Goal AST (SGOT). Due on due Goal Order Annual PT. 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 Due on due Goal OARS. 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 Due on due Goal Creatinine. Due on due Goal AST (SGOT). Due on due Goal Order Annual PT. 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 Due on due Goal UDT. Due on due Goal ALT (SGPT). Due on due Goal Review Allergy List. Due on due Goal PHQ-9. Due on du e Goal Update Social History. Due o n due Goal Medication Reconciliation. D ue on due Goal Height. Due on d ue Goal Tobacco Use. Due on due Goal Weight. Due on d ue Goal Creatinine. Due on due Goal AST (SGOT). Due on due Goal Order Annual PT. 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 Due on due Goal UDT. Due [...] ue Goal OARS. 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 Due on due Goal UDT. Due [...] ue Goal OARS. 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 Due on due Goal Creatinine. Due [...] ue Goal OARS. 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 Due on due Goal Creatinine. Due on due Goal AST (SGOT). Due on due Goal Order Annual PT. 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 Due on due Goal UDT. Due on due Goal ALT (SGPT). Due on due Goal OARS. 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 Due on due Goal Creatinine. Due on due Goal AST (SGOT). Due on due Goal Order Annual PT. 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 Due on due Goal PHQ-9. Due on du e Goal Update Social History. Due o n due Goal Medication Reconciliation. D ue on due Goal Height. Due on d ue Goal Tobacco Use. Due on due Goal Weight. Due on d ue Goal Review Allergy List. Due on due Goal OARS. 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 Due on due Goal Creatinine. Due on due Goal AST (SGOT). Due on due Goal Order Annual PT. 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 Due on due Goal UDT. Due [...] d ue Goal Tobacco Use. Due on 021 due [...] manageable. 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 No other concerns today. Back Pain Severity [...] of today's visit was spent discussing multiple SPECIAL TECHNICAL OPERATIONS OFFICER terminations, including not bringing medications to visits and most recent UDT was (-) for oxycodone. Terminated SPECIAL TECHNICAL OPERATIONS OFFICER today, verbalized an understanding.Medication provides 50% relief [...] interested in surgery or other interventions through [facility], such as RFA. Will consider RFA.Reports current [...] LESI. Inquires about workability papers. Requests [facility] fill out papers for her.Reports current medication [...] by daily activities, descending stairs and walking. Comments: [facility] is here for follow-up and [...] Will continue to monitor for long-term relief. Back Pain Severity level i s 6. [...] rest. Back Pain Severity level i s 3. [...] chiro and changing positions. Back Pain (comments) [facility] for followup and medication refill. She c/o [...] Pain (comments) [facility] for followup and medication refill. She c/o [...] meds/drugs, rest and changing positions. Back Pain Severity level i s 9. [...] other concerns today. Back Pain (comments) [facility] pres ents for [...] by Dr. Bradley Coelho. She requests [facility] to take over medications and understand she must abide by monthly visits and the [facility]. 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 Over the years, her pain continued to increase and became more consistent. She descibes her low back pain as a aching pain that radiates around her abdoemn and down her R buttock, hips and R leg. She trialled PT at [facility] in 2019 with minimal relief. Triallled two sessions of accupunture with some relief. She has also trialled a few lumbar and SI joint injection. Lumbar IVONE was not helpful. SI joint injection provided significant temporary relief. She is scheduled to repeat this injection on 12/04/20. Last lumbar MRI was completed at [facility] in 2019She is currently managed on percocet 5/325mg and gabapentin 300mg prescribed by Dr. Bradley Coelho. Notes she has been on this regimen for a while now with good relief.She is interested in establishing care with [facility] and a chiropractic referral. Back Pain Severity [...] No Information Instructions Date Instruction Additional Infor eze Lifestyle education regarding di et Related to Body mass index [BMI] 35.0-35.9, adult Assessments Type Assessment Date No Information Patient Care Teams Name Effective Dates (start - stop) Status Members No Information
--- OUTSIDE RECORDS SUMMARY | 2024-10-12 03:36 | XMS_ITS | Continuity of Care Document ---
Author Organization [facility] Cli gunner Address [address] [place] [address] Phone Care Team Providers Care Java Lead Architect Name Role Phone Marina Walter CNP Unavailable [...] Diagnoses Date Provider Providers Copied on Encounter [facility], [address] [place] [address], [id number] , [place] tel:[phone] [facility] No Information 5 Saba Gray. [address] [place], [place], [id number], [place]. tel:[phone] [facility], [address] [place], [place], [id number] , [place] tel:[phone] [facility] Radiculopathy, lumbar region 4 Dora Canas. [address] [place], [place], [id number], [place]. tel:[phone] Referring Provider: Bradley Coelho, [facility] [address] [facility], [place], [address]. tel:[phone] OFFICE/OUTPA TIENT VISIT, EST [facility], [address] [place], [place], [id number] , [place] tel:[phone] [facility] Back Pain (chief complaint) Chronic pain syndromeLong term (current) use of opiate analgesicRadicul opathy, lumbar region Sep-1 - 4 Kaleb Harris. [address], [place], [place], [id number], [place]. tel:[phone] Referring Provider: [facility] [address] [place], [address]. tel:[phone] OFFICE/OUTPA TIENT VISIT, [facility], [address] [place] [address], [id number] , [place] tel:[phone] [facility] Back Pain (chief complaint) Chronic pain syndromeSacroili itis, not elsewhere classifiedOther spondylosis, lumbar regionOther intervertebral disc displacement, lumbar regionLong term (current) use of opiate analgesic Mar-0 3 Alysa Steele, [address] [place], [address], [place]. tel:[phone] Referring Provider: [facility] [address] [place], [address]. tel:[phone] [facility], [address] [place] [address], [id number] , [place] tel:[phone] [facility] No Information b0 3 Alysa [place], [address] [place], [address], [place]. tel:[phone] OFFICE/OUTPA TIENT VISIT, [facility], [address] [place] [address], [id number] , [place] tel:[phone] [facility] Back Pain (chief complaint) Chronic pain syndromeSacroili itis, not elsewhere classifiedOther spondylosis, lumbar regionOther intervertebral disc displacement, lumbar regionLong term (current) use of opiate analgesic Feb-0 3 Watt Dan. [place], [address] [place], [address], [place]. tel:[phone] Referring Provider: Bradley Coelho [facility] [address] [place], [address]. tel:[phone] OFFICE/OUTPA TIENT VISIT, [employer], [address] [place] [address], [id number] , [place] tel:[phone] [facility] Back Pain (chief complaint) Chronic pain syndromeSacroili itis, not elsewhere classifiedOther spondylosis, lumbar regionOther intervertebral disc displacement, lumbar regionLong term (current) use of opiate analgesic 3 Alysa [place], [address] [place], [address], [place]. tel:[phone] Referring Provider: Bradley Coelho [facility] [address] [place], [address]. tel:[phone] [facility], [address] [place] [address], [id number] , [place] tel:[phone] [facility] No Information 3 Alysa [place], [address] [place], [address], [place]. tel:[phone] OFFICE/OUTPA TIENT VISIT, [employer], [address] [place] [address], [id number] , [place] tel:[phone] [facility] Back Pain (chief complaint) Chronic pain syndromeSacroili itis, not elsewhere classifiedOther spondylosis, lumbar regionOther intervertebral disc displacement, lumbar regionLong term (current) use of opiate analgesicEncount er for therapeutic drug level monitoring 3 Alysa [place], [address] [place], [address], [place]. tel:[phone] Referring Provider: Bradley Coelho [facility] [address] [place], [address]. tel:[phone] [facility], [address] [place], [place], [id number] , [place] tel: [phone] [facility] No Information 2 Watt Dan. [place], [address] [place], [address], [place]. tel:[phone] OFFICE/OUTPA TIENT VISIT, EST [facility], [address] [place] [address], [id number] , [place] tel: [phone] [facility] Back pain (chief complaint) Chronic pain syndromeSacroili itis, not elsewhere classifiedOther spondylosis, lumbar regionOther intervertebral disc displacement, lumbar regionLong term (current) use of opiate analgesicEncount er for therapeutic drug level monitoring 2 Watt Henri. [place], [address] [place], [address], [place]. tel:[phone] Referring Provider: Bradley Coelho [facility] [address] [place], [address]. tel:[phone] OFFICE/OUTPA TIENT VISIT, EST [facility], [address] [place] [address], [id number] , [place] tel: [phone] [facility] Back Pain (chief complaint) Chronic pain syndromeSacroili itis, not elsewhere classifiedOther spondylosis, lumbar regionOther intervertebral disc displacement, lumbar regionLong term (current) use of opiate analgesic Apr-0 2 Wattleslie Steele, [address] [place], [address], [place]. tel:[phone] Referring Provider: [facility] [address] [place], [address]. tel:[phone] [facility], [address] [place], [place], [id number] , [place] tel:[phone] [facility] No Information 0 2 Watt Dan. [place], [address] [place], [address], [place]. tel:[phone] Referring Provider: Bradley Coelho [facility] [address] [place], [address]. tel:[phone] OFFICE/OUTPA TIENT VISIT, [facility], [address] [place] [address], [id number] , [place] [phone] [facility] low back pain (chief complaint) Chronic pain syndromeSacroili itis, not elsewhere classifiedOther intervertebral disc displacement, lumbar regionLong term (current) use of opiate analgesicOther spondylosis, lumbar region Oct-0 7- 2 Watt Henri. [place], [address] [place], [address], [place]. tel:[phone] Referring Provider: Bradley Coelho, [facility] [address] [place], [address]. tel:[phone] OFFICE/OUTPA TIENT VISIT, [facility], [address] [place] [address], [id number] , [place] [phone] [facility] low back pain (chief complaint) Chronic pain syndromeSacroili itis, not elsewhere classifiedOther intervertebral disc displacement, lumbar regionLong term (current) use of opiate analgesic Sep-0 - 2 Watt Henri. [place], [address] [place], [address], [place]. tel:[phone] Referring Provider: Bradley Coelho [facility] [address] [place], [address]. tel:[phone] OFFICE/OUTPA TIENT VISIT, [facility], [address] [place] [address], [id number] , [place] tel:[phone] [facility] low back pain (chief complaint) Chronic pain syndromeSacroili itis, not elsewhere classifiedOther intervertebral disc displacement, lumbar regionLong term (current) use of opiate analgesic Aug-0 - 2 Watt Henri. [place], [address] [place], [address], [place]. tel:[phone] Referring Provider: Bradley Coelho [facility] [address] [facility], [place], [address]. tel:[phone] [facility], [address] [place] [address], [id number] , [place] tel:[phone] [facility] No Information 0 2 Watt Henri. [place], [address] [place], [address], [place]. tel:[phone] OFFICE/OUTPA TIENT VISIT, EST [facility], [address] [place] [address], [id number] , [place] tel:[phone] [facility] low back pain (chief complaint) Chronic pain syndromeSacroili itis, not elsewhere classifiedOther intervertebral disc displacement, lumbar regionLong term (current) use of opiate analgesic Dec- 2 Watt Henri. [place], [address] [place], [address], [place]. tel:[phone] Referring Provider: Bradley Coelho, [facility] [address] [place], [address]. tel:[phone] OFFICE/OUTPA TIENT VISIT, [facility], [address] [place] [address], [id number] , [place] tel:[phone] [facility] low back pain (chief complaint) Chronic pain syndromeSacroili itis, not elsewhere classifiedOther intervertebral disc displacement, lumbar regionLong term (current) use of opiate analgesicEncount er for screening for other disorder 2 Watt Henri. [place], [address] [place], [address], [place]. tel:[phone] Referring Provider: Bradley Coelho [facility] [address] [place], [address]. tel:[phone] OFFICE/OUTPA TIENT VISIT, [facility], [address] [place] [address], [id number] , [place] tel:[phone] [facility] low back pain (chief complaint) Other intervertebral disc displacement, lumbar regionChronic pain syndromeSacroili itis, not elsewhere classifiedLong term (current) use of opiate analgesic May-0 - 2 Watt Henri. [place], [address] [place], [address], [place]. tel:[phone] Referring Provider: Bradley Coelho [facility] [address] [place], [address]. tel:[phone] [facility], [address] [place] [address], [id number] , [place] tel:[phone] [facility] Other intervertebral disc displacement, lumbar region Apr-2 2 Castillo Ludwig. [facility], [address], [place], [address], [place]. tel:[phone] Referring Provider: Bradley Coelho [facility] [address] [place], [address]. tel:[phone] OFFICE/OUTPA TIENT VISIT, [facility] [facility], [address] [place] [address], [id number] , [place] tel:[phone] [facility] Back Pain (chief complaint) Chronic pain syndromeSacroili itis, not elsewhere classifiedOther intervertebral disc displacement, lumbar regionLong term (current) use of opiate analgesic Apr-0 - 2 Watt Henri. [place], [address] [place], [address], [place]. tel:[phone] Referring Provider: Bradley Coelho [facility] [address] [place], [address]. tel:[phone] [facility], [address] [place] [address], [id number] , [place] [phone] [facility] No Information Mar-0 2 Watt Henri. [place], [address] [place], [address], [place]. tel:[phone] Referring Provider: Bernabe Russell, [address] [place], [address]. tel:[phone] OFFICE/OUTPA TIENT VISIT, [facility], [address] [place] [address], [id number] , [place] tel:[phone] [facility] Back Pain (chief complaint) Chronic pain syndromeOther intervertebral disc displacement, lumbar regionSacroiliit is, not elsewhere classifiedLong term (current) use of opiate analgesic Aug-0 2 Watt HenriTri Charles[place], [address] [place], [address], [place]. tel:[phone] Referring [facility]: [facility] [address] [place], [address]. tel:[phone] OFFICE/OUTPA TIENT VISIT, [employer] [facility], [address] [place] [address], [id number] , [place] tel:[phone] [facility] Back Pain (chief complaint) Chronic pain syndromeOther intervertebral disc displacement, lumbar regionSacroiliit is, not elsewhere classifiedLong term (current) use of opiate analgesic Fe-0 2 Watt HenriTri [place], [address] [place], [address], [place]. tel:[phone] Referring Provider: Bradley Coelho [facility] [address] [place], [address]. tel:[phone] OFFICE/OUTPA TIENT VISIT, [facility], [address] [place] [address], [id number] , [place] [phone] [facility] Back Pain (chief complaint) Chronic pain syndromeOther intervertebral disc displacement, lumbar regionSacroiliit is, not elsewhere classifiedLong term (current) use of opiate analgesic Kishore-0 2 Watt Henri. [place], [address] [place], [address], [place]. tel:[phone] Referring Provider: Bradley Coelho [facility] [address] [place], [address]. tel:[phone] OFFICE/OUTPA TIENT VISIT, [facility], [address] [place] [address], [id number] , [place] [phone] [facility] Back Pain (chief complaint) Chronic pain syndromeOther intervertebral disc displacement, lumbar regionSacroiliit is, not elsewhere classifiedLong term (current) use of opiate analgesic Dec-0 - 1 Watt Dan. [place], [address] [place], [place], [facility], [place]. tel:[phone] Referring Provider: Bradley Coelho [facility] [address] [place], [address]. tel:[phone] OFFICE/OUTPA TIENT VISIT, [facility], [address] [place] [address], [id number] , [place] [phone] [facility] Pain (chief complaint) Chronic pain syndromeOther intervertebral disc displacement, lumbar regionSacroiliit is, not elsewhere classifiedLong term (current) use of opiate analgesic Nov-0 - 1 Watt Henri. [place], [address] [place], [place], [facility], [place]. tel:[phone] Referring Provider: Bradley Coelho [facility] [address] [place], [address]. tel:[phone] OFFICE/OUTPA TIENT VISIT, [facility], [address] [place] [address], [id number] , [place] [phone] [facility] Pain (chief complaint) Chronic pain syndromeOther intervertebral disc displacement, lumbar regionLong term (current) use of opiate analgesicSacroil iitis, not elsewhere classified Oct-0 - 1 Watt HenriTri [place], [address] [place], [place], [facility], [place]. tel:[phone] Referring Provider: Bradley Coelho [facility] [address] [place], [address]. tel:[phone] [facility], [address] [place] [address], [id number] , [place] tel:[phone] [facility] Other intervertebral disc displacement, lumbar region Sep-0 1 Yahir Kidd. [address] [place] [address], [id number], [place]. tel:[phone] Referring Provider: Bradley Coelho [facility] [address] [facility], [place], [address]. tel:[phone] [facility], [address] [place] [address], [id number] , [place] tel:[phone] [facility] No Information Sep-0 1 Alysa Steele, [address] [place], [address], [place]. tel:[phone] Referring Provider: Bernabe Russell, [address] [place] [address], [address]. tel:[phone] OFFICE/OUTPA TIENT VISIT, EST [facility], [address] [place] [address], [id number] , [place] tel:[phone] [facility] Pain (chief complaint) Chronic pain syndromeLow back painLong term (current) use of opiate analgesicSacroil iitis, not elsewhere classifiedOther intervertebral disc displacement, lumbar regionEncounter for therapeutic drug level monitoring Sep-0 1 Alysa Steele, [address] [place], [address], [place]. tel:[phone] Referring Provider: Bradley Coelho, [facility] [address] [place], [address]. tel:[phone] [facility], [address] [place] [address], [id number] , [place] [phone] [facility] Encounter for screening for other disorderLong term (current) use of opiate analgesic Aug-0 1 Alysa Steele, [address] [place], [place], [facility], [place]. tel:[phone] Referring Provider: Bernabe Russell, [address] [place], [address]. tel:[phone] OFFICE/OUTPA TIENT VISIT, [facility], [address] [place] [address], [id number] , [place] [phone] [facility] Pain (chief complaint) Chronic pain syndromeLow back painSacroiliitis , not elsewhere classifiedLong term (current) use of opiate analgesicOther intervertebral disc displacement, lumbar regionEncounter for therapeutic drug level monitoring Jan-0 1 Wattleslie [place], [address] [place], [address], [place]. tel:[phone] Referring Provider: Bradley Coelho, [facility] [address] [place], [address]. tel:[phone] OFFICE/OUTPA TIENT VISIT, [employer] [facility], [address] [place] [address], [id number] , [place] [phone] [facility] Pain (chief complaint) Chronic pain syndromeLow back painSacroiliitis , not elsewhere classifiedLong term (current) use of opiate analgesic Dec-0 1 Watt Dan. [place], [address] [place], [address], [place]. tel:[phone] Referring Provider: [facility] [address] [place], [address]. tel:[phone] [facility], [address] [place] [address], [id number] , [place] [phone] [facility] No Information Nestor-0 1 Wattleslie [place], [address] [place], [address], [place]. tel:[phone] Referring Provider: Rashel Huertas, [facility] [address], [place], [address]. tel:[phone] OFFICE/OUTPA TIENT VISIT, NEW [facility], [address] [place], [place], [id number] , [place] tel:[phone] [facility] (chief complaint) Chronic pain syndromeEncounte r for screening for other disorderLow back painSacroiliitis , not elsewhere classified 1 Alysa Álvarez. [place], [address] [place] [address], [address], [place]. [phone] Referring Provider: Bradley Coelho, [facility] [address] [place], [address]. tel:[phone] [facility], [address] [place], [place], [id number] , [place] tel:[phone] [facility] No Information 1 Alysa Álvarez. [place], [address] [place], [address], [place]. [phone] Family History Family Member Type Diagnosis Age At Onset No Information Payers Payer name Insurance type Covered libertarian ID Authorwoo singh(s) abbe [facility] [id number] Social History Type Description Quantity Date Captured Comments Alcohol Use Details Unknown Caffeine Use Details Unknown Tobacco Use Status Smoking Status No Information Sex Female Chief Complaint And Reason For Visit No Information Reason For Referral Reason For Referral No Information Plan Of Treatment Date Type Action Status Goal ALT (SGPT). 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 Due on 025 due Goal Creatinine. 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 Due on due Goal OARS. Due [...] Goal ALT (SGPT). 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 Due on due Goal UDT. 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 Due on due Goal Order Annual [...] completed Goal UDT. 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 Due on due Goal Order Annual [...] due Goal OARS. 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 Due on due Goal UDT. Due [...] Order Annual PT. 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 Due on due Goal AST (SGOT). Due on due Goal ALT (SGPT). 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 Due on due Goal Tobacco Use. [...] Goal ALT (SGPT). 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 Due on 023 due Goal Order Annual PT. 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 Due on due Goal Creatinine. Due [...] Social History. Due o n due Goal [employer] Paperwork. 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 Due on due Goal ALT (SGPT). [...] use screening . 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 Due on due Goal ALT (SGPT). Due on due Goal UDT. Due on due Goal Order Annual PT. Due on due Goal AST (SGOT). Due on due Goal Creatinine. 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 Due on due Goal OARS. Due [...] due Goal Creatinine. 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 Due on due Goal UDT. 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 Due on due Goal Order Annual [...] C screening. Due o n due Goal HOGSHEAD COOPER Scanned. Due on due Goal Creatinine. Due on due Goal ALT (SGPT). Due on due Goal AST (SGOT). Due on due Goal UDT. Due on due Goal Order Annual PT. 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 Due on due Goal OARS. Due [...] Goal AST (SGOT). 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 Due on due Goal ALT (SGPT). Due on due Goal OARS. Due on due Goal Creatinine. 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 Due on due Goal Tobacco Use. [...] due Goal UDT. 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 Due on due Goal ALT (SGPT). 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 Due on due Goal Order Annual [...] due Goal UDT. 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 Due on due Goal AST (SGOT). Due on due Goal ALT (SGPT). Due on due Goal OARS. Due on due Goal Creatinine. 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 Due on due Goal Order Annual [...] Goal Height. Due on d ue Goal [employer] Paperwork. Due on due Goal Order Annual PT. Due on due Goal ALT (SGPT). Due on due Goal Creatinine. 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 Due on due Goal AST (SGOT). [...] Goal AST (SGOT). 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 Due on due Goal ALT (SGPT). 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 Due on due Goal UDT. Due [...] Medication Reconciliation. D ue on due Goal HOGSHEAD COOPER Scanned. Due on due Goal Creatinine. Due on due Goal ALT (SGPT). Due on due Goal OARS. Due on due Goal Order Annual PT. Due on due Goal UDT. Due on due Goal AST (SGOT). 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 Due on due Goal Weight. Due [...] C screening. Due o n due Goal HOGSHEAD COOPER Scanned. Due on due Goal AST (SGOT). Due on due Goal Order Annual PT. Due on due Goal UDT. Due on due Goal ALT (SGPT). Due on due Goal OARS. 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 Due on due Goal Creatinine. Due [...] ue Goal UDT. 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 Due on due Goal Order Annual PT. Due on due Goal OARS. Due on due Goal Creatinine. 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 Due on due Goal AST (SGOT). [...] Goal ALT (SGPT). 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 Due on due Goal UDT. Due [...] due Goal OARS. 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 Due on due Goal Creatinine. Due on due Goal AST (SGOT). Due on due Goal Order Annual PT. 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 Due on due Goal UDT. Due [...] ue Goal OARS. 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 Due on due Goal Creatinine. Due on due Goal AST (SGOT). Due on due Goal Order Annual PT. 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 Due on due Goal UDT. Due [...] ue Goal OARS. 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 Due on due Goal Creatinine. Due on due Goal AST (SGOT). Due on due Goal Order Annual PT. 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 Due on due Goal UDT. Due [...] ue Goal OARS. 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 Due on due Goal Creatinine. Due on due Goal AST (SGOT). Due on due Goal Order Annual PT. 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 Due on due Goal UDT. Due [...] ue Goal OARS. 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 Due on due Goal Creatinine. Due on due Goal AST (SGOT). Due on due Goal Order Annual PT. 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 Due on due Goal UDT. Due [...] ue Goal OARS. 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 Due on due Goal Creatinine. Due on due Goal AST (SGOT). Due on due Goal Order Annual PT. 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 Due on due Goal UDT. Due [...] ue Goal OARS. 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 Due on due Goal Creatinine. Due on due Goal AST (SGOT). Due on due Goal Order Annual PT. 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 Due on due Goal UDT. Due [...] ue Goal OARS. 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 Due on due Goal Creatinine. Due on due Goal AST (SGOT). Due on due Goal Order Annual PT. 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 Due on due Goal UDT. Due [...] ue Goal OARS. 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 Due on due Goal Creatinine. Due on due Goal AST (SGOT). Due on due Goal Order Annual PT. 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 Due on due Goal UDT. Due [...] ue Goal OARS. 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 Due on due Goal Creatinine. Due on due Goal AST (SGOT). Due on due Goal Order Annual PT. 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 Due on due Goal UDT. Due [...] ue Goal OARS. 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 Due on due Goal Creatinine. Due on due Goal AST (SGOT). Due on due Goal Order Annual PT. 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 Due on due Goal UDT. Due [...] due Goal OARS. 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 Due on due Goal Creatinine. Due on due Goal AST (SGOT). Due on due Goal Order Annual PT. 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 Due on due Goal UDT. Due [...] manageable. Previously managed on oxycodone, but her SPORTS MEDICINE MASSEUR was terminated at [facility]. No other concerns today. Back Pain Severity [...] of today's visit was spent discussing multiple SPORTS MEDICINE MASSEUR terminations, including not bringing medications to visits and most recent UDT was (-) for oxycodone. Terminated SPORTS MEDICINE MASSEUR today, verbalized an understanding.Medication provides 50% relief [...] pain. Reports pain has remained stable since [facility]. She is interested in trying chiropractic.Of [...] pain. Reports pain has remained stable since [facility]. S/p LESI 10/03/21 w/ Dr. Carrera; patient reports less benefit than first LESI. Inquires about workability papers. Requests [facility] fill out papers for her.Reports current medication [...] some increased pain. She looks forward to [facility] scheduled for 09/20/21.Patient is not accompanied today. [...] stretching and changing positions. Back Pain (comments) [facility] for followup and medication refill. She c/o [...] rest and changing positions. Back Pain (comments) [facility] for followup and medication refill. She c/o [...] meds/drugs and rest. Back Pain (comments) [facility] for followup and medication refill. She [...] meds/drugs and rest. Back Pain (comments) [facility] for followup and medication refill. She [...] prescribed by Dr. Bradley Coelho. She requests [facility] to take over medications and understand she must abide by monthly visits and the [facility]. 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 Over the years, her pain continued to increase and became more consistent. She descibes her low back pain as a aching pain that radiates around her abdoemn and down her R buttock, hips and R leg. She trialled PT at [facility] in 2019 with minimal relief. Triallled two sessions of accupunture with some relief. She has also trialled a few lumbar and SI joint injection. Lumbar IVONE was not helpful. SI joint injection provided significant temporary relief. She is scheduled to repeat this injection on 12/04/20. Last lumbar MRI was completed at [facility] in 2018She is currently managed on percocet 5/325mg and gabapentin 300mg prescribed by Dr. Bradley Coelho. Notes she has been on this regimen for a while now with good relief.She is interested in establishing care with [facility] and a chiropractic referral. Functional Status Date Functional Assessmen t No Information Instructions Date Instruction Additional Infor eze Lifestyle education regarding di et Related to Body mass index [BMI] 35.0-35.9, adult Assessments Type Assessment Date No Information Patient Care Teams Name Effective Dates (start - stop) Status Members No Information
--- OUTSIDE RECORDS SUMMARY | 2025-03-27 16:37 | XMS_ITS | Clinical Summary ---
Author Organization [facility] Address [address] [place] [id number] Care Team Providers Care Stitch Burnisher Name Role Phone Martin Nath Unavailable Unavailable Glenys Aly Primary Care Provider [phone] Allergies Active Allergy Reactions Criticality Noted Date Comments Iodinated Contrast Media Itching Unknown 02/15/2020 Patient reported itching after Isovue 370 CT and dilaudid on 11/16/15 in [place] [facility] - the treating provider felt this [...] 06/24/2013 Factor V Leiden heterozygous mutation Medications propranolol ER (INDERAL LA) 60 mg Cs24 Sustained-Release capsuleIndications :Migraine with aura, not intractable, without status migrainosus Take 1 Capsule (60 mg) by mouth once daily. 90 Capsule 3 12/29/19 25 Active nystatin 100,000 unit/gram creamIndications:T inea corporis Apply topically to affected area(s) two times daily. 30 g 12/29/19 25 Active SUMAtriptan (IMITREX) 100 mg tabletIndications: Migraine syndrome Take 1 Tablet (100 mg) by mouth every 2 hours if needed for Migraine. Give at minimum 2hrs apart. Max Dose: 200mg per 24hrs. 10 Tablet 3 01/04/20 25 Active hydrOXYzine HCL (ATARAX) 25 mg tabletIndications: KURTIS (generalized anxiety disorder) Take 1 Tablet (25 mg) by mouth every 6 hours if needed for Anxiety. 01/04/20 25 Active rimegepant (NURTEC) 75 mg orally disintegrating tabletIndications: Migraine with aura, not intractable, without status migrainosus Place 75 mg on the tongue once daily if needed for Headache. 10 Tablet 1 01/11/20 25 Active FLUoxetine (PROZAC) 40 mg capsuleIndications :Moderate recurrent major depression (HC),Panic disorder with agoraphobia Take 2 Capsules (80 mg) by mouth once daily in the morning. 200 Capsule 2 03/18/20 25 Active FLUoxetine (PROZAC) 40 mg capsuleIndications :Moderate recurrent major depression (HC),Panic disorder with agoraphobia Take 2 Capsules (80 mg) by mouth once daily in the morning. 200 Capsule 3 01/04/20 25 025 Discontin ued(*Avai lability/ Formulary change/Co st of medicatio n) Active Problems Problem Noted Date Diagnosed Date Cervical cancer screening 01/13/2025 Overview (01/13/2025): 12/2024 NIL/HPV negative. Plan: HPV-based testing due 12/2029. Chronic low back pain 01/22/2024 Lumbosacral radiculopathy [...] Overview Addendum 07/23/2017 5:08 PM by Qian Cohn, DO 26 y.o. Medical concerns: Current depression/anxiety, [...] Encounters Date Type Department Care Team Description 03/27/2025 Nurse Triage [facility] [address] [place] [address] Deb Lux MD Vaginal Bleeding 03/17/2025 Refill [facility] [address] [place] [address] Glenys Aly PA Refill Request (Fluoxetine) 03/07/2025 9:00 AM CDT Telemedicine [facility] [address] [place] [address] Tiff Whitten MS, [facility] Counseling (Cancer Genetic Counseling ); Telehealth (Virtual Visit ) 02/28/2025 Telephone [facility] [address] [place] [address] Karrie Winston Cancer Genetics 02/21/2025 Telephone [facility] [address] [place] [address] Karrie Winston Cancer Genetics 01/20/2025 Telephone [facility] [address] [place] [address] Glenys Aly PA Prior Authorization (SUMAtriptan (IMITREX) 100 mg tablet Denied- QUANTITY LIMIT ) 01/13/2025 Telephone [facility] [address] [place] [address] Glenys Aly PA Prior Authorization (rimegepant (NURTEC) 75 mg orally disintegrating tablet Denied) 01/03/2025 9:30 AM CDT Office Visit [facility] [address] [place] [address] Glenys Aly PA Physical (Non Fasting. ) 01/02/2025 Travel 12/28/2024 1:00 PM CDT Office Visit [facility] [address] [place] [address] Donn Estrella DO Rash (started on December 17 comes and goes- itchy/belly button and thigh area/zyrtec and hydrocortisone cream); Medication Management (refill propranolol) 12/28/2024 Travel from Last 3 Months Immunizations Immunization Administration Dates Next Due COVID-19 vaccine (Pfizer-Bio NTech 30mcg/0.3mL) 12YO+ BIVALENT PF, MDV 02/02/2023 COVID-19 vaccine (IID-Bio NTech 30mcg/0.3mL) 12YO+ BERNARDO-SUCROSE PF, MDV 11/07/2021 [...] 2 Psychiatric illness Maternal Grandmother depression, schizophrenia Hypertension Mother Psychiatric illness Mother depressi on [...] Given: Yes Alcohol Use Standard Drinks/Week Comments Not Currently 0 (1 standard drink = 0.6 oz pur e alcohol) PHQ-2 Answer Date Recorded PHQ-2 TOTAL SCORE 2 01/03/2025 Social Connections Answer Date Recorded Do you often feel lonely or isolated from those around you? 0 12/28/2024 Financial Resource Strain Answer Date R ecorded Difficulty of Paying Living Expenses 3 12/28/2024 Difficulty of Paying Living Expenses Not on file 12/28/2024 Food Insecurity Answer Date Recorded Do you worry your food will run out before you are able to buy more? 1 12/28/2024 Transportation Needs Answer Date Record ed Does lack of transportation keep you from medica l appointments? 1 12/28/2024 Does lack of transportation keep you from work, meetings or getting things that you need? 1 12/28/2024 Housing Stability Answer Date Recorded What is your housing situation today? 1 12/28/2024 Utilities Answer Date Recorded Do you have trouble paying f or utilities (for example, heat, electricity, water, phone)? 1 12/28/2024 Comments No Sex and Gender Information Value Date Recorded Sex Assigned at Not on file Legal Sex Female 5:47 AM COPPER ETCHER Gender Identity Not on file Sexual Orientation [...] Sign Reading Time Taken Comments Blood Pressure 104/68 01/03/2025 9:21 AM CDT Pulse 66 01/03/2025 9:21 AM CDT Temperature 37.3 C (99.1 F) 02/11/2024 1:03 PM CDT Respiratory Rate 16 11/26/2017 3:46 PM CDT Oxygen Saturation 98% 01/03/2025 9:21 AM CDT Inhaled Oxygen Concentration - - Weight 90.7 kg (200 lb) 01/03/2025 9:21 AM CDT Height 156.8 cm (5' 1.75) 01/03/2025 9:21 AM CD T Body Mass Index 36.88 01/03/2025 9:21 AM CDT Plan of Treatment Upcoming Encounters Date Type Department Care Team (Late st Contact Info) Description 04/05/2025 2:10 PM CDT Phone OB Encounter [facility] [address] [place] [address] 05/10/2025 1:10 PM COPPER ETCHER OB Encounter [facility] [address] [place] [address] Deb Lux MD [address] [place] [address] Health Maintenance Due Date Last Done Comments HPV series for age 9-45 (2 - 3-dose series) 01/19/2012 12/22/2011 (Declined) COVID-19 vaccine series (2024- season) 2025 02/02/2023, 11/07/2021, 05/13/2021, Additional history exists Influenza Vaccine (#1) 2025 , 04/05/2018, 04/14/2017, Additional history exists BMI (ht and wt on same day) for age 18+ 01/03/2026 01/03/2025, 01/20/2024, 02/02/2023, Additional history exists Depression screening for age 12+ 01/03/2026 01/03/2025, 02/20/2024, 10/16/2022, Additional history exists Tetanus booster 07/16/2027 07/16/2017, 01/14, 02/28/2005 Pap test for age 21-65 01/03/2030 , 01/03/2025, 11/09/2020, Additional history exists RSV vaccine for adults or (1 - 1-dose 75+ series) 2067 Hepatitis B series for 19+ Completed 07/17, 02/24/1995, 02/24/1995, Additional history exists HIV for age 15-65 Completed 02/17/2017 Hepatitis C screening for age 18-79 Completed 02/11/2024 Pneumococcal series for age 6-49 Aged Out No longer eligible based on patient's age to complete this topic Medical Devices Implanted Type Area Sterilization Tech Device Identifier Shelf Expiration Date Model / Serial / Lot Stent Uret [id number] Percuflex Hydroplus - [id number] Implanted:Qty: 1 on 11/26/2017 by Brandon Kaplan MD at [facility] Right: [facility] 04/29/2020 [id number] / / [id number] Procedures Procedure Name Priority Date/Time Associated Diagnosis Comments LIPID PANEL W REFLEX MEASURED LDL Routine 01/03/2025 10:31 AM CDT 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 THIN PREP PAP SCREEN IMAGED Routine 01/03/2025 10:10 AM CDT Screening for cervical cancer HPV HIGH RISK Routine 01/03/2025 10:10 AM CDT Screening for cervical cancer ANTI HCV Routine 02/11/2024 1:57 PM CDT Elevated LFTs ANTI HIV 1/2 Routine 02/17/2017 10:12 AM CDT Supervision of normal first , antepartum (HC) from Last 3 Months or Most Recently Relevant to Health Maintenance Results * (ABNORMAL) LIPID PANEL W REFLEX MEASURED LDL (01/03/2025 10:31 AM CDT) CHOLESTEROL, TOTAL 253(H) <200 mg/dL [facility] HDL CHOLESTEROL 56 > OR = 50 mg/dL [facility] TRIGLYCERIDES 122 <150 mg/dL [facility] LDL-CHOLESTEROL 172(H) mg/dL (calc) [facility] Comment: Reference range: <100 Desirable range <100 mg/dL for primary prevention; <70 mg/dL for patients with CHD or diabetic patients with > or = 2 CHD risk factors. LDL-C is now calculated using the Felisa calculation, which is a validated novel method providing better accuracy than the Friedewald equation in the estimation of LDL-C. Steve SS et al. KENDRA. 2013;310(19): 4781-8776 (http://education.Solapa4/faq/YIX831) CHOL/HDLC RATIO 4.5 <5.0 (calc) [facility] NON HDL CHOLESTEROL 197(H) <130 mg/dL (calc) [facility] Comment: For patients with diabetes plus 1 major ASCVD risk factor, treating to a non-HDL-C goal of <100 mg/dL (LDL-C of <70 mg/dL) is considered a therapeutic option. Blood BLOOD SPECIMEN / Unknown 01/03/2025 10:31 AM CDT 01/03/2025 10:33 AM CDT Glenys MARION CHEMISTRY Final Res ult [employer] [facility] [address] [place] [address], Format [facility] [address] [place] [address] * LOCK INSTALLER THIN PREP PAP SCREEN IMAGED [[id number]] (01/03/2025 10:10 AM CDT) Case Report Gynecologic Cytology Report Case: [id number] Authorizing Provider: Glenys Aly PA Collected: 01/03/2025 1010 Ordering Location: [facility] Received: 01/03/2025 1034 Clinic First Screen: Justino Avila Specimen: LOCK INSTALLER ThinPrep Vial Screening, Cervical 01/11/2025 12:18 PM CDT [facility] [employer] [facility] INTERPRETATION/ RESULT NEGATIVE FOR INTRAEPITHELIAL LESION OR MALIGNANCY (NIL) (none) 01/11/2025 12:18 PM CDT [facility] at 1218 CDT SPECIMEN ADEQUACY Satisfactory for evaluation No endocervical component seen 01/11/2025 12:18 PM CDT [facility] [employer] [facility] HPV REQUEST HPV and PAP 01/11/2025 12:18 PM CDT [facility] [employer] [facility] Date of LMP 11/18/2024 01/11/2025 12:18 PM CDT [facility] [employer] [facility] Last Pap Date 11/09/2020 01/11/2025 12:18 PM CDT [facility] Last Pap Result NIL 12:18 PM CDT [facility] Abnormal Pap or [place] Bx in last 5 years No 01/11/2025 12:18 PM CDT [facility] [employer] [facility] Menstrual Status Irregular Periods 01/11/2025 12:18 PM CDT [facility] [place] Bx Done Today No 01/11/2025 12:18 PM CDT [facility] Additional Information None given 01/11/2025 12:18 PM CDT [facility] Comment: Cytology is screened at [facility] [employer] [facility], Central Laboratory - [address] [place] [address] [facility] - [address] [place], [place] [address] and [facility] - [address], [place] [address] [facility] - [address] [place], [place] [address] Automated Review Successful 01/11/2025 12:18 PM CDT [facility] Comment:Specimen processed s uccessfully by automated coning machine operator device, ThinPrep Imaging System, [employer] 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 It is used primarily to screen for squamous cancers and precursor lesions. Published studies have shown that it is subject to both false negative and false positive results. The pap test should not be used as the sole means to diagnose or exclude pre-malignant and malignant lesions. 01/11/2025 12:18 PM CDT [facility] Other (Cervical) Non-Blood / Unknown 01/03/2025 10:10 AM CDT 01/03/2025 10:34 AM CDT Glenys MARION PATHOLOGY/CYTOLOGY Final Result [facility] [address] [place] [address], * HPV HIGH RISK (01/03/2025 10:10 AM CDT) TYPE 16 Negative Negative 01/05/2025 2:27 PM CDT [facility] TYPE 18 Negative Negative 01/05/2025 2:27 PM CDT [facility] OTHER HIGH RISK TYPES Negative Negative 01/05/2025 2:27 PM CDT [facility] Other (Cervical) Non-Blood / Unknown 01/03/2025 10:10 AM CDT 01/04/2025 9:40 AM CDT Narrative [facility] - 01/05/2025 2:27 PM CDT HPV types 16, 18, 31, 33, 35, 39, 45, 51, 52, 56, 58, 59, 66 and 68 DNA were undetectable or below the pre-set threshold. Methodology: Almaz Nakul 4800 HPV Test Glenys MARION MICROBIOLOGY Final Res ult Performing Organization Address [facility] Co de Phone Number [facility] [address] [place] [address], [place] * ANTI HCV (02/11/2024 1:57 PM CDT) HEPATITIS C ANTIBODY Non-Reacti ve Non-React jerry 02/11/2024 10:55 PM CDT [facility] Comment:Please note, per www .CDC.gov: [...] 1:57 PM CDT 02/11/2024 2:00 PM CDT Qian Chon DO SEND OUTS Final Resu lt Performing Organization Address [facility] de Phone Number [facility] [address] [place] [address], [place] * ANTI HIV 1/2 (02/17/2017 10:12 AM CDT) HIV-1/HIV-2 ANTIBODY Non-Reacti ve Non-Reacti ve 02/17/2017 11:32 PM CDT [facility] Blood BLOOD SPECIMEN / Unknown Venipuncture / Unknown 02/17/2017 10:12 AM CDT 02/17/2017 10:12 AM CDT Narrative [facility] - 02/17/2017 11:32 PM CDT HIV-1 p24 and HIV-1/HIV-2 Ab not detected Komal Bolden MD SEND OUTS Final Res ult Performing Organization Address [facility]/State/ZIP Co de Phone Number [facility] [address] [place] [address], from Last 3 Months or Most Recently Relevant to Health Maintenance Insurance [place] [address] Advance Directives * Full Code (Latest Code Status on File) Date Activated Date Inactivated Comments 11/26/2017 12:48 AM 11/26/2017 7:52 PM Care Teams Stitch Burnisher Relationship Specialty Start Date End Date Glenys Aly PA [address] [place] [address] PCP - General Physician [employer] 01/27/25 Martin Nath Hematology Hematology and Oncology 12/13/12
[2025-03-27 16:39] VITALS: BP 124/85; PULSE 83; RESP 16; TEMP 36.3; O2SAT 98; BMI 37.8
--- NOTE | 2025-03-27 16:47 | CRLHL7_ITS ---
For Patients: As a result of the Century Cures Act, medical imaging exams and procedure reports are released immediately into your electronic medical record. You may view this report before your referring provider. If you have questions, please contact your health care provider. INDICATION: VAGINAL BLEEDING, . (Sic) No other history given. COMPARISON: None available. TECHNIQUE: Endovaginal pelvic ultrasound. FINDINGS: Uterus: Empty uterus. Endometrial stripe thickness is 16 mm, at the upper limit of normal for a secretory endometrium. Right ovary: Not seen. Left ovary: Not seen. No free pelvic fluid. IMPRESSION: No sign of intrauterine or findings suspicious for ectopic . If there is a positive test and findings are consistent with a of unknown location. Endometrial stripe thickness is at the upper limit of normal. Given the borderline thickened endometrial stripe differential diagnostic considerations include a spontaneous in progress, occult ectopic or early IUP. If the patient is clinically stable then follow-up ultrasound and serial beta HCG is recommended. OB consultation is suggested. Dictated by Martin Sandoval MD @ 03/27/2025 6:12:01 PM (Electronically Signed)
[2025-03-27 17:12] LABS: Hematocrit* 42.2 % (33.0-51.0); Hemoglobin* 14.0 gm/dL (12.0-16.0); Immature Granulocytes Abs Auto 0.01 K/uL (0.00-0.30); Immature Granulocytes Pct Auto 0.1 %; Lymphocytes Absolute Auto 2.85 K/uL (0.90-2.90); Mean Corpuscular HGB Conc 33 gm/dL (32-36); Mean Corpuscular Hemoglobin 30 pg (26-34); Mean Corpuscular Volume 89 fL (80-100); RDW Coefficient of Variation % 12.4 % (11.5-15.5); Red Blood Count* 4.75 m/uL (4.00-5.20); White Blood Count* 9.93 K/uL (4.50-11.00)
[2025-03-27 17:15] LABS: Slide Review Reflex No
[2025-03-27 17:48] LABS: HCG Quantitative* < 2.39 mIU/mL
--- NOTE | 2025-03-27 18:12 | ED.GENADULT ---
HPI - General Adult General Chief complaint: Vaginal Bleeding Stated complaint: 4 weeks preg. bleeding Time Seen by Provider: 03/27/25 16:42 Source: patient Mode of arrival: ambulatory Limitations: no limitations History of Present Illness HPI narrative: 34-year-old female presenting today with vaginal bleeding after taking a test at home which was positive. test was taken last week and bleeding started today. Little bit more than spotting. Patient states that her period was due 1 week ago and she did not have any bleeding until today. She is actively trying to get . Does have a daughter at home. Denies any breast tenderness, did feel little nauseated over the last couple of weeks. Denies vomiting no fevers. No vaginal discharge. Related Data Home Medications ?Medication ?Instructions ?Recorded ?Confirmed fluoxetine 40 mg capsule 80 mg PO DAILY 02/10/22 03/27/25 propranolol 60 mg capsule,24 60 mg PO Q24H 02/10/22 03/27/25 hr,extended release Allergies Allergy/AdvReac Type Severity Reaction Status Date / Time Estrogens Allergy Mild Verified 10/26/24 09:41 Review of Systems Status of ROS: Reports: 6 or more systems reviewed and unremarkable except as noted in History and below [facility] Medical History Kidney stone ?N20.0 - Calculus of kidney (ICD-10) Chronic back pain ?M54.9 - Dorsalgia, unspecified (ICD-10) ?G89.29 - Other chronic pain (ICD-10) Anxiety ?F41.9 - Anxiety disorder, unspecified (ICD-10) Depression ?F32.A - Depression, unspecified (ICD-10) Surgical History History of cholecystectomy ?Z90.49 - Acquired absence of other specified parts of digestive tract (ICD-10) History of delivery ?Z98.891 - History of uterine scar from previous surgery (ICD-10) Social History Smoking Status: Never smoker Do you use any of these nicotine containing products: None Second hand tobacco smoke exposure: No How often do you have a drink containing alcohol: never AUDIT-C Alcohol total score: 0 Non-prescribed substance use: marijuana (any form) service: No Exam Narrative: Exam Narrative: Well-nourished well-developed patient in no acute distress. Alert and oriented. Answers questions appropriately. Mood and affect are appropriate. Thoughts are goal oriented and rational. No tangential or magical thinking noted. Patient speaks in full sentences without needing to catch her breath. HEENT: Normocephalic atraumatic. Pupils are equally round reactive to light. Extraocular muscles are intact. Conjunctivae are moist without any icterus noted. Moist mucous membranes. Abdomen: Soft and nontender. Skin: Well perfused without any obvious rashes. Const: Vital Signs, click to edit/add: Vital Signs - 24 hr 03/27/25 16:39 Temperature 97.3 F L Pulse Rate [Pulse Oximeter] 83 Respiratory Rate 16 Blood Pressure [Ri ght Upper Arm] 124/85 Pulse Oximetry 98 Oxygen Delivery Me thod Room Air Course Course ED Course: Ultrasound did not visualize any intrauterine or ectopic . HCG is less than 2.39. Vital Signs Vital signs: Initial Vital Signs Temperature 97.3 F L 03/27/25 16:39 Temperature Source Temporal Artery Scan 03/27/25 16:39 Pulse Rate 83 03/27/25 16:39 Respiratory Rate 16 03/27/25 16:39 Blood Pressure 124/85 03/27/25 16:39 Blood Pressure Mean 98 03/27/25 16:39 Pulse Oximetry 98 03/27/25 16:39 Oxygen Delivery Method Room Air 03/27/25 16:39 Vital Signs Temperature 97.3 F L 03/27/25 16:39 Pulse Rate 83 03/27/25 16:39 Respiratory Rate 16 03/27/25 16:39 Blood Pressure 124/85 03/27/25 16:39 Pulse Oximetry 98 03/27/25 16:39 Oxygen Delivery Method Room Air 03/27/25 16:39 Temperature 97.3 F L 03/27/25 16:39 Pulse Rate 83 03/27/25 16:39 Respiratory Rate 16 03/27/25 16:39 Blood Pressure 124/85 03/27/25 16:39 Pulse Oximetry 98 03/27/25 16:39 Oxygen Delivery Method Room Air 03/27/25 16:39 Medical Decision Making MDM Narrative Medical decision making narrative: 34-year-old female status post positive test at home, no evidence of today with very low HCG levels. We discussed the possibility of a chemical or a very early on. If bleeding continues, and she is not soaking more than 1 pad per hour this is likely her normal monthly menses. Bleeding stops, recommend repeating test in 48 hours. Follow-up with [facility] or primary care for repeat beta-hCG levels in that case. Lab Data Lab results reviewed: Yes I reviewed the patient's lab results Labs: Lab Results 03/27/25 Range/Units 17:02 WBC 9.93 (4.50-11.00) K/uL RBC 4.75 (4.00-5.20) m/uL Hgb 14.0 (12.0-16.0) gm/dL Hct 42.2 (33.0-51.0) % MCV 89 (80-100) fL MCH 30 (26-34) pg MCHC 33 (32-36) gm/dL RDW Coeff of Stefan 12.4 (11.5-15.5) % Plt Count 368 (140-440) K/uL Neut % (Auto) 61.9 (42.0-72.0) % Lymph % (Auto) 28.7 (20-44) % Wilkes % (Auto) 8.0 (0.0-11.0) % Eos % (Auto) 0.9 (0.0-7.0) % Baso % (Auto) 0.4 (0.0-3.0) % Neut # (Auto) 6.15 (1.7-7.0) K/uL Lymph # (Auto) 2.85 (0.90-2.90) K/uL Wilkes # (Auto) 0.80 (0.00-0.90) K/UL Eos # (Auto) 0.09 (0.00-0.50) K/uL Baso # (Auto) 0.04 (0.00-0.30) K/uL Abs Immat Gran (auto) 0.01 (0.00-0.30) K/uL Imm/Tot Granulo (auto) 0.1 % HCG, Quant < 2.39 mIU/mL Blood Type A Negative Imaging Data US - abdomen: Attestation: I have reviewed the pertinent imaging results. Radiologist's impression: TECHNIQUE: Endovaginal pelvic ultrasound. FINDINGS: Uterus: Empty uterus. Endometrial stripe thickness is 16 mm, at the upper limit of normal for a secretory endometrium. Right ovary: Not seen. Left ovary: Not seen. No free pelvic fluid. IMPRESSION: No sign of intrauterine or findings suspicious for ectopic . If there is a positive test and findings are consistent with a of unknown location. Endometrial stripe thickness is at the upper limit of normal. Given the borderline thickened endometrial stripe differential diagnostic considerations include a spontaneous in progress, occult ectopic or early IUP. If the patient is clinically stable then follow-up ultrasound and serial beta HCG is recommended. OB consultation is suggested. Discharge Plan Discharge Clinical Impression: Vaginal bleeding Patient Disposition: Home, Self-Care Condition: Stable Additional Instructions: Likely this is a very early miscarriage. If bleeding continues, would treat this as a normal monthly period. If bleeding stops, recommend repeating test in 48 hours. If positive I recommend you follow-up with your primary care provider or OBGYN for repeat beta-hCG test. Prescriptions: No Action fluoxetine 40 mg capsule 80 mg PO DAILY Patient Comments: Take 2 Capsules (80 mg) by mouth every morning. propranolol 60 mg capsule,extended release 24 hr 60 mg PO Q24H Patient Comments: Take 1 Capsule (60 mg) by mouth once daily. Follow Up/Referrals: Glenys Aly PA-C [Primary Care Provider, Family Practice] Stand Alone Forms: [employer] Info Instructions
== END 2025-03-27 18:29 | disposition home or self-care (01) ==
PROVIDERS: Emergency Provider Family Medicine; PCP Student in an Organized Health Care Education/Training Program
DX: N93.9 Abnormal uterine and vaginal bleeding, unspecified (principal)
CPT/HCPCS: 36415; 76817; 84702; 85025; 86900; 86901; 99283; 99284